=== PATIENT | male | born 1965 | race Caucasian/White ===

== ENCOUNTER → 2017-11-07 | Outpatient (CLI) | payer BC ==
--- NOTE | 2017-11-07 16:04 | CONS ---
CONSULTATION DATE OF SERVICE: 11/07/2017 This patient is a 52-year-old gentleman who has been evaluated in the sleep center for obstructive sleep apnea-hypopnea syndrome. HISTORY OF PRESENT ILLNESS/SLEEP-WAKE EVALUATION: Patient was diagnosed with obstructive sleep apnea in our institution in 2010. At that time, apnea-hypopnea index was 15.6 and respiration was under control with CPAP at the pressure 7 cm of water. Since that time, patient has been on treatment with CPAP and continued to use it until the present time without any significant problems. At present he is using his second CPAP unit and using his machine every night for the whole night. His sleep schedule on working days is from 10:30 p.m. until 6 a.m., and he gets out of bed around 7 a.m. On the weekend his sleep schedule is about the same. No problem with falling asleep. No TV in bedroom. No snoring with the machine. The patient basically sleeps through the night; may have one episode of nocturia. During the day, no sleepiness. He does not take any naps. Hopkins Sleepiness Scale is normal at 5. PAST MEDICAL HISTORY: Tonsillitis. PAST SURGICAL HISTORY: 1. Tonsillectomy. 2. Rhinoplasty. 3. ACL surgery in 2004. MEDICATIONS: None. SOCIAL HISTORY: Negative for smoking. Alcohol consumption occasional. FAMILY HISTORY: Hypertension, heart problems, hyperlipidemia, sinus headaches, sleep apnea, snoring. REVIEW OF SYSTEMS: Basically negative. PHYSICAL EXAMINATION: GENERAL A pleasant gentleman without distress. VITAL SIGNS: BP 104/69, HR 80, RR 16, height 6 feet 1-1/2 inches. Weight 212, BMI 28. Neck 15-1/2 inches in circumference. Temperature 98.0. Oxygen saturation room air 97% HEENT: PERRLA, EOMI. Evaluation of oropharynx showed tongue protrudes midline; low position of soft palate. Slight restriction of nasal breathing. NECK: Supple. No JVD. Thyroid is not palpable. LUNGS: Clear to percussion and to auscultation. Good air exchange. No wheezing or rhonchi. HEART: S1, S2 regular. No murmurs, gallops or rubs. ABDOMEN: Soft and nontender. Bowel sounds are present. No organomegaly appreciated. EXTREMITIES : No clubbing or cyanosis. PHOTOGRAPHIC MACHINE OPERATOR: Awake, alert, and oriented X3. Cranial nerves 2 to 7 intact. There is no fasciculation or atrophy. noted. No focal deficits observed. IMPRESSION: 1. Obstructive sleep apnea-hypopnea syndrome for 7 years. The patient continues to use his CPAP equipment every night for the whole night and sleeps without snoring, benefitting from treatment. 2. Slightly overweight. Patient's weight has increased by 10 pounds since his previous visit about 7 years ago. 3. Status post rhinoplasty. 4. Status post tonsillectomy. 5. Status post ACL surgery in 2004. PLAN: 1. Patient will continue to use his CPAP equipment with the same pressure every night for the whole night. 2. Sleep hygiene with regular time in bed for at least 8 hours. 3. No driving if feeling any sleepiness. 4. Prescription for all necessary CPAP supplies, including mask of patient's choice, tube, filters. Thank you very much for allowing me to participate in the management of your patient. Sincerely, Karlo Thomas MD, PhD, FAASM Diplomat of [place] [employer] [place] [employer] Auditing Coder of [facility] [place] MMODL / HERNÁNN: [id number] /
== END | disposition home or self-care (01) ==
LOC: SLEEP 14:25
PROVIDERS: ATTEND Internal Medicine
DX: G47.33 Obstructive sleep apnea (adult) (pediatric) (principal); E66.3 Overweight; Z99.89 Dependence on other enabling machines and devices; Z98.890 Other specified postprocedural states; Z87.09 Personal history of other diseases of the respiratory system; Z68.28 Body mass index [BMI] 28.0-28.9, adult
CPT/HCPCS: 99211

== ENCOUNTER → 2018-01-07 | Outpatient (CLI) | payer BC ==
--- NOTE | 2018-01-07 22:14 | US ---
EXAMINATION TYPE: US scrotum with doppler. Grayscale and color Doppler Duplex imaging performed of t manjinder scrotum. DATE OF EXAM: 01/07/2018 COMPARISON: NONE CLINICAL HISTORY: N45.1 Epididimitis. Right testicle pain and swelling. EXAM MEASUREMENTS: TESTICLES: Right Testicle: 4.7 x 3.1 x 3.7 cm Left Testicle: 4.4 x 3.0 x 4.2 cm EPIDIDYMIS HEAD: Right Epididymis: 1.4 x 1.2 x 1.2 cm Left Epididymis: 1.3 x 1.2 x 1.4 cm Doppler performed to assess for testicular vascularity; good bilateral color flow and waveforms are s een. There is no evidence of testicular torsion. Presence of hydroceles: Yes bilateral with debris seen on right side. Presence of varicoceles: No. Bilateral hydroceles visualized with normal color doppler flow. IMPRESSION: No testicular torsion or mass. Bilateral mild to moderate hydroceles. There is some echog enicity within the right side fluid of uncertain significance.
== END | disposition home or self-care (01) ==
LOC: RADUSMAIN 17:51
PROVIDERS: ATTEND Family Medicine
DX: N43.3 Hydrocele, unspecified (principal)
CPT/HCPCS: 76870; 93975

== ENCOUNTER → 2018-06-05 | Outpatient (CLI) | payer BC ==
--- NOTE | 2018-06-05 11:58 | SFUN ---
SLEEP CENTER FOLLOW UP NOTE DATE OF SERVICE: 06/05/2018 This 53-year-old gentleman who has been followed in sleep center for treatment of obstructive sleep apnea-hypopnea syndrome. Patient successfully continued to use CPAP equipment every night for the whole night. Recently feels slightly more tired than usually before. Cougar Sleepiness Scale is normal 2. 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 I checked patient's CPAP unit. CPAP pressure is 7 cm of water. Usage is 100% of the more than 4 hours. Average usage is 8 hours. Mask fitting, 99%. Apnea-hypopnea index reading for the last month 10.4. MEDICATIONS: None. PHYSICAL EXAMINATION: During physical exam, gentleman without distress. VITAL SIGNS: BP 111/71, HR 72, RR 16, height 6 feet 2 inches, weight 210.0, body mass index 26.9, temperature 97.5, oxygen saturation at room air 96%. HEENT: PERRLA, EOMI. The oropharynx low position of soft palate. Mallampati 4. NECK: Supple, no JVD. Thyroid is not palpable. LUNGS: Clear to percussion and to auscultation. Good air exchange. No wheezing or rhonchi. HEART: S1, S2 regular. No murmurs, gallops, or rubs. ABDOMEN: Soft and nontender. Bowel sounds are present. No organomegaly appreciated. EXTREMITIES: No clubbing or cyanosis. AUTOMOTIVE BRAKE TECHNICIAN: Awake, alert, and oriented X3. Cranial nerves 2 to 7 intact. There is no fasciculation or atrophy. noted. No focal deficits observed. IMPRESSION: 1. Obstructive sleep apnea-hypopnea syndrome. The patient demonstrated 100% compliance with treatment benefitting from treatment. Presently apnea-hypopnea index increased to 10.4 for the last month by reading from the machine at the pressure of 7 cm of water. 2. Status post tonsillectomy. 3. Status post rhinoplasty. 4. Status post ACL surgery. 5. 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 PLAN: 1. I changed regimen of the machine to automatic with range of the pressure 5 to 15 cm of water. 2. Patient will continue to use CPAP equipment every night for the whole night. 3. Sleep hygiene with regular time in bed for at least 8 hours. 4. No driving if feeling any sleepiness. 5. I will see patient for followup visit in 1 month to recheck his apnea-hypopnea index reading from the machine and make any necessary adjustments if necessary. Thank you very much for allowing me to participate in management of your patient. Sincerely, Karlo Thomas MD, PhD, FAASM Diplomat of [place] [employer] [place] [employer] Certified Legal Secretary Specialist of [facility] [place] MMODL / KRISTIAN: [id number] /
== END | disposition home or self-care (01) ==
LOC: SLEEP 09:40
PROVIDERS: ATTEND Internal Medicine
DX: G47.33 Obstructive sleep apnea (adult) (pediatric) (principal); Z90.89 Acquired absence of other organs; Z98.890 Other specified postprocedural states; Z99.89 Dependence on other enabling machines and devices

== ENCOUNTER 2018-06-21 15:29 | Emergency (ER) | payer BC ==
[2018-06-21 15:36] VITALS: TEMP 98
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
--- NOTE | 2018-06-21 16:08 | XR ---
EXAMINATION TYPE: XR chest 2V DATE OF EXAM: 06/21/2018 COMPARISON: Chest x-ray May 23, 2013 HISTORY: Chest pain into scapulas. Nausea and vomiting. TECHNIQUE: Frontal and lateral views of the chest are obtained. FINDINGS: There is no focal air space opacity, pleural effusion, or pneumothorax seen. The cardiac silhouette size is within normal limits. Displaced fracture through the middle one third left clavicl e noted. IMPRESSION: No suspicious acute cardiopulmonary process.
[2018-06-21] MEDS ORDERED: HYDROcodone/APAP 7.5-325MG 1 EACH TAB PO ONE (16:25)
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
[2018-06-21] MEDS ORDERED: KETOROLAC 30 MG/ML 1 ML VIAL IVP STA ×2 (16:46→16:48)
[2018-06-21 17:24] VITALS: BP 120/74; PULSE 98; RESP 16
== END 2018-06-21 17:24 | disposition home or self-care (01) ==
LOC: EC 15:29
DX: S42.002A Fracture of unspecified part of left clavicle, initial encounter for closed fracture (principal); G47.30 Sleep apnea, unspecified; Z99.89 Dependence on other enabling machines and devices; Z87.39 Personal history of other diseases of the musculoskeletal system and connective tissue; Z79.52 Long term (current) use of systemic steroids; Z53.20 Procedure and treatment not carried out because of patient's decision for unspecified reasons; Z53.8 Procedure and treatment not carried out for other reasons; V86.02XA Driver of snowmobile injured in traffic accident, initial encounter; Y92.410 Unspecified street and highway as the place of occurrence of the external cause
CPT/HCPCS: 73030; 73000; 71046; 72125; 70450; 99284; 96374; L3670; J1885

== ENCOUNTER → 2018-06-24 | Outpatient (CLI) | payer BC ==
--- NOTE | 2018-06-25 10:17 | ECHOF ---
Referral Reason:R94.31 Abnormal EKG MEASUREMENTS -------- HEIGHT: 162.6 cm WEIGHT: 95.3 kg BP: IVSd: 1.2 cm (0.6 - 1.1) LVIDd: 4.0 cm (3.9 - 5.3) LVPWd: 1.5 cm (0.6 - 1.1) IVSs: 1.5 cm LVIDs: 3.2 cm LVPWs: 1.8 cm LA Diam: 2.3 cm (2.7 - 3.8) Ao Diam: 3.6 cm (2.0 - 3.7) MV E Christoph: 0.57 m/s MV DecT: 174 ms MV A Christoph: 0.62 m/s MV E/A Ratio: 0.92 RAP: 5.00 mmHg RVSP: 23.23 mmHg MV EF SLOPE: 64.39 mm/s (70 - 150) MV EXCURSION: 2.02 cm (> 18.000) FINDINGS -------- Sinus rhythm. Pt test done standing due to L FX Clavicle. The left ventricular size is normal. There is mild concentric left ventricular hypertrophy. Overa ll left ventricular systolic function is normal with, an EF between 55 - 60 %. The right ventricle is normal in size. The left atrial size is normal. The aortic valve is trileaflet, and appears structurally normal. No aortic stenosis or regurgitation. Mild mitral regurgitation is present. Mild prolapse of the posterior mitral valve leaflet. Mild tricuspid regurgitation present. There is no evidence of pulmonary hypertension. The right v entricular systolic pressure, as measured by Doppler, is 23.23mmHg. There is no pulmonic regurgitation present. The aortic root size is normal. There is no pericardial effusion. CONCLUSIONS -------- 1. Pt test done standing due to L FX Clavicle. 2. The left ventricular size is normal. 3. Overall left ventricular systolic function is normal with, an EF between 55 - 60 %. 4. The right ventricle is normal in size. 5. The left atrial size is normal. 6. The aortic valve is trileaflet, and appears structurally normal. No aortic stenosis or regurgitati on. 7. Mild mitral regurgitation is present. 8. Mild prolapse of the posterior mitral valve leaflet. 9. Mild tricuspid regurgitation present. 10. There is no evidence of pulmonary hypertension. 11. The right ventricular systolic pressure, as measured by Doppler, is 23.23mmHg. 12. There is no pulmonic regurgitation present. 13. The aortic root size is normal. 14. There is no pericardial effusion. MEDICAL CODING INSTRUCTOR: Cecilia Ulloa RDCS
== END ==
LOC: RADECHMAIN 13:04
PROVIDERS: ATTEND Family Medicine
DX: I08.1 Rheumatic disorders of both mitral and tricuspid valves (principal)
CPT/HCPCS: 93306

== ENCOUNTER → 2018-06-26 | Day surgery (SDC) | payer BC ==
[2018-06-24 10:34] VITALS: BMI 26.2
[~2018-06-26] MED LIST: DEXAMETHASONE SOD PHOSPHATE 10 MG/ML 1 ML VIAL IV ONE; GLYCOPYRROLATE 0.2 MG/ML 2 ML VIAL ONE; HYDROmorphone (PF) 1 MG/ML ONE; HYDROmorphone 0.5 MG/0.5 ML SYRINGE IVP PRN; LACTATED RINGERS 1,000 ML IV ONE; LIDOCAINE 1% INJ 10MG/ML (20 ML MDV) ONE; LIDOCAINE 2%-EPI 1:200,000 20 ML VIAL SQ ONE; MIDAZOLAM 2 MG/2 ML VIAL ONE; NEOSTIGMINE 1 MG/ML 10 ML VIAL ONE; ONDANSETRON 4 MG/2 ML VIAL IVP ONE; PROMETHAZINE INJ 25 MG/ML 1 ML VIAL IVPB ONE; PROPOFOL 10 MG/ML 20 ML VIAL IV ONE; ROCURONIUM BROMIDE 10 MG/ML 10 ML VIAL IV ONE; SUCCINYLCHOLINE CHLORIDE 100 MG/5 ML SYR IV ONE; ceFAZolin IN SWFI 2 GM/20 ML SYRINGE IVP ONE; fentaNYL (PF) 50 MCG/ML 2 ML AMP ONE
[2018-06-26 06:28] VITALS: TEMP 97.6
[2018-06-26] MEDS: LACTATED RINGERS 1,000 ML IV SCH ×3 (06:41→11:45)
[2018-06-26] MEDS: SCOPOLAMINE 1.5MG/72HR PATCH TRANSDERM ONE ×2 (06:46→07:10)
--- NOTE | 2018-06-26 09:51 | XR ---
Fluoroscopy History: Lt clavicle ORIF Lt clavicle ORIF, 1 image scanned . 3 sec fluoro
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
[2018-06-26 10:41] VITALS: RESP 16
[2018-06-26 13:11] VITALS: BP 103/64; PULSE 79
== END | disposition home or self-care (01) ==
LOC: OR 05:48
PROVIDERS: ATTEND Orthopaedic Surgery
DX: S42.022A Displaced fracture of shaft of left clavicle, initial encounter for closed fracture (principal); V86.92XA Unspecified occupant of snowmobile injured in nontraffic accident, initial encounter; Y93.29 Activity, other involving ice and snow; D68.0 Von Willebrand disease; S42.262D Displaced fracture of lesser tuberosity of left humerus, subsequent encounter for fracture with routine healing; V86.92XD Unspecified occupant of snowmobile injured in nontraffic accident, subsequent encounter; G47.33 Obstructive sleep apnea (adult) (pediatric); H81.10 Benign paroxysmal vertigo, unspecified ear; M54.2 Cervicalgia; M54.10 Radiculopathy, site unspecified; Z87.442 Personal history of urinary calculi
CPT/HCPCS: 73000; 23515; J2250; J1100; J2550; J2710; J2405; J2001; J3010; J1170; J0330; J2704; J0690

== ENCOUNTER → 2018-07-17 | Outpatient (CLI) | payer BC ==
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
== END | disposition home or self-care (01) ==
LOC: SLEEP 13:14
PROVIDERS: ATTEND Internal Medicine
DX: G47.33 Obstructive sleep apnea (adult) (pediatric) (principal); S29.9XXA Unspecified injury of thorax, initial encounter; Z90.89 Acquired absence of other organs; Z98.890 Other specified postprocedural states; Z99.89 Dependence on other enabling machines and devices

== ENCOUNTER 2021-03-10 11:22 | Emergency (ER) | payer BC ==
[2021-03-10 11:27] VITALS: BP 121/78; PULSE 86; RESP 18; TEMP 97.5
[2021-03-10] MEDS ORDERED: LIDOCAINE/EPINEPHR/TETRACAINE 5 ML BOTTLE TOPICAL ONE (11:58)
--- NOTE | 2021-03-10 11:58 | ED ---
Wound/Laceration HPI - General Chief Complaint: Wound/Laceration Stated Complaint: facial lac Time Seen by Provider: 03/10/21 11:41 Source: patient, RN notes reviewed Mode of arrival: ambulatory Limitations: no limitations - History of Present Illness Initial Comments: Patient is a 56-year-old male presented to ED for left lower lip laceration. Patient states that while chopping wood handle of axe slipped and caught him in the lower lip. Patient states that laceration won't stop bleeding that being the reason he came to ED. Patient states that last tetanus was within the last 5 years, "thinks he is up-to-date". Patient states no numbness or tingling or dental damage associated with injury. Patient denies any other injuries with incident. - Related Data Home Medications Medication Instructions Recorded Confirmed traMADol HCL [Ultram] 50 mg PO Q6HR PRN 06/24/18 06/26/18 Previous Rx's Medication Instructions Recorded Ibuprofen [Motrin] 600 mg PO Q6HR PRN #40 day 06/21/18 Docusate [Colace] 100 mg PO BID #60 capsule 06/26/18 Hydrocodone/Acetaminophen [[place] 1 - 2 tab PO Q4-6H PRN #40 tab 06/26/18 5-325] Allergies Allergy/AdvReac Type Severity Reaction Status Date / Time No Known Allergies Allergy Verified 03/10/21 11:26 Review of Systems ROS Statement: Those systems with pertinent positive or pertinent negative responses have been documented in the HPI. ROS Other: All systems not noted in ROS Statement are negative. Past Medical History Past Medical History: Osteoarthritis (OA), Sleep Apnea/CPAP/BIPAP Additional Past Medical History / Comment(s): C-PAP/ SEE DR MARINO HISTORY AND PHYSICAL (CARDIAC), VON WILLEBRAND DISEASE History of Any Multi-Drug Resistant Organisms: None Reported Past Surgical History: Orthopedic Surgery, Tonsillectomy Additional Past Surgical History / Comment(s): NASAL SURGERY , RIGHT KNEE ARTHROSCOPIC shoulder surgery Past Anesthesia/Blood Transfusion Reactions: Previous Problems w/ Anesthesia, Motion Sickness Additional Past Anesthesia/Blood Transfusion Reaction / Comment(s): VON WILLEBRAND DISEASE- INCREASED BLEEDING WITH PREVIOUS SURGERY Past Psychological History: No Psychological Hx Reported Smoking Status: Never smoker Past Alcohol Use History: Occasional Past Drug Use History: None Reported - Past Family History Daughter(s) Family Medical History: Deep Vein Thrombosis (DVT) General Exam Limitations: no limitations General appearance: alert, in no apparent distress Expanded Mouth exam: Present: normal external inspection, laceration (Lower lip) Teeth exam: Present: normal inspection Respiratory exam: Present: normal lung sounds bilaterally. Absent: respiratory distress, wheezes, rales, rhonchi, stridor Cardiovascular Exam: Present: regular rate, normal rhythm, normal heart sounds. Absent: systolic murmur, diastolic murmur, rubs, gallop, clicks Neurological exam: Present: alert, oriented X3 Skin exam: Present: warm, dry, intact, normal color. Absent: rash Course Vital Signs 03/10/21 11:23 Temperature 97.5 F L Pulse Rate 86 Respiratory 18 Rate Blood Pressure 121/78 O2 Sat by Pulse 97 Oximetry Procedures - Procedures Initial comment: Facial laceration was cleaned, let solution was applied, EXOFIN adhesive glue was used to close the wound Medical Decision Making - Medical Decision Making Wound was cleaned, closed with dermal adhesive tetanus is up-to-date. Disposition Clinical Impression: Lip laceration Disposition: HOME SELF-CARE Condition: Stable Instructions (If sedation given, give patient instructions): Laceration (ED), Skin Adhesive Care (ED) Additional Instructions: Please return to the Emergency Department if symptoms worsen or any other concerns. Is patient prescribed a controlled substance at d/c from ED?: No Referrals: Ld Boudreaux MD [Primary Care Provider] - 1-2 days Time of Disposition: 12:35
[2021-03-10] MEDS ORDERED: TOPICAL SKIN ADHESIVE 1 EACH AMP TOPICAL ONE (12:28)
== END 2021-03-10 12:43 | disposition home or self-care (01) ==
LOC: EC 11:22
DX: S01.511A Laceration without foreign body of lip, initial encounter (principal); M19.90 Unspecified osteoarthritis, unspecified site; Z90.89 Acquired absence of other organs; W31.2XXA Contact with powered woodworking and forming machines, initial encounter
CPT/HCPCS: 12011; 99282

== ENCOUNTER 2021-09-29 07:37 | Day surgery (SDC) | payer BC ==
[2021-09-27 17:09] VITALS: BMI 27.5
[~2021-09-29 07:37] MED LIST changes: -DEXAMETHASONE SOD PHOSPHATE 10 MG/ML 1 ML VIAL IV ONE; -GLYCOPYRROLATE 0.2 MG/ML 2 ML VIAL ONE; -HYDROmorphone (PF) 1 MG/ML ONE; -HYDROmorphone 0.5 MG/0.5 ML SYRINGE IVP PRN; -LACTATED RINGERS 1,000 ML IV ONE; +LACTATED RINGERS 1,000 ML IV SCH; +LIDOCAINE 1% (10MG/ML) FOR IV START INTRADERMA PRN; -LIDOCAINE 1% INJ 10MG/ML (20 ML MDV) ONE; -LIDOCAINE 2%-EPI 1:200,000 20 ML VIAL SQ ONE; -MIDAZOLAM 2 MG/2 ML VIAL ONE; -NEOSTIGMINE 1 MG/ML 10 ML VIAL ONE; -ONDANSETRON 4 MG/2 ML VIAL IVP ONE; +ONDANSETRON 4 MG/2 ML VIAL IVP PRN; -PROMETHAZINE INJ 25 MG/ML 1 ML VIAL IVPB ONE; -PROPOFOL 10 MG/ML 20 ML VIAL IV ONE; -ROCURONIUM BROMIDE 10 MG/ML 10 ML VIAL IV ONE; -SUCCINYLCHOLINE CHLORIDE 100 MG/5 ML SYR IV ONE; -ceFAZolin IN SWFI 2 GM/20 ML SYRINGE IVP ONE; -fentaNYL (PF) 50 MCG/ML 2 ML AMP ONE
[2021-09-29 08:04] VITALS: RESP 16; TEMP 98.4
[2021-09-29] MEDS ORDERED: ONDANSETRON 4 MG/2 ML VIAL IVP ONE (08:05)
[2021-09-29] MEDS ORDERED: PROPOFOL 10 MG/ML 20 ML VIAL IV ONE (09:03)
--- NOTE | 2021-09-29 09:28 | P.PCN ---
Date of Procedure: 09/29/21 Procedure(s) Performed: BRIEF HISTORY: Patient is a 56-year-old pleasant white male scheduled for an elective colonoscopy as a part of screening for colon cancer PROCEDURE PERFORMED: Colonoscopy with snare polypectomy . PREOPERATIVE DIAGNOSIS: Screening for colon cancer. IV sedation per Anesthesia. PROCEDURE: After informed consent was obtained, the patient, was brought into the endoscopy unit. IV sedation was administered by Anesthesia under continuous monitoring. Digital rectal examination was normal. Initially the Olympus CF-160 flexible video colonoscope was then inserted in the rectum, gradually advanced into the cecum without any difficulty. Careful examination was performed as the scope was gradually being withdrawn. Ileocecal valve and the appendiceal orifice were visualized and appeared normal. Prep was excellent. Mucosa of the cecum, ascending colon, transverse colon, descending colon normal. In the sigmoid there was a 5 mm sessile polyp that was removed by snare polypectomy. Rest of the, sigmoid colon, and rectum appeared normal. Retroflexion was performed in the rectum and no lesions were seen. The patient tolerated the procedure well. IMPRESSION: 5 mm; sigmoid polyp status post polypectomy Rest of the colon appeared normal RECOMMENDATIONS: Findings of this examination were discussed with the patient well as his family. He was advised to follow with the biopsy results. If the biopsy reveals adenoma he can have a repeat colonoscopy in 5 years.
[2021-09-29 09:50] VITALS: BP 118/80; PULSE 68
== END 2021-09-29 10:26 | disposition home or self-care (01) ==
LOC: ORWHC2ENDO 07:37
PROVIDERS: ATTEND Internal Medicine Gastroenterology
DX: Z12.11 Encounter for screening for malignant neoplasm of colon (principal); D12.5 Benign neoplasm of sigmoid colon
CPT/HCPCS: 45385; 88305; J2405; J2704

== ENCOUNTER 2023-02-01 16:40 | Inpatient (IN) | payer BC ==
[2023-02-01] MEDS ORDERED: DILTIAZEM DRIP BOLUS FROM BAG 1 MG SOLN IV ONE (16:46)
[2023-02-01] MEDS ORDERED: SODIUM CHLORIDE 0.9% 500 ML 500 ML IV STA (16:46)
--- NOTE | 2023-02-01 16:51 | ED ---
General Adult HPI - General Stated complaint: Chest Pain Time Seen by Provider: 02/01/23 16:40 Source: patient, RN notes reviewed, old records reviewed - History of Present Illness Initial comments: This is a 58-year-old male who presents emergency department stating that about a half hour prior to arrival he felt his heart start flutter and he became very lightheaded and thought he might pass out so he called EMS he was brought to the emergency part per patient has no medical history of significance takes no medications. Patient states his father did have significant cardiac history and had A. fib. Patient look like he was in atrial fibrillation according to EMS. Patient denies any significant shortness of breath per patient denies any chest pain. Patient denies any recent fever chills or cough. Patient denies any abdominal pain patient denies nausea vomiting diarrhea. - Related Data Home Medications Medication Instructions Recorded Confirmed No Known Home Medications 09/27/21 02/01/23 Allergies Allergy/AdvReac Type Severity Reaction Status Date / Time No Known Allergies Allergy Verified 02/01/23 19:27 Review of Systems ROS Statement: Those systems with pertinent positive or pertinent negative responses have been documented in the HPI. ROS Other: All systems not noted in ROS Statement are negative. Past Medical History Past Medical History: Blood Disorder, Osteoarthritis (OA), Sleep Apnea/CPAP/BIPAP Additional Past Medical History / Comment(s): uses C-PAP, VON WILLEBRAND DISEASE History of Any Multi-Drug Resistant Organisms: None Reported Past Surgical History: Orthopedic Surgery, Tonsillectomy Additional Past Surgical History / Comment(s): NASAL SURGERY , RIGHT KNEE ACL ARTHROSCOPIC, shoulder surgery Past Anesthesia/Blood Transfusion Reactions: Previous Problems w/ Anesthesia, Motion Sickness Additional Past Anesthesia/Blood Transfusion Reaction / Comment(s): VON WILLEBRAND DISEASE- INCREASED BLEEDING WITH PREVIOUS SURGERY Smoking Status: Never smoker - Past Family History Daughter(s) Family Medical History: Deep Vein Thrombosis (DVT) General Exam - General Exam Comments Initial Comments: GENERAL: Patient is well-developed and well-nourished. Patient is nontoxic and well- hydrated and is in mild distress. ENT: Neck is soft and supple. No significant lymphadenopathy is noted. Oropharynx is clear. Moist mucous membranes. Neck has full range of motion without eliciting any pain. EYES: The sclera were anicteric and conjunctiva were pink and moist. Extraocular movements were intact and pupils were equal round and reactive to light. Eyelids were unremarkable. PULMONARY: Unlabored respirations. Good breath sounds bilaterally. No audible rales rhonchi or wheezing was noted. CARDIOVASCULAR: Patient is tachycardic and irregular and about 140 beats minute ABDOMEN: Soft and nontender with normal bowel sounds. SKIN: Skin is clear with no lesions or rashes and otherwise unremarkable. NEUROLOGIC: Patient is alert and oriented x3. Cranial nerves II through XII are grossly intact. Motor and sensory are also intact. Normal speech, volume and content. Symmetrical smile. MUSCULOSKELETAL: Normal extremities with adequate strength and full range of motion. There is no calf tenderness or edema to the legs LYMPHATICS: No significant lymphadenopathy is noted PSYCHIATRIC: Normal psychiatric evaluation. Course Vital Signs 02/01/23 02/01/23 02/01/23 16:49 17:17 17:25 Temperature 98.2 F Pulse Rate 144 H 122 H Pulse Rate [ 140 H Agricultural Engineer ] Respiratory 18 19 Rate Blood Pressure 115/90 111/83 O2 Sat by Pulse 99 96 Oximetry 02/01/23 18:00 Temperature 98.3 F Pulse Rate 133 H Pulse Rate [ Agricultural Engineer ] Respiratory 20 Rate Blood Pressure 90/73 O2 Sat by Pulse 97 Oximetry Medical Decision Making - Medical Decision Making EKG was interpreted by myself. EKG shows atrial flutter with rapid ventricular response. EKG shows rate was 133 bpm QRS is under 26 QT interval is 213 QTC is 391 per patient's EKG shows no ST segment elevation patient has a right bundle ina block. Was pt. sent in by a medical professional or institution (, PA, BALLISTICS PROFESSOR, urgent care, hospital, or half-way...) When possible be specific @ -No Did you speak to anyone other than the patient for history (EMS, parent, family, police, friend...)? What history was obtained from this source @ -No Did you review nursing and triage notes (agree or disagree)? Why? @ -I reviewed and agree with nursing and triage notes Were old charts reviewed (outside hosp., previous admission, EMS record, old EKG, old radiological studies, urgent care reports/EKG's, half-way records)? Report findings @ -No old charts were reviewed Differential Diagnosis (chest pain, altered mental status, abdominal pain women, abdominal pain men, vaginal bleeding, weakness, fever, dyspnea, syncope, headache, dizziness, GI bleed, back pain, seizure, CVA, palpatations, mental health, musculoskeletal)? @ -Differential Palpitations Ventricular arrhythmias, atrial arrhythmias, myocardial infarction, anemia, thyrotoxicosis, electrolyte imbalance, hypokalemia, pulmonary embolism, pulmonary disease, drugs, alcohol, anxiety, stress.... This is not meant to be an all-inclusive list. EKG interpreted by me (3pts min.). @ -As above X-rays interpreted by me (1pt min.). @ -Chest x-ray shows no acute abnormality CT interpreted by me (1pt min.). @ -None done U/S interpreted by me (1pt. min.). @ -None done What testing was considered but not performed or refused? (CT, X-rays, U/S, labs)? Why? @ -None What meds were considered but not given or refused? Why? @ -None Did you discuss the management of the patient with other professionals (professionals i.e. , PA, BALLISTICS PROFESSOR, lab, RT, psych nurse, social media campaign manager, personal lines account manager, teacher, special assets officer, special education case manager)? Give summary @ -I spoke with sound physicians and they agreed to admit the patient Was smoking cessation discussed for >3mins.? @ -No Was critical care preformed (if so, how long)? @ -35 minutes Were there social determinants of health that impacted care today? How? (Homelessness, low income, unemployed, alcoholism, drug addiction, tr ansportation, low edu. Level, literacy, decrease access to med. care, long term, rehab)? @ -No Was there de-escalation of care discussed even if they declined (Discuss DNR or withdrawal of care, Hospice)? DNR status @ -No What co-morbidities impacted this encounter? (DM, HTN, Smoking, COPD, CAD, Cancer, CVA, ARF, Chemo, Hep., AIDS, mental health diagnosis, sleep apnea, morbid obesity)? @ -None Was patient admited / discharged? Hospital course, mention meds given and route, prescriptions, significant lab abnormalities, going to OR and other pertinent info. @ -Patient was in atrial fibrillation with rapid ventricular response. I started the patient on a Cardizem drip after I gave the patient a Cardizem bolus per patient was also started on heparin. Patient received 2 L of normal saline. Undiagnosed new problem with uncertain prognosis? @ -No Drug Therapy requiring intensive monitoring for toxicity (Heparin, Nitro, Insulin, Cardizem)? @ -No Were any procedures done? @ -No Diagnosis/symptom? @ -A. fib with rapid ventricular response Acute, or Chronic, or Acute on Chronic? @ -Acute Uncomplicated (without systemic symptoms) or Complicated (systemic symptoms)? @ -Complicated Side effects of treatment? @ -No Exacerbation, Progression, or Severe Exacerbation? @ -No Poses a threat to life or bodily function? How? (Chest pain, USA, SC, pneumonia, PE, COPD, DKA, ARF, appy, cholecystitis, CVA, Diverticulitis, Homicidal, Suicidal, threat to staff... and all critical care pts) @ -No - Lab Data Result diagrams: 02/01/23 16:53 02/01/23 16:53 Lab Results 02/01/23 02/01/23 02/01/23 Range/Units 16:53 16:53 16:53 WBC 6.9 (3.8-10.6) k/uL RBC 4.89 (4.30-5.90) m/uL Hgb 14.5 (13.0-17.5) gm/dL Hct 41.8 (39.0-53.0) % MCV 85.6 (80.0-100.0) fL MCH 29.7 (25.0-35.0) pg MCHC 34.7 (31.0-37.0) g/dL RDW 12.1 (11.5-15.5) % Plt Count 214 (150-450) k/uL MPV 7.9 Neutrophils % 65 % Lymphocytes % 25 % Monocytes % 7 % Eosinophils % 2 % Basophils % 0 % Neutrophils # 4.5 (1.3-7.7) k/uL Lymphocytes # 1.8 (1.0-4.8) k/uL Monocytes # 0.5 (0-1.0) k/uL Eosinophils # 0.1 (0-0.7) k/uL Basophils # 0.0 (0-0.2) k/uL PT 14.5 H (9.0-12.0) sec INR 1.4 H (<1.2) APTT 35.9 H (22.0-30.0) sec Sodium 141 (137-145) mmol/L Potassium 3.8 (3.5-5.1) mmol/L Chloride 110 H (98-107) mmol/L Carbon Dioxide 22 (22-30) mmol/L Anion Gap 9 mmol/L BUN 26 H (9-20) mg/dL Creatinine 0.85 (0.66-1.25) mg/dL Est GFR (CKD-EPI)AfAm >90 (>60 ml/min/1.73 sqM) Est GFR (CKD-EPI)NonAf >90 (>60 ml/min/1.73 sqM) Glucose 147 H (74-99) mg/dL Calcium 9.6 (8.4-10.2) mg/dL Magnesium 2.2 (1.6-2.3) mg/dL Total Bilirubin 0.8 (0.2-1.3) mg/dL AST 42 (17-59) U/L ALT 45 (4-49) U/L Alkaline Phosphatase 75 (38-126) U/L Troponin I (0.000-0.034) ng/mL Total Protein 7.4 (6.3-8.2) g/dL Albumin 4.5 (3.5-5.0) g/dL TSH 1.720 (0.465-4.680) mIU/L Urine Opiates Screen (NotDetected) Ur Oxycodone Screen (NotDetected) Urine Methadone Screen (NotDetected) Ur Propoxyphene Screen (NotDetected) Ur Barbiturates Screen (NotDetected) U Tricyclic Antidepress (NotDetected) Ur Phencyclidine Scrn (NotDetected) Ur Amphetamines Screen (NotDetected) U Methamphetamines Scrn (NotDetected) U Benzodiazepines Scrn (NotDetected) Urine Cocaine Screen (NotDetected) U Marijuana (THC) Screen (NotDetected) 02/01/23 02/01/23 Range/Units 16:53 16:53 WBC (3.8-10.6) k/uL RBC (4.30-5.90) m/uL Hgb (13.0-17.5) gm/dL Hct (39.0-53.0) % MCV (80.0-100.0) fL MCH (25.0-35.0) pg MCHC (31.0-37.0) g/dL RDW (11.5-15.5) % Plt Count (150-450) k/uL MPV Neutrophils % % Lymphocytes % % Monocytes % % Eosinophils % % Basophils % % Neutrophils # (1.3-7.7) k/uL Lymphocytes # (1.0-4.8) k/uL Monocytes # (0-1.0) k/uL Eosinophils # (0-0.7) k/uL Basophils # (0-0.2) k/uL PT (9.0-12.0) sec INR (<1.2) APTT (22.0-30.0) sec Sodium (137-145) mmol/L Potassium (3.5-5.1) mmol/L Chloride (98-107) mmol/L Carbon Dioxide (22-30) mmol/L Anion Gap mmol/L BUN (9-20) mg/dL Creatinine (0.66-1.25) mg/dL Est GFR (CKD-EPI)AfAm (>60 ml/min/1.73 sqM) Est GFR (CKD-EPI)NonAf (>60 ml/min/1.73 sqM) Glucose (74-99) mg/dL Calcium (8.4-10.2) mg/dL Magnesium (1.6-2.3) mg/dL Total Bilirubin (0.2-1.3) mg/dL AST (17-59) U/L ALT (4-49) U/L Alkaline Phosphatase (38-126) U/L Troponin I <0.012 (0.000-0.034) ng/mL Total Protein (6.3-8.2) g/dL Albumin (3.5-5.0) g/dL TSH (0.465-4.680) mIU/L Urine Opiates Screen Not Detected (NotDetected) Ur Oxycodone Screen Not Detected (NotDetected) Urine Methadone Screen Not Detected (NotDetected) Ur Propoxyphene Screen Not Detected (NotDetected) Ur Barbiturates Screen Not Detected (NotDetected) U Tricyclic Antidepress Not Detected (NotDetected) Ur Phencyclidine Scrn Not Detected (NotDetected) Ur Amphetamines Screen Not Detected (NotDetected) U Methamphetamines Scrn Not Detected (NotDetected) U Benzodiazepines Scrn Not Detected (NotDetected) Urine Cocaine Screen Not Detected (NotDetected) U Marijuana (THC) Screen Not Detected (NotDetected) Critical Care Time Critical Care Time: Yes Total Critical Care Time: 35 Disposition Clinical Impression: Atrial fibrillation with rapid ventricular response Disposition: ADMITTED IP TO THIS HOSP Referrals: Ld Boudreaux MD [Primary Care Provider] - 1-2 days Time of Disposition: 19:41
[2023-02-01] MEDS ORDERED: DILTIAZEM 125 MG in SODIUM CHLORIDE 0.9% 100 ML IV SCH (17:00)
[2023-02-01] MEDS ORDERED: NITROGLYCERIN SL TABS 0.4 MG TAB SUBLINGUAL PRN ×2 (17:00→19:41)
[2023-02-01 17:09] LABS: Basophils % (A) 0 %; Eosinophils # (A) 0.1 k/uL (0-0.7); Eosinophils % (A) 2 %; HCT 41.8 % (39.0-53.0); HGB 14.5 gm/dL (13.0-17.5); Lymphocytes # (A) 1.8 k/uL (1.0-4.8); Lymphocytes % (A) 25 %; MCH 29.7 pg (25.0-35.0); MCHC 34.7 g/dL (31.0-37.0); MCV 85.6 fL (80.0-100.0); Mean Platelet Volume 7.9; Monocytes # (A) 0.5 k/uL (0-1.0); Monocytes % (A) 7 %; Neutrophils # (A) 4.5 k/uL (1.3-7.7); Neutrophils % (A) 65 %; Platelet Count 214 k/uL (150-450); RBC 4.89 m/uL (4.30-5.90); RDW 12.1 % (11.5-15.5); WBC 6.9 k/uL (3.8-10.6)
[2023-02-01 17:18] LABS: ALT 45 U/L (4-49); AST 42 U/L (17-59); African American GFR (CKD) >90 (>60 ml/min/1.73 sqM); Albumin 4.5 g/dL (3.5-5.0); Alkaline Phosphatase 75 U/L (38-126); Anion Gap 9 mmol/L; Blood Urea Nitrogen 26 mg/dL (9-20); Calcium 9.6 mg/dL (8.4-10.2); Carbon Dioxide 22 mmol/L (22-30); Chloride 110 mmol/L (98-107); Glucose 147 mg/dL (74-99); Magnesium 2.2 mg/dL (1.6-2.3); Non-African American GFR(CKD) >90 (>60 ml/min/1.73 sqM); Potassium 3.8 mmol/L (3.5-5.1); Sodium 141 mmol/L (137-145); Total Bilirubin 0.8 mg/dL (0.2-1.3); Total Protein 7.4 g/dL (6.3-8.2)
[2023-02-01 17:39] LABS: INR 1.4 (<1.2); Partial Thromboplastin Time 35.9 sec (22.0-30.0); Prothrombin Time 14.5 sec (9.0-12.0)
[2023-02-01 17:47] LABS: Amphetamine Screen,Urine Not Detected (NotDetected); Barbiturate Screen,Urine Not Detected (NotDetected); Benzodiazepines Screen,Urine Not Detected (NotDetected); Cocaine Screen,Urine Not Detected (NotDetected); Methadone Screen, Urine Not Detected (NotDetected); Opiate Screen,Urine Not Detected (NotDetected); Oxycodone Screen, Urine Not Detected (NotDetected); Phencyclidine Screen,Urine Not Detected (NotDetected); Tricyclic Antidepressant,Urine Not Detected (NotDetected); Urn Cannabinoid Scrn Not Detected (NotDetected)
[2023-02-01] MEDS ORDERED: NITROGLYCERIN OINT 1 INCH/GM PACKET TOPICAL SCH (18:00)
--- NOTE | 2023-02-01 18:42 | XR ---
EXAMINATION TYPE: XR chest 2V DATE OF EXAM: 02/01/2023 COMPARISON: 06/21/2018 HISTORY: Shortness of breath TECHNIQUE: Frontal and lateral views of the chest are obtained. FINDINGS: Scattered senescent parenchymal changes noted. Hyperinflation compatible with COPD. No evidence for infiltrate. No evidence for atelectasis. Heart size is stable. Mediastinal structures are stable and grossly unremarkable. No evidence for hilar prominence. Degenerative changes dorsal spine. Postoperative fixation left clavicle. IMPRESSION: 1. No evidence for acute pulmonary disease.
[2023-02-01] MEDS ORDERED: SODIUM CHLORIDE 0.9% 500 ML 500 ML IV ONE (18:56)
[2023-02-01] MEDS ORDERED: HEPARIN SODIUM 1,000 UN/ML (10ML VL) IV ONE (19:37)
[2023-02-01] MEDS ORDERED: SODIUM CHLORIDE 0.9% 1,000 ML IV ONE (19:40)
[2023-02-01] MEDS ORDERED: HEPARIN SOD,PORK IN 0.45% NACL 25,000 UNIT in 0.45% NACL 1 250ML.BAG IV SCH (19:45)
--- NOTE | 2023-02-02 02:04 | P.HPIM ---
History of Present Illness H&P Date: 02/01/23 The patient is a 58-year-old male with no known PMH who presented to the emergency room with complaint of palpitations. 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 The palpitations were accompanied by lightheadedness. He denies experiencing chest discomfort or shortness of breath. Also denied fever, chills, cough, nausea, vomiting. He reports previously having short-lived episode of palpitations a week ago for which he was seen by Dr Shepard, who discovered a murmur and had ordered an echocardiogram which was yet to be performed. He reported that the palpitations resolved soon after arrival in the emergency room and that he felt that his baseline at the time of interview. Upon arrival in the emergency room, EKG revealed A. fib with RVR at 133 bpm. Chest x-ray was unremarkable. Lab evaluation was remarkable for troponin of less than 0.012, glucose 147, with an unremarkable urine toxicology report. ED documentation reviewed and case discussed with ED provider. Review of systems: Pertinent positives and negatives as discussed in HPI, a complete review of systems was performed and all other systems are negative. Physical examination: Vital signs reviewed General: non toxic, no distress, appears at stated age, normal weight Derm: no unusual rashes/lesions, warm Head: atraumatic, normocephalic, symmetric Eyes: EOMI, no lid lag, anicteric sclera, pupils equal round reactive to light ENT: Nose and ears atraumatic Neck: No cervical lymphadenopathy, trachea midline, supple Mouth: no lip lesion, mucus membranes moist Cardiovascular: S1S2 reg, grade 3 systolic murmur appreciated, positive dorsalis pedis pulse bilateral, no edema Lungs: CTA bilateral, no rhonchi, no rales, no accessory muscle use Abdominal: soft, nontender to palpation, no guarding Ext: muscle strength 5 out of 5 in all 4 extremities grossly, no gross muscle atrophy, no contractures, Neuro: CN II-XI grossly intact, no gross focal neuro deficits Psych: Alert, oriented, appropriate affect Assessment: New-onset A. fib with RVR Systolic murmur Hyperglycemia Imaging: Upon arrival in the emergency room, EKG revealed A. fib with RVR at 133 bpm. Chest x-ray was unremarkable. Data Review: Lab evaluation was remarkable for troponin of less than 0.012, glucose 147, with an unremarkable urine toxicology report. Plan: Continue with Cardizem and heparin infusions Cardiology consulted Cardiac monitoring Check A1c Echocardiogram ordered DVT prophylaxis: Heparin infusion The patient is admitted with an anticipated greater than 2 midnight stay for evaluation of afib with rvr CODE STATUS: Full Code Discussed with: Patient Anticipated discharge place: Home Past Medical History Past Medical History: Blood Disorder, Osteoarthritis (OA), Sleep Apnea/CPAP/BIPAP Additional Past Medical History / Comment(s): uses C-PAP, VON WILLEBRAND DISEASE History of Any Multi-Drug Resistant Organisms: None Reported Past Surgical History: Orthopedic Surgery, Tonsillectomy Additional Past Surgical History / Comment(s): NASAL SURGERY , RIGHT KNEE ACL ARTHROSCOPIC, shoulder surgery Past Anesthesia/Blood Transfusion Reactions: Previous Problems w/ Anesthesia, Motion Sickness Additional Past Anesthesia/Blood Transfusion Reaction / Comment(s): VON WILLEBRAND DISEASE- INCREASED BLEEDING WITH PREVIOUS SURGERY Smoking Status: Never smoker - Past Family History Daughter(s) Family Medical History: Deep Vein Thrombosis (DVT) Medications and Allergies Home Medications Medication Instructions Recorded Confirmed Type No Known Home Medications 09/27/21 02/01/23 History Allergies Allergy/AdvReac Type Severity Reaction Status Date / Time No Known Allergies Allergy Verified 02/01/23 19:27 Physical Exam Vitals: Vital Signs Temp Pulse Pulse Resp BP Pulse Ox 02/01/23 20:07 130 H 20 96/59 98 02/01/23 18:00 98.3 F 133 H 20 90/73 97 02/01/23 17:25 122 H 19 111/83 96 02/01/23 17:17 140 H 02/01/23 16:49 98.2 F 144 H 18 115/90 99 Intake and Output 02/01/23 02/01/23 02/01/23 06:59 14:59 22:59 Other: Weight 104.326 kg Results CBC & Chem 7: 02/01/23 16:53 02/01/23 16:53 Labs: Abnormal Lab Results - Last 24 Hours (Table) 02/01/23 02/01/23 Range/Units 16:53 16:53 PT 14.5 H (9.0-12.0) sec INR 1.4 H (<1.2) APTT 35.9 H (22.0-30.0) sec Chloride 110 H (98-107) mmol/L BUN 26 H (9-20) mg/dL Glucose 147 H (74-99) mg/dL
[2023-02-02] MEDS ORDERED: ASPIRIN 325 MG TAB PO SCH ×2 (09:00)
[2023-02-02] MEDS ORDERED: METOPROLOL TARTRATE 25 MG TAB PO SCH (09:00)
[2023-02-02] MEDS ORDERED: ASPIRIN 81 MG PO SCH (09:00)
[2023-02-02 11:28] LABS: Chol/HDL Ratio 4.71 Ratio; LDL Cholesterol,Calculated 140.7 mg/dL (0.0-131.0)
[2023-02-02] MEDS ORDERED: HEPARIN SODIUM 1,000 UN/ML (10ML VL) IV PRN (11:52)
[2023-02-02 12:08] VITALS: BP 111/68; PULSE 60; RESP 16; TEMP 98.8
--- NOTE | 2023-02-02 12:52 | P.CRDCN ---
History of Present Illness Consult date: 02/02/23 History of present illness: HISTORY OF PRESENTING ILLNESS 58-year-old with no significant past medical history other than also to sleep apnea presented to the ER because of complaints of palpitations. Patient reports that over last 1-2 months he has been experiencing on and off palpitations. Yesterday's event was some longest and therefore he presented to the ER. Usually it resolves spontaneously in a few minutes but yesterday persisted. On presentation to ER he was noticed to have atrial fibrillation with RVR on his ECG with age-related history changes noticed in anterolateral and inferior leads. He converted spontaneously to normal sinus rhythm. Post conversion his ECG showed T-wave inversions in lead III. Patient denied having any symptoms of chest pain chest pressure or shortness of breath then he was having palpitations. He denied having any lightheadedness. He did feel slightly weak overall when he was in atrial fibrillation. His labs are essentially within normal limits with negative troponin. He has seen Dr. smith in clinic and was scheduled for an outpatient echocardiogram. REVIEW OF SYSTEMS 14 point review of system is negative except what is mentioned above in HPI. PHYSICAL EXAMINATION Vital signs reviewed. Head: Normocephalic. Eyes: Sclerae nonicteric. Neck: Brisk carotid upstroke, no jugular venous distention. Lungs: Clear to auscultation. Heart: Regular rate and rhythm, S1-S2, no S3, systolic murmur audible in the aortic area Abdomen: Soft nontender, positive bowel sounds no organomegaly. Extremities: No edema, intact distal pulses. ASSESSMENT New-onset paroxysmal atrial fibrillation. Symptomatic with palpitations and fatigue. [id number] score 0 Moderate to severe eccentric mitral regurgitation, likely primary amount due to posterior leaflet prolapse PLAN Start aspirin 81 mg daily Start metoprolol 25 mg twice a day Start atorvastatin 20 mg daily Patient should follow-up with Dr. smith in next 1 week. May benefit from 7-14 days event monitor quantify burden of atrial fibrillation and rate response and beta akanksha Patient will need an outpatient transesophageal echocardiogram, left heart cath in the right heart catheterization. He needs ischemic evaluation because he had ST changes with fast heart rate. He needs GREG and [facility]HC to evaluate surgical candidacy for mitral regurgitation Okay to dc today. Past Medical History Past Medical History: Blood Disorder, Osteoarthritis (OA), Sleep Apnea/CPAP/BIPAP Additional Past Medical History / Comment(s): uses C-PAP, VON WILLEBRAND DISEASE History of Any Multi-Drug Resistant Organisms: None Reported Past Surgical History: Orthopedic Surgery, Tonsillectomy Additional Past Surgical History / Comment(s): NASAL SURGERY , RIGHT KNEE ACL ARTHROSCOPIC, shoulder surgery Past Anesthesia/Blood Transfusion Reactions: Previous Problems w/ Anesthesia, Motion Sickness Additional Past Anesthesia/Blood Transfusion Reaction / Comment(s): VON WILLEBRAND DISEASE- INCREASED BLEEDING WITH PREVIOUS SURGERY Smoking Status: Never smoker - Past Family History Daughter(s) Family Medical History: Deep Vein Thrombosis (DVT) Medications and Allergies Home Medications Medication Instructions Recorded Confirmed Type No Known Home Medications 09/27/21 02/01/23 History Allergies Allergy/AdvReac Type Severity Reaction Status Date / Time No Known Allergies Allergy Verified 02/01/23 19:27 Physical Exam Vitals: Vital Signs Temp Pulse Pulse Pulse Resp BP BP 02/02/23 12:06 98.8 F 60 16 111/68 02/02/23 08:15 98.4 F 70 14 102/65 02/02/23 08:06 70 14 02/02/23 04:00 98.2 F 63 16 97/54 02/02/23 02:00 64 16 02/02/23 00:00 98.4 F 62 17 90/57 02/01/23 22:00 98.6 F 124 H 16 102/63 02/01/23 20:07 130 H 20 96/59 02/01/23 18:00 98.3 F 133 H 20 90/73 02/01/23 17:25 122 H 19 111/83 02/01/23 17:17 140 H 02/01/23 16:49 98.2 F 144 H 18 115/90 Pulse Ox 02/02/23 12:06 97 02/02/23 08:15 96 02/02/23 08:06 02/02/23 04:00 96 02/02/23 02:00 02/02/23 00:00 96 02/01/23 22:00 100 02/01/23 20:07 98 02/01/23 18:00 97 02/01/23 17:25 96 02/01/23 17:17 02/01/23 16:49 99 Intake and Output 02/01/23 02/02/23 02/02/23 22:59 06:59 14:59 Intake Total 75.538 706.322 Balance 75.538 706.322 Intake: Intake, IV Titration 75.538 166.322 Amount Diltiazem 125 mg In 71.75 Sodium Chloride 0.9% 100 ml @ 5 MG/HR 5 mls/hr IV .Q24H [facility] Rx#:[id number] Heparin Sod,Pork in 0.45% 75.538 94.572 NaCl 25,000 unit In 0.45 % NaCl 1 250ml.bag @ 9.59 UNITS/KG/HR 10.005 mls/ hr IV .Q24H [facility] Rx#: [id number] Oral 540 Other: Voiding Method Toilet Toilet Toilet Weight 104.326 kg Results 02/01/23 16:53 02/01/23 16:53 Cardiac Enzymes 02/01/23 02/01/23 02/01/23 Range/Units 16:53 16:53 20:28 AST 42 (17-59) U/L Troponin I <0.012 0.016 (0.000-0.034) ng/mL 02/01/23 Range/Units 22:54 AST (17-59) U/L Troponin I <0.012 (0.000-0.034) ng/mL Coagulation 02/01/23 02/02/23 02/02/23 Range/Units 16:53 04:11 10:12 PT 14.5 H (9.0-12.0) sec APTT 35.9 H 29.5 33.7 H (22.0-30.0) sec Lipids 02/02/23 Range/Units 04:11 Triglycerides 104.00 (0.00-149.00) mg/dL Cholesterol 205.00 H (0.00-200.00) mg/dL HDL Cholesterol 43.50 (40.00-60.00) mg/dL Cholesterol/HDL Ratio 4.71 Ratio CBC 02/01/23 Range/Units 16:53 WBC 6.9 (3.8-10.6) k/uL RBC 4.89 (4.30-5.90) m/uL Hgb 14.5 (13.0-17.5) gm/dL Hct 41.8 (39.0-53.0) % Plt Count 214 (150-450) k/uL Comprehensive Metabolic Panel 02/01/23 Range/Units 16:53 Sodium 141 (137-145) mmol/L Potassium 3.8 (3.5-5.1) mmol/L Chloride 110 H (98-107) mmol/L Carbon Dioxide 22 (22-30) mmol/L BUN 26 H (9-20) mg/dL Creatinine 0.85 (0.66-1.25) mg/dL Glucose 147 H (74-99) mg/dL Calcium 9.6 (8.4-10.2) mg/dL AST 42 (17-59) U/L ALT 45 (4-49) U/L Alkaline Phosphatase 75 (38-126) U/L Total Protein 7.4 (6.3-8.2) g/dL Albumin 4.5 (3.5-5.0) g/dL Current Medications Generic Name Dose Route Start Last Admin Trade Name Freq PRN Reason Stop Dose Admin Aspirin 81 mg 02/02/23 09:00 02/02/23 10:36 Aspirin 81 Mg PO 81 mg DAILY [facility] Administration Heparin Sodium (Porcine) 0 unit 02/02/23 11:52 02/02/23 12:01 Heparin Sodium 1,000 Un/Ml (10ml Vl) IV 4,000 unit PER PROTOCOL PRN Administration Low PTT Protocol Heparin Sodium/Sodium Chloride 250 mls @ 10.005 mls/hr 02/01/23 19:45 02/02/23 12:01 25,000 unit/ Sodium Chloride IV 15.46 units/kg/hr .Q24H [facility] 16.13 mls/hr Titration Protocol 9.59 UNITS/KG/HR Metoprolol Tartrate 25 mg 02/02/23 09:00 02/02/23 10:36 Metoprolol Tartrate 25 Mg Tab PO 25 mg BID [facility] Administration Nitroglycerin 0.4 mg 02/01/23 19:41 Nitroglycerin Sl Tabs 0.4 Mg Tab SUBLINGUAL Q5M PRN Chest Pain Intake and Output 02/01/23 02/02/23 02/02/23 22:59 06:59 14:59 Intake Total 75.538 706.322 Balance 75.538 706.322 Intake: Intake, IV Titration 75.538 166.322 Amount Diltiazem 125 mg In 71.75 Sodium Chloride 0.9% 100 ml @ 5 MG/HR 5 mls/hr IV .Q24H [facility] Rx#:[id number] Heparin Sod,Pork in 0.45% 75.538 94.572 NaCl 25,000 unit In 0.45 % NaCl 1 250ml.bag @ 9.59 UNITS/KG/HR 10.005 mls/ hr IV .Q24H [facility] Rx#: [id number] Oral 540 Other: Voiding Method Toilet Toilet Toilet Weight 104.326 kg 02/01/23 16:53 02/01/23 16:53
--- NOTE | 2023-02-02 14:11 | P.DS ---
Providers Date of admission: 02/01/23 19:41 Expected date of discharge: 02/02/23 Attending physician: Jake Dodson MD Consults: 02/01/23 17:00 Consult Physician Urgent Consulting Provider: [facility] Consult Reason/Comments: A. fib with rapid ventricular response Do you want consulting provider notified?: Yes Primary care physician: [facility] Hospital Course: Discharge Diagnosis: New-onset atrial fibrillation with RVR Severe mitral regurgitation Von Willebrand's disease Hospital Course: The patient is a 58-year-old male with a past medical hx of Von Wildebrand's disease. He presented to the emergency department on 02/01/23 with a chief complaint of palpitations and was found to be in atrial fibrillation with RVR. EKG completed showing atrial fibrillation with RVR to [address] depression in anteroseptal leads V2 and V3. Chest x-ray was negative for acute cardiopulmonary process. Labs completed and reviewed. CBC unremarkable. BMP revealing hyperchloremia with chloride of 110 and prerenal azotemia with BUN of 26 otherwise normal findings. Liver profile unremarkable. Troponin negative at less than 0.012. TSH normal findings at 1.720. Urine drug screen negative. Patient was started on Cardizem infusion and heparin infusion and admitted under our services with consultation to cardiology. Troponins trended overnight resulting in less than 0.012, 0.016, and less than 0.012. Lipid profile showing elevated total cholesterol of 205 and LDL of 140.7. Repeat EKG after conversion to sinus mechanism showing normal sinus rhythm at 68 bpm with full resolution of previous noted ST depression in anteroseptal leads V2 and V3. Echocardiogram was completed. Patient was seen by cardiology recommending patient to follow-up outpatient in their office in 1-2 weeks. Echocardiogram report not available for review at this time, however per payroll analyst echocardiogram showing moderate to severe mitral regurgitation. Char Puller stating patient will need an outpatient GREG and cardiac catheterization for ischemic evaluation secondary to noted ST changes with rapid rate, payroll analyst also states patient will need GREG and RHC to evaluate surgical candidacy for mitral regurgitation. Patient remains in sinus mechanism this morning and free from any complaints of headache, lightheadedness, dizziness, chest pain, palpitations, shortness of breath, exertional dyspnea, nausea, vomiting, or experiencing any numbness/tingling/weakness in his extremities. Cardiology discontinued heparin infusion stating no need for anticoagulation [id number] score is 0 and patient has history of von Willebrand disease. Cardiology clearing patient from cardiac perspective for discharge at this time. Medically patient is stable and free from any complaints. Patient discharged home on aspirin 81 mg daily, atorvastatin 20 mg daily, and metoprolol 25 mg twice daily. Patient to follow up outpatient with PCP in 1-2 days and with payroll analyst in 1 week. Physical exam: Vital signs reviewed and stable. General: Nontoxic, no distress and appears stated age. Derm: Skin warm and dry, normal coloration for ethnicity. Head: Atraumatic, normocephalic and symmetric. Eyes: EOMs intact, no lid lag, and anicteric sclera Mouth: no lip lesions, mucus membranes moist Cardiovascular: regular rate and rhythm with normal S1S2, systolic murmur, positive posterior tibial pulses bilaterally, and cap refill < 2 seconds. Lungs: Respirations even, regular, and unlabored on room air. Lungs CTA bilaterally, no rhonchi, no rales, no wheezing, and no accessory muscle usage. Abdominal: soft, nontender to palpation, no guarding, no appreciable organomegaly Ext: ROM intact. No gross muscle atrophy, no edema, no contractures Neuro: Speech clear, face symmetrical and CN II-XII grossly intact with no noted focal neuro deficits Psych: Alert and oriented to person, place, time, and situation. Appropriate and pleasant affect. A total of 34 minutes of time were spent preparing this complex discharge summary. Pt was discharged on 02/02/23 at 1:55 PM. Patient was seen independently by Nurse Practitioner. This document was prepared using [employer] dictation software. Please allow for errors in cleaning maid while rare they do occur. Patient Condition at Discharge: Stable Plan - Discharge Summary Discharge Rx Participant: Yes New Discharge Prescriptions: New Aspirin 81 mg PO DAILY 30 Days #30 tab Atorvastatin [Lipitor] 20 mg PO DAILY 30 Days #30 tablet Metoprolol Tartrate [Lopressor] 25 mg PO BID 30 Days #60 tab Discharge Medication List Aspirin 81 mg PO DAILY 30 Days #30 tab 02/02/23 [Rx] Atorvastatin [Lipitor] 20 mg PO DAILY 30 Days #30 tablet 02/02/23 [Rx] Metoprolol Tartrate [Lopressor] 25 mg PO BID 30 Days #60 tab 02/02/23 [Rx] Follow up Appointment(s)/Referral(s): Jose Shepard MD [STAFF PHYSICIAN] - 1 Week Ld Boudreaux MD [Primary Care Provider] - 1-2 days Activity/Diet/Wound Care/Special Instructions: Activity: As tolerated. Take breaks as needed. Diet: Heart healthy and carb consistent diet. Avoid salts, or foods with hidden salts such as canned or boxed foods and frozen dinners. Extra salt makes your heart work harder and traps the fluid in your body for longer. Special Instructions: Take all of your medications as directed and remember to keep all of your doctor's appointments and follow-up as needed. Thank you for allowing us to participate in your care, it was truly a pleasure having you for our patient!!!
--- NOTE | 2023-02-02 16:21 | CA ---
Transthoracic Echo Report Name: Jignesh Murillo Age: 58 Gender: M : 1965 Exam Date: 02/02/2023 10:56 Exam Location: [place] [facility] Ht (in): 75 Wt (lb): 230 Ordering Physician: Jake Dodson MD Attending/Referring Phys: [employer] Professional Radha Jackson RDCS Procedure CPT: Indications: Murmur Cardiac Hx: Technical Quality: Fair Contrast 1: Total Dose (mL): Contrast 2: Total Dose (mL): MEASUREMENTS (Male / Female) Normal Values 2D ECHO LV Diastolic Diameter PLAX 4.9 cm 4.2 - 5.9 / 3.9 - 5.3 cm LV Systolic Diameter PLAX 2.7 cm IVS Diastolic Thickness 1.4 cm 0.6 - 1.0 / 0.6 - 0.9 cm LVPW Diastolic Thickness 1.2 cm 0.6 - 1.0 / 0.6 - 0.9 cm LV Relative Wall Thickness 0.5 RV Internal Dim ED PLAX 3.5 cm LA Volume 82.3 cm??? 18 - 58 / 22 - 52 cm??? M-MODE Aortic Root Diameter MM 3.3 cm LA Systolic Diameter MM 3.7 cm LA Ao Ratio MM 1.1 AV Cusp Separation MM 2.3 cm DOPPLER AV Peak Velocity 146.8 cm/s AV Peak Gradient 8.6 mmHg AV Mean Velocity 101.8 cm/s AV Mean Gradient 4.7 mmHg AV Velocity Time Integral 27.5 cm LVOT Peak Velocity 92.2 cm/s LVOT Peak Gradient 3.4 mmHg LVOT Velocity Time Integral 19.4 cm MV Area PHT 3.1 cm??? Mitral E Point Velocity 73.3 cm/s Mitral A Point Velocity 92.5 cm/s Mitral E to A Ratio 0.8 MV Deceleration Time 243.9 ms MV E' Velocity 12.8 cm/s Mitral E to MV E' Ratio 5.7 TR Peak Velocity 250.9 cm/s TR Peak Gradient 25.2 mmHg Right Ventricular Systolic Press 29.6 mmHg FINDINGS Left Ventricle Mildly increased left ventricular wall thickness. Left ventricular cavity size normal. Normal left ventricular systolic function with no obvious regional wall motion abnormalities. Left ventricular ejection fraction is estimated at 55-60 %. Right Ventricle Mild right ventricular dilatation. Right ventricular systolic pressure within normal limits. Right Atrium Mild right atrial dilatation Left Atrium Moderate left atrial dilatation Mitral Valve No mitral stenosis. Prolapse of posterior mitral leaflet with eccentric anteriorly directed jet appears to be severe in intensity. Aortic Valve Trileaflet aortic valve. No aortic valve stenosis or regurgitation. Tricuspid Valve Structurally normal tricuspid valve. Mild tricuspid regurgitation. Pulmonic Valve Structurally normal pulmonic valve. Pericardium No pericardial effusion. Aorta Normal size aortic root and proximal ascending aorta. CONCLUSIONS Left ventricular ejection fraction is estimated at 55-60 %. No obvious regional wall motion abnormalities. Primary severe eccentric mitral regurgitation Moderate left atrial dilatation Patient is in atrial fibrillation during the study No prior echo to compare with Previewed by: Dr Avelino Henderson (Electronically Signed) Final Date: 02 February 2023 16:20
== END 2023-02-02 14:50 | disposition home or self-care (01) | DRG 309 ==
LOC: EC 16:40 → 3SCARD 19:41
PROVIDERS: ADMIT Internal Medicine; ATTEND Internal Medicine
DX: I48.0 Paroxysmal atrial fibrillation (principal); D68.00 Von Willebrand disease, unspecified; Z28.310 Unvaccinated for COVID-19; E87.8 Other disorders of electrolyte and fluid balance, not elsewhere classified; I34.0 Nonrheumatic mitral (valve) insufficiency; I34.1 Nonrheumatic mitral (valve) prolapse; R73.9 Hyperglycemia, unspecified; G47.30 Sleep apnea, unspecified; M19.90 Unspecified osteoarthritis, unspecified site
CPT/HCPCS: 36415; 71046; 80053; 80061; 80306; 83036; 83735; 84443; 84484; 85025; 85610; 85730; 93005; 93306; 96365; 96366; 96375; 99291

== ENCOUNTER 2023-02-19 10:33 | Day surgery (SDC) | payer BC ==
[~2023-02-19 10:33] MED LIST changes: +ALPRAZolam 0.25 MG TAB PO PRN; +ALPRAZolam 0.5 MG TAB PO PRN; +ASPIRIN 325 MG TAB PO STA; +ATORVASTATIN 80 MG TAB PO STA; +HEPARIN SODIUM,PORCINE (1 ML) 2,500 UNIT in SODIUM CHLORIDE 0.9% 250 ML IRRIGATION PRN; +HEPARIN SODIUM,PORCINE 10,000 UNIT in SODIUM CHLORIDE 0.9% 1,000 ML IRRIGATION PRN; -LACTATED RINGERS 1,000 ML IV SCH; -LIDOCAINE 1% (10MG/ML) FOR IV START INTRADERMA PRN; +NITROGLYCERIN SL TABS 0.4 MG TAB SUBLINGUAL PRN; -ONDANSETRON 4 MG/2 ML VIAL IVP PRN; +SODIUM CHLORIDE 0.9% 1,000 ML in EMPTY BAG 1 BAG IV SCH
[2023-02-19] MEDS ORDERED: SODIUM CHLORIDE 0.9% 1,000 ML IV ONE (10:53)
[2023-02-19 11:07] VITALS: RESP 18; TEMP 97
[2023-02-19] MEDS ORDERED: fentaNYL (PF) 50 MCG/ML 2 ML AMP ONE (11:57)
[2023-02-19] MEDS ORDERED: VERAPAMIL 2.5 MG/ML 2 ML AMP ONE (11:57)
[2023-02-19] MEDS ORDERED: BENZOCAINE SPRAY 1 CAN TOPICAL ONE (12:01)
[2023-02-19] MEDS: fentaNYL (PF) 50 MCG/ML 2 ML AMP IVP ONE ×2 (12:02→12:06)
[2023-02-19] MEDS ORDERED: MIDAZOLAM 2 MG/2 ML VIAL IVP ONE ×2 (12:02→12:06)
--- NOTE | 2023-02-19 12:28 | P.TEE ---
Description of Procedure(s): Procedure performed: Transesophageal Echocardiogram with color flow doppler, pulsed wave doppler and continuous wave doppler, moderate conscious sedation Moderate conscious sedation: Moderate conscious sedation was supplied with direct supervision of myself using Versed and Fentanyl. Complications: none Indications: Mitral regurgitation PROCEDURE: After the risks, benefits and alternatives of the above mentioned procedure was explained in detail with the patient, informed consent was obtained. Patient was brought to the lab in a fasting state. Patient was given IV Versed and Fentanyl for sedation. The throat was sprayed with Hurricane to anesthetize the throat. A lubricated Omni probe was then introduced into the esophagus and stomach and multiple views were obtained. 2D echo with color flow doppler, pulsed wave doppler and continuous wave doppler was utilized. Agitated saline bubbles were injected to assess for any intra-atrial shunt. The probe was then removed. Patient tolerated the procedure well. Patient was transferred to the post procedure area in stable and satisfactory condition. FINDINGS: 1. The aortic valve is tricuspid with normal function with trace aortic insufficiency. 2. The mitral valve has prolapse of P2 segment with eccentric severe mitral regurgitation PISA radius 1.1 cm at Nyquist of 44, vena contracta of 0.8cm. Mild systolic flow reversal of LLPV however eccentric jet. 3. Tricuspid valve appears to be normal with no tricuspid regurgitation 4. There is a PFO 5. Left atrial appendage is free of clot. 6. Left ventricular ejection fraction 60% without wall motion abnormalities 7. Mildly dilated left atrium
[2023-02-19] MEDS ORDERED: HEPARIN SODIUM 1,000 UN/ML (10ML VL) ONE (12:30)
[2023-02-19] MEDS ORDERED: LIDOCAINE 1% INJ 10MG/ML (20 ML MDV) SQ ONE (12:31)
[2023-02-19] MEDS ORDERED: VERAPAMIL SYRINGE (5 MG/10 ML) INTRAARTER ONE (12:32)
[2023-02-19] MEDS ORDERED: HEPARIN SODIUM 1,000 UN/ML (10ML VL) IV ONE (12:35)
--- NOTE | 2023-02-19 12:44 | P.CARDCATH ---
Description of Procedure: PROCEDURES PERFORMED: Left heart catheterization, bilateral coronary angiography, ultrasound guided arterial access INDICATION: Mitral regurgitation CONSENT:I have discussed the risks, benefits and alternative therapies for the above-mentioned procedure and for both sedation/analgesia as well as necessary blood product administration, if indicated, as they pertain to this patient. The patient has indicated understanding and acceptance of the risks and procedures discussed. PROCEDURE: After the risks, benefits and alternatives of the above mentioned procedure explained in detail with the patient, informed consent was obtained. Patient was taken to the catheterization lab and prepped and draped in usual fashion. Ultrasound guidance was used to assess for arterial access. 1% lidocaine was used to anesthetize the right radial artery. A 6-[place] sheath was placed in the right radial artery using modified Seldinger technique and ultrasound guidance. Left coronary angiography was performed with a 5-[place] JL 3.5 catheter and right coronary angiography was performed with a 5-[place] AR2 catheter in various views. A 5-[place] FR5 catheter was inserted into the left ventricle and pressure measurements were obtained. The right radial sheath was removed and a TR band was placed with hemostasis achieved. The patient to lerated the procedure well. Patient was transported back to the post catheterization holding area in stable condition. Conscious Sedation: Patient was monitored under the direct supervision of myself for conscious sedation using Versed and fentanyl for a total duration of 13 minutes HEMODYNAMICS: Aorta: 88/58 LV: 90/1, LVEDP 13 SELECTIVE CORONARY ARTERIOGRAPHY: LEFT MAIN: The left main is a large caliber vessel which bifurcates into the LAD and circumflex. There is no significant stenosis. LEFT ANTERIOR DESCENDING CORONARY ARTERY: LAD is a large caliber vessel which wraps around to the apex. There is no significant stenosis. LEFT CIRCUMFLEX CORONARY ARTERY: Left circumflex is a moderate caliber vessel without significant stenosis. RIGHT CORONARY ARTERY: The right coronary artery is a large caliber vessel which gives off a PDA and PLV branch and is the dominant vessel. There is no significant stenosis. FINAL IMPRESSION: 1. Normal coronary arteries as described above. 2. Normal left sided filling pressures PLAN: 1. Aggressive risk factor modification per most recent ACC/AHA guidelines. 2. Follow-up in the office in 1-2 weeks.
[2023-02-19] MEDS ORDERED: IOPAMIDOL-370 100ML BTL INJ ONE (12:53)
[2023-02-19 15:54] VITALS: BP 112/68; PULSE 72
== END 2023-02-19 16:27 | disposition home or self-care (01) ==
LOC: CATHCVL 10:33
PROVIDERS: ATTEND Internal Medicine
DX: I08.0 Rheumatic disorders of both mitral and aortic valves (principal)
CPT/HCPCS: 93312; 93320; 93325; 93458; 76937; C1769; C1894; J2250; J2001; J3010; J1644; Q9967

== ENCOUNTER → 2023-03-28 | Outpatient (CLI) | payer BC ==
--- NOTE | 2023-03-28 09:45 | P.PN ---
Progress Note - Text Progress Note Date: 03/28/23 5 meter walk test completed without difficulty: 2.77 sec 2.70 sec 2.50 sec STS risk was calculated and discussed with the patient.
[2023-03-28 10:32] LABS: INR 0.9 (<1.2); Partial Thromboplastin Time 23.7 sec (22.0-30.0); Prothrombin Time 10.4 sec (10.0-12.5)
--- NOTE | 2023-03-28 11:05 | XR ---
EXAMINATION TYPE: XR chest 2V DATE OF EXAM: 03/28/2023 10:39 AM CLINICAL INDICATION:Male, 58 years old with history of OPEN HEART/TAVR; [facility] COMPARISON: 02/01/2023 TECHNIQUE: XR chest 2V Frontal and lateral views of the chest. FINDINGS: Lungs/Pleura: There is no evidence of pleural effusion, focal consolidation, or pneumothorax. Pulmonary vascularity: Unremarkable. Heart/mediastinum: Cardiomediastinal silhouette is unremarkable. Musculoskeletal: No acute osseous pathology. Left clavicle fixation hardware appears intact. Other findings: None IMPRESSION: No acute cardiopulmonary disease/process.
--- NOTE | 2023-03-28 11:13 | US ---
EXAMINATION TYPE: US carotid duplex BILAT DATE OF EXAM: 03/28/2023 COMPARISON: NONE CLINICAL INDICATION: Male, 58 years old with history of OPEN HEART / TAVR; TAVR TECHNIQUE: Carotid duplex ultrasound examination. Indirect Doppler criteria was utilized. FINDINGS: EXAM MEASUREMENTS: RIGHT: Peak Systolic Velocity (PSV) cm/sec ----- Right CCA: 103 ----- Right ICA: 72.5 ----- Right ECA: 62.4 ICA/CCA ratio: 0.7 RIGHT: End Diastole cm/sec ----- Right CCA: 27.3 ----- Right ICA: 35.6 ----- Right ECA: 8.3 LEFT: Peak Systolic Velocity (PSV) cm/sec ----- Left CCA: 131 ----- Left ICA: 87.7 ----- Left ECA: 120 ICA/CCA ratio: 0.7 LEFT: End Diastole cm/sec ----- Left CCA: 34.3 ----- Left ICA: 36.7 ----- Left ECA: 21.7 VERTEBRALS (direction of flow): Right Vertebral: Antegrade Left Vertebral: Antegrade Rhythm: Normal SERVICES ENGINEER NOTES: elevated velocities at distal Left CCA and Bulb IMPRESSION: No ultrasound evidence for hemodynamically significant stenosis of the bilateral internal carotid art eries. Criteria for Assigning % of Stenosis / Diameter reduction (Estimation based on the indirect measurements of the internal carotid artery velocities (ICA PSV). 1. Normal (no stenosis)=ICA PSV < 125 cm/s: ratio < 2.0: ICA EDV<40 cm/s. 2. Less than 50% stenosis=ICA PSV < 125 cm/s: ratio < 2.0: ICA EDV<40 cm/s. 3. 50 to 69% stenosis=ICA PSV of 125 to 230 cm/s: ration 2.0 ? 4.0: ICA EDV 40-100 cm/s. 4. Greater than 70% stenosis to near occlusion= ICA PSV > 230 cm/s: ratio > 4.0: ICA EDV > 100 cm/s. 5. Near occlusion= ICA PSV velocities may be low or undetectable: variable ratio and ICA EDV. 6. Total occlusion=unable to detect flow.
[2023-03-28 15:41] LABS: Appearance,Urine Turbid (Clear); Bilirubin,Urine Negative (Negative); Blood,Urine Trace (Negative); Color,Urine Yellow (Yellow); Ketones,Urine Negative (Negative); Nitrite,Urine Negative (Negative); PH, Urine 5.5; Specific Gravity,Urine 1.025 (1.001-1.030); Urobilinogen,Urine 0.2 E.U./DL
[2023-03-28 16:06] LABS: Bacteria,Urine None Seen (None Seen); Calcium Oxalate Crystals,Urine Present (None Seen)
[2023-03-28 16:49] LABS: HCT 43.2 % (39.6-50.0); HGB 14.7 g/dL (13.0-17.0); MCH 29.3 pg (27.0-32.0); MCV 86.1 FL (80.0-97.0); Mean Platelet Volume 10.9 FL (9.5-12.2); NRBC Per 100 WBC 0 X 10*3/uL (0.00-0.01); Platelet Count 202 X 10*3/uL (140-440); RBC 5.02 X 10*6/uL (4.40-5.60); RDW 12.3 % (11.5-14.5); WBC 5.05 X 10*3/uL (4.50-10.00)
[2023-03-28 17:29] LABS: Hepatitis A Antibody IgM Nonreactive; Hepatitis B Core IgM Nonreactive; Hepatitis B Surface Antigen Nonreactive; Hepatitis C IgG Antibody Nonreactive
[2023-03-28 17:57] LABS: Chol/HDL Ratio 3.34 Ratio; LDL Cholesterol,Calculated 60.4 mg/dL (0.0-131.0); Magnesium 2.3 mg/dL (1.5-2.4)
[2023-03-28 18:05] LABS: ALT 50 U/L (10-49); AST 26 U/L (14-35); Albumin 4.8 g/dL (3.8-4.9); Albumin/Globulin Ratio 2.18 Ratio (1.60-3.17); Alkaline Phosphatase 89 U/L (41-126); Carbon Dioxide 25.6 mmol/L (21.6-31.8); Chloride 104 mmol/L (96-109); Globulin 2.2 g/dL (1.6-3.3); Glucose 159 mg/dL (70-110); Potassium 4.2 mmol/L (3.5-5.5); Sodium 141 mmol/L (135-145); Total Bilirubin 0.9 mg/dL (0.3-1.2)
== END | disposition home or self-care (01) ==
LOC: LABWHC1 08:49
PROVIDERS: ATTEND Thoracic Surgery (Cardiothoracic Vascular Surgery)
DX: Z01.818 Encounter for other preprocedural examination (principal); I34.0 Nonrheumatic mitral (valve) insufficiency
CPT/HCPCS: 36415; 71046; 80053; 80061; 80074; 81001; 83036; 83735; 84443; 85027; 85610; 85730; 86850; 86900; 86901; 86920; 87070; 87086; 93005; 93880; 94150

== ENCOUNTER → 2023-03-29 | Outpatient (CLI) | payer BC ==
--- NOTE | 2023-03-29 11:22 | CT ---
EXAMINATION TYPE: CT chest wo con DATE OF EXAM: 03/29/2023 COMPARISON: None HISTORY: mitral valve regurgitation CT DLP: 612 mGycm. Automated Exposure Control for Dose Reduction was Utilized. TECHNIQUE: CT scan of the thorax is performed without IV contrast. FINDINGS: LUNGS: The lungs are grossly clear, there is no concerning parenchymal mass or nodule identified. T here is no pleural effusion or pneumothorax seen. The tracheobronchial tree is patent. MEDIASTINUM: Lack of IV contrast is noted to limit evaluation for mediastinal and especially hilar ad enopathy. There are no definitive greater than 1 cm hilar or mediastinal lymph nodes. Heart size norm al. Trace of pericardial fluid. Minimal coronary artery calcification. No cardiac valve calcification seen. Is seen. OTHER: Postsurgical changes left clavicle. Mild degenerative disc disease. Small hiatal hernia. IMPRESSION: 1. No acute intrathoracic process.
== END | disposition home or self-care (01) ==
LOC: RADCTMAIN 10:22
PROVIDERS: ATTEND Thoracic Surgery (Cardiothoracic Vascular Surgery)
DX: I34.0 Nonrheumatic mitral (valve) insufficiency (principal)
CPT/HCPCS: 71250

== ENCOUNTER 2023-04-01 05:33 | Inpatient (IN) | payer BC ==
[~2023-04-01 05:33] MED LIST changes: +ALBUMIN HUMAN 25% 50 ML IV ONE; +ALBUMIN HUMAN 5% 250 ML IVPB ONE; +ALBUMIN HUMAN 5% 500 ML IVPB ONE; -ALPRAZolam 0.25 MG TAB PO PRN; -ALPRAZolam 0.5 MG TAB PO PRN; +ASPIRIN 325 MG TAB PO ONE; -ASPIRIN 325 MG TAB PO STA; +ATORVASTATIN 10 MG TAB PO ONE; -ATORVASTATIN 80 MG TAB PO STA; +CLEVIDIPINE BUTYRATE 25 MG in EMPTY BAG 1 BAG IV ONE; +ELECTROLYTE-A SOLUTION 1,000 ML with POTASSIUM CHLORIDE 100 MEQ, MAGNESIUM SULFATE 16 M... IV ONE; +ELECTROLYTE-A SOLUTION 1,000 ML with POTASSIUM CHLORIDE 40 MEQ, MAGNESIUM SULFATE 16 ME... IV ONE; -HEPARIN SODIUM,PORCINE (1 ML) 2,500 UNIT in SODIUM CHLORIDE 0.9% 250 ML IRRIGATION PRN; -HEPARIN SODIUM,PORCINE 10,000 UNIT in SODIUM CHLORIDE 0.9% 1,000 ML IRRIGATION PRN; +LACTATED RINGERS 1,000 ML IV ONE; +METOPROLOL TARTRATE 12.5 MG TAB PO ONE; +MUPIROCIN 2% OINT 22 GM TUBE NASAL ONE; +NITROGLYCERIN SL TABS 0.4 MG TAB SUBLINGUAL ONE; -NITROGLYCERIN SL TABS 0.4 MG TAB SUBLINGUAL PRN; +PHENYLEPHRINE 40 MG in SODIUM CHLORIDE 0.9% 250 ML IV ONE; +SODIUM CHLORIDE 0.9% 1,000 ML IV ONE; -SODIUM CHLORIDE 0.9% 1,000 ML in EMPTY BAG 1 BAG IV SCH; +TRANEXAMIC ACID 2,000 MG in SODIUM CHLORIDE 0.9% 80 ML IV ONE; +propofoL 1,000 MG/100 ML VIAL IV ONE
[2023-04-01] MEDS ORDERED: CHLORHEXIDINE GLUCONATE 15 ML CUP MUCOUS MEM ONE (06:00)
[2023-04-01] MEDS ORDERED: ceFAZolin 1,000 MG in SODIUM CHLORIDE 0.9% IRRIGATIO 1,000 ML IRRIGATION ONE (06:00)
[2023-04-01] MEDS ORDERED: CALCIUM CHLORIDE 100 MG/ML 10 ML SYRINGE IV ONE (06:00)
[2023-04-01] MEDS ORDERED: PROTAMINE SULFATE 250 MG in EMPTY BAG 1 BAG IV ONE (06:00)
[2023-04-01] MEDS ORDERED: PHENYLEPHRINE 10 MG/ML VIAL IV ONE (06:00)
[2023-04-01] MEDS ORDERED: HEPARIN SODIUM,PORCINE (1 ML) 5,000 UNIT in SODIUM CHLORIDE 0.9% 500 ML 500 ML IV ONE (06:00)
[2023-04-01] MEDS ORDERED: HEPARIN SODIUM 1,000 UN/ML (10ML VL) IV ONE (06:00)
[2023-04-01] MEDS ORDERED: INSULIN REGULAR 100 UNIT in SODIUM CHLORIDE 0.9% 100 ML IV ONE (06:00)
[2023-04-01] MEDS ORDERED: MANNITOL 25% 12.5 GM/50 ML VIAL IV ONE (06:00)
[2023-04-01] MEDS ORDERED: NITROGLYCERIN-D5W PMX 25 MG/250 ML BTL IV ONE (06:00)
[2023-04-01] MEDS ORDERED: NOREPINEPHRINE 4 MG in SODIUM CHLORIDE 0.9% 250 ML IV ONE (06:00)
[2023-04-01] MEDS ORDERED: PROTAMINE SULFATE 10 MG/ML 25 ML VIAL IV ONE (06:00)
[2023-04-01] MEDS ORDERED: NITROGLYCERIN-D5W PMX 50 MG in DEXTROSE/WATER 1 250ML.BAG IV ONE (06:00)
[2023-04-01] MEDS ORDERED: SODIUM BICARB 8.4% 50 ML SYR (1 MEQ/ML) IV ONE (06:00)
[2023-04-01] MEDS ORDERED: MAGNESIUM SULFATE 16.24 MEQ in EMPTY SYRINGE 1 SYR IV ONE (06:00)
[2023-04-01] MEDS ORDERED: LIDOCAINE 1% (10MG/ML) FOR IV START INTRADERMA ONE (06:10)
[2023-04-01] MEDS ORDERED: fentaNYL (PF) 50 MCG/ML 50 ML VIAL ONE (07:39)
[2023-04-01] MEDS ORDERED: PROPOFOL 10 MG/ML 20 ML VIAL IV ONE (07:39)
[2023-04-01] MEDS ORDERED: LIDOCAINE 1% INJ 10MG/ML (20 ML MDV) ONE (07:39)
[2023-04-01] MEDS ORDERED: SUCCINYLCHOLINE CHLORIDE 200 MG/10 ML VIAL IV ONE (07:39)
[2023-04-01] MEDS ORDERED: LIDOCAINE 2% SYG (PF) 100 MG/5 ML ONE (07:39)
[2023-04-01] MEDS ORDERED: HEPARIN SODIUM,PORCINE 10,000 UNIT/ML 1 ML VIAL ONE (07:39)
[2023-04-01] MEDS ORDERED: TRANEXAMIC 1,000 MG/100ML-NACL PREMIX BAG ONE (07:39)
[2023-04-01] MEDS ORDERED: ALBUMIN HUMAN 5% (12.5gm) 250 ML BOTTLE IVPB ONE (07:39)
[2023-04-01] MEDS ORDERED: MIDAZOLAM HCL 10 MG/10 ML VIAL ONE (07:39)
[2023-04-01] MEDS ORDERED: VECURONIUM 10 MG VIAL IV ONE (07:39)
[2023-04-01 11:01] LABS: ABG Glucose Whole Blood 176 mg/dL (75-99); ABG Hematocrit 31 % (34.0-46.0); ABG Ionized Calcium 4.3 mg/dL (4.5-5.3); ABG Lactic Acid Whole Blood 1.6 mmol/L (0.5-1.6); ABG PH 7.28 (7.35-7.45); ABG PO2 376 mmHg (83-108); ABG Potassium Whole Blood 5.1 mmol/L (3.4-4.5); ABG Sodium Whole Blood 140 mmol/L (135-146); Allen Test Performed? Yes
[2023-04-01 11:32] LABS: ABG Glucose Whole Blood 187 mg/dL (75-99); ABG Hematocrit 30 % (34.0-46.0); ABG Ionized Calcium 4.1 mg/dL (4.5-5.3); ABG Lactic Acid Whole Blood 1.6 mmol/L (0.5-1.6); ABG PH 7.33 (7.35-7.45); ABG PO2 357 mmHg (83-108); ABG Potassium Whole Blood 4.8 mmol/L (3.4-4.5); ABG Sodium Whole Blood 141 mmol/L (135-146); Allen Test Performed? Yes
[2023-04-01 12:05] LABS: ABG Glucose Whole Blood 155 mg/dL (75-99); ABG Hematocrit 29 % (34.0-46.0); ABG Ionized Calcium 4.2 mg/dL (4.5-5.3); ABG Oxygen Saturation 99.9 % (94-97); ABG PO2 289 mmHg (83-108); ABG Potassium Whole Blood 4.7 mmol/L (3.4-4.5); ABG Sodium Whole Blood 142 mmol/L (135-146); Allen Test Performed? Yes
[2023-04-01 12:25] LABS: ABG Glucose Whole Blood 135 mg/dL (75-99); ABG Hematocrit 29 % (34.0-46.0); ABG Ionized Calcium 4.1 mg/dL (4.5-5.3); ABG PH 7.35 (7.35-7.45); ABG PO2 365 mmHg (83-108); ABG Potassium Whole Blood 4.6 mmol/L (3.4-4.5); ABG Sodium Whole Blood 143 mmol/L (135-146); Allen Test Performed? Yes
[2023-04-01 13:07] LABS: ABG Base Excess -2.8 mmol/L; ABG HCO3 24 mmol/L (21-25); ABG PCO2 52 mmHg (35-45); ABG TCO2 26 mmol/L (19-24)
[2023-04-01 13:09] LABS: ABG PCO2 48 mmHg (35-45)
[2023-04-01 13:10] LABS: ABG Base Excess -0.7 mmol/L; ABG HCO3 25 mmol/L (21-25); ABG TCO2 27 mmol/L (19-24)
[2023-04-01 13:13] LABS: ABG Base Excess -2.2 mmol/L; ABG HCO3 24 mmol/L (21-25); ABG Lactic Acid Whole Blood 2.1 mmol/L (0.5-1.6); ABG PCO2 49 mmHg (35-45); ABG TCO2 26 mmol/L (19-24)
[2023-04-01 13:14] LABS: ABG Base Excess -0.9 mmol/L; ABG HCO3 25 mmol/L (21-25); ABG PCO2 45 mmHg (35-45); ABG TCO2 26 mmol/L (19-24)
[2023-04-01 13:15] LABS: ABG Lactic Acid Whole Blood 2.4 mmol/L (0.5-1.6)
[2023-04-01 13:29] LABS: ABG Glucose Whole Blood 110 mg/dL (75-99); ABG Hematocrit 30 % (34.0-46.0); ABG Lactic Acid Whole Blood 1.9 mmol/L (0.5-1.6); ABG PO2 223 mmHg (83-108); ABG Potassium Whole Blood 4.1 mmol/L (3.4-4.5); ABG Sodium Whole Blood 145 mmol/L (135-146)
[2023-04-01] MEDS ORDERED: IPRATROPIUM-ALBUTEROL 3 ML NEB INHALATION PRN (13:44)
[2023-04-01] MEDS ORDERED: Potassium Replacement Protocol 1 EACH MISC MISCELLANE PRN (13:44)
[2023-04-01] MEDS ORDERED: Magnesium Replacement Protocol 1 EACH MISC MISCELLANE PRN (13:44)
[2023-04-01] MEDS ORDERED: DEXTROSE 5% IN WATER 100 ML with AMIODARONE 150 MG IV PRN (13:44)
[2023-04-01] MEDS ORDERED: AMIODARONE 450 MG in DEXTROSE 5% IN WATER 250 ML IV PRN ×2 (13:44)
[2023-04-01] MEDS ORDERED: AMIODARONE 360 MG in DEXTROSE 5% IN WATER 200 ML IV PRN ×2 (13:44)
[2023-04-01] MEDS ORDERED: BENZOCAINE/MENTHOL LOZENG 1 EACH LOZENGE MUCOUS MEM PRN (13:44)
[2023-04-01] MEDS ORDERED: CALCIUM GLUCONATE IN NACL 2 GM in SALINE 1 100ML.BAG IVPB PRN (13:44)
[2023-04-01] MEDS ORDERED: DEXMEDETOMIDINE/0.9% NACL(PMX) 400 MCG in EMPTY BAG 1 BAG IV SCH (13:44)
[2023-04-01] MEDS ORDERED: hydrALAZINE HCL 20 MG/ML 1 ML VIAL IVP PRN (13:44)
[2023-04-01] MEDS ORDERED: DEXTROSE 50% SYRINGE 50 ML IVP PRN ×2 (13:44)
[2023-04-01] MEDS ORDERED: CLEVIDIPINE BUTYRATE 25 MG in EMPTY BAG 1 BAG IV SCH (13:44)
--- NOTE | 2023-04-01 14:01 | P.ANPRN ---
Procedure Note - Anesthesia - Invasive Line Right Central Line Time Out Performed: Yes Date of Procedure: 04/01/23 Time of Procedure: 07:24 Location of Patient: PreOp Preparation: Sterile Prep, Sterile Dressing Central Line Location: Internal Jugular Ultrasound Used: No Purpose - Visualization and Identification of Vasculature: No Image Stored and Saved: No Narrative: Central line placement per sterile protocol utilized.
--- NOTE | 2023-04-01 14:02 | P.ANPRN ---
Procedure Note - Anesthesia - Invasive Line Right [place] Feli Time Out Performed: Yes Date of Procedure: 04/01/23 Time of Procedure: 07:35 Location of Patient: PreOp Preparation: Sterile Prep, Sterile Dressing Central Line Location: Internal Jugular Ultrasound Used: No Purpose - Visualization and Identification of Vasculature: No Image Stored and Saved: No Narrative: Central line placement per sterile protocol utilized.
[2023-04-01 14:07] LABS: ABG Base Excess 0.6 mmol/L; ABG HCO3 26 mmol/L (21-25); ABG PCO2 42 mmHg (35-45); ABG TCO2 27 mmol/L (19-24)
[2023-04-01 14:26] LABS: Glucose,Whole Blood 98 mg/dL (70-110)
[2023-04-01 14:43] LABS: ABG Base Excess 0.9 mmol/L; ABG HCO3 26 mmol/L (21-25); ABG PCO2 41 mmHg (35-45); ABG PO2 >400 mmHg (83-108); ABG TCO2 27 mmol/L (19-24); Allen Test Performed? Yes
[2023-04-01 14:46] LABS: Ionized Calcium 4.9 mg/dL (4.5-5.3)
[2023-04-01 14:49] LABS: Basophils % (A) 0 %; Eosinophils % (A) 0 %; HCT 28.6 % (39.0-53.0); Lymphocytes # (A) 0.7 k/uL (1.0-4.8); Lymphocytes % (A) 7 %; MCH 31.2 pg (25.0-35.0); MCHC 36.8 g/dL (31.0-37.0); MCV 84.8 fL (80.0-100.0); Monocytes # (A) 0.7 k/uL (0-1.0); Monocytes % (A) 7 %; Neutrophils # (A) 8.5 k/uL (1.3-7.7); Neutrophils % (A) 85 %; RBC 3.38 m/uL (4.30-5.90); RDW 12.9 % (11.5-15.5); WBC 10.1 k/uL (3.8-10.6)
--- NOTE | 2023-04-01 14:52 | XR ---
EXAMINATION TYPE: XR chest 1V portable DATE OF EXAM: 04/01/2023 HISTORY: Post Operative Cardiac Surgery COMPARISON: 03/28/2023 TECHNIQUE: Single view of the chest is submitted. FINDINGS: Endotracheal tube is approximately 6.4 cm from the steffanie. NG tube is noted with its distal tip withi n the stomach however the port is within the distal esophagus. NG tube should be advanced. [place]-Feli catheter is appropriately placed. Mediastinal drains are in place. No evidence for pneumothorax. Left atrial clip noted. Sternotomy wires are in place. No sizeable pneumothorax. Scattered Pleural-parenchymal opacities may reflect atelectasis. The heart mildly enlarged. IMPRESSION: 1. Post operative cardiac surgery changes as noted. NG tube should be advanced proximately 8 to 9 cm .
[2023-04-01 14:54] LABS: ALT 37 U/L (4-49); AST 74 U/L (17-59); African American GFR (CKD) >90 (>60 ml/min/1.73 sqM); Albumin 3.1 g/dL (3.5-5.0); Alkaline Phosphatase 44 U/L (38-126); Anion Gap 8 mmol/L; Blood Urea Nitrogen 24 mg/dL (9-20); Calcium 8.9 mg/dL (8.4-10.2); Carbon Dioxide 24 mmol/L (22-30); Chloride 109 mmol/L (98-107); Glucose 92 mg/dL (74-99); Magnesium 2.7 mg/dL (1.6-2.3); Non-African American GFR(CKD) >90 (>60 ml/min/1.73 sqM); Potassium 4.1 mmol/L (3.5-5.1); Sodium 141 mmol/L (137-145); Total Bilirubin 1.6 mg/dL (0.2-1.3)
[2023-04-01 14:55] LABS: HGB 10.5 gm/dL (13.0-17.5)
[2023-04-01 14:56] LABS: INR 1.2 (<1.2); Partial Thromboplastin Time 27.8 sec (22.0-30.0); Prothrombin Time 12.3 sec (10.0-12.5)
[2023-04-01 15:01] LABS: Glucose,Whole Blood 120 mg/dL (70-110)
[2023-04-01 15:11] LABS: Glucose,Whole Blood 122 mg/dL (70-110)
--- NOTE | 2023-04-01 15:11 | P.CNPUL ---
History of Present Illness Consult date: 04/01/23 Chief complaint: Mitral valve regurgitation, critical care management post mitral valve repa History of present illness: 58-year-old male patient being seen in the intensive care unit following his mitral valve repair procedure. The patient is known to have severe mitral regurgitation addition to a new onset A. fib. His cardiac catheterization revealed normal coronaries , his GREG confirmed severe MR with a PFO and the left atrial appendage was free of any clot in the left and ejection fraction was 60%. The patient underwent a mitral valve repair the patient is currently postop day #0. The patient was seen in intensive care unit, intubated on a mechanical ventilator. Cardiac output is 6 with an index of 2.6. Pulmonary artery press ures of 42/22. The patient has adequate urine output. He is on no pressors for now. He is on a mechanical ventilator. He is on a rate of 14, tidal volume of 500, FiO2 of 50% with a PEEP of 5. Initial blood given 100% FiO2 showed a pH of 7.4 with a pCO2 of 41 and pO2 more than 400. Chest x-ray shows [place]-Feli being in good location. All tubes in good location the patient has 2 mediastinal ch est tube that has put out a total of 200 mL without evidence of any air leak. No pneumothorax. He is on propofol at 20 mcg/kg/m. Cardiac rhythm is sinus. Review of Systems ROS unobtainable: due to endotracheal tube Past Medical History Past Medical History: Blood Disorder, Osteoarthritis (OA), Sleep Apnea/CPAP/BIPAP Additional Past Medical History / Comment(s): uses C-PAP, probable VON CORRINE LEBRAND DISEASE-never tested but does bleed more than normal when having surgery w/incision, recent adm. for new onset a-fib, SOB w/exertion, found to have mitral valve problem History of Any Multi-Drug Resistant Organisms: None Reported Past Surgical History: Orthopedic Surgery, Tonsillectomy Additional Past Surgical History / Comment(s): NASAL SURGERY , RIGHT KNEE ACL ARTHROSCOPIC, shoulder surgery Past Anesthesia/Blood Transfusion Reactions: Previous Problems w/ Anesthesia, Motion Sickness Additional Past Anesthesia/Blood Transfusion Reaction / Comment(s): VON WILL EBRAND DISEASE- INCREASED BLEEDING WITH PREVIOUS SURGERIES Past Alcohol Use History: None Reported - Past Family History Daughter(s) Family Medical History: Deep Vein Thrombosis (DVT) Additional Family Medical History / Comment(s): Effort 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-tx @ [employer] Son(s) Additional Family Medical History / Comment(s): hemangioma side of neck Mother Family Medical History: Cancer Medications and Allergies Home Medications Medication Instructions Recorded Confirmed Type Aspirin 81 mg PO DAILY 30 Days #30 tab 02/02/23 04/01/23 Rx Atorvastatin [Lipitor] 20 mg PO DAILY 30 Days #30 tablet 02/02/23 03/28/23 Rx Metoprolol Tartrate [Lopressor] 25 mg PO BID 30 Days #60 tab 02/02/23 03/28/23 Rx Allergies Allergy/AdvReac Type Severity Reaction Status Date / Time No Known Allergies Allergy Verified 03/28/23 11:00 Physical Exam Vitals: Vital Signs Temp Pulse Pulse Resp BP BP Pulse Ox 04/01/23 15:00 73 18 100 04/01/23 14:54 75 04/01/23 14:50 73 14 100 04/01/23 14:47 75 04/01/23 14:46 04/01/23 14:40 73 14 100 04/01/23 14:30 73 14 100 04/01/23 14:27 04/01/23 14:20 36.5 F L 70 14 100 04/01/23 06:03 97.5 F L 68 16 124/81 122/74 99 FiO2 04/01/23 15:00 50 04/01/23 14:54 04/01/23 14:50 100 04/01/23 14:47 04/01/23 14:46 50 04/01/23 14:40 100 04/01/23 14:30 100 04/01/23 14:27 100 04/01/23 14:20 100 04/01/23 06:03 Intake and Output 04/01/23 04/01/23 04/01/23 06:59 14:59 22:59 Intake Total 100 1034 Output Total 2150 Balance 100 -1116 Intake: IV 100 52 Blood Product 982 Ffp 24 Cpd Unit 351 [id number] Ffp 24 Cpd Unit 302 [id number] Platelet Pheresis Pas 258 Psoralen Unit [id number] Pooled Cryoprecipitate 71 Unit [id number] Output: Urine 550 Estimated Blood Loss 1600 Other: Weight 102.5 kg ABP, PAP, CO, CI - Last 8 Hours Arterial Blood Pressure 104/66 Arterial Blood Pressure 117/70 Arterial Blood Pressure 50/50 Arterial Blood Pressure 104/65 Arterial Blood Pressure 104/67 Arterial Blood Pressure 108/63 Pulmonary Artery Pressure 37/22 Pulmonary Artery Pressure 35/22 Pulmonary Artery Pressure 37/21 Pulmonary Artery Pressure 34/18 Pulmonary Artery Pressure 43/26 Pulmonary Artery Pressure 46/24 Cardiac Output 6 Cardiac Output 4.6 Cardiac Output 4.6 Cardiac Output 4.6 Cardiac Index 2.6 Cardiac Index 2 Cardiac Index 2 Cardiac Index 2 Gen. appearance, sedated, comfortable, not in acute distress Head exam was generally normal. There was no scleral icterus or corneal arcus. Mucous membranes were moist. Neck was supple and without jugular venous distension, thyromegaly, or carotid bruits. Carotids were easily palpable bilaterally. There was no adenopathy. Oral tracheal and orogastric tube are both in place and the patient has a right IJ [place]-Feli catheter in place. Lungs were clear to auscultation and percussion, and with normal diaphragmatic excursion. No wheezes or rales were noted. Thoracotomy scar is dry clean and in tact and the patient is 2 mediastinal chest tubes, no evidence of any air leak Abdominal exam revealed normal bowel sounds. The abdomen was soft, non-tender, and without masses, organomegaly, or appreciable enlargement of the abdominal aorta. Cardiac exam revealed the PMI to be normally situated and sized. The rhythm was regular and no extrasystoles were noted during several minutes of auscultation. The first and second heart sounds were normal and physiologic splitting of the second heart sound was noted. There were no murmurs, rubs, clicks, or gallops. Examination of the extremities revealed easily palpable radial, femoral and pedal pulses. There was no cyanosis, clubbing or edema. Examination of the skin revealed no evidence of significant rashes, suspicious appearing nevi or other concerning lesions. Neurologically the patient is sedated Results - Laboratory Findings CBC and BMP: 04/01/23 14:23 04/01/23 14:23 ABG ABG pH 7.40 (7.35-7.45) 04/01/23 14:33 ABG pCO2 41 mmHg (35-45) 04/01/23 14:33 ABG pO2 >400 mmHg (83-108) H 04/01/23 14:33 ABG O2 Saturation 100.0 % (94-97) H 04/01/23 14:33 PT/INR, D-dimer PT 12.3 sec (10.0-12.5) 04/01/23 14:23 INR 1.2 (<1.2) H 04/01/23 14:23 Abnormal lab findings: Abnormal Labs 03/28/23 04/01/23 04/01/23 09:00 13:28 14:23 RBC 3.38 L Hgb 10.5 L D Hct 28.6 L INR Fibrinogen ABG pO2 223 H ABG HCO3 26 H ABG Total CO2 27 H ABG O2 Saturation 100.0 H ABG Hematocrit 30 L ABG Glucose 110 H ABG Lactic Acid 1.9 H Hemoglobin 9.9 L Chloride BUN POC Glucose (mg/dL) Magnesium Total Bilirubin AST Total Protein Albumin Arterial Blood Glucose 110 H Crossmatch See Detail 04/01/23 04/01/23 04/01/23 14:23 14:23 14:33 RBC Hgb Hct INR 1.2 H Fibrinogen 197 L ABG pO2 >400 H ABG HCO3 26 H ABG Total CO2 27 H ABG O2 Saturation 100.0 H ABG Hematocrit ABG Glucose ABG Lactic Acid Hemoglobin Chloride 109 H BUN 24 H POC Glucose (mg/dL) Magnesium 2.7 H Total Bilirubin 1.6 H AST 74 H Total Protein 5.0 L Albumin 3.1 L Arterial Blood Glucose Crossmatch 04/01/23 14:59 RBC Hgb Hct INR Fibrinogen ABG pO2 ABG HCO3 ABG Total CO2 ABG O2 Saturation ABG Hematocrit ABG Glucose ABG Lactic Acid Hemoglobin Chloride BUN POC Glucose (mg/dL) 120 H Magnesium Total Bilirubin AST Total Protein Albumin Arterial Blood Glucose Crossmatch - Diagnostic Findings Chest x-ray: image reviewed Assessment and Plan Plan: Severe mitral regurgitation, patient is status post mitral valve repair. The patient is currently postop day #0 Postthoracotomy, currently intubated on a mechanical ventilator. No evidence of any pneumothorax, chest x-ray and the blood gases were noted New-onset A. fib secondary to mitral regurgitation, current rhythm is sinus PFO History of severe obstructive sleep apnea limited on APAP therapy pressures of 5/15 cm of water History of von Willebrand's disease Hyperlipidemia Plan Keep the patient on propofol for now. Wean down FiO2 Monitor hemodynamics Monitor output from the chest tube Anticipate extubation within next few hours Clinically stable and hemodynamically stable and the patient is on no pressors Cardiac rhythm is sinus Chest tubes are in place We'll continue to follow.
[2023-04-01] MEDS: LACTATED RINGERS 1,000 ML IV SCH (15:17)
[2023-04-01 15:21] LABS: RBC Morphology Normal
[2023-04-01 15:22] LABS: Platelet Count 93 k/uL (150-450)
[2023-04-01] MEDS: ALBUMIN HUMAN 5% 250 ML in EMPTY BAG 1 BAG IVPB PRN (15:43)
[2023-04-01] MEDS ORDERED: IPRATROPIUM-ALBUTEROL 3 ML NEB INHALATION SCH (16:00)
[2023-04-01 16:35] LABS: Glucose,Whole Blood 182 mg/dL (70-110)
[2023-04-01] MEDS: INSULIN REGULAR 100 UNIT in SODIUM CHLORIDE 0.9% 100 ML IV SCH (16:35)
--- NOTE | 2023-04-01 16:52 | P.EPPROC ---
- EP Procedure Note Electrophysiology Procedure Note: Diagnosis Recurrent presyncope Twelve-lead EKG Sinus rhythm normal VA narrow QRS normal ST segments normal QT interval Tilt table test per protocol Baseline blood pressure 122/61 mmHg, baseline 156 beats a minute Patient was tilted upright at an angle of 70 per protocol After 14-16 minutes, there was a sudden drop in blood pressure. Lowest blood pressure recorded 80 60 49 mmHg, associated with a heart rate of 92 beats a minute She was diaphoretic, complaining of tunnel vision. She looked pale When she is laid supine heart rate and blood pressure normalized Impression Normal twelve-lead EKG Neurocardiogenic syncope
[2023-04-01 17:06] LABS: Glucose,Whole Blood 179 mg/dL (70-110)
[2023-04-01] MEDS: HEPARIN SODIUM,PORCINE 5,000 UNIT/ML 1 ML VIAL SQ SCH ×2 (17:06→23:03)
[2023-04-01 17:56] LABS: ABG Base Excess -1.4 mmol/L; ABG HCO3 24 mmol/L (21-25); ABG Oxygen Saturation 98.8 % (94-97); ABG PCO2 43 mmHg (35-45); ABG PH 7.36 (7.35-7.45); ABG PO2 123 mmHg (83-108); ABG TCO2 25 mmol/L (19-24); Allen Test Performed? Yes
[2023-04-01 18:02] LABS: Basophils % (A) 0 %; Eosinophils % (A) 0 %; Lymphocytes # (A) 0.8 k/uL (1.0-4.8); Lymphocytes % (A) 6 %; MCH 30.3 pg (25.0-35.0); MCHC 34.9 g/dL (31.0-37.0); MCV 86.8 fL (80.0-100.0); Mean Platelet Volume 8.2; Monocytes # (A) 0.9 k/uL (0-1.0); Monocytes % (A) 6 %; Neutrophils # (A) 12.1 k/uL (1.3-7.7); Neutrophils % (A) 88 %; Platelet Count 178 k/uL (150-450); RBC 3.23 m/uL (4.30-5.90); RDW 12.7 % (11.5-15.5); WBC 13.8 k/uL (3.8-10.6)
[2023-04-01 18:04] LABS: HGB 9.8 gm/dL (13.0-17.5)
[2023-04-01] MEDS: ACETAMINOPHEN IV (For NPO) 1,000 MG in EMPTY BAG 1 BAG IVPB SCH ×2 (18:14→23:03)
[2023-04-01 18:24] LABS: Glucose,Whole Blood 141 mg/dL (70-110)
--- NOTE | 2023-04-01 18:43 | OP ---
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 Michael Barcenas. PREOPERATIVE DIAGNOSIS: Severe mitral regurgitation, symptomatic and paroxysmal atrial fibrillation. POSTOPERATIVE DIAGNOSIS: Torn chordae to P2 of the posterior leaflet. PROCEDURE PERFORMED: Complex mitral valve repair with a #36 mm Lang AnnuloFlex ring, quadrangular resection of P2 of the posterior leaflet. Closure of P2, P3 cleft. Ring annuloplasty with a 36 mm band. Clip ligation of the left atrial appendage with a 35 mm AtriClip. Intraoperative GREG and a complete left-sided Maze using radiofrequency and cryoablation. ESTIMATED BLOOD LOSS: 500 cc. ANESTHESIA: General. DESCRIPTION OF PROCEDURE: The patient was brought to the operating room, placed in supine position. Following administration of a general endotracheal anesthetic, placement of a [place]-Feli catheter, arterial line, adequate IV access, Pino catheter, the patient was carefully prepped and draped in normal sterile fashion using chlorhexidine paint and sterile towels. Preoperative GREG confirmed the presence of severe eccentric anteriorly directed mitral regurgitation with a torn chordae to P2 of the posterior leaflet. Midline incision in the chest made, sternum divided, pericardium was opened. Heart size was normal caliber. The aorta was soft. The patient was heparinized to an ACT of greater than 480. The aorta and 2 single stage venous cannulas were placed. Antegrade and retrograde cardioplegic catheters positioned in the ascending aorta and the coronary sinus. The patient was placed on bypass, cross-clamp was placed. Heart arrested with 1 L of antegrade followed by 500 cc of retrograde cardioplegia. Retrograde cardioplegia was delivered 300 to 500 cc at the end of each 20 minute interval. First, the base of the left atrial appendage was measured and a 35 mm AtriClip was brought to the field. At this point, both right and left superior and inferior pulmonary veins were isolated and encircled and using the AtriCure radiofrequency ablation clamp, 3 sets of double ablation lines were created on both right and left side. At this point, the base of the left atrial appendage was grasped and a 35 mm AtriClip was secured at the base, officially obliterating the left atrial appendage. At this point, entrance into the left atrium was made at the junction of the left atrium and the right superior pulmonary vein. A handheld retractor was placed. The mitral valve was identified. It was somewhat mildly dilated; however, there were restored chords to P2 of the posterior leaflet. There was also a prominent P2, P3 cleft. At this point, between a triangular and quadrangular resection of this area of P2 was performed. It was reapproximated with horizontal mattress 5-0 Prolene sutures followed by a running 5-0 Prolene suture. The P2 and P3 cleft was also closed with a horizontal mattress 5-0 Prolene suture. At this point, it sized to a 36 mm [employer] AnnuloFlex band. Prior to this, the roof and floor lesions using the radiofrequency clamp were completed from right to left side. Also using the cryoprobe, the mitral annular lesion was completed between the mitral anulus and the right box lesions at 2 minute cryo burn. At this point, 2-0 Ti- Cron nonpledgeted sutures were placed from trigone to trigone along the posterior anulus. These were then passed through the band, which was then seated and seated well. All sutures were secured, tied, and cut using the Cor-Knot ligature system device. It was tested with a handheld teste and tested well with no further regurgitation. At this point, the atrium was closed in a double layered pledgeted 4-0 Prolene vertical mattress followed by an [id number] stitch from both sides. The patient was placed head down, complete de-airing maneuver was performed three times, 1 L of warm blood retrograde cardioplegia was run. Cross-clamp was then removed and once in a normal rhythm, the patient was ventilated, reperfused, and brought off bypass, came off bypass uneventfully with good hemodynamics. Protamine delivered. The patient decannulated. Atrial and ventricular pacing wires were placed. Mediastinal left pleural chest tubes were placed. At this point, the sternum was closed with four #6 sternal wires and two [id number] Doole sternal cable closure devices. Skin and subcutaneous tissue fascia closed in 3 layers. No complications. The patient tolerated the procedure well, was taken to the cardiovascular intensive care unit in stable condition. MMODL / IJN: [id number] /
--- NOTE | 2023-04-01 18:47 | P.ANPRN ---
Procedure Note - Anesthesia - GREG Intraop Pre Bypass GREG Intraop - Anesthesia Indication: MR Date of Procedure: 04/01/23 Pre-operative Diagnosis: MR Post-operative Diagnosis: S/p Mitral valve repair Surgeon: Oscar Salmeron Left Ventricle: WNL Ejection Fraction: Normal Regional Wall Motion Abnormalities: None Left Ventricle Hypertrophy: No Right Ventricle: WNL R. Ventricle Function: Normal Anatomy: Trileaflet Aortic Stenosis: None Aortic Regurgitation: None Mitral Valve: Flail chordae on P2. Mitral Stenosis: None Mitral Regurgitation: Severe (eccentric anterior/septal directed jet) Tricuspid Stenosis: None Tricuspid Regurgitation: None Pulmonic Stenosis: None Pulmonic Regurgitation: None R. Atrial Dilation: No R. Atrial PFO: Yes L. Atrial Dilation: No Aortic Dissection: No Aortic Calcification: None Plural Effusion: None
--- NOTE | 2023-04-01 18:49 | P.ANPRN ---
Procedure Note - Anesthesia - GREG Intraop Post Bypass GREG Intraop Post Bypass Procedure Performed: Mitral valve repair Left Ventricle: unchanged Ejection Fraction: Normal Regional Wall Motion Abnormalities: None R. Ventricle Function: Normal Aortic Valve: Unchanged Mitral Valve: s/p repair, no residual MR Tricuspid: Unchanged Pulmonic: Unchanged Aortic Dissection: No
[2023-04-01] MEDS: NOREPINEPHRINE 4 MG in SODIUM CHLORIDE 0.9% 250 ML IV SCH (18:50)
[2023-04-01 19:09] LABS: Glucose,Whole Blood 157 mg/dL (70-110)
[2023-04-01] MEDS: IPRATROPIUM-ALBUTEROL 3 ML NEB INHALATION SCH (19:59)
[2023-04-01 20:08] LABS: Glucose,Whole Blood 153 mg/dL (70-110)
[2023-04-01 20:32] LABS: Basophils % (A) 0 %; Eosinophils % (A) 0 %; HCT 27.3 % (39.0-53.0); HGB 9.8 gm/dL (13.0-17.5); Lymphocytes # (A) 0.5 k/uL (1.0-4.8); Lymphocytes % (A) 4 %; MCH 31.1 pg (25.0-35.0); MCHC 35.9 g/dL (31.0-37.0); MCV 86.8 fL (80.0-100.0); Mean Platelet Volume 8.5; Monocytes # (A) 0.9 k/uL (0-1.0); Monocytes % (A) 7 %; Neutrophils # (A) 10.6 k/uL (1.3-7.7); Neutrophils % (A) 88 %; Platelet Count 159 k/uL (150-450); RBC 3.15 m/uL (4.30-5.90); RDW 12.7 % (11.5-15.5)
[2023-04-01 20:53] LABS: Glucose,Whole Blood 161 mg/dL (70-110)
[2023-04-01] MEDS: SENNOSIDES-DOCUSATE SODIUM 1 EACH TAB PO SCH (21:27)
[2023-04-01] MEDS: PANTOPRAZOLE 40 MG/10 ML VIAL IVP SCH (21:27)
[2023-04-01] MEDS: ONDANSETRON 4 MG/2 ML VIAL IVP PRN (21:44)
[2023-04-01 22:03] LABS: Glucose,Whole Blood 150 mg/dL (70-110)
[2023-04-01 22:59] LABS: Glucose,Whole Blood 132 mg/dL (70-110)
[2023-04-01] MEDS: KETOROLAC 15 MG/ML 1 ML VIAL IVP SCH (23:03)
[2023-04-01] MEDS: METOCLOPRAMIDE 5 MG/ML 2 ML VIAL IVP PRN (23:16)
[2023-04-02 00:01] LABS: Glucose,Whole Blood 135 mg/dL (70-110)
[2023-04-02 00:27] LABS: African American GFR (CKD) >90 (>60 ml/min/1.73 sqM); Anion Gap 9 mmol/L; Blood Urea Nitrogen 26 mg/dL (9-20); Calcium 8.2 mg/dL (8.4-10.2); Carbon Dioxide 24 mmol/L (22-30); Chloride 108 mmol/L (98-107); Glucose 120 mg/dL (74-99); Magnesium 2.2 mg/dL (1.6-2.3); Non-African American GFR(CKD) >90 (>60 ml/min/1.73 sqM); Potassium 4.1 mmol/L (3.5-5.1); Sodium 141 mmol/L (137-145)
[2023-04-02 01:06] LABS: Glucose,Whole Blood 133 mg/dL (70-110)
[2023-04-02 02:06] LABS: Glucose,Whole Blood 117 mg/dL (70-110)
[2023-04-02] MEDS: ALBUMIN HUMAN 5% 250 ML in EMPTY BAG 1 BAG IVPB PRN ×5 (02:43→08:30)
[2023-04-02 03:19] LABS: Glucose,Whole Blood 114 mg/dL (70-110)
[2023-04-02 04:06] LABS: Glucose,Whole Blood 148 mg/dL (70-110)
[2023-04-02 04:28] LABS: Basophils % (A) 0 %; Eosinophils % (A) 0 %; Lymphocytes # (A) 0.7 k/uL (1.0-4.8); Lymphocytes % (A) 6 %; MCH 31.4 pg (25.0-35.0); MCV 87.2 fL (80.0-100.0); Mean Platelet Volume 9.7; Monocytes # (A) 1.2 k/uL (0-1.0); Monocytes % (A) 10 %; Neutrophils # (A) 10.4 k/uL (1.3-7.7); Neutrophils % (A) 83 %; Platelet Count 144 k/uL (150-450); RBC 2.86 m/uL (4.30-5.90); RDW 12.8 % (11.5-15.5); WBC 12.5 k/uL (3.8-10.6)
[2023-04-02] MEDS: METOCLOPRAMIDE 5 MG/ML 2 ML VIAL IVP PRN ×2 (04:28→08:45)
[2023-04-02 04:32] LABS: Ionized Calcium 4.7 mg/dL (4.5-5.3)
[2023-04-02 04:43] LABS: AST 89 U/L (17-59); African American GFR (CKD) >90 (>60 ml/min/1.73 sqM); Albumin 3.4 g/dL (3.5-5.0); Alkaline Phosphatase 45 U/L (38-126); Anion Gap 6 mmol/L; Blood Urea Nitrogen 30 mg/dL (9-20); Calcium 8.2 mg/dL (8.4-10.2); Carbon Dioxide 24 mmol/L (22-30); Chloride 109 mmol/L (98-107); Glucose 141 mg/dL (74-99); Magnesium 2.2 mg/dL (1.6-2.3); Non-African American GFR(CKD) >90 (>60 ml/min/1.73 sqM); Potassium 4.6 mmol/L (3.5-5.1); Sodium 139 mmol/L (137-145); Total Bilirubin 1.6 mg/dL (0.2-1.3); Total Protein 5.2 g/dL (6.3-8.2)
[2023-04-02 04:58] LABS: ALT 34 U/L (4-49)
[2023-04-02] MEDS: KETOROLAC 15 MG/ML 1 ML VIAL IVP SCH ×4 (05:05→23:58)
[2023-04-02 05:21] LABS: Glucose,Whole Blood 147 mg/dL (70-110)
--- NOTE | 2023-04-02 06:24 | XR ---
EXAMINATION TYPE: XR chest 1V portable DATE OF EXAM: 04/02/2023 5:15 AM COMPARISON: Chest radiographs from 04/01/2023 TECHNIQUE: XR chest 1V portable Portable AP radiograph of the chest. CLINICAL INDICATION:Male, 58 years old with history of Post Operative Cardiac Surgery; FINDINGS: Lungs/Pleura: No evidence of focal consolidation or pneumothorax. Blunting of the costophrenic angles is present. Pulmonary vascularity: Pulmonary vascular congestion. Heart/mediastinum: Cardiomediastinal silhouette is enlarged and stable. Cardiac valvular prosthesis. Left atrial appendage occlusion devices present. Musculoskeletal: No acute osseous pathology. Midline sternotomy wires are noted and stable. Left clav icle fixation hardware are redemonstrated. Other findings: None Lines/Tubes: Interval removal of endotracheal and enteric tubes. Stable position of right IJ [place]-Feli catheter an d mediastinal drains. IMPRESSION: 1. Interval removal of endotracheal and enteric tubes. Remaining stable support lines and tubes. 2. Cardiomegaly with pulmonary vascular congestion and small bilateral pleural effusions.
[2023-04-02] MEDS: ONDANSETRON 4 MG/2 ML VIAL IVP PRN ×3 (06:46→20:44)
[2023-04-02 06:58] LABS: Glucose,Whole Blood 121 mg/dL (70-110)
[2023-04-02] MEDS ORDERED: ACETAMINOPHEN TAB 325 MG TAB PO PRN (06:59)
--- NOTE | 2023-04-02 07:22 | P.PN ---
Subjective Progress Note Date: 04/02/23 58-year-old male patient being seen in the intensive care unit following his mitral valve repair procedure. The patient is known to have severe mitral regurgitation addition to a new onset A. fib. His cardiac catheterization revealed normal coronaries , his GREG confirmed severe MR with a PFO and the left atrial appendage was free of any clot in the left and ejection fraction was 60%. The patient underwent a mitral valve repair the patient is currently postop day #0. The patient was seen in intensive care unit, intubated on a mechanical ventilator. Cardiac output is 6 with an index of 2.6. Pulmonary artery pressures of 42/22. The patient has adequate urine output. He is on no pressors for now. He is on a mechanical ventilator. He is on a rate of 14, tidal volume of 500, FiO2 of 50% with a PEEP of 5. Initial blood given 100% FiO2 showed a pH of 7.4 with a pCO2 of 41 and pO2 more than 400. Chest x-ray shows [place] being in good location. All tubes in good location the patient has 2 mediastinal chest tube that has put out a total of 200 mL without evidence of any air leak. No pneumothorax. He is on propofol at 20 mcg/kg/m. Cardiac rhythm is sinus. 14 2022, the patient is extubated the patient is currently on 4 L of oxygen by nasal cannula. He is awake and alert and communicating. He did encounter some hypotension given IV albumin currently the patient is on norepinephrine running at 0.06 mcg/kg. He cardiac output is 4.8 with an index of 2.1. Pulmonary artery pressures of 25/15 and a most recent blood pressures 82/46 and the Levaquin is being titrated. Cardiac rhythm is sinus at 80. Chest x-ray from today shows pulmonary vascular congestion. ET tube has been removed. Small bilateral pleural effusions. The patient has 2 mediastinal chest tube, point wilson s been 2 70 mL from chest tube #1 and 500 mL from [place] #2. No evidence of any air leaks. He is complaining of chest wall pain at the surgical site. He is also on insulin drip at 3 units an hour.Blood work from today shows WBC count 12.5, hemoglobin is at 9 and a platelet count of 144. His BUN is at 30 with a creatinine of 0.7 and his sodium level is at 139. Glucose is at 121. Objective - Vital Signs Vital signs: Vital Signs Temp 98.6 F 04/01/23 19:00 Pulse 80 04/02/23 07:00 Resp 11 L 04/02/23 07:00 BP 94/65 04/02/23 07:00 Pulse Ox 95 04/02/23 07:00 FiO2 50 04/01/23 18:00 Intake & Output 04/01/23 04/02/23 04/02/23 18:59 06:59 18:59 Intake Total 4763.684 0267.592 559 Output Total 3110 905 30 Balance -4016.301 4768.592 529 Weight 105.6 kg Intake: IV 197 1558 559 0.9ns for CO/CI 100 200 0.9ns for pressure bag 45 108 9 ACETAMINOPHEN IV (For NPO 100 ) 1,000 mg In Empty Bag 1 bag @ 400 mls/hr IVPB Q6HR [facility] Rx#:[id number] Albumin Human 5% 250 ml 500 500 In Empty Bag 1 bag @ 250 mls/hr IVPB Q1HR PRN Rx#: [id number] Lactated Ringers 1,000 ml 550 50 @ 50 mls/hr IV .Q20H [facility] Rx#:[id number] ceFAZolin 2 gm In Sodium 100 Chloride 0.9% 50 ml @ 100 mls/hr IVPB Q8HR [facility] Rx# :[id number] Intake, IV Titration 301.313 214.592 Amount Insulin Regular 100 unit 7.339 40.011 In Sodium Chloride 0.9% 100 ml @ Per Protocol IV .Q0M [facility] Rx#:[id number] Lactated Ringers 1,000 ml 250 50 @ 50 mls/hr IV .Q20H [facility] Rx#:[id number] Norepinephrine 4 mg In 124.581 Sodium Chloride 0.9% 250 ml @ 0.02 MCG/KG/MIN 7. 811 mls/hr IV .Q24H [facility] Rx#:[id number] propofoL 1,000 mg In 43.974 Empty Bag 1 bag @ Titrate IV .Q0M [facility] Rx#: [id number] Oral 540 Blood Product 1315 Ffp 24 Cpd Unit 351 [id number] Ffp 24 Cpd Unit 302 [id number] Platelet Pheresis Pas 333 Psoralen Unit [id number] Platelet Pheresis Pas 258 Psoralen Unit [id number] Pooled Cryoprecipitate 71 Unit [id number] Output: Chest Tube Drainage 510 250 10 Chest Tube Mediastinal 290 210 0 Pleural Catheter Right 220 40 10 Urine 1000 655 20 Estimated Blood Loss 1600 Other: Voiding Method Indwelling Catheter Indwelling Catheter ABP, PAP, CO, CI - Last Documented Arterial Blood Pressure 81/51 Pulmonary Artery Pressure 30/20 Cardiac Output 4.8 Cardiac Index 2.1 - Exam Gen. appearance, the patient is currently on 4 L of oxygen by nasal cannula, u sing the incentive spirometer, sitting up on a recliner Head exam was generally normal. There was no scleral icterus or corneal arcus. Mucous membranes were moist. Neck was supple and without jugular venous distension, thyromegaly, or carotid bruits. Carotids were easily palpable bilaterally. There was no adenopathy. Oral tracheal and orogastric tube are both in place and the patient has a right IJ [place] catheter in place. Lungs were clear to auscultation and percussion, and with normal diaphragmatic excursion. No wheezes or rales were noted. Thoracotomy scar is dry clean and intact and the patient is 2 mediastinal chest tubes, no evidence of any air leak Abdominal exam revealed normal bowel sounds. The abdomen was soft, non-tender, and without masses, organomegaly, or appreciable enlargement of the abdominal aorta. Cardiac exam revealed the PMI to be normally situated and sized. The rhythm was regular and no extrasystoles were noted during several minutes of auscultation. The first and second heart sounds were normal and physiologic splitting of the second heart sound was noted. There were no murmurs, rubs, clicks, or gallops. Examination of the extremities revealed easily palpable radial, femoral and pedal pulses. There was no cyanosis, clubbing or edema. Examination of the skin revealed no evidence of significant rashes, suspicious appearing nevi or other concerning lesions. Neurologically, the patient is awake and alert and the patient does not have any focal neurological deficit. Cranial nerves are essentially intact. - Labs CBC & Chem 7: 04/02/23 04:16 04/02/23 04:16 Labs: Abnormal Lab Results - Last 24 Hours (Table) 03/28/23 04/01/23 04/01/23 Range/Units 09:00 13:28 14:23 WBC (3.8-10.6) k/uL RBC 3.38 L (4.30-5.90) m/uL Hgb 10.5 L D (13.0-17.5) gm/dL Hct 28.6 L (39.0-53.0) % Plt Count 93 L D (150-450) k/uL Neutrophils # 8.5 H (1.3-7.7) k/uL Lymphocytes # 0.7 L (1.0-4.8) k/uL Monocytes # (0-1.0) k/uL INR (<1.2) Fibrinogen (200-500) mg/dL ABG pO2 223 H (83-108) mmHg ABG HCO3 26 H (21-25) mmol/L ABG Total CO2 27 H (19-24) mmol/L ABG O2 Saturation 100.0 H (94-97) % ABG Hematocrit 30 L (34.0-46.0) % ABG Glucose 110 H (75-99) mg/dL ABG Lactic Acid 1.9 H (0.5-1.6) mmol/L Hemoglobin 9.9 L (13.0-17.5) gm/dL Chloride (98-107) mmol/L BUN (9-20) mg/dL Glucose (74-99) mg/dL POC Glucose (mg/dL) (70-110) mg/dL Calcium (8.4-10.2) mg/dL Magnesium (1.6-2.3) mg/dL Total Bilirubin (0.2-1.3) mg/dL AST (17-59) U/L Total Protein (6.3-8.2) g/dL Albumin (3.5-5.0) g/dL Arterial Blood Glucose 110 H (75-99) mg/dL Crossmatch See Detail 04/01/23 04/01/23 04/01/23 Range/Units 14:23 14:23 14:33 WBC (3.8-10.6) k/uL RBC (4.30-5.90) m/uL Hgb (13.0-17.5) gm/dL Hct (39.0-53.0) % Plt Count (150-450) k/uL Neutrophils # (1.3-7.7) k/uL Lymphocytes # (1.0-4.8) k/uL Monocytes # (0-1.0) k/uL INR 1.2 H (<1.2) Fibrinogen 197 L (200-500) mg/dL ABG pO2 >400 H (83-108) mmHg ABG HCO3 26 H (21-25) mmol/L ABG Total CO2 27 H (19-24) mmol/L ABG O2 Saturation 100.0 H (94-97) % ABG Hematocrit (34.0-46.0) % ABG Glucose (75-99) mg/dL ABG Lactic Acid (0.5-1.6) mmol/L Hemoglobin (13.0-17.5) gm/dL Chloride 109 H (98-107) mmol/L BUN 24 H (9-20) mg/dL Glucose (74-99) mg/dL POC Glucose (mg/dL) (70-110) mg/dL Calcium (8.4-10.2) mg/dL Magnesium 2.7 H (1.6-2.3) mg/dL Total Bilirubin 1.6 H (0.2-1.3) mg/dL AST 74 H (17-59) U/L Total Protein 5.0 L (6.3-8.2) g/dL Albumin 3.1 L (3.5-5.0) g/dL Arterial Blood Glucose (75-99) mg/dL Crossmatch 04/01/23 04/01/23 04/01/23 Range/Units 14:59 15:09 16:34 WBC (3.8-10.6) k/uL RBC (4.30-5.90) m/uL Hgb (13.0-17.5) gm/dL Hct (39.0-53.0) % Plt Count (150-450) k/uL Neutrophils # (1.3-7.7) k/uL Lymphocytes # (1.0-4.8) k/uL Monocytes # (0-1.0) k/uL INR (<1.2) Fibrinogen (200-500) mg/dL ABG pO2 (83-108) mmHg ABG HCO3 (21-25) mmol/L ABG Total CO2 (19-24) mmol/L ABG O2 Saturation (94-97) % ABG Hematocrit (34.0-46.0) % ABG Glucose (75-99) mg/dL ABG Lactic Acid (0.5-1.6) mmol/L Hemoglobin (13.0-17.5) gm/dL Chloride (98-107) mmol/L BUN (9-20) mg/dL Glucose (74-99) mg/dL POC Glucose (mg/dL) 120 H 122 H 182 H (70-110) mg/dL Calcium (8.4-10.2) mg/dL Magnesium (1.6-2.3) mg/dL Total Bilirubin (0.2-1.3) mg/dL AST (17-59) U/L Total Protein (6.3-8.2) g/dL Albumin (3.5-5.0) g/dL Arterial Blood Glucose (75-99) mg/dL Crossmatch 04/01/23 04/01/23 04/01/23 Range/Units 17:05 17:20 17:50 WBC 13.8 H (3.8-10.6) k/uL RBC 3.23 L (4.30-5.90) m/uL Hgb 9.8 L (13.0-17.5) gm/dL Hct 28.0 L (39.0-53.0) % Plt Count (150-450) k/uL Neutrophils # 12.1 H (1.3-7.7) k/uL Lymphocytes # 0.8 L (1.0-4.8) k/uL Monocytes # (0-1.0) k/uL INR (<1.2) Fibrinogen (200-500) mg/dL ABG pO2 123 H (83-108) mmHg ABG HCO3 (21-25) mmol/L ABG Total CO2 25 H (19-24) mmol/L ABG O2 Saturation 98.8 H (94-97) % ABG Hematocrit (34.0-46.0) % ABG Glucose (75-99) mg/dL ABG Lactic Acid (0.5-1.6) mmol/L Hemoglobin (13.0-17.5) gm/dL Chloride (98-107) mmol/L BUN (9-20) mg/dL Glucose (74-99) mg/dL POC Glucose (mg/dL) 179 H (70-110) mg/dL Calcium (8.4-10.2) mg/dL Magnesium (1.6-2.3) mg/dL Total Bilirubin (0.2-1.3) mg/dL AST (17-59) U/L Total Protein (6.3-8.2) g/dL Albumin (3.5-5.0) g/dL Arterial Blood Glucose (75-99) mg/dL Crossmatch 04/01/23 04/01/23 04/01/23 Range/Units 18:22 19:08 20:06 WBC (3.8-10.6) k/uL RBC (4.30-5.90) m/uL Hgb (13.0-17.5) gm/dL Hct (39.0-53.0) % Plt Count (150-450) k/uL Neutrophils # (1.3-7.7) k/uL Lymphocytes # (1.0-4.8) k/uL Monocytes # (0-1.0) k/uL INR (<1.2) Fibrinogen (200-500) mg/dL ABG pO2 (83-108) mmHg ABG HCO3 (21-25) mmol/L ABG Total CO2 (19-24) mmol/L ABG O2 Saturation (94-97) % ABG Hematocrit (34.0-46.0) % ABG Glucose (75-99) mg/dL ABG Lactic Acid (0.5-1.6) mmol/L Hemoglobin (13.0-17.5) gm/dL Chloride (98-107) mmol/L BUN (9-20) mg/dL Glucose (74-99) mg/dL POC Glucose (mg/dL) 141 H 157 H 153 H (70-110) mg/dL Calcium (8.4-10.2) mg/dL Magnesium (1.6-2.3) mg/dL Total Bilirubin (0.2-1.3) mg/dL AST (17-59) U/L Total Protein (6.3-8.2) g/dL Albumin (3.5-5.0) g/dL Arterial Blood Glucose (75-99) mg/dL Crossmatch 04/01/23 04/01/23 04/01/23 Range/Units 20:08 20:51 22:02 WBC 12.0 H (3.8-10.6) k/uL RBC 3.15 L (4.30-5.90) m/uL Hgb 9.8 L (13.0-17.5) gm/dL Hct 27.3 L (39.0-53.0) % Plt Count (150-450) k/uL Neutrophils # 10.6 H (1.3-7.7) k/uL Lymphocytes # 0.5 L (1.0-4.8) k/uL Monocytes # (0-1.0) k/uL INR (<1.2) Fibrinogen (200-500) mg/dL ABG pO2 (83-108) mmHg ABG HCO3 (21-25) mmol/L ABG Total CO2 (19-24) mmol/L ABG O2 Saturation (94-97) % ABG Hematocrit (34.0-46.0) % ABG Glucose (75-99) mg/dL ABG Lactic Acid (0.5-1.6) mmol/L Hemoglobin (13.0-17.5) gm/dL Chloride (98-107) mmol/L BUN (9-20) mg/dL Glucose (74-99) mg/dL POC Glucose (mg/dL) 161 H 150 H (70-110) mg/dL Calcium (8.4-10.2) mg/dL Magnesium (1.6-2.3) mg/dL Total Bilirubin (0.2-1.3) mg/dL AST (17-59) U/L Total Protein (6.3-8.2) g/dL Albumin (3.5-5.0) g/dL Arterial Blood Glucose (75-99) mg/dL Crossmatch 04/01/23 04/02/23 04/02/23 Range/Units 22:57 00:00 00:01 WBC (3.8-10.6) k/uL RBC (4.30-5.90) m/uL Hgb (13.0-17.5) gm/dL Hct (39.0-53.0) % Plt Count (150-450) k/uL Neutrophils # (1.3-7.7) k/uL Lymphocytes # (1.0-4.8) k/uL Monocytes # (0-1.0) k/uL INR (<1.2) Fibrinogen (200-500) mg/dL ABG pO2 (83-108) mmHg ABG HCO3 (21-25) mmol/L ABG Total CO2 (19-24) mmol/L ABG O2 Saturation (94-97) % ABG Hematocrit (34.0-46.0) % ABG Glucose (75-99) mg/dL ABG Lactic Acid (0.5-1.6) mmol/L Hemoglobin (13.0-17.5) gm/dL Chloride 108 H (98-107) mmol/L BUN 26 H (9-20) mg/dL Glucose 120 H (74-99) mg/dL POC Glucose (mg/dL) 132 H 135 H (70-110) mg/dL Calcium 8.2 L (8.4-10.2) mg/dL Magnesium (1.6-2.3) mg/dL Total Bilirubin (0.2-1.3) mg/dL AST (17-59) U/L Total Protein (6.3-8.2) g/dL Albumin (3.5-5.0) g/dL Arterial Blood Glucose (75-99) mg/dL Crossmatch 04/02/23 04/02/23 04/02/23 Range/Units 01:05 02:05 03:17 WBC (3.8-10.6) k/uL RBC (4.30-5.90) m/uL Hgb (13.0-17.5) gm/dL Hct (39.0-53.0) % Plt Count (150-450) k/uL Neutrophils # (1.3-7.7) k/uL Lymphocytes # (1.0-4.8) k/uL Monocytes # (0-1.0) k/uL INR (<1.2) Fibrinogen (200-500) mg/dL ABG pO2 (83-108) mmHg ABG HCO3 (21-25) mmol/L ABG Total CO2 (19-24) mmol/L ABG O2 Saturation (94-97) % ABG Hematocrit (34.0-46.0) % ABG Glucose (75-99) mg/dL ABG Lactic Acid (0.5-1.6) mmol/L Hemoglobin (13.0-17.5) gm/dL Chloride (98-107) mmol/L BUN (9-20) mg/dL Glucose (74-99) mg/dL POC Glucose (mg/dL) 133 H 117 H 114 H (70-110) mg/dL Calcium (8.4-10.2) mg/dL Magnesium (1.6-2.3) mg/dL Total Bilirubin (0.2-1.3) mg/dL AST (17-59) U/L Total Protein (6.3-8.2) g/dL Albumin (3.5-5.0) g/dL Arterial Blood Glucose (75-99) mg/dL Crossmatch 04/02/23 04/02/23 04/02/23 Range/Units 04:03 04:16 04:16 WBC 12.5 H (3.8-10.6) k/uL RBC 2.86 L (4.30-5.90) m/uL Hgb 9.0 L (13.0-17.5) gm/dL Hct 25.0 L (39.0-53.0) % Plt Count 144 L (150-450) k/uL Neutrophils # 10.4 H (1.3-7.7) k/uL Lymphocytes # 0.7 L (1.0-4.8) k/uL Monocytes # 1.2 H (0-1.0) k/uL INR (<1.2) Fibrinogen (200-500) mg/dL ABG pO2 (83-108) mmHg ABG HCO3 (21-25) mmol/L ABG Total CO2 (19-24) mmol/L ABG O2 Saturation (94-97) % ABG Hematocrit (34.0-46.0) % ABG Glucose (75-99) mg/dL ABG Lactic Acid (0.5-1.6) mmol/L Hemoglobin (13.0-17.5) gm/dL Chloride 109 H (98-107) mmol/L BUN 30 H (9-20) mg/dL Glucose 141 H (74-99) mg/dL POC Glucose (mg/dL) 148 H (70-110) mg/dL Calcium 8.2 L (8.4-10.2) mg/dL Magnesium (1.6-2.3) mg/dL Total Bilirubin 1.6 H (0.2-1.3) mg/dL AST 89 H (17-59) U/L Total Protein 5.2 L (6.3-8.2) g/dL Albumin 3.4 L (3.5-5.0) g/dL Arterial Blood Glucose (75-99) mg/dL Crossmatch 04/02/23 04/02/23 Range/Units 05:18 06:56 WBC (3.8-10.6) k/uL RBC (4.30-5.90) m/uL Hgb (13.0-17.5) gm/dL Hct (39.0-53.0) % Plt Count (150-450) k/uL Neutrophils # (1.3-7.7) k/uL Lymphocytes # (1.0-4.8) k/uL Monocytes # (0-1.0) k/uL INR (<1.2) Fibrinogen (200-500) mg/dL ABG pO2 (83-108) mmHg ABG HCO3 (21-25) mmol/L ABG Total CO2 (19-24) mmol/L ABG O2 Saturation (94-97) % ABG Hematocrit (34.0-46.0) % ABG Glucose (75-99) mg/dL ABG Lactic Acid (0.5-1.6) mmol/L Hemoglobin (13.0-17.5) gm/dL Chloride (98-107) mmol/L BUN (9-20) mg/dL Glucose (74-99) mg/dL POC Glucose (mg/dL) 147 H 121 H (70-110) mg/dL Calcium (8.4-10.2) mg/dL Magnesium (1.6-2.3) mg/dL Total Bilirubin (0.2-1.3) mg/dL AST (17-59) U/L Total Protein (6.3-8.2) g/dL Albumin (3.5-5.0) g/dL Arterial Blood Glucose (75-99) mg/dL Crossmatch Assessment and Plan Plan: Severe mitral regurgitation, patient is status post mitral valve repair. The pa tient is currently postop day #1 Postthoracotomy, patient is extubated. Chest x-ray from today shows small bilateral pleural effusions. Mediastinal chest that in place. Hypotension, currently on norepinephrine at a dose of 0.06 mcg/kg/m. Received IV albumin a total of 1 L since surgery. Norepinephrine is being titrated. He is going to receive another 500 mL of IV albumin for now. New-onset A. fib secondary to mitral regurgitation, current rhythm is sinus PFO History of severe obstructive sleep apnea limited on APAP therapy pressures of 5/15 cm of water History of von Willebrand's disease Hyperlipidemia Plan Wean down FiO2, continue incentive spirometer Monitor hemodynamics Give 500 mL of IV albumin, 12.5 g Monitor output from the chest tube Monitor blood work and hemodynamics Keep insulin drip for now. Continue pressors Cardiac rhythm is sinus Chest tubes are in place We'll continue to follow.
[2023-04-02] MEDS: IPRATROPIUM-ALBUTEROL 3 ML NEB INHALATION SCH ×4 (07:42→19:38)
--- NOTE | 2023-04-02 07:48 | P.PN ---
Subjective Progress Note Date: 04/02/23 Principal diagnosis: Severe symptomatic mitral regurgitation with torn chordae to P2 of the posterior leaflet, paroxysmal atrial fibrillation. Previous medical history of PFO, von Willebrand's, obstructive sleep apnea with home CPAP use, remote history of pneumonia, premature coronary artery disease in both sets of grandparents POD #1 complex mitral valve repair with a 36 mm Lang AnnuloFlex ring, quadrangular resection of P2 of the posterior leaflet, closure of P2, P3 cleft, ring annuloplasty with a 36 mm CarboMedics band, clip ligation of the left atrial appendage with a 35 mm AtriClip, intraoperative transesophageal echocardiogram, complete left-sided maze using radiofrequency and cryoablation Acute blood loss anemia and thrombocytopenia, expected given hemodilution and cardiopulmonary bypass pump Hypotension and nausea, expected as effects from anesthesia and narcotic pain medication, patient reports history of the side effects in the past with anesthesia The patient was seen and examined this morning sitting up in a recliner in the intensive care unit in no acute distress although he does complain of continued nausea despite antiemetics. He was successfully extubated last night at 18:05. Remains AV paced at 80 bpm, underlying rhythm sinus in the 60s. Blood pressure soft although mean arterial pressures adequate, remains on IV levo and has been given albumin for resuscitation. Right internal jugular [place]/Cordis, right radial arterial line, mediastinal/right pleural chest tubes all present. Labs, chest x-ray reviewed. Discussed with Dr. Salmeron and Dr. Martinez. No other new concerns. Objective - Vital Signs Vital signs: Vital Signs Temp 98.6 F 04/01/23 19:00 Pulse 80 04/02/23 07:00 Resp 11 L 04/02/23 07:00 BP 94/65 04/02/23 07:00 Pulse Ox 95 04/02/23 07:00 FiO2 50 04/01/23 18:00 Intake & Output 04/01/23 04/02/23 04/02/23 18:59 06:59 18:59 Intake Total 2154.702 4500.592 559 Output Total 3110 905 30 Balance -3478.266 5728.592 529 Weight 105.6 kg Intake: IV 197 1558 559 0.9ns for CO/CI 100 200 0.9ns for pressure bag 45 108 9 ACETAMINOPHEN IV (For NPO 100 ) 1,000 mg In Empty Bag 1 bag @ 400 mls/hr IVPB Q6HR [facility] Rx#:[id number] Albumin Human 5% 250 ml 500 500 In Empty Bag 1 bag @ 250 mls/hr IVPB Q1HR PRN Rx#: [id number] Lactated Ringers 1,000 ml 550 50 @ 50 mls/hr IV .Q20H [facility] Rx#:[id number] ceFAZolin 2 gm In Sodium 100 Chloride 0.9% 50 ml @ 100 mls/hr IVPB Q8HR [facility] Rx# :[id number] Intake, IV Titration 301.313 214.592 Amount Insulin Regular 100 unit 7.339 40.011 In Sodium Chloride 0.9% 100 ml @ Per Protocol IV .Q0M [facility] Rx#:[id number] Lactated Ringers 1,000 ml 250 50 @ 50 mls/hr IV .Q20H [facility] Rx#:[id number] Norepinephrine 4 mg In 124.581 Sodium Chloride 0.9% 250 ml @ 0.02 MCG/KG/MIN 7. 811 mls/hr IV .Q24H [facility] Rx#:[id number] propofoL 1,000 mg In 43.974 Empty Bag 1 bag @ Titrate IV .Q0M [facility] Rx#: [id number] Oral 540 Blood Product 1315 Ffp 24 Cpd Unit 351 [id number] Ffp 24 Cpd Unit 302 [id number] Platelet Pheresis Pas 333 Psoralen Unit [id number] Platelet Pheresis Pas 258 Psoralen Unit [id number] Pooled Cryoprecipitate 71 Unit [id number] Output: Chest Tube Drainage 510 250 10 Chest Tube Mediastinal 290 210 0 Pleural Catheter Right 220 40 10 Urine 1000 655 20 Estimated Blood Loss 1600 Other: Voiding Method Indwelling Catheter Indwelling Catheter ABP, PAP, CO, CI - Last Documented Arterial Blood Pressure 81/51 Pulmonary Artery Pressure 30/20 Cardiac Output 4.8 Cardiac Index 2.1 - Exam CONSTITUTIONAL: Appears comfortable, cooperative, no acute distress RESPIRATORY: Lungs sounds diminished bilaterally. Respirations even, nonlabored. Currently on 4 L nasal cannula with oxygen saturation 95%. Able to achieve 1000 mL on incentive spirometry. Strong cough. CARDIOVASCULAR: S1, S2 present. Regular rate and rhythm, AV paced on telemetry with underlying rhythm sinus in the 60s. Sternum stable. Palpable peripheral pulses bilaterally. No edema present. No calf pain or tenderness noted. Heart hugger in place with patient demonstrating appropriate use. Antiembolism stockings, SCDs present. GASTROINTESTINAL: Abdomen soft, nontender, nondistended. Hypoactive bowel sounds present 4 quadrants. Tolerating minimal clear liquids due to nausea. Denies flatus GENITOURINARY: Pino present draining clear, yellow urine. Output overnight 25-70 mL per hour INTEGUMENTARY: Skin is warm and dry with evidence of good perfusion. Anterior chest incision well approximated and covered with dry intact dressing NEUROLOGIC: Cranial nerves II through XII intact MUSKULOSKELETAL: Able to move all extremities, strength equal bilaterally PSYCHIATRIC: Alert although admittedly sleepy, oriented to person place and time, appropriate affect, intact judgment and insight INVASIVE LINES AND TUBES: Mediastinal/right pleural chest tubes present and connected to wall suction, no air leaks present. Mediastinal tube with 100 mL serosanguineous drainage overnight, 500 mL since surgery. Right pleural chest tube with 20 mL serosanguineous drainage overnight, 250 mL last 24 hours. A/V epicardial pacemaker wires present, connected to generator, rate 80 bpm. Right internal jugular [place]/Cordis, right radial arterial line present. Last CO/CI 4.8/2.1, PA 25/13, CVP 5. - Allied health notes Allied health notes reviewed: nursing - Labs CBC & Chem 7: 04/02/23 04:16 04/02/23 04:16 Labs: Abnormal Lab Results - Last 24 Hours (Table) 03/28/23 04/01/23 04/01/23 Range/Units 09:00 11:00 11:31 WBC (3.8-10.6) k/uL RBC (4.30-5.90) m/uL Hgb (13.0-17.5) gm/dL Hct (39.0-53.0) % Plt Count (150-450) k/uL Neutrophils # (1.3-7.7) k/uL Lymphocytes # (1.0-4.8) k/uL Monocytes # (0-1.0) k/uL INR (<1.2) Fibrinogen (200-500) mg/dL ABG pH 7.28 L 7.33 L (7.35-7.45) ABG pCO2 52 H 48 H (35-45) mmHg ABG pO2 376 H 357 H (83-108) mmHg ABG HCO3 (21-25) mmol/L ABG Total CO2 26 H 27 H (19-24) mmol/L ABG O2 Saturation 100.0 H 100.0 H (94-97) % ABG Hematocrit 31 L 30 L (34.0-46.0) % ABG Potassium 5.1 H 4.8 H (3.4-4.5) mmol/L ABG Ionized Calcium 4.3 L 4.1 L (4.5-5.3) mg/dL ABG Glucose 176 H 187 H (75-99) mg/dL ABG Lactic Acid (0.5-1.6) mmol/L Hemoglobin 10.1 L 9.7 L (13.0-17.5) gm/dL Chloride (98-107) mmol/L BUN (9-20) mg/dL Glucose (74-99) mg/dL POC Glucose (mg/dL) (70-110) mg/dL Calcium (8.4-10.2) mg/dL Magnesium (1.6-2.3) mg/dL Total Bilirubin (0.2-1.3) mg/dL AST (17-59) U/L Total Protein (6.3-8.2) g/dL Albumin (3.5-5.0) g/dL Arterial Blood Potassium 5.1 H 4.8 H (3.4-4.5) mmol/L Arterial Blood Glucose 176 H 187 H (75-99) mg/dL Crossmatch See Detail 04/01/23 04/01/23 04/01/23 Range/Units 12:04 12:24 13:28 WBC (3.8-10.6) k/uL RBC (4.30-5.90) m/uL Hgb (13.0-17.5) gm/dL Hct (39.0-53.0) % Plt Count (150-450) k/uL Neutrophils # (1.3-7.7) k/uL Lymphocytes # (1.0-4.8) k/uL Monocytes # (0-1.0) k/uL INR (<1.2) Fibrinogen (200-500) mg/dL ABG pH 7.30 L (7.35-7.45) ABG pCO2 49 H (35-45) mmHg ABG pO2 289 H 365 H 223 H (83-108) mmHg ABG HCO3 26 H (21-25) mmol/L ABG Total CO2 26 H 26 H 27 H (19-24) mmol/L ABG O2 Saturation 99.9 H 100.0 H 100.0 H (94-97) % ABG Hematocrit 29 L 29 L 30 L (34.0-46.0) % ABG Potassium 4.7 H 4.6 H (3.4-4.5) mmol/L ABG Ionized Calcium 4.2 L 4.1 L (4.5-5.3) mg/dL ABG Glucose 155 H 135 H 110 H (75-99) mg/dL ABG Lactic Acid 2.1 H 2.4 H* 1.9 H (0.5-1.6) mmol/L Hemoglobin 9.4 L 9.5 L 9.9 L (13.0-17.5) gm/dL Chloride (98-107) mmol/L BUN (9-20) mg/dL Glucose (74-99) mg/dL POC Glucose (mg/dL) (70-110) mg/dL Calcium (8.4-10.2) mg/dL Magnesium (1.6-2.3) mg/dL Total Bilirubin (0.2-1.3) mg/dL AST (17-59) U/L Total Protein (6.3-8.2) g/dL Albumin (3.5-5.0) g/dL Arterial Blood Potassium 4.7 H 4.6 H (3.4-4.5) mmol/L Arterial Blood Glucose 155 H 135 H 110 H (75-99) mg/dL Crossmatch 04/01/23 04/01/23 04/01/23 Range/Units 14:23 14:23 14:23 WBC (3.8-10.6) k/uL RBC 3.38 L (4.30-5.90) m/uL Hgb 10.5 L D (13.0-17.5) gm/dL Hct 28.6 L (39.0-53.0) % Plt Count 93 L D (150-450) k/uL Neutrophils # 8.5 H (1.3-7.7) k/uL Lymphocytes # 0.7 L (1.0-4.8) k/uL Monocytes # (0-1.0) k/uL INR 1.2 H (<1.2) Fibrinogen 197 L (200-500) mg/dL ABG pH (7.35-7.45) ABG pCO2 (35-45) mmHg ABG pO2 (83-108) mmHg ABG HCO3 (21-25) mmol/L ABG Total CO2 (19-24) mmol/L ABG O2 Saturation (94-97) % ABG Hematocrit (34.0-46.0) % ABG Potassium (3.4-4.5) mmol/L ABG Ionized Calcium (4.5-5.3) mg/dL ABG Glucose (75-99) mg/dL ABG Lactic Acid (0.5-1.6) mmol/L Hemoglobin (13.0-17.5) gm/dL Chloride 109 H (98-107) mmol/L BUN 24 H (9-20) mg/dL Glucose (74-99) mg/dL POC Glucose (mg/dL) (70-110) mg/dL Calcium (8.4-10.2) mg/dL Magnesium 2.7 H (1.6-2.3) mg/dL Total Bilirubin 1.6 H (0.2-1.3) mg/dL AST 74 H (17-59) U/L Total Protein 5.0 L (6.3-8.2) g/dL Albumin 3.1 L (3.5-5.0) g/dL Arterial Blood Potassium (3.4-4.5) mmol/L Arterial Blood Glucose (75-99) mg/dL Crossmatch 04/01/23 04/01/23 04/01/23 Range/Units 14:33 14:59 15:09 WBC (3.8-10.6) k/uL RBC (4.30-5.90) m/uL Hgb (13.0-17.5) gm/dL Hct (39.0-53.0) % Plt Count (150-450) k/uL Neutrophils # (1.3-7.7) k/uL Lymphocytes # (1.0-4.8) k/uL Monocytes # (0-1.0) k/uL INR (<1.2) Fibrinogen (200-500) mg/dL ABG pH (7.35-7.45) ABG pCO2 (35-45) mmHg ABG pO2 >400 H (83-108) mmHg ABG HCO3 26 H (21-25) mmol/L ABG Total CO2 27 H (19-24) mmol/L ABG O2 Saturation 100.0 H (94-97) % ABG Hematocrit (34.0-46.0) % ABG Potassium (3.4-4.5) mmol/L ABG Ionized Calcium (4.5-5.3) mg/dL ABG Glucose (75-99) mg/dL ABG Lactic Acid (0.5-1.6) mmol/L Hemoglobin (13.0-17.5) gm/dL Chloride (98-107) mmol/L BUN (9-20) mg/dL Glucose (74-99) mg/dL POC Glucose (mg/dL) 120 H 122 H (70-110) mg/dL Calcium (8.4-10.2) mg/dL Magnesium (1.6-2.3) mg/dL Total Bilirubin (0.2-1.3) mg/dL AST (17-59) U/L Total Protein (6.3-8.2) g/dL Albumin (3.5-5.0) g/dL Arterial Blood Potassium (3.4-4.5) mmol/L Arterial Blood Glucose (75-99) mg/dL Crossmatch 04/01/23 04/01/23 04/01/23 Range/Units 16:34 17:05 17:20 WBC 13.8 H (3.8-10.6) k/uL RBC 3.23 L (4.30-5.90) m/uL Hgb 9.8 L (13.0-17.5) gm/dL Hct 28.0 L (39.0-53.0) % Plt Count (150-450) k/uL Neutrophils # 12.1 H (1.3-7.7) k/uL Lymphocytes # 0.8 L (1.0-4.8) k/uL Monocytes # (0-1.0) k/uL INR (<1.2) Fibrinogen (200-500) mg/dL ABG pH (7.35-7.45) ABG pCO2 (35-45) mmHg ABG pO2 (83-108) mmHg ABG HCO3 (21-25) mmol/L ABG Total CO2 (19-24) mmol/L ABG O2 Saturation (94-97) % ABG Hematocrit (34.0-46.0) % ABG Potassium (3.4-4.5) mmol/L ABG Ionized Calcium (4.5-5.3) mg/dL ABG Glucose (75-99) mg/dL ABG Lactic Acid (0.5-1.6) mmol/L Hemoglobin (13.0-17.5) gm/dL Chloride (98-107) mmol/L BUN (9-20) mg/dL Glucose (74-99) mg/dL POC Glucose (mg/dL) 182 H 179 H (70-110) mg/dL Calcium (8.4-10.2) mg/dL Magnesium (1.6-2.3) mg/dL Total Bilirubin (0.2-1.3) mg/dL AST (17-59) U/L Total Protein (6.3-8.2) g/dL Albumin (3.5-5.0) g/dL Arterial Blood Potassium (3.4-4.5) mmol/L Arterial Blood Glucose (75-99) mg/dL Crossmatch 04/01/23 04/01/23 04/01/23 Range/Units 17:50 18:22 19:08 WBC (3.8-10.6) k/uL RBC (4.30-5.90) m/uL Hgb (13.0-17.5) gm/dL Hct (39.0-53.0) % Plt Count (150-450) k/uL Neutrophils # (1.3-7.7) k/uL Lymphocytes # (1.0-4.8) k/uL Monocytes # (0-1.0) k/uL INR (<1.2) Fibrinogen (200-500) mg/dL ABG pH (7.35-7.45) ABG pCO2 (35-45) mmHg ABG pO2 123 H (83-108) mmHg ABG HCO3 (21-25) mmol/L ABG Total CO2 25 H (19-24) mmol/L ABG O2 Saturation 98.8 H (94-97) % ABG Hematocrit (34.0-46.0) % ABG Potassium (3.4-4.5) mmol/L ABG Ionized Calcium (4.5-5.3) mg/dL ABG Glucose (75-99) mg/dL ABG Lactic Acid (0.5-1.6) mmol/L Hemoglobin (13.0-17.5) gm/dL Chloride (98-107) mmol/L BUN (9-20) mg/dL Glucose (74-99) mg/dL POC Glucose (mg/dL) 141 H 157 H (70-110) mg/dL Calcium (8.4-10.2) mg/dL Magnesium (1.6-2.3) mg/dL Total Bilirubin (0.2-1.3) mg/dL AST (17-59) U/L Total Protein (6.3-8.2) g/dL Albumin (3.5-5.0) g/dL Arterial Blood Potassium (3.4-4.5) mmol/L Arterial Blood Glucose (75-99) mg/dL Crossmatch 04/01/23 04/01/23 04/01/23 Range/Units 20:06 20:08 20:51 WBC 12.0 H (3.8-10.6) k/uL RBC 3.15 L (4.30-5.90) m/uL Hgb 9.8 L (13.0-17.5) gm/dL Hct 27.3 L (39.0-53.0) % Plt Count (150-450) k/uL Neutrophils # 10.6 H (1.3-7.7) k/uL Lymphocytes # 0.5 L (1.0-4.8) k/uL Monocytes # (0-1.0) k/uL INR (<1.2) Fibrinogen (200-500) mg/dL ABG pH (7.35-7.45) ABG pCO2 (35-45) mmHg ABG pO2 (83-108) mmHg ABG HCO3 (21-25) mmol/L ABG Total CO2 (19-24) mmol/L ABG O2 Saturation (94-97) % ABG Hematocrit (34.0-46.0) % ABG Potassium (3.4-4.5) mmol/L ABG Ionized Calcium (4.5-5.3) mg/dL ABG Glucose (75-99) mg/dL ABG Lactic Acid (0.5-1.6) mmol/L Hemoglobin (13.0-17.5) gm/dL Chloride (98-107) mmol/L BUN (9-20) mg/dL Glucose (74-99) mg/dL POC Glucose (mg/dL) 153 H 161 H (70-110) mg/dL Calcium (8.4-10.2) mg/dL Magnesium (1.6-2.3) mg/dL Total Bilirubin (0.2-1.3) mg/dL AST (17-59) U/L Total Protein (6.3-8.2) g/dL Albumin (3.5-5.0) g/dL Arterial Blood Potassium (3.4-4.5) mmol/L Arterial Blood Glucose (75-99) mg/dL Crossmatch 04/01/23 04/01/23 04/02/23 Range/Units 22:02 22:57 00:00 WBC (3.8-10.6) k/uL RBC (4.30-5.90) m/uL Hgb (13.0-17.5) gm/dL Hct (39.0-53.0) % Plt Count (150-450) k/uL Neutrophils # (1.3-7.7) k/uL Lymphocytes # (1.0-4.8) k/uL Monocytes # (0-1.0) k/uL INR (<1.2) Fibrinogen (200-500) mg/dL ABG pH (7.35-7.45) ABG pCO2 (35-45) mmHg ABG pO2 (83-108) mmHg ABG HCO3 (21-25) mmol/L ABG Total CO2 (19-24) mmol/L ABG O2 Saturation (94-97) % ABG Hematocrit (34.0-46.0) % ABG Potassium (3.4-4.5) mmol/L ABG Ionized Calcium (4.5-5.3) mg/dL ABG Glucose (75-99) mg/dL ABG Lactic Acid (0.5-1.6) mmol/L Hemoglobin (13.0-17.5) gm/dL Chloride (98-107) mmol/L BUN (9-20) mg/dL Glucose (74-99) mg/dL POC Glucose (mg/dL) 150 H 132 H 135 H (70-110) mg/dL Calcium (8.4-10.2) mg/dL Magnesium (1.6-2.3) mg/dL Total Bilirubin (0.2-1.3) mg/dL AST (17-59) U/L Total Protein (6.3-8.2) g/dL Albumin (3.5-5.0) g/dL Arterial Blood Potassium (3.4-4.5) mmol/L Arterial Blood Glucose (75-99) mg/dL Crossmatch 04/02/23 04/02/23 04/02/23 Range/Units 00:01 01:05 02:05 WBC (3.8-10.6) k/uL RBC (4.30-5.90) m/uL Hgb (13.0-17.5) gm/dL Hct (39.0-53.0) % Plt Count (150-450) k/uL Neutrophils # (1.3-7.7) k/uL Lymphocytes # (1.0-4.8) k/uL Monocytes # (0-1.0) k/uL INR (<1.2) Fibrinogen (200-500) mg/dL ABG pH (7.35-7.45) ABG pCO2 (35-45) mmHg ABG pO2 (83-108) mmHg ABG HCO3 (21-25) mmol/L ABG Total CO2 (19-24) mmol/L ABG O2 Saturation (94-97) % ABG Hematocrit (34.0-46.0) % ABG Potassium (3.4-4.5) mmol/L ABG Ionized Calcium (4.5-5.3) mg/dL ABG Glucose (75-99) mg/dL ABG Lactic Acid (0.5-1.6) mmol/L Hemoglobin (13.0-17.5) gm/dL Chloride 108 H (98-107) mmol/L BUN 26 H (9-20) mg/dL Glucose 120 H (74-99) mg/dL POC Glucose (mg/dL) 133 H 117 H (70-110) mg/dL Calcium 8.2 L (8.4-10.2) mg/dL Magnesium (1.6-2.3) mg/dL Total Bilirubin (0.2-1.3) mg/dL AST (17-59) U/L Total Protein (6.3-8.2) g/dL Albumin (3.5-5.0) g/dL Arterial Blood Potassium (3.4-4.5) mmol/L Arterial Blood Glucose (75-99) mg/dL Crossmatch 04/02/23 04/02/23 04/02/23 Range/Units 03:17 04:03 04:16 WBC 12.5 H (3.8-10.6) k/uL RBC 2.86 L (4.30-5.90) m/uL Hgb 9.0 L (13.0-17.5) gm/dL Hct 25.0 L (39.0-53.0) % Plt Count 144 L (150-450) k/uL Neutrophils # 10.4 H (1.3-7.7) k/uL Lymphocytes # 0.7 L (1.0-4.8) k/uL Monocytes # 1.2 H (0-1.0) k/uL INR (<1.2) Fibrinogen (200-500) mg/dL ABG pH (7.35-7.45) ABG pCO2 (35-45) mmHg ABG pO2 (83-108) mmHg ABG HCO3 (21-25) mmol/L ABG Total CO2 (19-24) mmol/L ABG O2 Saturation (94-97) % ABG Hematocrit (34.0-46.0) % ABG Potassium (3.4-4.5) mmol/L ABG Ionized Calcium (4.5-5.3) mg/dL ABG Glucose (75-99) mg/dL ABG Lactic Acid (0.5-1.6) mmol/L Hemoglobin (13.0-17.5) gm/dL Chloride (98-107) mmol/L BUN (9-20) mg/dL Glucose (74-99) mg/dL POC Glucose (mg/dL) 114 H 148 H (70-110) mg/dL Calcium (8.4-10.2) mg/dL Magnesium (1.6-2.3) mg/dL Total Bilirubin (0.2-1.3) mg/dL AST (17-59) U/L Total Protein (6.3-8.2) g/dL Albumin (3.5-5.0) g/dL Arterial Blood Potassium (3.4-4.5) mmol/L Arterial Blood Glucose (75-99) mg/dL Crossmatch 04/02/23 04/02/23 04/02/23 Range/Units 04:16 05:18 06:56 WBC (3.8-10.6) k/uL RBC (4.30-5.90) m/uL Hgb (13.0-17.5) gm/dL Hct (39.0-53.0) % Plt Count (150-450) k/uL Neutrophils # (1.3-7.7) k/uL Lymphocytes # (1.0-4.8) k/uL Monocytes # (0-1.0) k/uL INR (<1.2) Fibrinogen (200-500) mg/dL ABG pH (7.35-7.45) ABG pCO2 (35-45) mmHg ABG pO2 (83-108) mmHg ABG HCO3 (21-25) mmol/L ABG Total CO2 (19-24) mmol/L ABG O2 Saturation (94-97) % ABG Hematocrit (34.0-46.0) % ABG Potassium (3.4-4.5) mmol/L ABG Ionized Calcium (4.5-5.3) mg/dL ABG Glucose (75-99) mg/dL ABG Lactic Acid (0.5-1.6) mmol/L Hemoglobin (13.0-17.5) gm/dL Chloride 109 H (98-107) mmol/L BUN 30 H (9-20) mg/dL Glucose 141 H (74-99) mg/dL POC Glucose (mg/dL) 147 H 121 H (70-110) mg/dL Calcium 8.2 L (8.4-10.2) mg/dL Magnesium (1.6-2.3) mg/dL Total Bilirubin 1.6 H (0.2-1.3) mg/dL AST 89 H (17-59) U/L Total Protein 5.2 L (6.3-8.2) g/dL Albumin 3.4 L (3.5-5.0) g/dL Arterial Blood Potassium (3.4-4.5) mmol/L Arterial Blood Glucose (75-99) mg/dL Crossmatch - Imaging and Cardiology Chest x-ray: report reviewed, image reviewed Assessment and Plan Assessment: Severe symptomatic mitral regurgitation with torn chordae to P2 of the posterior leaflet, status post complex mitral valve repair Paroxysmal atrial fibrillation, status post complete left-sided maze as well as ligation of the left atrial appendage PFO Von Willebrand's Obstructive sleep apnea with home CPAP use Remote history of pneumonia Premature coronary artery disease in both sets of grandparents Acute blood loss anemia and thrombocytopenia, expected Hypotension and nausea, expected Plan: Continue to maximize medical therapy with low-dose aspirin, statin, Plavix. Will hold beta akanksha for now due to hypotension, we will initiate and titrate up when able Wean levo as tolerated, continue volume resuscitation Wean O2 as tolerated. Encourage incentive spirometry is 10 times every hour while awake. Bronchodilators, CPAP per pulmonology Increase activity as tolerated. PT/OT/cardiac rehab consulted Will monitor daily labs and x-rays. Electrolyte replacement per protocol. No Lasix today GI/DVT prophylaxis Insulin management per internal medicine. Patient is not diabetic, preoperative hemoglobin A1c 5.7%. Patient does need tight blood sugar control, should remain on IV insulin for 48 hours then transition to subcutaneous insulin per protocol Continue Pramod Prince for now Continue mediastinal/right pleural chest tubes for another 24 hours, monitor output Continue Pino catheter for another 24 hours, continue to record strict accurate intake and output Tylenol added for pain control, limit narcotics to nausea More recommendations to follow
[2023-04-02] MEDS ORDERED: ALBUMIN HUMAN 5% 500 ML in EMPTY BAG 1 BAG IVPB STA (08:00)
[2023-04-02 08:39] LABS: Glucose,Whole Blood 123 mg/dL (70-110)
[2023-04-02] MEDS: HEPARIN SODIUM,PORCINE 5,000 UNIT/ML 1 ML VIAL SQ SCH ×3 (08:46→23:58)
[2023-04-02] MEDS: ASPIRIN 81 MG PO SCH (08:46)
[2023-04-02] MEDS: PANTOPRAZOLE 40 MG/10 ML VIAL IVP SCH ×2 (08:46→20:08)
[2023-04-02] MEDS: ATORVASTATIN 20 MG TAB PO SCH (08:46)
[2023-04-02] MEDS: CLOPIDOGREL 75 MG TAB PO SCH (08:46)
[2023-04-02] MEDS: METOPROLOL TARTRATE 12.5 MG TAB PO SCH ×2 (08:50→20:07)
[2023-04-02] MEDS ORDERED: CLOPIDOGREL 75 MG TAB PO SCH (09:00)
[2023-04-02] MEDS ORDERED: PANTOPRAZOLE 40 MG/10 ML VIAL IVP SCH (09:00)
[2023-04-02] MEDS ORDERED: bisacodyL 10 MG SUPP RECTAL PRN (09:00)
[2023-04-02] MEDS ORDERED: ASPIRIN 325 MG TAB PO SCH (09:00)
[2023-04-02] MEDS ORDERED: MAGNESIUM HYDROXIDE 2,400 MG/30 ML CUP PO PRN (09:00)
[2023-04-02] MEDS: NOREPINEPHRINE 4 MG in SODIUM CHLORIDE 0.9% 250 ML IV SCH ×2 (09:44→20:44)
--- NOTE | 2023-04-02 09:44 | P.CRDCN ---
History of Present Illness Consult date: 04/02/23 Consult reason: known to you History of present illness: The patient is a 58-year-old male who follows in the office with Dr. Shepard. He was referred to cardiothoracic surgery for severe mitral regurgitation and torn chordae tendonae. He underwent complex mitral valve repair with Dr. Salmeron on 04/01/23. He was extubated yesterday and remains on a small amount of Levophed. Patient is currently being paced. REVIEW OF SYSTEMS: No fever or chills. No cough or expectoration. No diaphoresis. Patient denies headache, dizziness, blurred vision, double vision. Patient denies any stomach discomfort. No hematochezia. No hematemesis. Denies any black stools or blood in his stools. Denies dysuria or hematuria. No muscle weakness or numbness. Denies shortness of breath. Positive for sternal discomfort. Positive for nausea. PHYSICAL EXAMINATION: This is a 58-year-old male in no apparent distress at the time of my examination. HEENT: Head is atraumatic, normocephalic. Pupils are equal, round. There is no jugular venous distention. No carotid bruit is heard. CHEST EXAMINATION: Lungs are clear to auscultation. Positive for chest pain wi th deep breathing. Low lung volumes. HEART EXAMINATION: Heart regular rate and rhythm. S1, S2 heard. Soft systolic murmur. No gallops or rub. Sternal dressing in place with Heart Hugger. ABDOMEN: Soft, nontender. Bowel sounds are heard. No organomegaly noted. EXTREMITIES: 2+ peripheral pulses with no evidence of peripheral edema and no calf tenderness noted. NEUROLOGIC EXAMINATION: Patient is awake, alert and oriented x3. FINAL ASSESSMENT AND PLAN: Severe mitral regurgitation with torn chordae to P2 of posterior leaflet Status post complex mitral valve repair with left atrial appendage clip and left-sided maze procedure PLAN: Continue supportive treatment Discussed the importance of pain control and pulmonary hygiene Further recommendations to be based upon clinical course I am dictating on behalf of Dr Jose Shepard's history/physical and assessment/plan. 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 for new onset a-fib, SOB w/exertion, found to have mitral valve problem History of Any Multi-Drug Resistant Organisms: None Reported Past Surgical History: Orthopedic Surgery, Tonsillectomy Additional Past Surgical History / Comment(s): NASAL SURGERY , RIGHT KNEE ACL ARTHROSCOPIC, shoulder surgery Past Anesthesia/Blood Transfusion Reactions: Previous Problems w/ Anesthesia, Motion Sickness Additional Past Anesthesia/Blood Transfusion Reaction / Comment(s): VON WILLEBRAND DISEASE- INCREASED BLEEDING WITH PREVIOUS SURGERIES Past Alcohol Use History: None Reported - Past Family History Daughter(s) Family Medical History: Deep Vein Thrombosis (DVT) Additional Family Medical History / Comment(s): Effort Induced DVTs at age 16- 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-tx @ [employer] Son(s) Additional Family Medical History / Comment(s): hemangioma side of neck Mother Family Medical History: Cancer Medications and Allergies Home Medications Medication Instructions Recorded Confirmed Type Aspirin 81 mg PO DAILY 30 Days #30 tab 02/02/23 04/01/23 Rx Atorvastatin [Lipitor] 20 mg PO DAILY 30 Days #30 tablet 02/02/23 03/28/23 Rx Metoprolol Tartrate [Lopressor] 25 mg PO BID 30 Days #60 tab 02/02/23 03/28/23 Rx Allergies Allergy/AdvReac Type Severity Reaction Status Date / Time No Known Allergies Allergy Verified 03/28/23 11:00 Physical Exam Vitals: Vital Signs Temp Pulse Resp BP Pulse Ox FiO2 04/02/23 09:15 80 16 98 04/02/23 09:00 98.2 F 80 14 97/70 100 04/02/23 08:45 80 23 100 04/02/23 08:30 80 16 100 04/02/23 08:15 80 14 98 04/02/23 08:00 98.1 F 80 16 100/66 98 04/02/23 07:52 80 04/02/23 07:47 96 04/02/23 07:45 80 18 96 04/02/23 07:42 80 04/02/23 07:30 80 16 96 04/02/23 07:15 80 12 96 04/02/23 07:00 80 11 L 94/65 95 04/02/23 06:45 80 17 95 04/02/23 06:30 80 11 L 93 L 04/02/23 06:15 80 12 87 L 04/02/23 06:00 85 14 91 L 04/02/23 05:45 80 15 95 04/02/23 05:30 80 15 92 L 04/02/23 05:15 80 28 H 92 L 04/02/23 05:00 80 17 94 L 04/02/23 04:45 80 29 H 97 04/02/23 04:30 80 21 97/60 94 L 04/02/23 04:15 80 19 93 L 04/02/23 04:00 80 18 91/58 95 04/02/23 03:45 80 19 94 L 04/02/23 03:30 80 17 95 04/02/23 03:15 80 11 L 97 04/02/23 03:00 80 17 96 04/02/23 02:45 80 22 96 04/02/23 02:30 80 19 94 L 04/02/23 02:15 80 10 L 94/58 96 04/02/23 02:00 80 32 H 94 L 04/02/23 01:45 80 18 95 04/02/23 01:30 80 22 94 L 04/02/23 01:15 80 15 97 04/02/23 01:00 80 11 L 95 04/02/23 00:45 80 13 94 L 04/02/23 00:30 80 15 95 04/02/23 00:15 80 17 97 04/02/23 00:09 80 11 L 97 04/02/23 00:00 80 11 L 95 04/01/23 23:45 80 14 94 L 04/01/23 23:30 80 18 98 04/01/23 23:15 80 13 98 04/01/23 23:00 80 24 96 04/01/23 22:45 80 24 95 04/01/23 22:30 80 16 96 04/01/23 22:15 80 18 101/68 95 04/01/23 22:00 80 23 95 04/01/23 21:45 80 20 97 04/01/23 21:30 80 22 99 04/01/23 21:15 80 15 100 04/01/23 21:00 80 18 94 L 04/01/23 20:45 80 23 96 04/01/23 20:30 80 24 97 04/01/23 20:15 80 13 96/68 97 04/01/23 20:11 80 04/01/23 20:00 80 15 100 04/01/23 19:45 80 9 L 100 04/01/23 19:30 80 20 100 04/01/23 19:15 80 15 100 04/01/23 19:00 98.6 F 80 22 94/75 100 04/01/23 18:45 79 25 H 94/75 99 04/01/23 18:30 80 24 94/75 97 04/01/23 18:15 80 20 94/75 96 04/01/23 18:00 80 42 H 105/88 99 50 04/01/23 17:45 68 42 H 105/88 98 50 04/01/23 17:30 68 23 105/88 97 50 04/01/23 17:16 40 04/01/23 17:15 71 23 105/88 100 50 04/01/23 17:10 72 25 H 105/88 100 50 04/01/23 17:00 98.8 F 77 17 97/61 98 50 04/01/23 16:50 72 19 100 50 04/01/23 16:48 99.0 F 71 19 89/51 100 04/01/23 16:47 99.0 F 72 19 92/56 100 04/01/23 16:40 71 17 99 50 04/01/23 16:30 72 16 98/62 98 50 04/01/23 16:28 99.0 F 72 18 88/53 100 04/01/23 16:26 98.8 F 72 16 90/55 100 04/01/23 16:20 72 17 99 50 04/01/23 16:10 72 17 100 50 04/01/23 16:00 99.0 F 72 16 100 0 04/01/23 15:50 71 14 100 50 04/01/23 15:40 74 15 100 50 04/01/23 15:30 73 17 100 50 04/01/23 15:20 75 15 100 50 04/01/23 15:10 73 21 100 50 04/01/23 15:00 73 18 100 50 04/01/23 14:54 75 04/01/23 14:50 73 14 100 100 04/01/23 14:47 75 04/01/23 14:46 50 04/01/23 14:40 73 14 100 100 04/01/23 14:30 73 14 100 100 04/01/23 14:27 100 04/01/23 14:20 36.5 F L 70 14 100 100 Intake and Output 04/01/23 04/02/23 04/02/23 22:59 06:59 14:59 Intake Total 0536.820 0904.158 1247 Output Total 1130 490 140 Balance -991.406 3521.158 1107 Intake: IV 352 1322 1247 0.9ns for CO/CI 130 150 20 0.9ns for pressure bag 72 72 27 ACETAMINOPHEN IV (For NPO 100 ) 1,000 mg In Empty Bag 1 bag @ 400 mls/hr IVPB Q6HR [facility] Rx#:[id number] Albumin Human 5% 250 ml 500 1000 In Empty Bag 1 bag @ 250 mls/hr IVPB Q1HR PRN Rx#: [id number] Lactated Ringers 1,000 ml 150 400 150 @ 50 mls/hr IV .Q20H [facility] Rx#:[id number] ceFAZolin 2 gm In Sodium 100 50 Chloride 0.9% 50 ml @ 100 mls/hr IVPB Q8HR [facility] Rx# :[id number] Intake, IV Titration 315.747 150.158 Amount Insulin Regular 100 unit 21.773 25.577 In Sodium Chloride 0.9% 100 ml @ Per Protocol IV .Q0M [facility] Rx#:[id number] Lactated Ringers 1,000 ml 250 @ 50 mls/hr IV .Q20H [facility] Rx#:[id number] Norepinephrine 4 mg In 124.581 Sodium Chloride 0.9% 250 ml @ 0.02 MCG/KG/MIN 7. 811 mls/hr IV .Q24H [facility] Rx#:[id number] propofoL 1,000 mg In 43.974 Empty Bag 1 bag @ Titrate IV .Q0M [facility] Rx#: [id number] Oral 540 Blood Product 333 Platelet Pheresis Pas 333 Psoralen Unit [id number] Output: Chest Tube Drainage 510 120 30 Chest Tube Mediastinal 325 100 20 Pleural Catheter Right 185 20 10 Urine 620 370 110 Other: Voiding Method Indwelling Catheter Indwelling Catheter Indwelling Catheter Weight 105.6 kg ABP, PAP, CO, CI - Last 8 Hours Arterial Blood Pressure 100/56 Arterial Blood Pressure 94/57 Arterial Blood Pressure 97/57 Arterial Blood Pressure 103/56 Arterial Blood Pressure 102/55 Arterial Blood Pressure 81/49 Arterial Blood Pressure 100/54 Arterial Blood Pressure 90/54 Arterial Blood Pressure 82/51 Arterial Blood Pressure 81/51 Arterial Blood Pressure 75/49 Arterial Blood Pressure 84/49 Arterial Blood Pressure 82/46 Arterial Blood Pressure 86/45 Arterial Blood Pressure 95/50 Arterial Blood Pressure 87/51 Arterial Blood Pressure 97/53 Arterial Blood Pressure 89/51 Arterial Blood Pressure 106/57 Arterial Blood Pressure 90/50 Arterial Blood Pressure 94/54 Arterial Blood Pressure 96/51 Arterial Blood Pressure 86/49 Arterial Blood Pressure 85/51 Arterial Blood Pressure 89/50 Arterial Blood Pressure 86/53 Arterial Blood Pressure 84/53 Arterial Blood Pressure 90/57 Arterial Blood Pressure 85/59 Arterial Blood Pressure 97/58 Arterial Blood Pressure 83/49 Pulmonary Artery Pressure 30/15 Pulmonary Artery Pressure 31/18 Pulmonary Artery Pressure 34/17 Pulmonary Artery Pressure 33/17 Pulmonary Artery Pressure 32/17 Pulmonary Artery Pressure 35/17 Pulmonary Artery Pressure 33/14 Pulmonary Artery Pressure 29/14 Pulmonary Artery Pressure 21/10 Pulmonary Artery Pressure 30/20 Pulmonary Artery Pressure 28/14 Pulmonary Artery Pressure 27/16 Pulmonary Artery Pressure 27/16 Pulmonary Artery Pressure 30/18 Pulmonary Artery Pressure 38/23 Pulmonary Artery Pressure 44/25 Pulmonary Artery Pressure 46/23 Pulmonary Artery Pressure 35/22 Pulmonary Artery Pressure 47/25 Pulmonary Artery Pressure 45/25 Pulmonary Artery Pressure 52/30 Pulmonary Artery Pressure 43/24 Pulmonary Artery Pressure 43/25 Pulmonary Artery Pressure 38/22 Pulmonary Artery Pressure 39/24 Pulmonary Artery Pressure 42/26 Pulmonary Artery Pressure 36/22 Pulmonary Artery Pressure 33/19 Pulmonary Artery Pressure 38/22 Pulmonary Artery Pressure 35/21 Cardiac Output 6.9 Cardiac Output 4.8 Cardiac Output 6.2 Cardiac Output 5.3 Cardiac Output 6.1 Cardiac Index 3.0 Cardiac Index 2.1 Cardiac Index 2.7 Cardiac Index 2.3 Cardiac Index 2.7 Results 04/02/23 04:16 04/02/23 04:16 Cardiac Enzymes 04/01/23 04/02/23 Range/Units 14:23 04:16 AST 74 H 89 H (17-59) U/L Coagulation 04/01/23 Range/Units 14:23 PT 12.3 (10.0-12.5) sec APTT 27.8 (22.0-30.0) sec CBC 04/01/23 04/01/23 04/01/23 Range/Units : 17:20 20:08 WBC 10.1 13.8 H 12.0 H (3.8-10.6) k/uL RBC 3.38 L 3.23 L 3.15 L (4.30-5.90) m/uL Hgb 10.5 L D 9.8 L 9.8 L (13.0-17.5) gm/dL Hct 28.6 L 28.0 L 27.3 L (39.0-53.0) % Plt Count 93 L D 178 D 159 (150-450) k/uL 04/02/23 Range/Units 04:16 WBC 12.5 H (3.8-10.6) k/uL RBC 2.86 L (4.30-5.90) m/uL Hgb 9.0 L (13.0-17.5) gm/dL Hct 25.0 L (39.0-53.0) % Plt Count 144 L (150-450) k/uL Comprehensive Metabolic Panel 04/01/23 04/02/23 04/02/23 Range/Units 00:01 04:16 Sodium 141 141 139 (137-145) mmol/L Potassium 4.1 4.1 4.6 (3.5-5.1) mmol/L Chloride 109 H 108 H 109 H (98-107) mmol/L Carbon Dioxide 24 24 24 (22-30) mmol/L BUN 24 H 26 H 30 H (9-20) mg/dL Creatinine 0.75 0.75 0.78 (0.66-1.25) mg/dL Glucose 92 120 H 141 H (74-99) mg/dL Calcium 8.9 8.2 L 8.2 L (8.4-10.2) mg/dL AST 74 H 89 H (17-59) U/L ALT 37 34 (4-49) U/L Alkaline Phosphatase 44 45 (38-126) U/L Total Protein 5.0 L 5.2 L (6.3-8.2) g/dL Albumin 3.1 L 3.4 L (3.5-5.0) g/dL Current Medications Generic Name Dose Route Start Last Admin Trade Name Freq PRN Reason Stop Dose Admin Acetaminophen 650 mg 04/02/23 06:59 Acetaminophen Tab 325 Mg Tab PO Q4HR PRN Fever and/ or Pain Albuterol/Ipratropium 3 ml 04/01/23 13:44 Ipratropium-Albuterol 3 Ml Neb INHALATION RT-Q2H PRN Shortness Of Breath Or Wheezing Albuterol/Ipratropium 3 ml 04/01/23 20:00 04/02/23 07:42 Ipratropium-Albuterol 3 Ml Neb INHALATION 3 ml RT-QID [facility] Administration Aspirin 81 mg 04/02/23 09:00 04/02/23 08:46 Aspirin 81 Mg PO 81 mg DAILY [facility] Administration Atorvastatin Calcium 20 mg 04/02/23 09:00 04/02/23 08:46 Atorvastatin 20 Mg Tab PO 20 mg DAILY [facility] Administration Benzocaine/Menthol 1 each 04/01/23 13:44 Benzocaine/Menthol Lozeng 1 Each Lozenge MUCOUS MEM Q2H PRN Sore Throat Bisacodyl 10 mg 04/02/23 09:00 Bisacodyl 10 Mg Supp RECTAL DAILY PRN Constipation Clopidogrel Bisulfate 75 mg 04/02/23 09:00 04/02/23 08:46 Clopidogrel 75 Mg Tab PO 75 mg DAILY [facility] Administration Dextrose/Water 25 ml 04/01/23 13:44 Dextrose 50% Syringe 50 Ml IVP PER PROTOCOL PRN Hypoglycemia Protocol Dextrose/Water 50 ml 04/01/23 13:44 Dextrose 50% Syringe 50 Ml IVP PER PROTOCOL PRN Hypoglycemia Protocol Heparin Sodium (Porcine) 5,000 unit 04/01/23 16:00 04/02/23 08:46 Heparin Sodium,Porcine 5,000 Unit/Ml 1 Ml Vial SQ 5,000 unit Q8HR [facility] Administration Amiodarone HCl 150 mg/ 103 mls @ 618 mls/hr 04/01/23 13:44 Dextrose/Water IV .Q10M PRN A.FIB/FLUTTER Protocol Amiodarone HCl 360 mg/ 207.2 mls @ 34.533 mls/hr 04/01/23 13:44 Dextrose/Water IV .Q6H PRN A.FIB/FLUTTER Protocol 1 MG/MIN Amiodarone HCl 450 mg/ 250 mls @ 16.667 mls/hr 04/01/23 13:44 Dextrose/Water IV .Q15H PRN A.FIB/FLUTTER Protocol 0.5 MG/MIN Albumin Human 250 ml/ IV 250 mls @ 250 mls/hr 04/01/23 13:44 04/02/23 08:30 Solution IVPB 04/03/23 13:45 250 mls/hr Q1HR PRN Administration For Volume Protocol Lactated Ringer's 1,000 mls @ 50 mls/hr 04/01/23 13:44 04/01/23 15:17 Lactated Ringers IV 50 mls/hr .Q20H [facility] Administration Calcium Gluconate/Sodium 100 mls @ 100 mls/hr 04/01/23 13:44 Chloride 2 gm/ IV Solution IVPB 04/03/23 13:45 ONCE PRN Ionized Calcium less than 4.4 Insulin Human Regular 100 unit 101 mls @ 0 mls/hr 04/01/23 14:00 04/02/23 06:58 / Sodium Chloride IV 3 units/hr .Q0M [facility] 3.03 mls/hr Titration Protocol Per Protocol Norepinephrine Bitartrate 4 mg 254 mls @ 7.811 mls/hr 04/01/23 18:45 04/02/23 06:35 / Sodium Chloride IV 0.06 mcg/kg/min .Q24H [facility] 23.432 mls/hr Titration Protocol 0.02 MCG/KG/MIN Ketorolac Tromethamine 15 mg 04/02/23 00:00 04/02/23 05:05 Ketorolac 15 Mg/Ml 1 Ml Vial IVP 04/06/23 21:11 15 mg Q6HR [facility] Administration Magnesium Hydroxide 2,400 mg 04/02/23 09:00 Magnesium Hydroxide 2,400 Mg/30 Ml Cup PO BID PRN Constipation Metoclopramide HCl 10 mg 04/01/23 13:44 04/02/23 08:45 Metoclopramide 5 Mg/Ml 2 Ml Vial IVP 10 mg Q4H PRN Administration Nausea And Vomiting Metoprolol Tartrate 12.5 mg 04/02/23 09:00 04/02/23 08:50 Metoprolol Tartrate 12.5 Mg Tab PO Not Given BID [facility] Miscellaneous Information 1 each 04/01/23 13:44 Potassium Replacement Protocol 1 Each Misc MISCELLANE DAILY PRN Per Protocol Protocol Miscellaneous Information 1 each 04/01/23 13:44 Magnesium Replacement Protocol 1 Each Misc MISCELLANE DAILY PRN Per Protocol Protocol Ondansetron HCl 4 mg 04/01/23 13:44 04/02/23 06:46 Ondansetron 4 Mg/2 Ml Vial IVP 4 mg Q6HR PRN Administration Nausea And Vomiting Oxycodone HCl 5 mg 04/01/23 13:44 Oxycodone Hcl 5 Mg Tab PO Q6HR PRN Breakthrough Pain Pantoprazole Sodium 40 mg 04/01/23 21:00 04/02/23 08:46 Pantoprazole 40 Mg/10 Ml Vial IVP 40 mg BID [facility] Administration Senna/Docusate Sodium 2 each 04/01/23 21:00 04/01/23 21:27 Sennosides-Docusate Sodium 1 Each Tab PO 2 each HS [facility] Administration Sodium Chloride 10 ml 04/01/23 21:00 04/01/23 21:27 Sodium Chloride 0.9% Flush 10 Ml Syringe IV 10 ml BID [facility] Administration Intake and Output 04/01/23 04/02/23 04/02/23 22:59 06:59 14:59 Intake Total 3625.524 6154.158 1247 Output Total 1130 490 140 Balance -789.928 9357.158 1107 Intake: IV 352 1322 1247 0.9ns for CO/CI 130 150 20 0.9ns for pressure bag 72 72 27 ACETAMINOPHEN IV (For NPO 100 ) 1,000 mg In Empty Bag 1 bag @ 400 mls/hr IVPB Q6HR [facility] Rx#:[id number] Albumin Human 5% 250 ml 500 1000 In Empty Bag 1 bag @ 250 mls/hr IVPB Q1HR PRN Rx#: [id number] Lactated Ringers 1,000 ml 150 400 150 @ 50 mls/hr IV .Q20H [facility] Rx#:[id number] ceFAZolin 2 gm In Sodium 100 50 Chloride 0.9% 50 ml @ 100 mls/hr IVPB Q8HR [facility] Rx# :[id number] Intake, IV Titration 315.747 150.158 Amount Insulin Regular 100 unit 21.773 25.577 In Sodium Chloride 0.9% 100 ml @ Per Protocol IV .Q0M [facility] Rx#:[id number] Lactated Ringers 1,000 ml 250 @ 50 mls/hr IV .Q20H [facility] Rx#:[id number] Norepinephrine 4 mg In 124.581 Sodium Chloride 0.9% 250 ml @ 0.02 MCG/KG/MIN 7. 811 mls/hr IV .Q24H [facility] Rx#:[id number] propofoL 1,000 mg In 43.974 Empty Bag 1 bag @ Titrate IV .Q0M [facility] Rx#: [id number] Oral 540 Blood Product 333 Platelet Pheresis Pas 333 Psoralen Unit [id number] Output: Chest Tube Drainage 510 120 30 Chest Tube Mediastinal 325 100 20 Pleural Catheter Right 185 20 10 Urine 620 370 110 Other: Voiding Method Indwelling Catheter Indwelling Catheter Indwelling Catheter Weight 105.6 kg 04/02/23 04:16 04/02/23 04:16
--- NOTE | 2023-04-02 10:24 | P.CONS ---
History of Present Illness - Reason for Consult Consult date: 04/02/23 - History of Present Illness Patient is a 58-year-old male with history of severe mitral regurgitation, PFO, von Willebrand's disease, GINA on CPAP, paroxysmal atrial fibrillation presented for mitral valve repair. Currently in medical ICU. Current chest x-ray shows interstitial opacities with bilateral pleural effusion. Patient currently remains on norepinephrine, requiring supplemental oxygen. Chest tube still in place. He claims that he has mild soreness around the site of surgery, and is having difficulty taking deep breaths. Pino catheter is still in place. Denies passing gas or having any bowel movements. Still having a little bit of nausea, able to tolerate liquids. Current hemoglobin 9, WBC 12.5, platelet 144, creatinine 0.78, blood sugars range between 121-148. Pertinent positives and negatives as discussed in HPI, a complete review of systems was performed and all other systems are negative. Patient seen and examined at bedside. Vital signs reviewed General: nontoxic, no distress, appears at stated age Derm: warm, dry, midsternal dressing, chest tubes in place Head: atraumatic, normocephalic, symmetric Eyes: EOMI, no lid lag, anicteric sclera, pupils equal round reactive to light ENT: Nose and ears atraumatic Neck: No thyromegaly, supple Mouth: no lip lesion, mucus membranes moist Cardiovascular: S1S2 reg, no murmur, no edema Lungs: clear to auscultation bilateral, no rhonchi, no rales, no wheeze, no accessory muscle use, supplemental oxygen Abdominal: soft, nontender to palpation, no guarding, no appreciable organomegaly Ext: no gross muscle atrophy, muscle strength muscle strength 5 out of 5 in all 4 extremities, no contractures Neuro: CN II-XII grossly intact Psych: Alert, oriented, appropriate affect Assessment/Plan: Severe symptomatic mitral regurgitation status post repair Paroxysmal atrial fibrillation status post maze and ligation of left atrial appendage GINA on CPAP Von Willebrand's disease PFO Hyperglycemia, A1c 5.7 Leukocytosis, anticipated outcome of surgery Acute blood loss anemia, anticipated outcome of surgery -Pulmonology note reviewed, negative 12.5 g of IV albumin, continue insulin drip for now -Cardiothoracic note reviewed, continue aspirin, statin, Plavix, wean levo, maintain insulin drip for 48 hours -Cardiology also following, patient currently on metoprolol 12.5 twice a day for rate control -Monitor for hypoglycemia -Monitor for worsening anemia -Repeat CBC and BMP tomorrow Thank you for allowing us to participate in the care of this pleasant patient. Do not hesitate to contact us with questions. Someone can be reached from the [facility] hospitalist group all hours of the day at [phone] or via [employer]. Past Medical History Past Medical History: Blood Disorder, Osteoarthritis (OA), Sleep Apnea/CPAP/BIPAP Additional Past Medical History / Comment(s): uses C-PAP, 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 for new onset a-fib, SOB w/exertion, found to have mitral valve problem History of Any Multi-Drug Resistant Organisms: None Reported Past Surgical History: Orthopedic Surgery, Tonsillectomy Additional Past Surgical History / Comment(s): NASAL SURGERY , RIGHT KNEE ACL ARTHROSCOPIC, shoulder surgery Past Anesthesia/Blood Transfusion Reactions: Previous Problems w/ Anesthesia, Motion Sickness Additional Past Anesthesia/Blood Transfusion Reaction / Comm: VON WILLEBRAND DISEASE- INCREASED BLEEDING WITH PREVIOUS SURGERIES Past Alcohol Use History: None Reported - Past Family History Daughter(s) Family Medical History: Deep Vein Thrombosis (DVT) Additional Family Medical History / Comment(s): Effort Induced DVTs 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-tx @ [employer] Son(s) Additional Family Medical History / Comment(s): hemangioma side of neck Mother Family Medical History: Cancer Medications and Allergies Home Medications Medication Instructions Recorded Confirmed Type Aspirin 81 mg PO DAILY 30 Days #30 tab 02/02/23 04/01/23 Rx Atorvastatin [Lipitor] 20 mg PO DAILY 30 Days #30 tablet 02/02/23 03/28/23 Rx Metoprolol Tartrate [Lopressor] 25 mg PO BID 30 Days #60 tab 02/02/23 03/28/23 Rx Allergies Allergy/AdvReac Type Severity Reaction Status Date / Time No Known Allergies Allergy Verified 03/28/23 11:00 Physical Exam Vitals: Vital Signs Temp Pulse Resp BP Pulse Ox FiO2 04/02/23 07:52 80 04/02/23 07:47 96 04/02/23 07:42 80 04/02/23 07:00 80 11 L 94/65 95 04/02/23 06:45 80 17 95 04/02/23 06:30 80 11 L 93 L 04/02/23 06:15 80 12 87 L 04/02/23 06:00 85 14 91 L 04/02/23 05:45 80 15 95 04/02/23 05:30 80 15 92 L 04/02/23 05:15 80 28 H 92 L 04/02/23 05:00 80 17 94 L 04/02/23 04:45 80 29 H 97 04/02/23 04:30 80 21 97/60 94 L 04/02/23 04:15 80 19 93 L 04/02/23 04:00 80 18 91/58 95 04/02/23 03:45 80 19 94 L 04/02/23 03:30 80 17 95 04/02/23 03:15 80 11 L 97 04/02/23 03:00 80 17 96 04/02/23 02:45 80 22 96 04/02/23 02:30 80 19 94 L 04/02/23 02:15 80 10 L 94/58 96 04/02/23 02:00 80 32 H 94 L 04/02/23 01:45 80 18 95 04/02/23 01:30 80 22 94 L 04/02/23 01:15 80 15 97 04/02/23 01:00 80 11 L 95 04/02/23 00:45 80 13 94 L 04/02/23 00:30 80 15 95 04/02/23 00:15 80 17 97 04/02/23 00:09 80 11 L 97 04/02/23 00:00 80 11 L 95 04/01/23 23:45 80 14 94 L 04/01/23 23:30 80 18 98 04/01/23 23:15 80 13 98 04/01/23 23:00 80 24 96 04/01/23 22:45 80 24 95 04/01/23 22:30 80 16 96 04/01/23 22:15 80 18 101/68 95 04/01/23 22:00 80 23 95 04/01/23 21:45 80 20 97 04/01/23 21:30 80 22 99 04/01/23 21:15 80 15 100 04/01/23 21:00 80 18 94 L 04/01/23 20:45 80 23 96 04/01/23 20:30 80 24 97 04/01/23 20:15 80 13 96/68 97 04/01/23 20:11 80 04/01/23 20:00 80 15 100 04/01/23 19:45 80 9 L 100 04/01/23 19:30 80 20 100 04/01/23 19:15 80 15 100 04/01/23 19:00 98.6 F 80 22 94/75 100 04/01/23 18:45 79 25 H 94/75 99 04/01/23 18:30 80 24 94/75 97 04/01/23 18:15 80 20 94/75 96 04/01/23 18:00 80 42 H 105/88 99 50 04/01/23 17:45 68 42 H 105/88 98 50 04/01/23 17:30 68 23 105/88 97 50 04/01/23 17:16 40 04/01/23 17:15 71 23 105/88 100 50 04/01/23 17:10 72 25 H 105/88 100 50 04/01/23 17:00 98.8 F 77 17 97/61 98 50 04/01/23 16:50 72 19 100 50 04/01/23 16:48 99.0 F 71 19 89/51 100 04/01/23 16:47 99.0 F 72 19 92/56 100 04/01/23 16:40 71 17 99 50 04/01/23 16:30 72 16 98/62 98 50 04/01/23 16:28 99.0 F 72 18 88/53 100 04/01/23 16:26 98.8 F 72 16 90/55 100 04/01/23 16:20 72 17 99 50 04/01/23 16:10 72 17 100 50 04/01/23 16:00 99.0 F 72 16 100 0 04/01/23 15:50 71 14 100 50 04/01/23 15:40 74 15 100 50 04/01/23 15:30 73 17 100 50 04/01/23 15:20 75 15 100 50 04/01/23 15:10 73 21 100 50 04/01/23 15:00 73 18 100 50 04/01/23 14:54 75 04/01/23 14:50 73 14 100 100 04/01/23 14:47 75 04/01/23 14:46 50 04/01/23 14:40 73 14 100 100 04/01/23 14:30 73 14 100 100 04/01/23 14:27 100 04/01/23 14:20 36.5 F L 70 14 100 100 Intake and Output 04/01/23 04/02/23 04/02/23 22:59 06:59 14:59 Intake Total 1341.686 1752.158 559 Output Total 1130 490 30 Balance -283.758 7080.158 529 Intake: IV 352 1322 559 0.9ns for CO/CI 130 150 0.9ns for pressure bag 72 72 9 ACETAMINOPHEN IV (For NPO 100 ) 1,000 mg In Empty Bag 1 bag @ 400 mls/hr IVPB Q6HR [facility] Rx#:[id number] Albumin Human 5% 250 ml 500 500 In Empty Bag 1 bag @ 250 mls/hr IVPB Q1HR PRN Rx#: [id number] Lactated Ringers 1,000 ml 150 400 50 @ 50 mls/hr IV .Q20H [facility] Rx#:[id number] ceFAZolin 2 gm In Sodium 100 Chloride 0.9% 50 ml @ 100 mls/hr IVPB Q8HR [facility] Rx# :[id number] Intake, IV Titration 315.747 150.158 Amount Insulin Regular 100 unit 21.773 25.577 In Sodium Chloride 0.9% 100 ml @ Per Protocol IV .Q0M [facility] Rx#:[id number] Lactated Ringers 1,000 ml 250 @ 50 mls/hr IV .Q20H [facility] Rx#:[id number] Norepinephrine 4 mg In 124.581 Sodium Chloride 0.9% 250 ml @ 0.02 MCG/KG/MIN 7. 811 mls/hr IV .Q24H [facility] Rx#:[id number] propofoL 1,000 mg In 43.974 Empty Bag 1 bag @ Titrate IV .Q0M [facility] Rx#: [id number] Oral 540 Blood Product 333 Platelet Pheresis Pas 333 Psoralen Unit [id number] Output: Chest Tube Drainage 510 120 10 Chest Tube Mediastinal 325 100 0 Pleural Catheter Right 185 20 10 Urine 620 370 20 Other: Voiding Method Indwelling Catheter Indwelling Catheter Weight 105.6 kg ABP, PAP, CO, CI - Last 8 Hours Arterial Blood Pressure 81/51 Arterial Blood Pressure 75/49 Arterial Blood Pressure 84/49 Arterial Blood Pressure 82/46 Arterial Blood Pressure 86/45 Arterial Blood Pressure 95/50 Arterial Blood Pressure 87/51 Arterial Blood Pressure 97/53 Arterial Blood Pressure 89/51 Arterial Blood Pressure 106/57 Arterial Blood Pressure 90/50 Arterial Blood Pressure 94/54 Arterial Blood Pressure 96/51 Arterial Blood Pressure 86/49 Arterial Blood Pressure 85/51 Arterial Blood Pressure 89/50 Arterial Blood Pressure 86/53 Arterial Blood Pressure 84/53 Arterial Blood Pressure 90/57 Arterial Blood Pressure 85/59 Arterial Blood Pressure 97/58 Arterial Blood Pressure 83/49 Arterial Blood Pressure 76/49 Arterial Blood Pressure 86/59 Arterial Blood Pressure 92/56 Arterial Blood Pressure 90/50 Arterial Blood Pressure 96/55 Pulmonary Artery Pressure 30/20 Pulmonary Artery Pressure 28/14 Pulmonary Artery Pressure 27/16 Pulmonary Artery Pressure 27/16 Pulmonary Artery Pressure 30/18 Pulmonary Artery Pressure 38/23 Pulmonary Artery Pressure 44/25 Pulmonary Artery Pressure 46/23 Pulmonary Artery Pressure 35/22 Pulmonary Artery Pressure 47/25 Pulmonary Artery Pressure 45/25 Pulmonary Artery Pressure 52/30 Pulmonary Artery Pressure 43/24 Pulmonary Artery Pressure 43/25 Pulmonary Artery Pressure 38/22 Pulmonary Artery Pressure 39/24 Pulmonary Artery Pressure 42/26 Pulmonary Artery Pressure 36/22 Pulmonary Artery Pressure 33/19 Pulmonary Artery Pressure 38/22 Pulmonary Artery Pressure 35/21 Pulmonary Artery Pressure 36/19 Pulmonary Artery Pressure 38/21 Pulmonary Artery Pressure 41/26 Pulmonary Artery Pressure 42/23 Pulmonary Artery Pressure 43/25 Cardiac Output 4.8 Cardiac Output 6.2 Cardiac Output 5.3 Cardiac Output 6.1 Cardiac Index 2.1 Cardiac Index 2.7 Cardiac Index 2.3 Cardiac Index 2.7 Results CBC & Chem 7: 04/02/23 04:16 04/02/23 04:16 Labs: Abnormal Lab Results - Last 24 Hours (Table) 03/28/23 04/01/23 04/01/23 Range/Units 09:00 11:00 11:31 WBC (3.8-10.6) k/uL RBC (4.30-5.90) m/uL Hgb (13.0-17.5) gm/dL Hct (39.0-53.0) % Plt Count (150-450) k/uL Neutrophils # (1.3-7.7) k/uL Lymphocytes # (1.0-4.8) k/uL Monocytes # (0-1.0) k/uL INR (<1.2) Fibrinogen (200-500) mg/dL ABG pH 7.28 L 7.33 L (7.35-7.45) ABG pCO2 52 H 48 H (35-45) mmHg ABG pO2 376 H 357 H (83-108) mmHg ABG HCO3 (21-25) mmol/L ABG Total CO2 26 H 27 H (19-24) mmol/L ABG O2 Saturation 100.0 H 100.0 H (94-97) % ABG Hematocrit 31 L 30 L (34.0-46.0) % ABG Potassium 5.1 H 4.8 H (3.4-4.5) mmol/L ABG Ionized Calcium 4.3 L 4.1 L (4.5-5.3) mg/dL ABG Glucose 176 H 187 H (75-99) mg/dL ABG Lactic Acid (0.5-1.6) mmol/L Hemoglobin 10.1 L 9.7 L (13.0-17.5) gm/dL Chloride (98-107) mmol/L BUN (9-20) mg/dL Glucose (74-99) mg/dL POC Glucose (mg/dL) (70-110) mg/dL Calcium (8.4-10.2) mg/dL Magnesium (1.6-2.3) mg/dL Total Bilirubin (0.2-1.3) mg/dL AST (17-59) U/L Total Protein (6.3-8.2) g/dL Albumin (3.5-5.0) g/dL Arterial Blood Potassium 5.1 H 4.8 H (3.4-4.5) mmol/L Arterial Blood Glucose 176 H 187 H (75-99) mg/dL Crossmatch See Detail 04/01/23 04/01/23 04/01/23 Range/Units 12:04 12:24 13:28 WBC (3.8-10.6) k/uL RBC (4.30-5.90) m/uL Hgb (13.0-17.5) gm/dL Hct (39.0-53.0) % Plt Count (150-450) k/uL Neutrophils # (1.3-7.7) k/uL Lymphocytes # (1.0-4.8) k/uL Monocytes # (0-1.0) k/uL INR (<1.2) Fibrinogen (200-500) mg/dL ABG pH 7.30 L (7.35-7.45) ABG pCO2 49 H (35-45) mmHg ABG pO2 289 H 365 H 223 H (83-108) mmHg ABG HCO3 26 H (21-25) mmol/L ABG Total CO2 26 H 26 H 27 H (19-24) mmol/L ABG O2 Saturation 99.9 H 100.0 H 100.0 H (94-97) % ABG Hematocrit 29 L 29 L 30 L (34.0-46.0) % ABG Potassium 4.7 H 4.6 H (3.4-4.5) mmol/L ABG Ionized Calcium 4.2 L 4.1 L (4.5-5.3) mg/dL ABG Glucose 155 H 135 H 110 H (75-99) mg/dL ABG Lactic Acid 2.1 H 2.4 H* 1.9 H (0.5-1.6) mmol/L Hemoglobin 9.4 L 9.5 L 9.9 L (13.0-17.5) gm/dL Chloride (98-107) mmol/L BUN (9-20) mg/dL Glucose (74-99) mg/dL POC Glucose (mg/dL) (70-110) mg/dL Calcium (8.4-10.2) mg/dL Magnesium (1.6-2.3) mg/dL Total Bilirubin (0.2-1.3) mg/dL AST (17-59) U/L Total Protein (6.3-8.2) g/dL Albumin (3.5-5.0) g/dL Arterial Blood Potassium 4.7 H 4.6 H (3.4-4.5) mmol/L Arterial Blood Glucose 155 H 135 H 110 H (75-99) mg/dL Crossmatch 04/01/23 04/01/23 04/01/23 Range/Units 14:23 14:23 14:23 WBC (3.8-10.6) k/uL RBC 3.38 L (4.30-5.90) m/uL Hgb 10.5 L D (13.0-17.5) gm/dL Hct 28.6 L (39.0-53.0) % Plt Count 93 L D (150-450) k/uL Neutrophils # 8.5 H (1.3-7.7) k/uL Lymphocytes # 0.7 L (1.0-4.8) k/uL Monocytes # (0-1.0) k/uL INR 1.2 H (<1.2) Fibrinogen 197 L (200-500) mg/dL ABG pH (7.35-7.45) ABG pCO2 (35-45) mmHg ABG pO2 (83-108) mmHg ABG HCO3 (21-25) mmol/L ABG Total CO2 (19-24) mmol/L ABG O2 Saturation (94-97) % ABG Hematocrit (34.0-46.0) % ABG Potassium (3.4-4.5) mmol/L ABG Ionized Calcium (4.5-5.3) mg/dL ABG Glucose (75-99) mg/dL ABG Lactic Acid (0.5-1.6) mmol/L Hemoglobin (13.0-17.5) gm/dL Chloride 109 H (98-107) mmol/L BUN 24 H (9-20) mg/dL Glucose (74-99) mg/dL POC Glucose (mg/dL) (70-110) mg/dL Calcium (8.4-10.2) mg/dL Magnesium 2.7 H (1.6-2.3) mg/dL Total Bilirubin 1.6 H (0.2-1.3) mg/dL AST 74 H (17-59) U/L Total Protein 5.0 L (6.3-8.2) g/dL Albumin 3.1 L (3.5-5.0) g/dL Arterial Blood Potassium (3.4-4.5) mmol/L Arterial Blood Glucose (75-99) mg/dL Crossmatch 04/01/23 04/01/23 04/01/23 Range/Units 14:33 14:59 15:09 WBC (3.8-10.6) k/uL RBC (4.30-5.90) m/uL Hgb (13.0-17.5) gm/dL Hct (39.0-53.0) % Plt Count (150-450) k/uL Neutrophils # (1.3-7.7) k/uL Lymphocytes # (1.0-4.8) k/uL Monocytes # (0-1.0) k/uL INR (<1.2) Fibrinogen (200-500) mg/dL ABG pH (7.35-7.45) ABG pCO2 (35-45) mmHg ABG pO2 >400 H (83-108) mmHg ABG HCO3 26 H (21-25) mmol/L ABG Total CO2 27 H (19-24) mmol/L ABG O2 Saturation 100.0 H (94-97) % ABG Hematocrit (34.0-46.0) % ABG Potassium (3.4-4.5) mmol/L ABG Ionized Calcium (4.5-5.3) mg/dL ABG Glucose (75-99) mg/dL ABG Lactic Acid (0.5-1.6) mmol/L Hemoglobin (13.0-17.5) gm/dL Chloride (98-107) mmol/L BUN (9-20) mg/dL Glucose (74-99) mg/dL POC Glucose (mg/dL) 120 H 122 H (70-110) mg/dL Calcium (8.4-10.2) mg/dL Magnesium (1.6-2.3) mg/dL Total Bilirubin (0.2-1.3) mg/dL AST (17-59) U/L Total Protein (6.3-8.2) g/dL Albumin (3.5-5.0) g/dL Arterial Blood Potassium (3.4-4.5) mmol/L Arterial Blood Glucose (75-99) mg/dL Crossmatch 04/01/23 04/01/23 04/01/23 Range/Units 16:34 17:05 17:20 WBC 13.8 H (3.8-10.6) k/uL RBC 3.23 L (4.30-5.90) m/uL Hgb 9.8 L (13.0-17.5) gm/dL Hct 28.0 L (39.0-53.0) % Plt Count (150-450) k/uL Neutrophils # 12.1 H (1.3-7.7) k/uL Lymphocytes # 0.8 L (1.0-4.8) k/uL Monocytes # (0-1.0) k/uL INR (<1.2) Fibrinogen (200-500) mg/dL ABG pH (7.35-7.45) ABG pCO2 (35-45) mmHg ABG pO2 (83-108) mmHg ABG HCO3 (21-25) mmol/L ABG Total CO2 (19-24) mmol/L ABG O2 Saturation (94-97) % ABG Hematocrit (34.0-46.0) % ABG Potassium (3.4-4.5) mmol/L ABG Ionized Calcium (4.5-5.3) mg/dL ABG Glucose (75-99) mg/dL ABG Lactic Acid (0.5-1.6) mmol/L Hemoglobin (13.0-17.5) gm/dL Chloride (98-107) mmol/L BUN (9-20) mg/dL Glucose (74-99) mg/dL POC Glucose (mg/dL) 182 H 179 H (70-110) mg/dL Calcium (8.4-10.2) mg/dL Magnesium (1.6-2.3) mg/dL Total Bilirubin (0.2-1.3) mg/dL AST (17-59) U/L Total Protein (6.3-8.2) g/dL Albumin (3.5-5.0) g/dL Arterial Blood Potassium (3.4-4.5) mmol/L Arterial Blood Glucose (75-99) mg/dL Crossmatch 04/01/23 04/01/23 04/01/23 Range/Units 17:50 18:22 19:08 WBC (3.8-10.6) k/uL RBC (4.30-5.90) m/uL Hgb (13.0-17.5) gm/dL Hct (39.0-53.0) % Plt Count (150-450) k/uL Neutrophils # (1.3-7.7) k/uL Lymphocytes # (1.0-4.8) k/uL Monocytes # (0-1.0) k/uL INR (<1.2) Fibrinogen (200-500) mg/dL ABG pH (7.35-7.45) ABG pCO2 (35-45) mmHg ABG pO2 123 H (83-108) mmHg ABG HCO3 (21-25) mmol/L ABG Total CO2 25 H (19-24) mmol/L ABG O2 Saturation 98.8 H (94-97) % ABG Hematocrit (34.0-46.0) % ABG Potassium (3.4-4.5) mmol/L ABG Ionized Calcium (4.5-5.3) mg/dL ABG Glucose (75-99) mg/dL ABG Lactic Acid (0.5-1.6) mmol/L Hemoglobin (13.0-17.5) gm/dL Chloride (98-107) mmol/L BUN (9-20) mg/dL Glucose (74-99) mg/dL POC Glucose (mg/dL) 141 H 157 H (70-110) mg/dL Calcium (8.4-10.2) mg/dL Magnesium (1.6-2.3) mg/dL Total Bilirubin (0.2-1.3) mg/dL AST (17-59) U/L Total Protein (6.3-8.2) g/dL Albumin (3.5-5.0) g/dL Arterial Blood Potassium (3.4-4.5) mmol/L Arterial Blood Glucose (75-99) mg/dL Crossmatch 04/01/23 04/01/23 04/01/23 Range/Units 20:06 20:08 20:51 WBC 12.0 H (3.8-10.6) k/uL RBC 3.15 L (4.30-5.90) m/uL Hgb 9.8 L (13.0-17.5) gm/dL Hct 27.3 L (39.0-53.0) % Plt Count (150-450) k/uL Neutrophils # 10.6 H (1.3-7.7) k/uL Lymphocytes # 0.5 L (1.0-4.8) k/uL Monocytes # (0-1.0) k/uL INR (<1.2) Fibrinogen (200-500) mg/dL ABG pH (7.35-7.45) ABG pCO2 (35-45) mmHg ABG pO2 (83-108) mmHg ABG HCO3 (21-25) mmol/L ABG Total CO2 (19-24) mmol/L ABG O2 Saturation (94-97) % ABG Hematocrit (34.0-46.0) % ABG Potassium (3.4-4.5) mmol/L ABG Ionized Calcium (4.5-5.3) mg/dL ABG Glucose (75-99) mg/dL ABG Lactic Acid (0.5-1.6) mmol/L Hemoglobin (13.0-17.5) gm/dL Chloride (98-107) mmol/L BUN (9-20) mg/dL Glucose (74-99) mg/dL POC Glucose (mg/dL) 153 H 161 H (70-110) mg/dL Calcium (8.4-10.2) mg/dL Magnesium (1.6-2.3) mg/dL Total Bilirubin (0.2-1.3) mg/dL AST (17-59) U/L Total Protein (6.3-8.2) g/dL Albumin (3.5-5.0) g/dL Arterial Blood Potassium (3.4-4.5) mmol/L Arterial Blood Glucose (75-99) mg/dL Crossmatch 04/01/23 04/01/23 04/02/23 Range/Units 22:02 22:57 00:00 WBC (3.8-10.6) k/uL RBC (4.30-5.90) m/uL Hgb (13.0-17.5) gm/dL Hct (39.0-53.0) % Plt Count (150-450) k/uL Neutrophils # (1.3-7.7) k/uL Lymphocytes # (1.0-4.8) k/uL Monocytes # (0-1.0) k/uL INR (<1.2) Fibrinogen (200-500) mg/dL ABG pH (7.35-7.45) ABG pCO2 (35-45) mmHg ABG pO2 (83-108) mmHg ABG HCO3 (21-25) mmol/L ABG Total CO2 (19-24) mmol/L ABG O2 Saturation (94-97) % ABG Hematocrit (34.0-46.0) % ABG Potassium (3.4-4.5) mmol/L ABG Ionized Calcium (4.5-5.3) mg/dL ABG Glucose (75-99) mg/dL ABG Lactic Acid (0.5-1.6) mmol/L Hemoglobin (13.0-17.5) gm/dL Chloride (98-107) mmol/L BUN (9-20) mg/dL Glucose (74-99) mg/dL POC Glucose (mg/dL) 150 H 132 H 135 H (70-110) mg/dL Calcium (8.4-10.2) mg/dL Magnesium (1.6-2.3) mg/dL Total Bilirubin (0.2-1.3) mg/dL AST (17-59) U/L Total Protein (6.3-8.2) g/dL Albumin (3.5-5.0) g/dL Arterial Blood Potassium (3.4-4.5) mmol/L Arterial Blood Glucose (75-99) mg/dL Crossmatch 04/02/23 04/02/23 04/02/23 Range/Units 00:01 01:05 02:05 WBC (3.8-10.6) k/uL RBC (4.30-5.90) m/uL Hgb (13.0-17.5) gm/dL Hct (39.0-53.0) % Plt Count (150-450) k/uL Neutrophils # (1.3-7.7) k/uL Lymphocytes # (1.0-4.8) k/uL Monocytes # (0-1.0) k/uL INR (<1.2) Fibrinogen (200-500) mg/dL ABG pH (7.35-7.45) ABG pCO2 (35-45) mmHg ABG pO2 (83-108) mmHg ABG HCO3 (21-25) mmol/L ABG Total CO2 (19-24) mmol/L ABG O2 Saturation (94-97) % ABG Hematocrit (34.0-46.0) % ABG Potassium (3.4-4.5) mmol/L ABG Ionized Calcium (4.5-5.3) mg/dL ABG Glucose (75-99) mg/dL ABG Lactic Acid (0.5-1.6) mmol/L Hemoglobin (13.0-17.5) gm/dL Chloride 108 H (98-107) mmol/L BUN 26 H (9-20) mg/dL Glucose 120 H (74-99) mg/dL POC Glucose (mg/dL) 133 H 117 H (70-110) mg/dL Calcium 8.2 L (8.4-10.2) mg/dL Magnesium (1.6-2.3) mg/dL Total Bilirubin (0.2-1.3) mg/dL AST (17-59) U/L Total Protein (6.3-8.2) g/dL Albumin (3.5-5.0) g/dL Arterial Blood Potassium (3.4-4.5) mmol/L Arterial Blood Glucose (75-99) mg/dL Crossmatch 04/02/23 04/02/23 04/02/23 Range/Units 03:17 04:03 04:16 WBC 12.5 H (3.8-10.6) k/uL RBC 2.86 L (4.30-5.90) m/uL Hgb 9.0 L (13.0-17.5) gm/dL Hct 25.0 L (39.0-53.0) % Plt Count 144 L (150-450) k/uL Neutrophils # 10.4 H (1.3-7.7) k/uL Lymphocytes # 0.7 L (1.0-4.8) k/uL Monocytes # 1.2 H (0-1.0) k/uL INR (<1.2) Fibrinogen (200-500) mg/dL ABG pH (7.35-7.45) ABG pCO2 (35-45) mmHg ABG pO2 (83-108) mmHg ABG HCO3 (21-25) mmol/L ABG Total CO2 (19-24) mmol/L ABG O2 Saturation (94-97) % ABG Hematocrit (34.0-46.0) % ABG Potassium (3.4-4.5) mmol/L ABG Ionized Calcium (4.5-5.3) mg/dL ABG Glucose (75-99) mg/dL ABG Lactic Acid (0.5-1.6) mmol/L Hemoglobin (13.0-17.5) gm/dL Chloride (98-107) mmol/L BUN (9-20) mg/dL Glucose (74-99) mg/dL POC Glucose (mg/dL) 114 H 148 H (70-110) mg/dL Calcium (8.4-10.2) mg/dL Magnesium (1.6-2.3) mg/dL Total Bilirubin (0.2-1.3) mg/dL AST (17-59) U/L Total Protein (6.3-8.2) g/dL Albumin (3.5-5.0) g/dL Arterial Blood Potassium (3.4-4.5) mmol/L Arterial Blood Glucose (75-99) mg/dL Crossmatch 04/02/23 04/02/23 04/02/23 Range/Units 04:16 05:18 06:56 WBC (3.8-10.6) k/uL RBC (4.30-5.90) m/uL Hgb (13.0-17.5) gm/dL Hct (39.0-53.0) % Plt Count (150-450) k/uL Neutrophils # (1.3-7.7) k/uL Lymphocytes # (1.0-4.8) k/uL Monocytes # (0-1.0) k/uL INR (<1.2) Fibrinogen (200-500) mg/dL ABG pH (7.35-7.45) ABG pCO2 (35-45) mmHg ABG pO2 (83-108) mmHg ABG HCO3 (21-25) mmol/L ABG Total CO2 (19-24) mmol/L ABG O2 Saturation (94-97) % ABG Hematocrit (34.0-46.0) % ABG Potassium (3.4-4.5) mmol/L ABG Ionized Calcium (4.5-5.3) mg/dL ABG Glucose (75-99) mg/dL ABG Lactic Acid (0.5-1.6) mmol/L Hemoglobin (13.0-17.5) gm/dL Chloride 109 H (98-107) mmol/L BUN 30 H (9-20) mg/dL Glucose 141 H (74-99) mg/dL POC Glucose (mg/dL) 147 H 121 H (70-110) mg/dL Calcium 8.2 L (8.4-10.2) mg/dL Magnesium (1.6-2.3) mg/dL Total Bilirubin 1.6 H (0.2-1.3) mg/dL AST 89 H (17-59) U/L Total Protein 5.2 L (6.3-8.2) g/dL Albumin 3.4 L (3.5-5.0) g/dL Arterial Blood Potassium (3.4-4.5) mmol/L Arterial Blood Glucose (75-99) mg/dL Crossmatch
[2023-04-02 10:32] LABS: Glucose,Whole Blood 135 mg/dL (70-110)
[2023-04-02 10:35] VITALS: BMI 29.0
[2023-04-02] MEDS ORDERED: methocarbamoL 500 MG TAB PO PRN (10:39)
[2023-04-02] MEDS: ACETAMINOPHEN IV (For NPO) 1,000 MG in EMPTY BAG 1 BAG IVPB SCH ×2 (10:50→16:43)
[2023-04-02] MEDS ORDERED: PROCHLORPERAZINE INJ 10 MG/2 ML VIAL IVP PRN (11:17)
[2023-04-02 12:28] LABS: Glucose,Whole Blood 134 mg/dL (70-110)
[2023-04-02] MEDS ORDERED: ALBUMIN HUMAN 5% 250 ML in EMPTY BAG 1 BAG IVPB STA (13:57)
[2023-04-02 14:13] LABS: Glucose,Whole Blood 143 mg/dL (70-110)
[2023-04-02] MEDS: LACTATED RINGERS 1,000 ML IV SCH (14:28)
[2023-04-02 16:13] LABS: Glucose,Whole Blood 135 mg/dL (70-110)
[2023-04-02] MEDS: INSULIN REGULAR 100 UNIT in SODIUM CHLORIDE 0.9% 100 ML IV SCH (16:13)
[2023-04-02 18:09] LABS: Glucose,Whole Blood 132 mg/dL (70-110)
[2023-04-02 20:03] LABS: Glucose,Whole Blood 121 mg/dL (70-110)
[2023-04-02] MEDS: ACETAMINOPHEN TAB 325 MG TAB PO PRN (20:09)
[2023-04-02] MEDS: SENNOSIDES-DOCUSATE SODIUM 1 EACH TAB PO SCH (20:09)
[2023-04-02 21:47] LABS: Glucose,Whole Blood 144 mg/dL (70-110)
[2023-04-03 00:05] LABS: Glucose,Whole Blood 146 mg/dL (70-110)
[2023-04-03] MEDS: METOCLOPRAMIDE 5 MG/ML 2 ML VIAL IVP PRN ×2 (00:37→07:52)
[2023-04-03 01:42] LABS: Glucose,Whole Blood 147 mg/dL (70-110)
[2023-04-03 04:08] LABS: Glucose,Whole Blood 127 mg/dL (70-110)
[2023-04-03 04:18] LABS: Basophils % (A) 0 %; Eosinophils % (A) 0 %; HCT 21.7 % (39.0-53.0); Lymphocytes # (A) 0.8 k/uL (1.0-4.8); Lymphocytes % (A) 6 %; MCH 30.4 pg (25.0-35.0); MCHC 34.7 g/dL (31.0-37.0); MCV 87.5 fL (80.0-100.0); Mean Platelet Volume 11.4; Monocytes # (A) 0.6 k/uL (0-1.0); Monocytes % (A) 5 %; Neutrophils # (A) 10.2 k/uL (1.3-7.7); Neutrophils % (A) 88 %; RBC 2.48 m/uL (4.30-5.90); RDW 13.4 % (11.5-15.5); WBC 11.6 k/uL (3.8-10.6)
[2023-04-03] MEDS: ONDANSETRON 4 MG/2 ML VIAL IVP PRN ×2 (04:21→20:27)
[2023-04-03 04:24] LABS: Ionized Calcium 4.8 mg/dL (4.5-5.3)
[2023-04-03 04:38] LABS: ALT 35 U/L (4-49); AST 85 U/L (17-59); African American GFR (CKD) >90 (>60 ml/min/1.73 sqM); Albumin 3.7 g/dL (3.5-5.0); Alkaline Phosphatase 47 U/L (38-126); Anion Gap 6 mmol/L; Blood Urea Nitrogen 35 mg/dL (9-20); Calcium 8.6 mg/dL (8.4-10.2); Carbon Dioxide 24 mmol/L (22-30); Chloride 106 mmol/L (98-107); Glucose 112 mg/dL (74-99); Non-African American GFR(CKD) >90 (>60 ml/min/1.73 sqM); Potassium 4.2 mmol/L (3.5-5.1); Sodium 136 mmol/L (137-145); Total Bilirubin 2.1 mg/dL (0.2-1.3); Total Protein 5.6 g/dL (6.3-8.2)
[2023-04-03 04:41] LABS: HGB 7.5 gm/dL (13.0-17.5); Platelet Count 93 k/uL (150-450)
[2023-04-03 06:03] LABS: Glucose,Whole Blood 128 mg/dL (70-110)
[2023-04-03] MEDS: KETOROLAC 15 MG/ML 1 ML VIAL IVP SCH ×3 (06:34→17:34)
[2023-04-03] MEDS: LACTATED RINGERS 1,000 ML IV SCH (06:34)
[2023-04-03 06:58] LABS: HCT 21.2 % (39.0-53.0); HGB 7.5 gm/dL (13.0-17.5); MCHC 35.3 g/dL (31.0-37.0); MCV 87.8 fL (80.0-100.0); Mean Platelet Volume 11.4; RBC 2.42 m/uL (4.30-5.90); RDW 13.2 % (11.5-15.5); WBC 11.8 k/uL (3.8-10.6)
[2023-04-03 07:13] LABS: Platelet Count 89 k/uL (150-450)
--- NOTE | 2023-04-03 07:34 | XR ---
EXAMINATION TYPE: XR chest 1V portable DATE OF EXAM: 04/03/2023 COMPARISON: 04/02/2023 INDICATION: Postop cardiac surgery TECHNIQUE: Single frontal view of the chest is obtained. FINDINGS: The heart size is prominent. The pulmonary vasculature is prominent. Bibasilar infiltrates are present, greater on the right. Small bilateral pleural effusions are likely present. Findings are stable. 2 mediastinal tubes are evident. A Warwick-Feli catheter is present with tip in the main pulmonary arter y region. IMPRESSION: 1. Bibasilar infiltrates. Small effusions are likely present. 2. Lines and catheters discussed above
[2023-04-03] MEDS: PANTOPRAZOLE 40 MG/10 ML VIAL IVP SCH ×2 (07:40→20:27)
[2023-04-03] MEDS: ACETAMINOPHEN TAB 325 MG TAB PO PRN (07:40)
[2023-04-03] MEDS: IPRATROPIUM-ALBUTEROL 3 ML NEB INHALATION SCH ×4 (08:07→19:40)
[2023-04-03 08:12] LABS: Glucose,Whole Blood 207 mg/dL (70-110)
--- NOTE | 2023-04-03 08:28 | P.PN ---
Subjective Progress Note Date: 04/03/23 Principal diagnosis: Severe symptomatic mitral regurgitation with torn chordae to P2 of the posterior leaflet, paroxysmal atrial fibrillation. 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 grandparents POD #2 complex mitral valve repair with a 36 mm Lang AnnuloFlex ring, quadrangular resection of P2 of the posterior leaflet, closure of P2, P3 cleft, ring annuloplasty with a 36 mm CarboMedics band, clip ligation of the left atrial appendage with a 35 mm AtriClip, intraoperative transesophageal echocardiogram, complete left-sided maze using radiofrequency and cryoablation Acute blood loss anemia and thrombocytopenia, expected given hemodilution and cardiopulmonary bypass pump Hypotension and nausea, expected as effects from anesthesia and narcotic pain medication, patient reports history of the side effects in the past with anesthesia The patient was seen and examined this morning with Dr. Barcenas sitting up in a recliner in the intensive care unit in no acute distress. States he does feel better than yesterday although he feels a bit warm, states he has not gotten any sleep. Remains AV paced at 80 bpm, underlying rhythm sinus in the 60s. Arterial line blood pressure soft although mean arterial pressures adequate, cuff pressure will, has been weaned off IV levo. Labs, chest x-ray reviewed. Hemoglobin 7.5 this morning, was 9.0 yesterday, likely partially hemodilution as patient received over 1 L IV albumin. Patient does state he had significant bleeding after nasal fracture surgery as well as right knee MCL repair, he did follow up with Dr. Beard who did not find evidence of clotting disorder and cleared patient for surgery. Patient was able to ambulate short distance in his room yesterday. Right internal jugular Rowlett/Cordis, right radial arterial line, mediastinal/right pleural chest tubes all present. No other new concerns. Objective - Vital Signs Vital signs: Vital Signs Temp 99.7 F H 04/02/23 19:00 Pulse 80 04/03/23 07:00 Resp 30 H 04/03/23 07:00 BP 121/62 04/03/23 07:00 Pulse Ox 94 L 04/03/23 07:00 FiO2 50 04/01/23 18:00 Intake & Output 04/02/23 04/03/23 04/03/23 18:59 06:59 18:59 Intake Total 2682.428 1720.259 59 Output Total 685 1015 75 Balance 1997.428 705.259 -16 Weight 105.6 kg 108.5 kg Intake: IV 1818 708 59 0.9ns for CO/CI 60 100 0.9ns for pressure bag 108 108 9 Albumin Human 5% 250 ml 1000 In Empty Bag 1 bag @ 250 mls/hr IVPB Q1HR PRN Rx#: [id number] Lactated Ringers 1,000 ml 600 500 50 @ 50 mls/hr IV .Q20H [facility] Rx#:[id number] ceFAZolin 2 gm In Sodium 50 Chloride 0.9% 50 ml @ 100 mls/hr IVPB Q8HR [facility] Rx# :[id number] Intake, IV Titration 564.428 472.259 Amount ACETAMINOPHEN IV (For NPO 200 ) 1,000 mg In Empty Bag 1 bag @ 400 mls/hr IVPB Q6H [facility] Rx#:[id number] Albumin Human 5% 250 ml 250 In Empty Bag 1 bag @ 250 mls/hr IVPB ONCE STA Rx#: [id number] Insulin Regular 100 unit 40.617 41.089 In Sodium Chloride 0.9% 100 ml @ Per Protocol IV .Q0M [facility] Rx#:[id number] Norepinephrine 4 mg In 73.811 431.170 Sodium Chloride 0.9% 250 ml @ 0.02 MCG/KG/MIN 7. 811 mls/hr IV .Q24H [facility] Rx#:[id number] Oral 300 540 Output: Chest Tube Drainage 140 340 40 Chest Tube Mediastinal 130 330 20 Pleural Catheter Right 10 10 20 Urine 545 675 35 Other: Voiding Method Indwelling Catheter Indwelling Catheter ABP, PAP, CO, CI - Last Documented Arterial Blood Pressure 83/53 Pulmonary Artery Pressure 42/25 Cardiac Output 6.4 Cardiac Index 2.8 - Exam CONSTITUTIONAL: Appears comfortable, cooperative, no acute distress RESPIRATORY: Lungs sounds diminished bilaterally. Respirations even, nonlabored. Currently on 3 L nasal cannula with oxygen saturation 94%. Able to achieve 1000 mL on incentive spirometry. Strong nonproductive cough. CARDIOVASCULAR: S1, S2 present. Regular rate and rhythm, AV paced on telemetry with underlying rhythm sinus in the 60s. Sternum stable. Palpable peripheral pulses bilaterally. No edema present. No calf pain or tenderness noted. Heart hugger in place with patient demonstrating appropriate use. Antiembolism stockings, SCDs present. GASTROINTESTINAL: Abdomen soft, nontender, nondistended. Active bowel sounds present 4 quadrants. Tolerating clear liquids. Positive flatus and belching GENITOURINARY: Pino present draining clear, yellow urine. Output overnight 45-70 mL per hour, 1220 mL in the last 24 hours INTEGUMENTARY: Skin is warm and dry with evidence of good perfusion. Anterior chest incision well approximated and covered with dry intact dressing NEUROLOGIC: Cranial nerves II through XII intact MUSKULOSKELETAL: Able to move all extremities, strength equal bilaterally PSYCHIATRIC: Alert, oriented to person place and time, appropriate affect, intact judgment and insight INVASIVE LINES AND TUBES: Mediastinal/right pleural chest tubes present and connected to wall suction, no air leaks present. Mediastinal tube with 270 mL serosanguineous drainage overnight, 450 mL in the last 24 hours. Right pleural chest tube with 10 mL serosanguineous drainage overnight, 50 mL in the last 24 hours. A/V epicardial pacemaker wires present, connected to generator, rate 80 bpm. Right internal jugular Rowlett/Cordis, right radial arterial line present. Last CO/CI 6.4/2.8, PA 39/23, CVP 15. - Allied health notes Allied health notes reviewed: nursing - Labs CBC & Chem 7: 04/03/23 06:50 04/03/23 04:05 Labs: Abnormal Lab Results - Last 24 Hours (Table) 04/02/23 04/02/23 04/02/23 Range/Units 08:36 10:30 12:23 WBC (3.8-10.6) k/uL RBC (4.30-5.90) m/uL Hgb (13.0-17.5) gm/dL Hct (39.0-53.0) % Plt Count (150-450) k/uL Neutrophils # (1.3-7.7) k/uL Lymphocytes # (1.0-4.8) k/uL Sodium (137-145) mmol/L BUN (9-20) mg/dL Glucose (74-99) mg/dL POC Glucose (mg/dL) 123 H 135 H 134 H (70-110) mg/dL Total Bilirubin (0.2-1.3) mg/dL AST (17-59) U/L Total Protein (6.3-8.2) g/dL 04/02/23 04/02/23 04/02/23 Range/Units 14:10 16:08 18:06 WBC (3.8-10.6) k/uL RBC (4.30-5.90) m/uL Hgb (13.0-17.5) gm/dL Hct (39.0-53.0) % Plt Count (150-450) k/uL Neutrophils # (1.3-7.7) k/uL Lymphocytes # (1.0-4.8) k/uL Sodium (137-145) mmol/L BUN (9-20) mg/dL Glucose (74-99) mg/dL POC Glucose (mg/dL) 143 H 135 H 132 H (70-110) mg/dL Total Bilirubin (0.2-1.3) mg/dL AST (17-59) U/L Total Protein (6.3-8.2) g/dL 04/02/23 04/02/23 04/03/23 Range/Units 20:02 21:46 00:04 WBC (3.8-10.6) k/uL RBC (4.30-5.90) m/uL Hgb (13.0-17.5) gm/dL Hct (39.0-53.0) % Plt Count (150-450) k/uL Neutrophils # (1.3-7.7) k/uL Lymphocytes # (1.0-4.8) k/uL Sodium (137-145) mmol/L BUN (9-20) mg/dL Glucose (74-99) mg/dL POC Glucose (mg/dL) 121 H 144 H 146 H (70-110) mg/dL Total Bilirubin (0.2-1.3) mg/dL AST (17-59) U/L Total Protein (6.3-8.2) g/dL 04/03/23 04/03/23 04/03/23 Range/Units 01:41 04:05 04:05 WBC 11.6 H (3.8-10.6) k/uL RBC 2.48 L (4.30-5.90) m/uL Hgb 7.5 L D (13.0-17.5) gm/dL Hct 21.7 L (39.0-53.0) % Plt Count 93 L (150-450) k/uL Neutrophils # 10.2 H (1.3-7.7) k/uL Lymphocytes # 0.8 L (1.0-4.8) k/uL Sodium 136 L (137-145) mmol/L BUN 35 H (9-20) mg/dL Glucose 112 H (74-99) mg/dL POC Glucose (mg/dL) 147 H (70-110) mg/dL Total Bilirubin 2.1 H (0.2-1.3) mg/dL AST 85 H (17-59) U/L Total Protein 5.6 L (6.3-8.2) g/dL 04/03/23 04/03/23 04/03/23 Range/Units 04:07 06:01 06:50 WBC 11.8 H (3.8-10.6) k/uL RBC 2.42 L (4.30-5.90) m/uL Hgb 7.5 L (13.0-17.5) gm/dL Hct 21.2 L (39.0-53.0) % Plt Count 89 L (150-450) k/uL Neutrophils # (1.3-7.7) k/uL Lymphocytes # (1.0-4.8) k/uL Sodium (137-145) mmol/L BUN (9-20) mg/dL Glucose (74-99) mg/dL POC Glucose (mg/dL) 127 H 128 H (70-110) mg/dL Total Bilirubin (0.2-1.3) mg/dL AST (17-59) U/L Total Protein (6.3-8.2) g/dL - Imaging and Cardiology Chest x-ray: report reviewed, image reviewed Assessment and Plan Assessment: Severe symptomatic mitral regurgitation with torn chordae to P2 of the posterior leaflet, status post complex mitral valve repair Paroxysmal atrial fibrillation, status post complete left-sided maze as well as ligation of the left atrial appendage PFO No Von Willebrand, ruled out by hematology Obstructive sleep apnea with home CPAP use Remote history of pneumonia Premature coronary artery disease in both sets of grandparents Acute blood loss anemia and thrombocytopenia, expected Hypotension and nausea, expected Plan: Continue to maximize medical therapy with low-dose aspirin, statin, Plavix. Will introduce beta akanksha today and increase as able Epicardial pacer placed to back up rate 50 BPM Wean O2 as tolerated. Encourage incentive spirometry is 10 times every hour while awake. Bronchodilators, CPAP per pulmonology Increase activity as tolerated. PT/OT/cardiac rehab consulted Will monitor daily labs and x-rays. Electrolyte replacement per protocol. Will give IV lasix today GI/DVT prophylaxis Insulin management per internal medicine. Patient is not diabetic, preoperative hemoglobin A1c 5.7%. Patient does need tight blood sugar control, should remain on IV insulin for 48 hours then transition to subcutaneous insulin per protocol Will discontinue swan, connect cordis to continuous CVP monitoring Will discontinue right chest tube, continue mediastinal chest tube for another 24 hours, monitor output Continue Pino catheter for another 24 hours, continue to record strict accurate intake and output More recommendations to follow
[2023-04-03] MEDS ORDERED: FUROSEMIDE 10 MG/ML 4 ML VIAL IV ONE (09:00)
[2023-04-03] MEDS ORDERED: ALBUMIN HUMAN 25% 50 ML in EMPTY BAG 1 BAG IVPB ONE (09:00)
--- NOTE | 2023-04-03 09:11 | P.PN ---
Subjective Progress Note Date: 04/03/23 58-year-old male patient being seen in the intensive care unit following his mitral valve repair procedure. The patient is known to have severe mitral regurgitation addition to a new onset A. fib. His cardiac catheterization revealed normal coronaries , his GREG confirmed severe MR with a PFO and the left atrial appendage was free of any clot in the left and ejection fraction was 60%. The patient underwent a mitral valve repair the patient is currently postop day #0. The patient was seen in intensive care unit, intubated on a mechanical ventilator. Cardiac output is 6 with an index of 2.6. Pulmonary artery pressures of 42/22. The patient has adequate urine output. He is on no pressors for now. He is on a mechanical ventilator. He is on a rate of 14, tidal volume of 500, FiO2 of 50% with a PEEP of 5. Initial blood given 100% FiO2 showed a pH of 7.4 with a pCO2 of 41 and pO2 more than 400. Chest x-ray shows Tyler-Feli being in good location. All tubes in good location the patient has 2 mediastinal chest tube that has put out a total of 200 mL without evidence of any air leak. No pneumothorax. He is on propofol at 20 mcg/kg/m. Cardiac rhythm is sinus. 14 2022, the patient is extubated the patient is currently on 4 L of oxygen by nasal cannula. He is awake and alert and communicating. He did encounter some hypotension given IV albumin currently the patient is on norepinephrine running at 0.06 mcg/kg. He cardiac output is 4.8 with an index of 2.1. Pulmonary artery pressures of 25/15 and a most recent blood pressures 82/46 and the Levaquin is being titrated. Cardiac rhythm is sinus at 80. Chest x-ray from today shows pulmonary vascular congestion. ET tube has been removed. Small bilateral pleural effusions. The patient has 2 mediastinal chest tube, point wilson s been 2 70 mL from chest tube #1 and 500 mL from Chano #2. No evidence of any air leaks. He is complaining of chest wall pain at the surgical site. He is also on insulin drip at 3 units an hour.Blood work from today shows WBC count 12.5, hemoglobin is at 9 and a platelet count of 144. His BUN is at 30 with a creatinine of 0.7 and his sodium level is at 139. Glucose is at 121. 04/03/2023, the patient is postop day #2 for repair of the mitral valve regurgitation. The patient is awake and alert and sitting up on a chair. Is currently on oxygen at 3 L/m nasal cannula. He has mediastinal chest tubes which are still in place. The patient has produced approximately 2 70 mL of serosanguineous drainage overnight and 4 50 mL over the past 24 hours from the left and as for the right sided chest tube commands produced (overnight only with 50 mL over the last 24 hours. The chest x-ray showed bilateral pleural effusion and pulmonary vessel congestion. Tyler-Feli catheter still in place. Cardiac up was at 6.4 with an index of 2.8. PA pressures of 39/23 with a CVP of 15. He has AV epicardial pacemaker wires. His underlying cardiac rhythm does not see be seen to be in sinus and he has AV pacing at the rate of 80. This was dropped onto 50 earlier this morning. At the same time, the patient received a total of 1 L of albumin yesterday. He required pressors briefly and earlier this morning he was taken off pressors. He is using the [employer] spirometer. Is falling approximately 750 on his incentive spirometer. Blood work from today shows a hemoglobin of 7.5, platelet count of 89, BUN of 35 with a creatinine of 0.9 and a sodium level is at 136. He remains on insulin drip at 7 units an hour. Objective - Vital Signs Vital signs: Vital Signs Temp 99.7 F H 04/02/23 19:00 Pulse 72 04/03/23 08:30 Resp 22 04/03/23 08:30 BP 105/62 04/03/23 08:30 Pulse Ox 93 L 04/03/23 08:30 FiO2 50 04/01/23 18:00 Intake & Output 04/02/23 04/03/23 04/03/23 18:59 06:59 18:59 Intake Total 2682.428 1720.259 238 Output Total 685 1015 135 Balance 1997.428 705.259 103 Weight 105.6 kg 108.5 kg Intake: IV 1818 708 138 0.9ns for CO/CI 60 100 20 0.9ns for pressure bag 108 108 18 Albumin Human 5% 250 ml 1000 In Empty Bag 1 bag @ 250 mls/hr IVPB Q1HR PRN Rx#: [id number] Lactated Ringers 1,000 ml 600 500 100 @ 50 mls/hr IV .Q20H [facility] Rx#:[id number] ceFAZolin 2 gm In Sodium 50 Chloride 0.9% 50 ml @ 100 mls/hr IVPB Q8HR [facility] Rx# :[id number] Intake, IV Titration 564.428 472.259 Amount ACETAMINOPHEN IV (For NPO 200 ) 1,000 mg In Empty Bag 1 bag @ 400 mls/hr IVPB Q6H [facility] Rx#:[id number] Albumin Human 5% 250 ml 250 In Empty Bag 1 bag @ 250 mls/hr IVPB ONCE STA Rx#: [id number] Insulin Regular 100 unit 40.617 41.089 In Sodium Chloride 0.9% 100 ml @ Per Protocol IV .Q0M [facility] Rx#:[id number] Norepinephrine 4 mg In 73.811 431.170 Sodium Chloride 0.9% 250 ml @ 0.02 MCG/KG/MIN 7. 811 mls/hr IV .Q24H [facility] Rx#:[id number] Oral 300 540 100 Output: Chest Tube Drainage 140 340 65 Chest Tube Mediastinal 130 330 45 Pleural Catheter Right 10 10 20 Urine 545 675 70 Other: Voiding Method Indwelling Catheter Indwelling Catheter Indwelling Catheter ABP, PAP, CO, CI - Last Documented Arterial Blood Pressure 83/51 Pulmonary Artery Pressure 38/22 Cardiac Output 5.4 Cardiac Index 2.3 - Exam Gen. appearance, the patient is currently on 4 L of oxygen by nasal cannula, using the incentive spirometer, sitting up on a recliner Head exam was generally normal. There was no scleral icterus or corneal arcus. Mucous membranes were moist. Neck was supple and without jugular venous distension, thyromegaly, or carotid bruits. Carotids were easily palpable bilaterally. There was no adenopathy. Oral tracheal and orogastric tube are both in place and the patient has a right IJ Tyler-Feli catheter in place. Lungs were clear to auscultation and percussion, and with normal diaphragmatic excursion. No wheezes or rales were noted. Thoracotomy scar is dry clean and intact and the patient is 2 mediastinal chest tubes, no evidence of any air leak Abdominal exam revealed normal bowel sounds. The abdomen was soft, non-tender, and without masses, organomegaly, or appreciable enlargement of the abdominal aorta. Cardiac exam revealed the PMI to be normally situated and sized. The rhythm was regular and no extrasystoles were noted during several minutes of auscultation. The first and second heart sounds were normal and physiologic splitting of the second heart sound was noted. There were no murmurs, rubs, clicks, or gallops. Examination of the extremities revealed easily palpable radial, femoral and pedal pulses. There was no cyanosis, clubbing or edema. Examination of the skin revealed no evidence of significant rashes, suspicious appearing nevi or other concerning lesions. Neurologically, the patient is awake and alert and the patient does not have any focal neurological deficit. Cranial nerves are essentially intact. - Labs CBC & Chem 7: 04/03/23 06:50 04/03/23 04:05 Labs: Abnormal Lab Results - Last 24 Hours (Table) 03/28/23 04/02/23 04/02/23 Range/Units 09:00 10:30 12:23 WBC (3.8-10.6) k/uL RBC (4.30-5.90) m/uL Hgb (13.0-17.5) gm/dL Hct (39.0-53.0) % Plt Count (150-450) k/uL Neutrophils # (1.3-7.7) k/uL Lymphocytes # (1.0-4.8) k/uL Sodium (137-145) mmol/L BUN (9-20) mg/dL Glucose (74-99) mg/dL POC Glucose (mg/dL) 135 H 134 H (70-110) mg/dL Total Bilirubin (0.2-1.3) mg/dL AST (17-59) U/L Total Protein (6.3-8.2) g/dL Crossmatch See Detail 04/02/23 04/02/23 04/02/23 Range/Units 14:10 16:08 18:06 WBC (3.8-10.6) k/uL RBC (4.30-5.90) m/uL Hgb (13.0-17.5) gm/dL Hct (39.0-53.0) % Plt Count (150-450) k/uL Neutrophils # (1.3-7.7) k/uL Lymphocytes # (1.0-4.8) k/uL Sodium (137-145) mmol/L BUN (9-20) mg/dL Glucose (74-99) mg/dL POC Glucose (mg/dL) 143 H 135 H 132 H (70-110) mg/dL Total Bilirubin (0.2-1.3) mg/dL AST (17-59) U/L Total Protein (6.3-8.2) g/dL Crossmatch 04/02/23 04/02/23 04/03/23 Range/Units 20:02 21:46 00:04 WBC (3.8-10.6) k/uL RBC (4.30-5.90) m/uL Hgb (13.0-17.5) gm/dL Hct (39.0-53.0) % Plt Count (150-450) k/uL Neutrophils # (1.3-7.7) k/uL Lymphocytes # (1.0-4.8) k/uL Sodium (137-145) mmol/L BUN (9-20) mg/dL Glucose (74-99) mg/dL POC Glucose (mg/dL) 121 H 144 H 146 H (70-110) mg/dL Total Bilirubin (0.2-1.3) mg/dL AST (17-59) U/L Total Protein (6.3-8.2) g/dL Crossmatch 04/03/23 04/03/23 04/03/23 Range/Units 01:41 04:05 04:05 WBC 11.6 H (3.8-10.6) k/uL RBC 2.48 L (4.30-5.90) m/uL Hgb 7.5 L D (13.0-17.5) gm/dL Hct 21.7 L (39.0-53.0) % Plt Count 93 L (150-450) k/uL Neutrophils # 10.2 H (1.3-7.7) k/uL Lymphocytes # 0.8 L (1.0-4.8) k/uL Sodium 136 L (137-145) mmol/L BUN 35 H (9-20) mg/dL Glucose 112 H (74-99) mg/dL POC Glucose (mg/dL) 147 H (70-110) mg/dL Total Bilirubin 2.1 H (0.2-1.3) mg/dL AST 85 H (17-59) U/L Total Protein 5.6 L (6.3-8.2) g/dL Crossmatch 04/03/23 04/03/23 04/03/23 Range/Units 04:07 06:01 06:50 WBC 11.8 H (3.8-10.6) k/uL RBC 2.42 L (4.30-5.90) m/uL Hgb 7.5 L (13.0-17.5) gm/dL Hct 21.2 L (39.0-53.0) % Plt Count 89 L (150-450) k/uL Neutrophils # (1.3-7.7) k/uL Lymphocytes # (1.0-4.8) k/uL Sodium (137-145) mmol/L BUN (9-20) mg/dL Glucose (74-99) mg/dL POC Glucose (mg/dL) 127 H 128 H (70-110) mg/dL Total Bilirubin (0.2-1.3) mg/dL AST (17-59) U/L Total Protein (6.3-8.2) g/dL Crossmatch 04/03/23 Range/Units 08:10 WBC (3.8-10.6) k/uL RBC (4.30-5.90) m/uL Hgb (13.0-17.5) gm/dL Hct (39.0-53.0) % Plt Count (150-450) k/uL Neutrophils # (1.3-7.7) k/uL Lymphocytes # (1.0-4.8) k/uL Sodium (137-145) mmol/L BUN (9-20) mg/dL Glucose (74-99) mg/dL POC Glucose (mg/dL) 207 H (70-110) mg/dL Total Bilirubin (0.2-1.3) mg/dL AST (17-59) U/L Total Protein (6.3-8.2) g/dL Crossmatch Assessment and Plan Plan: Severe mitral regurgitation, patient is status post mitral valve repair. The patient is currently postop day # 2 Postthoracotomy, patient is extubated. Chest x-ray from today shows small bilateral pleural effusions. Mediastinal chest that in place. No evidence of any air leak and output has been noted. Minimal output from the right-sided mediastinal chest tube. Left one is still active with a total of 2 70 mL over the past 8 hours. Hypotension, currently off pressors. Given IV albumin. Adequate cardiac output and index. CPK remains elevated. Chest x-ray shows pulmonary vascular congestion and bilateral pleural effusions New-onset A. fib secondary to mitral regurgitation, current rhythm is sinus, he has a backup AV pacing at the rate of 80 was was dropped down to 50 PFO History of severe obstructive sleep apnea limited on APAP therapy pressures of 5/15 cm of water History of von Willebrand's disease Hyperlipidemia Plan Wean down FiO2, continue incentive spirometer Monitor hemodynamics May consider removing the right mediastinal chest tube as output is minimal at this point in time. Monitor output from the chest tube Monitor blood work and hemodynamics Keep insulin drip for now. Currently at 7 units an hour Continue pressors Cardiac rhythm being monitored with a backup pacing at the rate of 50 Patient is still soft and his blood pressure. He is going to receive IV albumin 50 ML to 12.5 g of albumin He'll be given a dose of Lasix 20 mg IV remove swan feli We'll continue to follow.
[2023-04-03 09:14] LABS: Glucose,Whole Blood 175 mg/dL (70-110)
--- NOTE | 2023-04-03 09:19 | P.PN ---
Subjective Progress Note Date: 04/03/23 The patient is a 58-year-old male who follows in the office with Dr. Shepard. He was referred to cardiothoracic surgery for severe mitral regurgitation and torn chordae tendonae. He underwent complex mitral valve repair with Dr. Salmeron on 04/01/23. He was extubated and weaned off of vasopressors over the last 24 hours. The patient was interviewed and examined resting in the recliner chair. He states his only complaint is nausea and bloating. He states he is barely tolerating clear liquids. GENERAL: Well-appearing, well-nourished and in no acute distress. NECK: Supple without JVD or thyromegaly. LUNGS: Breath sounds clear to auscultation bilaterally. Respiration equal and unlabored. No wheezes, rales or rhonchi. HEART: Regular rate and rhythm. Soft systolic murmur. No rubs or gallops. S1 and S2 heard. EXTREMITIES: Normal range of motion, no edema. No clubbing or cyanosis. Peripheral pulses intact and strong. TELEMETRY: Sinus rhythm with intermittent pacing LABS: CBC 11.8, hemoglobin 7.5, hematocrit 21.2, platelets 89, sodium 136, potassium 4.2, BUN 35, creatinine 0.91, AST 85, ALT 35 IMPRESSION: Severe mitral regurgitation with torn chordae to P2 of posterior leaflet Status post complex mitral valve repair with left atrial appendage clipping left-sided maze procedure PLAN: Continue supportive treatment Aggressive pulmonary hygiene Further recommendations based on clinical course I am dictating on behalf of Dr Jose Shepard's history/physical and assessment/plan. Objective - Vital Signs Vital signs: Vital Signs Temp 99.7 F H 04/02/23 19:00 Pulse 72 04/03/23 08:30 Resp 22 04/03/23 08:30 BP 105/62 04/03/23 08:30 Pulse Ox 93 L 04/03/23 08:30 FiO2 50 04/01/23 18:00 Intake & Output 04/02/23 04/03/23 04/03/23 18:59 06:59 18:59 Intake Total 2682.428 1720.259 238 Output Total 685 1015 135 Balance 1997.428 705.259 103 Weight 105.6 kg 108.5 kg Intake: IV 1818 708 138 0.9ns for CO/CI 60 100 20 0.9ns for pressure bag 108 108 18 Albumin Human 5% 250 ml 1000 In Empty Bag 1 bag @ 250 mls/hr IVPB Q1HR PRN Rx#: [id number] Lactated Ringers 1,000 ml 600 500 100 @ 50 mls/hr IV .Q20H [facility] Rx#:[id number] ceFAZolin 2 gm In Sodium 50 Chloride 0.9% 50 ml @ 100 mls/hr IVPB Q8HR [facility] Rx# :[id number] Intake, IV Titration 564.428 472.259 Amount ACETAMINOPHEN IV (For NPO 200 ) 1,000 mg In Empty Bag 1 bag @ 400 mls/hr IVPB Q6H [facility] Rx#:[id number] Albumin Human 5% 250 ml 250 In Empty Bag 1 bag @ 250 mls/hr IVPB ONCE [facility] Rx#: [id number] Insulin Regular 100 unit 40.617 41.089 In Sodium Chloride 0.9% 100 ml @ Per Protocol IV .Q0M [facility] Rx#:[id number] Norepinephrine 4 mg In 73.811 431.170 Sodium Chloride 0.9% 250 ml @ 0.02 MCG/KG/MIN 7. 811 mls/hr IV .Q24H [facility] Rx#:[id number] Oral 300 540 100 Output: Chest Tube Drainage 140 340 65 Chest Tube Mediastinal 130 330 45 Pleural Catheter Right 10 10 20 Urine 545 675 70 Other: Voiding Method Indwelling Catheter Indwelling Catheter Indwelling Catheter ABP, PAP, CO, CI - Last Documented Arterial Blood Pressure 83/51 Pulmonary Artery Pressure 38/22 Cardiac Output 5.4 Cardiac Index 2.3 - Labs CBC & Chem 7: 04/03/23 06:50 04/03/23 04:05 Labs: Abnormal Lab Results - Last 24 Hours (Table) 03/28/23 04/02/23 04/02/23 Range/Units 09:00 10:30 12:23 WBC (3.8-10.6) k/uL RBC (4.30-5.90) m/uL Hgb (13.0-17.5) gm/dL Hct (39.0-53.0) % Plt Count (150-450) k/uL Neutrophils # (1.3-7.7) k/uL Lymphocytes # (1.0-4.8) k/uL Sodium (137-145) mmol/L BUN (9-20) mg/dL Glucose (74-99) mg/dL POC Glucose (mg/dL) 135 H 134 H (70-110) mg/dL Total Bilirubin (0.2-1.3) mg/dL AST (17-59) U/L Total Protein (6.3-8.2) g/dL Crossmatch See Detail 04/02/23 04/02/23 04/02/23 Range/Units 14:10 16:08 18:06 WBC (3.8-10.6) k/uL RBC (4.30-5.90) m/uL Hgb (13.0-17.5) gm/dL Hct (39.0-53.0) % Plt Count (150-450) k/uL Neutrophils # (1.3-7.7) k/uL Lymphocytes # (1.0-4.8) k/uL Sodium (137-145) mmol/L BUN (9-20) mg/dL Glucose (74-99) mg/dL POC Glucose (mg/dL) 143 H 135 H 132 H (70-110) mg/dL Total Bilirubin (0.2-1.3) mg/dL AST (17-59) U/L Total Protein (6.3-8.2) g/dL Crossmatch 04/02/23 04/02/23 04/03/23 Range/Units 20:02 21:46 00:04 WBC (3.8-10.6) k/uL RBC (4.30-5.90) m/uL Hgb (13.0-17.5) gm/dL Hct (39.0-53.0) % Plt Count (150-450) k/uL Neutrophils # (1.3-7.7) k/uL Lymphocytes # (1.0-4.8) k/uL Sodium (137-145) mmol/L BUN (9-20) mg/dL Glucose (74-99) mg/dL POC Glucose (mg/dL) 121 H 144 H 146 H (70-110) mg/dL Total Bilirubin (0.2-1.3) mg/dL AST (17-59) U/L Total Protein (6.3-8.2) g/dL Crossmatch 04/03/23 04/03/23 04/03/23 Range/Units 01:41 04:05 04:05 WBC 11.6 H (3.8-10.6) k/uL RBC 2.48 L (4.30-5.90) m/uL Hgb 7.5 L D (13.0-17.5) gm/dL Hct 21.7 L (39.0-53.0) % Plt Count 93 L (150-450) k/uL Neutrophils # 10.2 H (1.3-7.7) k/uL Lymphocytes # 0.8 L (1.0-4.8) k/uL Sodium 136 L (137-145) mmol/L BUN 35 H (9-20) mg/dL Glucose 112 H (74-99) mg/dL POC Glucose (mg/dL) 147 H (70-110) mg/dL Total Bilirubin 2.1 H (0.2-1.3) mg/dL AST 85 H (17-59) U/L Total Protein 5.6 L (6.3-8.2) g/dL Crossmatch 04/03/23 04/03/23 04/03/23 Range/Units 04:07 06:01 06:50 WBC 11.8 H (3.8-10.6) k/uL RBC 2.42 L (4.30-5.90) m/uL Hgb 7.5 L (13.0-17.5) gm/dL Hct 21.2 L (39.0-53.0) % Plt Count 89 L (150-450) k/uL Neutrophils # (1.3-7.7) k/uL Lymphocytes # (1.0-4.8) k/uL Sodium (137-145) mmol/L BUN (9-20) mg/dL Glucose (74-99) mg/dL POC Glucose (mg/dL) 127 H 128 H (70-110) mg/dL Total Bilirubin (0.2-1.3) mg/dL AST (17-59) U/L Total Protein (6.3-8.2) g/dL Crossmatch 04/03/23 Range/Units 08:10 WBC (3.8-10.6) k/uL RBC (4.30-5.90) m/uL Hgb (13.0-17.5) gm/dL Hct (39.0-53.0) % Plt Count (150-450) k/uL Neutrophils # (1.3-7.7) k/uL Lymphocytes # (1.0-4.8) k/uL Sodium (137-145) mmol/L BUN (9-20) mg/dL Glucose (74-99) mg/dL POC Glucose (mg/dL) 207 H (70-110) mg/dL Total Bilirubin (0.2-1.3) mg/dL AST (17-59) U/L Total Protein (6.3-8.2) g/dL Crossmatch
[2023-04-03] MEDS: CLOPIDOGREL 75 MG TAB PO SCH (09:22)
[2023-04-03] MEDS: ASPIRIN 81 MG PO SCH (09:22)
[2023-04-03] MEDS: FONDAPARINUX 2.5 MG/0.5 ML SYRINGE SQ SCH (09:22)
[2023-04-03] MEDS: ATORVASTATIN 20 MG TAB PO SCH (09:22)
[2023-04-03] MEDS: METOPROLOL TARTRATE 12.5 MG TAB PO SCH ×2 (09:50→20:27)
[2023-04-03 10:30] LABS: Glucose,Whole Blood 155 mg/dL (70-110)
[2023-04-03] MEDS: INSULIN REGULAR 100 UNIT in SODIUM CHLORIDE 0.9% 100 ML IV SCH (11:28)
[2023-04-03 11:32] LABS: Glucose,Whole Blood 146 mg/dL (70-110)
--- NOTE | 2023-04-03 11:32 | P.PN ---
Subjective Progress Note Date: 04/03/23 Subjective: Patient seen and examined at bedside. No acute events overnight. Off of vasopressors. Still getting IV albumin. Denies any significant chest pain. Having a lot of burping, passing gas, no bowel movements. Able to tolerate some liquid diet. Still has chest tubes and Pino catheter in place. Pertinent positives and negatives as discussed above, a complete review of systems was performed and all other systems are negative. Vitals Signs Reviewed. General: nontoxic, no distress, appears at stated age Derm: warm, dry, midsternal dressing, clean, dry, intact Head: atraumatic, normocephalic, symmetric Eyes: EOMI, no lid lag, anicteric sclera Mouth: no lip lesion, mucus membranes moist Cardiovascular: S1S2 reg, no murmur Lungs: CTA bilateral, no rhonchi, no rales , no accessory muscle use, supplemental oxygen, chest tubes in place Abdominal: soft, nontender to palpation, no guarding, no appreciable organomegaly Ext: no gross muscle atrophy, no edema, no contractures Neuro: CN II-XI grossly intact, no focal neuro deficits Psych: Alert, oriented, appropriate affect Data Reviewed Today: Pertinent Labs: WBC 11.8, hemoglobin 7.5, platelet 89, creatinine 0.91, blood sugars range between 112-155 Imaging: Chest x-ray independently interpreted, continues to have bilateral pleural effusions, interstitial opacities bilaterally Assessment and Plan: Severe symptomatic mitral regurgitation status post repair Paroxysmal atrial fibrillation status post maze and ligation of left atrial appendage GINA on CPAP Von Willebrand's disease PFO Hyperglycemia, A1c 5.7 Leukocytosis, anticipated outcome of surgery, improving Acute blood loss anemia, anticipated outcome of surgery, slightly worse today Thrombocytopenia -Pulmonology note reviewed, and other 12.5 g of IV albumin, 20 mg IV Lasix -Cardiothoracic note reviewed, continue aspirin, statin, Plavix, discontinue Alpine, right chest tube, continue mediastinal chest tube for another 24 hours, continue Pino catheter for another 24 hours. -Cardiology note reviewed, patient currently on metoprolol 12.5 twice a day for rate control, continue supportive care -Continue insulin drip for now, switch to subcu insulin when oral intake improves, currently taking only very minimal amounts of liquid -Monitor for hypoglycemia -Currently status post 2 units of FFP, 2 units of platelets, 1 of cryoprecipitate -No active heavy bleeding -anemia work up -Repeat CBC and BMP tomorrow Thank you for allowing us to participate in the care of this pleasant patient. Do not hesitate to contact us with questions. Someone can be reached from the [facility] hospitalist group all hours of the day at [phone] or via perfect serve. Objective - Vital Signs Vital signs: Vital Signs Temp 99.7 F H 04/02/23 19:00 Pulse 73 04/03/23 11:15 Resp 28 H 04/03/23 11:15 BP 105/58 04/03/23 11:00 Pulse Ox 91 L 04/03/23 11:15 FiO2 50 04/01/23 18:00 Intake & Output 04/02/23 04/03/23 04/03/23 18:59 06:59 18:59 Intake Total 2682.428 1720.259 501.825 Output Total 685 1015 275 Balance 1997.428 705.259 226.825 Weight 105.6 kg 108.5 kg Intake: IV 1818 708 269 0.9ns for CO/CI 60 100 40 0.9ns for pressure bag 108 108 39 Albumin Human 5% 250 ml 1000 In Empty Bag 1 bag @ 250 mls/hr IVPB Q1HR PRN Rx#: [id number] Lactated Ringers 1,000 ml 600 500 190 @ 20 mls/hr IV .Q24H [facility] Rx#:[id number] ceFAZolin 2 gm In Sodium 50 Chloride 0.9% 50 ml @ 100 mls/hr IVPB Q8HR [facility] Rx# :[id number] Intake, IV Titration 564.428 472.259 32.825 Amount ACETAMINOPHEN IV (For NPO 200 ) 1,000 mg In Empty Bag 1 bag @ 400 mls/hr IVPB Q6H [facility] Rx#:[id number] Albumin Human 5% 250 ml 250 In Empty Bag 1 bag @ 250 mls/hr IVPB ONCE [facility]A Rx#: [id number] Insulin Regular 100 unit 40.617 41.089 32.825 In Sodium Chloride 0.9% 100 ml @ Per Protocol IV .Q0M [facility] Rx#:[id number] Norepinephrine 4 mg In 73.811 431.170 Sodium Chloride 0.9% 250 ml @ 0.02 MCG/KG/MIN 7. 811 mls/hr IV .Q24H [facility] Rx#:[id number] Oral 300 540 200 Output: Chest Tube Drainage 140 340 140 Chest Tube Mediastinal 130 330 120 Pleural Catheter Right 10 10 20 Urine 545 675 135 Other: Voiding Method Indwelling Catheter Indwelling Catheter Indwelling Catheter ABP, PAP, CO, CI - Last Documented Arterial Blood Pressure 85/52 Pulmonary Artery Pressure 38/21 Cardiac Output 5.4 Cardiac Index 2.3 - Labs CBC & Chem 7: 04/03/23 06:50 04/03/23 04:05 Labs: Abnormal Lab Results - Last 24 Hours (Table) 03/28/23 04/02/23 04/02/23 Range/Units 09:00 12:23 14:10 WBC (3.8-10.6) k/uL RBC (4.30-5.90) m/uL Hgb (13.0-17.5) gm/dL Hct (39.0-53.0) % Plt Count (150-450) k/uL Neutrophils # (1.3-7.7) k/uL Lymphocytes # (1.0-4.8) k/uL Sodium (137-145) mmol/L BUN (9-20) mg/dL Glucose (74-99) mg/dL POC Glucose (mg/dL) 134 H 143 H (70-110) mg/dL Total Bilirubin (0.2-1.3) mg/dL AST (17-59) U/L Total Protein (6.3-8.2) g/dL Crossmatch See Detail 04/02/23 04/02/23 04/02/23 Range/Units 16:08 18:06 20:02 WBC (3.8-10.6) k/uL RBC (4.30-5.90) m/uL Hgb (13.0-17.5) gm/dL Hct (39.0-53.0) % Plt Count (150-450) k/uL Neutrophils # (1.3-7.7) k/uL Lymphocytes # (1.0-4.8) k/uL Sodium (137-145) mmol/L BUN (9-20) mg/dL Glucose (74-99) mg/dL POC Glucose (mg/dL) 135 H 132 H 121 H (70-110) mg/dL Total Bilirubin (0.2-1.3) mg/dL AST (17-59) U/L Total Protein (6.3-8.2) g/dL Crossmatch 04/02/23 04/03/23 04/03/23 Range/Units 21:46 00:04 01:41 WBC (3.8-10.6) k/uL RBC (4.30-5.90) m/uL Hgb (13.0-17.5) gm/dL Hct (39.0-53.0) % Plt Count (150-450) k/uL Neutrophils # (1.3-7.7) k/uL Lymphocytes # (1.0-4.8) k/uL Sodium (137-145) mmol/L BUN (9-20) mg/dL Glucose (74-99) mg/dL POC Glucose (mg/dL) 144 H 146 H 147 H (70-110) mg/dL Total Bilirubin (0.2-1.3) mg/dL AST (17-59) U/L Total Protein (6.3-8.2) g/dL Crossmatch 04/03/23 04/03/23 04/03/23 Range/Units 04:05 04:05 04:07 WBC 11.6 H (3.8-10.6) k/uL RBC 2.48 L (4.30-5.90) m/uL Hgb 7.5 L D (13.0-17.5) gm/dL Hct 21.7 L (39.0-53.0) % Plt Count 93 L (150-450) k/uL Neutrophils # 10.2 H (1.3-7.7) k/uL Lymphocytes # 0.8 L (1.0-4.8) k/uL Sodium 136 L (137-145) mmol/L BUN 35 H (9-20) mg/dL Glucose 112 H (74-99) mg/dL POC Glucose (mg/dL) 127 H (70-110) mg/dL Total Bilirubin 2.1 H (0.2-1.3) mg/dL AST 85 H (17-59) U/L Total Protein 5.6 L (6.3-8.2) g/dL Crossmatch 04/03/23 04/03/23 04/03/23 Range/Units 06:01 06:50 08:10 WBC 11.8 H (3.8-10.6) k/uL RBC 2.42 L (4.30-5.90) m/uL Hgb 7.5 L (13.0-17.5) gm/dL Hct 21.2 L (39.0-53.0) % Plt Count 89 L (150-450) k/uL Neutrophils # (1.3-7.7) k/uL Lymphocytes # (1.0-4.8) k/uL Sodium (137-145) mmol/L BUN (9-20) mg/dL Glucose (74-99) mg/dL POC Glucose (mg/dL) 128 H 207 H (70-110) mg/dL Total Bilirubin (0.2-1.3) mg/dL AST (17-59) U/L Total Protein (6.3-8.2) g/dL Crossmatch 04/03/23 04/03/23 Range/Units 09:12 10:27 WBC (3.8-10.6) k/uL RBC (4.30-5.90) m/uL Hgb (13.0-17.5) gm/dL Hct (39.0-53.0) % Plt Count (150-450) k/uL Neutrophils # (1.3-7.7) k/uL Lymphocytes # (1.0-4.8) k/uL Sodium (137-145) mmol/L BUN (9-20) mg/dL Glucose (74-99) mg/dL POC Glucose (mg/dL) 175 H 155 H (70-110) mg/dL Total Bilirubin (0.2-1.3) mg/dL AST (17-59) U/L Total Protein (6.3-8.2) g/dL Crossmatch
[2023-04-03] MEDS ORDERED: SIMETHICONE 80 MG CHEWABLE PO PRN (12:48)
[2023-04-03 13:41] LABS: Reticulocyte % 3.7 % (0.5-2.0)
[2023-04-03 13:51] LABS: Glucose,Whole Blood 150 mg/dL (70-110)
[2023-04-03 15:53] LABS: Glucose,Whole Blood 180 mg/dL (70-110)
--- NOTE | 2023-04-03 16:34 | US ---
EXAMINATION TYPE: US chest DATE OF EXAM: 04/03/2023 COMPARISON: 04/03/2023 CLINICAL INDICATION: Male, 58 years old with history of dori for thoracentesis; dori for thora TECHNIQUE: Targeted ultrasound of the posterior lower bilateral hemithoraces EXAM MEASUREMENTS: Right Pleural Effusion pocket size: 2.0 cm Right skin surface to fluid distance: 3.4 cm Left Pleural Effusion pocket size: 1.9 cm Left skin surface to fluid distance: 3.0 cm Markings not performed due to small amount of fluid and proximity to lung tissue Pulmonologists are able to review the images in the patient?s EMR. IMPRESSIONS: Only small bilateral pleural effusions. Markings not performed.
[2023-04-03 19:01] LABS: Glucose,Whole Blood 137 mg/dL (70-110)
[2023-04-03 20:19] LABS: Glucose,Whole Blood 127 mg/dL (70-110)
[2023-04-03] MEDS: SENNOSIDES-DOCUSATE SODIUM 1 EACH TAB PO SCH (20:27)
[2023-04-03] MEDS ORDERED: INSULIN ASPART (NovoLOG) 100 UNIT/ML VIAL SQ SCH (21:00)
[2023-04-03] MEDS ORDERED: MELATONIN 3 MG TABLET PO SCH (21:00)
[2023-04-03] MEDS ORDERED: FUROSEMIDE 10 MG/ML 4 ML VIAL IV STA (22:18)
[2023-04-03 22:22] LABS: % Iron Saturation 9.64 (15.00-50.00)
[2023-04-03 22:31] LABS: Haptoglobin <10.0 mg/dL (31.2-198.0)
[2023-04-03 23:13] LABS: Glucose,Whole Blood 157 mg/dL (70-110)
--- NOTE | 2023-04-03 23:41 | XR ---
EXAM: XR Chest, 1 View CLINICAL HISTORY: ITS.REASON XR Reason: INC O2 DEMANDS TECHNIQUE: Frontal view of the chest. COMPARISON: No relevant prior studies available. FINDINGS: Lungs: Extensive bilateral perihilar airspace consolidations, consistent with multifocal pneumonia. Pleural space: Small bilateral pleural effusions. No pneumothorax. Heart: Cardiomegaly. Mediastinum: Unremarkable. Normal mediastinal contour. Bones/joints: Sternotomy wires. LEFT clavicle ORIF. No acute fracture. Soft tissues: Appendage clip. IMPRESSION: 1. Extensive bilateral perihilar airspace consolidations, consistent with multifocal pneumonia. 2. Small bilateral pleural effusions.
[2023-04-04] MEDS: NOREPINEPHRINE 4 MG in SODIUM CHLORIDE 0.9% 250 ML IV SCH ×3 (00:15→23:45)
[2023-04-04] MEDS ORDERED: SODIUM CHLORIDE 0.9% 1,000 ML IV ONE (00:15)
[2023-04-04 00:32] LABS: ABG Base Excess -18.9 mmol/L; ABG HCO3 13 mmol/L (21-25); ABG Oxygen Saturation 86.6 % (94-97); ABG PCO2 55 mmHg (35-45); ABG PO2 80 mmHg (83-108); ABG TCO2 15 mmol/L (19-24); Allen Test Performed? Yes
[2023-04-04] MEDS ORDERED: SODIUM BICARB 8.4% 50 ML SYR (1 MEQ/ML) ONE (00:34)
[2023-04-04 00:44] LABS: ABG PH 6.98 (7.35-7.45)
[2023-04-04] MEDS ORDERED: DEXTROSE 5% IN WATER 1,000 ML with SODIUM BICARB (1 MEQ/ML) 150 ML IV SCH (00:45)
[2023-04-04] MEDS: DEXTROSE 5% IN WATER 1,000 ML with SODIUM BICARB (1 MEQ/ML) 150 ML IV SCH ×2 (00:45→16:01)
--- NOTE | 2023-04-04 01:04 | P.PCN ---
Date of Procedure: 04/04/23 Preoperative Diagnosis: Cardiac arrest, hypoxemic and hypercapnic respiratory failure Postoperative Diagnosis: Cardiac arrest, Hypoxemic and hypercapnic respiratory failure Procedure(s) Performed: Insertion of a left wrist radial arterial line Indications for Procedure: Continuous blood pressure monitoring and frequent blood draws Description of Procedure: Emergent consent was obtained, and a procedural timeout was performed . The patient was placed in supine position. The left radial region was prepared in a sterile fashion, and a sterile drape was applied. The left radial artery was palpated, easily cannulated, and a guidewire was placed. A Cook catheter was inserted over the guidewire, and the guidewire was removed. There was good arterial blood flow, good arterial waveform, and no complications. The line was secured with using a 3-0 silk suture.
[2023-04-04 01:05] LABS: ABG Base Excess -13.6 mmol/L; ABG HCO3 15 mmol/L (21-25); ABG Oxygen Saturation 96.4 % (94-97); ABG PCO2 42 mmHg (35-45); ABG PO2 101 mmHg (83-108); ABG TCO2 16 mmol/L (19-24); Allen Test Performed? Yes
[2023-04-04 01:07] LABS: ABG PH 7.16 (7.35-7.45)
--- NOTE | 2023-04-04 01:15 | XR ---
EXAM: XR Chest, 1 View CLINICAL HISTORY: post cardiac surgery TECHNIQUE: Frontal view of the chest. COMPARISON: April 03, 2023 FINDINGS: Diffuse pulmonary edema has worsened. There is a right pleural effusion. There is no evidence of pneumothorax. The heart is enlarged. There has been a previous sternotomy. There has been interval placement of an endotracheal tube. The tip measures approximate 4 cm above the steffanie. IMPRESSION: Mild worsening of pulmonary edema. Intubation as above.
[2023-04-04 01:19] LABS: Basophils % (A) 0 %; Eosinophils % (A) 0 %; HCT 22.1 % (39.0-53.0); HGB 7.3 gm/dL (13.0-17.5); Hypochromasia Slight; Lymphocytes # (A) 1.2 k/uL (1.0-4.8); Lymphocytes % (A) 7 %; MCH 31.2 pg (25.0-35.0); MCHC 32.8 g/dL (31.0-37.0); MCV 95.1 fL (80.0-100.0); Mean Platelet Volume 10.4; Monocytes # (A) 0.7 k/uL (0-1.0); Monocytes % (A) 5 %; Neutrophils # (A) 14.3 k/uL (1.3-7.7); Neutrophils % (A) 87 %; Platelet Count 110 k/uL (150-450); RBC 2.33 m/uL (4.30-5.90); RDW 13.2 % (11.5-15.5); WBC 16.4 k/uL (3.8-10.6)
[2023-04-04 01:26] LABS: AST 411 U/L (17-59); African American GFR (CKD) 29 (>60 ml/min/1.73 sqM); Alkaline Phosphatase 38 U/L (38-126); Blood Urea Nitrogen 51 mg/dL (9-20); Calcium 7.5 mg/dL (8.4-10.2); Carbon Dioxide 12 mmol/L (22-30); Glucose 117 mg/dL (74-99); Non-African American GFR(CKD) 25 (>60 ml/min/1.73 sqM); Total Bilirubin 3.6 mg/dL (0.2-1.3); Total Protein 4.8 g/dL (6.3-8.2)
[2023-04-04 01:35] LABS: ABG Base Excess -12.7 mmol/L; ABG HCO3 15 mmol/L (21-25); ABG Oxygen Saturation 91.8 % (94-97); ABG PCO2 38 mmHg (35-45); ABG PH 7.21 (7.35-7.45); ABG PO2 75 mmHg (83-108); ABG TCO2 16 mmol/L (19-24); Allen Test Performed? Yes
[2023-04-04] MEDS ORDERED: levETIRAcetam IV 1,500 MG in SODIUM CHLORIDE 0.9% 250 ML IVPB ONE (02:03)
[2023-04-04 02:08] LABS: ABG HCO3 16 mmol/L (21-25); ABG Oxygen Saturation 85.8 % (94-97); ABG PCO2 41 mmHg (35-45); ABG PO2 64 mmHg (83-108); ABG TCO2 17 mmol/L (19-24); Allen Test Performed? Yes
[2023-04-04] MEDS ORDERED: levETIRAcetam IV 500 MG/5 ML VIAL IVP ONE (02:15)
[2023-04-04 02:23] LABS: Anion Gap 24 mmol/L; Chloride 104 mmol/L (98-107); Potassium 4.3 mmol/L (3.5-5.1); Sodium 140 mmol/L (137-145)
[2023-04-04 02:30] LABS: ALT 247 U/L (4-49)
[2023-04-04 02:39] LABS: ABG Base Excess -12.4 mmol/L; ABG HCO3 16 mmol/L (21-25); ABG Oxygen Saturation 82.8 % (94-97); ABG PCO2 45 mmHg (35-45); ABG PO2 60 mmHg (83-108); ABG TCO2 18 mmol/L (19-24); Allen Test Performed? Yes
[2023-04-04] MEDS ORDERED: FUROSEMIDE 10 MG/ML 10 ML VIAL IV STA (02:41)
[2023-04-04 02:42] LABS: ABG PH 7.17 (7.35-7.45)
[2023-04-04] MEDS: KETOROLAC 15 MG/ML 1 ML VIAL IVP SCH (02:43)
[2023-04-04] MEDS: LORazepam 2 MG/ML INJ IV PRN ×2 (02:55→04:40)
[2023-04-04 03:11] LABS: Glucose,Whole Blood 178 mg/dL (70-110)
[2023-04-04 03:11] LABS: ABG Base Excess -11.8 mmol/L; ABG HCO3 17 mmol/L (21-25); ABG Oxygen Saturation 88.5 % (94-97); ABG PCO2 44 mmHg (35-45); ABG PO2 67 mmHg (83-108); ABG TCO2 18 mmol/L (19-24); Allen Test Performed? Yes
[2023-04-04 03:13] LABS: ABG PH 7.18 (7.35-7.45)
[2023-04-04 03:45] LABS: ABG Base Excess -10.7 mmol/L; ABG HCO3 17 mmol/L (21-25); ABG Oxygen Saturation 88.5 % (94-97); ABG PCO2 43 mmHg (35-45); ABG PH 7.21 (7.35-7.45); ABG PO2 66 mmHg (83-108); ABG TCO2 19 mmol/L (19-24); Allen Test Performed? Yes
--- NOTE | 2023-04-04 03:51 | P.EN ---
On 04/03/2023 at 2352 a CODE LOC was called overhead. I was rounding in the emergency room, and I immediately responded to the cardiac arrest in progress, in room 252, on the intensive care unit. Patient is POD #3 following a complex mitral valve repair. On my arrival, CPR was underway and the patient was receiving ACLS. The arrest was witnessed. Presenting rhythm was PEA. Patient was paced DDD at a rate of 80. Patient was asystole underneath and his arterial line was flat. Patient received a total of 5 A of epi, 2 A of bicarb during the resuscitation attempt. We did achieve ROSC after an estimated 14 minute downtime. He was profoundly hypotensive at that time, and a liter normal saline bolus was given. Patient was subsequently started on norepinephrine. Sound physician did respond to the code. LAUNCH MANAGER also responded and rapid sequence intubation was performed. On review of the chart, the patient was in respiratory distress before the code. He went from 5 L nasal cannula to 15 L high flow cannula in a relatively short period of time. Chest x-ray at that time showed acute pulmonary edema. A total of 40 mg of IV lasix was given by CT surgery prior to the arrest. Currently, the patient is intubated on the mechanical ventilator with settings of assist control, respiratory rate 26, tidal volume 450, FiO2 100%, and PEEP of 18. Most recent ABG shows a pO2 of 60, pCO2 45, and pH of 7.17. There is a component of combined respiratory and metabolic acidosis. He is relatively synchronous with mechanical ventilator, and propofol is infusing at 10 mg/kg/m. Peak pressure 28 and static pressure 22. Post-intubation chest x-ray shows findings consistent with pulmonary edema. The ET tube is approximately 4 cm above the steffanie. Heart rhythm is currently DDD paced at a rate of 80. Blood pressure is hypotensive. The PA line was pulled earlier yesterday, but the cordis remains. Norepinephrine infusing at 0.03 mics per kilogram per minute. He has a received a total of 4 amps of sodium bicarb, and a sodium bicarbonate 3 A in 1 L D5W is infusing at 100 ML's per hour. Mediastinal chest tube has a total 1450 ML's of serosanguineous output. The patient has had approximately 75 mL out since his cardiac arrest. It appears sanguinous with clots, however, he does not appear to be actively hemorrhaging. CBC post-arrest shows a WBC count of 16.4, hemoglobin 7.3, hematocrit 22.1, platelets 110. Patient is receiving 2 units of PRBCs. Patient is currently anuric. Most recent CMP post-arrest shows a sodium of 140, potassium 4.3, chloride 104, serum bicarbonate of 12, BUN 51, creatinine 2.68, glucose 178. LFts are elevated. Initial lactic acid level 14.5. Cardiothoracic surgery has been updated multiple times during the rest and post- arrest. I have updated Dr. Martinez at length, who recommends 100 mg of Lasix IV push once now and stat echocardiogram to investigate the integrity of the mitral valve. Patient is having generalized myoclonic jerks, and neurology was added to the case. He has been loaded with Keppra and PRN ativan was added. This is a complex patient, and prognosis is guarded. Family is currently at bedside. I will be following the patient closely overnight.
--- NOTE | 2023-04-04 04:39 | CA ---
Transthoracic Echo Report Name: Jignesh Murillo Age: 58 Gender: M : 1965 Exam Date: 04/04/2023 03:58 Exam Location: [facility] Ht (in): 75 Wt (lb): 239 Ordering Physician: Leo Abrams Attending/Referring Phys: Compliance Representative Radha Jackson RDCS Procedure CPT: Indications: cardiac arrest; post mitral repair Cardiac Hx: Technical Quality: Fair Contrast 1: Total Dose (mL): Contrast 2: Total Dose (mL): MEASUREMENTS (Male / Female) Normal Values 2D ECHO LV Diastolic Diameter PLAX 3.5 cm 4.2 - 5.9 / 3.9 - 5.3 cm LV Systolic Diameter PLAX 2.8 cm IVS Diastolic Thickness 1.6 cm 0.6 - 1.0 / 0.6 - 0.9 cm LVPW Diastolic Thickness 1.6 cm 0.6 - 1.0 / 0.6 - 0.9 cm LV Relative Wall Thickness 0.9 DOPPLER MV Peak Velocity 186.3 cm/s MV Peak Gradient 13.9 mmHg MV Mean Velocity 129.9 cm/s MV Mean Gradient 7.3 mmHg MV Velocity Time Integral 51.4 cm MV Area PHT 2.5 cm??? Mitral E Point Velocity 182.9 cm/s Mitral A Point Velocity 91.9 cm/s Mitral E to A Ratio 2.0 MV Deceleration Time 304.5 ms TR Peak Velocity 246.4 cm/s TR Peak Gradient 24.3 mmHg Right Ventricular Systolic Press 29.3 mmHg FINDINGS Left Ventricle Moderately increased left ventricular wall thickness. Abnormal (paradoxical) septal motion consistent with postoperative state. Left ventricular ejection fraction is estimated at 40-45 %. Right Ventricle Mild RV dilatation Right Atrium Normal right atrial size. Left Atrium Left atrium not well visualized. Mitral Valve S/P Mitral valve repair, no mitral regurgitation. Aortic Valve No aortic stenosis. No aortic regurgitation. Tricuspid Valve [id number] tricuspid regurgitation. Pulmonic Valve Pulmonic valve not well visualized. Pericardium very small pericardial effusion. small Pleural effusion. Aorta Normal size aortic root and proximal ascending aorta. CONCLUSIONS Mildly reduced global LV systolic function LVEF 40-45% Paradoxical septal motion consistent with post surgical state s/p mitral valve repair with no stenosis. Mild to moderate regurgitation by doppler Increased turbulence in LVOT with no obvious obstruction. Very small Pericardial effusion Moderate tricuspid regurgitation. Will need repeat echo in next few days as post-op inflammation reduces to evaluate for any residual LVOT gradients Previewed by: Dr Avelino Henderson (Electronically Signed) Final Date: 04 April 2023 04:38
[2023-04-04 04:45] LABS: ABG Base Excess -8.5 mmol/L; ABG HCO3 19 mmol/L (21-25); ABG Oxygen Saturation 91.3 % (94-97); ABG PCO2 42 mmHg (35-45); ABG PH 7.26 (7.35-7.45); ABG PO2 69 mmHg (83-108); ABG TCO2 20 mmol/L (19-24); Allen Test Performed? Yes
--- NOTE | 2023-04-04 05:05 | P.EN ---
Cardiology was paged at 4:00 am, notifying not patient had a pulseless electrical activity cardiac arrest at around 11 p.m. last night Patient is status post mitral valve repair surgery 04/01/23 Intensivists has requested a stat echocardiogram which seems appropriate I reviewed echo cardiogram and shows an EF of around 40%, septal motion, mild regurgitation, no significant pericardial effusion, mild to moderate MR by Doppler, no significant mitral stenosis. Increased gradients in LVOT with no obvious obstruction. Patient's chest x-ray shows bilateral pulmonary congestion Post cardiac arrest patient's lab shows hemoglobin of 7.3, bicarb 12, elevated lactate, JIHAN. He is anuric On exam Cardiac: Paced rhythm with S1 adn S2 audible, mild systolic murmur, Elevated jugular venous pressure, capillary refill in Extremities is <3sec, No swelling in B/L LE, warm extremities Respi - on vent , crackles and ronchi + Pulseless electrical activity cardio-pulmonary arrest, unknown eitiology. Hypoxic as per the nurse before cardiac arrest. Warm and Wet Shock State Anuric ATN due to CP arrest Transaminitis due to CP arrest Recommendations Agree with Pressors and MAP goal of >60 mmHg Agree with blood transfusion Monitor labs, Vent support for hypoxia Correct acidosis, increase Respi rate on vent if needed Repeat Echo in 1-2 days to evaluate for any LVOT obstruction
[2023-04-04 05:38] LABS: ABG Base Excess -6.5 mmol/L; ABG HCO3 20 mmol/L (21-25); ABG Oxygen Saturation 93.2 % (94-97); ABG PCO2 42 mmHg (35-45); ABG PH 7.29 (7.35-7.45); ABG PO2 73 mmHg (83-108); ABG TCO2 21 mmol/L (19-24); Allen Test Performed? Yes
--- NOTE | 2023-04-04 06:05 | XR ---
EXAM: XR Chest, 1 View CLINICAL HISTORY: OG tube placement TECHNIQUE: Frontal view of the chest. COMPARISON: No relevant prior studies available. IMPRESSION: Persistent bilateral pulmonary infiltrates. Bilateral pleural effusions, larger on the right. No pneumothorax. An endotracheal tube has been placed with the tip measuring 5.3 cm above the steffanie. A gastric tube has been placed into the stomach. The tip is not seen..
[2023-04-04 06:44] LABS: ABG Base Excess -4.2 mmol/L; ABG HCO3 22 mmol/L (21-25); ABG Oxygen Saturation 94.5 % (94-97); ABG PCO2 43 mmHg (35-45); ABG PH 7.31 (7.35-7.45); ABG PO2 74 mmHg (83-108); ABG TCO2 23 mmol/L (19-24); Allen Test Performed? Yes
[2023-04-04] MEDS: PIPERACILLIN-TAZOBACTAM 3.375 GM in SODIUM CHLORIDE 0.9% 100 ML IVPB SCH ×3 (06:47→22:04)
--- NOTE | 2023-04-04 08:00 | P.PN ---
Subjective Progress Note Date: 04/04/23 58-year-old male patient being seen in the intensive care unit following his mitral valve repair procedure. The patient is known to have severe mitral regurgitation addition to a new onset A. fib. His cardiac catheterization revealed normal coronaries , his GREG confirmed severe MR with a PFO and the left atrial appendage was free of any clot in the left and ejection fraction was 60%. The patient underwent a mitral valve repair the patient is currently postop day #0. The patient was seen in intensive care unit, intubated on a mechanical ventilator. Cardiac output is 6 with an index of 2.6. Pulmonary artery pressures of 42/22. The patient has adequate urine output. He is on no pressors for now. He is on a mechanical ventilator. He is on a rate of 14, tidal volume of 500, FiO2 of 50% with a PEEP of 5. Initial blood given 100% FiO2 showed a pH of 7.4 with a pCO2 of 41 and pO2 more than 400. Chest x-ray shows Paisley-Feli being in good location. All tubes in good location the patient has 2 mediastinal chest tube that has put out a total of 200 mL without evidence of any air leak. No pneumothorax. He is on propofol at 20 mcg/kg/m. Cardiac rhythm is sinus. 14 2022, the patient is extubated the patient is currently on 4 L of oxygen by nasal cannula. He is awake and alert and communicating. He did encounter some hypotension given IV albumin currently the patient is on norepinephrine running at 0.06 mcg/kg. He cardiac output is 4.8 with an index of 2.1. Pulmonary artery pressures of 25/15 and a most recent blood pressures 82/46 and the Levaquin is being titrated. Cardiac rhythm is sinus at 80. Chest x-ray from today shows pulmonary vascular congestion. ET tube has been removed. Small bilateral pleural effusions. The patient has 2 mediastinal chest tube, point wilson s been 2 70 mL from chest tube #1 and 500 mL from Chano #2. No evidence of any air leaks. He is complaining of chest wall pain at the surgical site. He is also on insulin drip at 3 units an hour.Blood work from today shows WBC count 12.5, hemoglobin is at 9 and a platelet count of 144. His BUN is at 30 with a creatinine of 0.7 and his sodium level is at 139. Glucose is at 121. 04/03/2023, the patient is postop day #2 for repair of the mitral valve regurgitation. The patient is awake and alert and sitting up on a chair. Is currently on oxygen at 3 L/m nasal cannula. He has mediastinal chest tubes which are still in place. The patient has produced approximately 2 70 mL of serosanguineous drainage overnight and 4 50 mL over the past 24 hours from the left and as for the right sided chest tube commands produced (overnight only with 50 mL over the last 24 hours. The chest x-ray showed bilateral pleural effusion and pulmonary vessel congestion. Paisley-Feli catheter still in place. Cardiac up was at 6.4 with an index of 2.8. PA pressures of 39/23 with a CVP of 15. He has AV epicardial pacemaker wires. His underlying cardiac rhythm does not see be seen to be in sinus and he has AV pacing at the rate of 80. This was dropped onto 50 earlier this morning. At the same time, the patient received a total of 1 L of albumin yesterday. He required pressors briefly and earlier this morning he was taken off pressors. He is using the [employer] spirometer. Is falling approximately 750 on his incentive spirometer. Blood work from today shows a hemoglobin of 7.5, platelet count of 89, BUN of 35 with a creatinine of 0.9 and a sodium level is at 136. He remains on insulin drip at 7 units an hour. 04/04/2023, the patient is postop day #3 following mitral valve repair. The makayla nye had a major cardiac event yesterday. Noted the patient was awake and communicating with the nursing staff he was not having any significant issues. His urine on the was running Chanel was able to produce 20 mL an hour of urine output. Around 11 PM, his urine output tapered further. Subsequently, he became acutely hypoxic, initially placed on 5 L of oxygen by nasal cannula and later on 15 L and subsequently the was placed on a nonrebreather and within a very short period of time he became profoundly hypoxic and he went into A. fib PEA rhythm. At that time, the patient was in the high flow cannula. Note that this events occurred very rapidly and things are all within 20 minutes. The patient received CPR ACLSprotocol. The downtime was [id number] minutes. Following that, the patient was intubated and placed on a mechanical ventilator overnight the patient had a chest x-ray that showed acute pulmonary edema, but work shows an acute kidney injury and the creatinine was up to 2.68. Blood gases showed severe acidosis with a pH of 6.98 and a pCO2 of 55 and pO2 of 80 and this was done immediately post intubation. Appropriate ventilator changes were done throughout the night and the patient this morning is on assist-control mode at the rate of 26, tidal volume of 450, FiO2 is at 100% with a PEEP of 18. His most recent blood gas shows a pH of 7.26 and the pCO2 is at 42 and pO2 was at 69. Chest x-ray is showing diffuse bilateral pulmonary edema. Orotracheal tube is in a good location. The patient had a stat echocardiogram that was performed overnight. This was interpreted by cardiology. The echo showed a preserved LV function with an ejection fraction of 40-45%. There was some mildly reduced global LV function. There was paradoxical septal motion consis tent with postsurgical state. There was mild to moderate regurgitation of the mitral valve. There was only very small pericardial effusion. The patient currently is intubated on a mechanical ventilator. Overnight he was having myoclonic jerks. He was given a dose of Keppra. He was started on propofol which is running at 25 mcg/kg/m. The patient has dilated pupils that are very sluggishly reactive to light. His right leg jerks have settled after the he was given Ativan in total of 2 mg IV. Hemodynamically, the patient is on norepinephrine which is running at 0.06 mcg/kg/m. He was given a total of 2 units of packed RBC and the hemoglobin is pending for now. Pretransfusion hemoglobin was at 7.3. The patient is not producing any urine output at this point in time. Pino catheter has been flushed. His most recent electrolytes show a sodium level of 140, potassium level of 4.3, current on a former bicarb is 12. Noted the patient was given a total of 4 doses of sodium bicarbonate currently he is on on a bicarb infusion at the rate of 100 mL an hour. BUN is at 60 over the creatinine of 2.6. He did encounter some abnormalities in his LFTs post cardiac arrest with an AST of 4011, ALT of 247, and a total protein is at 4.8 with an albumin of 3.0. His cardiac rhythmat the rate of 84. Underlying rhythm is junctional. Objective - Vital Signs Vital signs: Vital Signs Temp 98.5 F 04/04/23 06:30 Pulse 84 04/04/23 07:00 Resp 26 H 04/04/23 07:00 BP 92/59 04/04/23 07:00 Pulse Ox 92 L 04/04/23 07:00 FiO2 100 04/04/23 07:33 Intake & Output 04/03/23 04/04/23 04/04/23 18:59 06:59 18:59 Intake Total 953.975 0167.395 6 Output Total 654 370 0 Balance 59.233 1566.395 6 Intake: IV 451 1218 6 0.9ns for CO/CI 40 0.9ns for pressure bag 81 72 6 Lactated Ringers 1,000 ml 330 146 @ 20 mls/hr IV .Q24H [facility] Rx#:[id number] Sodium Chloride 0.9% 1, 1000 000 ml @ 999 mls/hr IV . Q1H1M [facility] Rx#:[id number] Intake, IV Titration 62.233 98.395 Amount Insulin Regular 100 unit 62.233 26.512 In Sodium Chloride 0.9% 100 ml @ Per Protocol IV .Q0M [facility] Rx#:[id number] Norepinephrine 4 mg In 56.910 Sodium Chloride 0.9% 250 ml @ 0.03 MCG/KG/MIN 12. 402 mls/hr IV .[id number] [facility] Rx#:[id number] propofoL 1,000 mg In 14.973 Empty Bag 1 bag @ 15 MCG/ KG/MIN 9.765 mls/hr IV . [id number] [facility] Rx#:[id number] Oral 200 Blood Product 620 As-1 Unit 310 [id number] As-1 Unit 310 [id number] Output: Chest Tube Drainage 330 320 Chest Tube Mediastinal 310 320 Pleural Catheter Right 20 Urine 324 50 0 Other: Voiding Method Indwelling Catheter Indwelling Catheter ABP, PAP, CO, CI - Last Documented Arterial Blood Pressure 95/54 Pulmonary Artery Pressure 38/21 Cardiac Output 5.4 Cardiac Index 2.3 - Exam Gen. appearance, the patient is currently on sedated on propofol. No active seizure witnessed at the time of my evaluation. No myoclonic jerks. Unresponsive, intubated on a mechanical ventilator. Orotracheal and orogastric tube are both in place. Head exam was generally normal. There was no scleral icterus or corneal arcus. Mucous membranes were moist. Neck was supple and without jugular venous distension, thyromegaly, or carotid bruits. Carotids were easily palpable bilaterally. There was no adenopathy. Oral tracheal and orogastric tube are both in place and the patient has a right IJ Paisley-Feli cordis is in place. The Paisley-Feli has been removed. Lungs were clear to auscultation and percussion, and with normal diaphragmatic excursion. No wheezes or rales were noted. Thoracotomy scar is dry clean and intact and the patient has a single mediastinal chest tubes, no evidence of any air leak Abdominal exam revealed normal bowel sounds. The abdomen was soft, non-tender, and without masses, organomegaly, or appreciable enlargement of the abdominal aorta. Cardiac exam revealed the PMI to be normally situated and sized. The rhythm was regular and no extrasystoles were noted during several minutes of auscultation. The first and second heart sounds were normal and physiologic splitting of the second heart sound was noted. There were no murmurs, rubs, clicks, or gallops. Examination of the extremities revealed easily palpable radial, femoral and pedal pulses. There was no cyanosis, clubbing or edema. Examination of the skin revealed no evidence of significant rashes, suspicious appearing nevi or other concerning lesions. Neurologically, the patient is unresponsive, pupils are round 7-8 mm in size, sluggishly reactive to light. He has an upward gaze. No nystagmus. Does not follow any commands. Motor functions are absent at this point in time. No facial asymmetry. Weak cough. - Labs CBC & Chem 7: 04/04/23 00:26 04/04/23 00:26 Labs: Abnormal Lab Results - Last 24 Hours (Table) 03/28/23 04/03/23 04/03/23 Range/Units 09:00 08:10 09:12 WBC (3.8-10.6) k/uL RBC (4.30-5.90) m/uL Hgb (13.0-17.5) gm/dL Hct (39.0-53.0) % Plt Count (150-450) k/uL Neutrophils # (1.3-7.7) k/uL Retic Count (0.5-2.0) % Haptoglobin (31.2-198.0) mg/dL Fibrinogen (200-500) mg/dL D-Dimer (<0.60) mg/L FEU ABG pH (7.35-7.45) ABG pCO2 (35-45) mmHg ABG pO2 (83-108) mmHg ABG HCO3 (21-25) mmol/L ABG Total CO2 (19-24) mmol/L ABG O2 Saturation (94-97) % Carbon Dioxide (22-30) mmol/L BUN (9-20) mg/dL Creatinine (0.66-1.25) mg/dL Glucose (74-99) mg/dL POC Glucose (mg/dL) 207 H 175 H (70-110) mg/dL Plasma Lactic Acid George (0.7-2.0) mmol/L Calcium (8.4-10.2) mg/dL Iron (65-175) UG/DL TIBC (228-460) UG/DL % Saturation (15.00-50.00) Transferrin (204.0-354.0) mg/dL Ferritin (22.0-322.0) ng/mL Total Bilirubin (0.2-1.3) mg/dL AST (17-59) U/L ALT (4-49) U/L Lactate Dehydrogenase (120-246) U/L Total Protein (6.3-8.2) g/dL Albumin (3.5-5.0) g/dL Crossmatch See Detail 04/03/23 04/03/23 04/03/23 Range/Units 10:27 11:30 13:30 WBC (3.8-10.6) k/uL RBC (4.30-5.90) m/uL Hgb (13.0-17.5) gm/dL Hct (39.0-53.0) % Plt Count (150-450) k/uL Neutrophils # (1.3-7.7) k/uL Retic Count (0.5-2.0) % Haptoglobin (31.2-198.0) mg/dL Fibrinogen 543 H (200-500) mg/dL D-Dimer 1.08 H (<0.60) mg/L FEU ABG pH (7.35-7.45) ABG pCO2 (35-45) mmHg ABG pO2 (83-108) mmHg ABG HCO3 (21-25) mmol/L ABG Total CO2 (19-24) mmol/L ABG O2 Saturation (94-97) % Carbon Dioxide (22-30) mmol/L BUN (9-20) mg/dL Creatinine (0.66-1.25) mg/dL Glucose (74-99) mg/dL POC Glucose (mg/dL) 155 H 146 H (70-110) mg/dL Plasma Lactic Acid George (0.7-2.0) mmol/L Calcium (8.4-10.2) mg/dL Iron (65-175) UG/DL TIBC (228-460) UG/DL % Saturation (15.00-50.00) Transferrin (204.0-354.0) mg/dL Ferritin (22.0-322.0) ng/mL Total Bilirubin (0.2-1.3) mg/dL AST (17-59) U/L ALT (4-49) U/L Lactate Dehydrogenase (120-246) U/L Total Protein (6.3-8.2) g/dL Albumin (3.5-5.0) g/dL Crossmatch 04/03/23 04/03/23 04/03/23 Range/Units 13:30 13:30 13:30 WBC (3.8-10.6) k/uL RBC (4.30-5.90) m/uL Hgb (13.0-17.5) gm/dL Hct (39.0-53.0) % Plt Count (150-450) k/uL Neutrophils # (1.3-7.7) k/uL Retic Count 3.7 H (0.5-2.0) % Haptoglobin <10.0 L (31.2-198.0) mg/dL Fibrinogen (200-500) mg/dL D-Dimer (<0.60) mg/L FEU ABG pH (7.35-7.45) ABG pCO2 (35-45) mmHg ABG pO2 (83-108) mmHg ABG HCO3 (21-25) mmol/L ABG Total CO2 (19-24) mmol/L ABG O2 Saturation (94-97) % Carbon Dioxide (22-30) mmol/L BUN (9-20) mg/dL Creatinine (0.66-1.25) mg/dL Glucose (74-99) mg/dL POC Glucose (mg/dL) (70-110) mg/dL Plasma Lactic Acid George (0.7-2.0) mmol/L Calcium (8.4-10.2) mg/dL Iron 19 L (65-175) UG/DL TIBC 197 L (228-460) UG/DL % Saturation 9.64 L (15.00-50.00) Transferrin 141.0 L 143.0 L (204.0-354.0) mg/dL Ferritin 560.0 H (22.0-322.0) ng/mL Total Bilirubin (0.2-1.3) mg/dL AST (17-59) U/L ALT (4-49) U/L Lactate Dehydrogenase 552 H (120-246) U/L Total Protein (6.3-8.2) g/dL Albumin (3.5-5.0) g/dL Crossmatch 04/03/23 04/03/23 04/03/23 Range/Units 13:49 15:52 18:59 WBC (3.8-10.6) k/uL RBC (4.30-5.90) m/uL Hgb (13.0-17.5) gm/dL Hct (39.0-53.0) % Plt Count (150-450) k/uL Neutrophils # (1.3-7.7) k/uL Retic Count (0.5-2.0) % Haptoglobin (31.2-198.0) mg/dL Fibrinogen (200-500) mg/dL D-Dimer (<0.60) mg/L FEU ABG pH (7.35-7.45) ABG pCO2 (35-45) mmHg ABG pO2 (83-108) mmHg ABG HCO3 (21-25) mmol/L ABG Total CO2 (19-24) mmol/L ABG O2 Saturation (94-97) % Carbon Dioxide (22-30) mmol/L BUN (9-20) mg/dL Creatinine (0.66-1.25) mg/dL Glucose (74-99) mg/dL POC Glucose (mg/dL) 150 H 180 H 137 H (70-110) mg/dL Plasma Lactic Acid George (0.7-2.0) mmol/L Calcium (8.4-10.2) mg/dL Iron (65-175) UG/DL TIBC (228-460) UG/DL % Saturation (15.00-50.00) Transferrin (204.0-354.0) mg/dL Ferritin (22.0-322.0) ng/mL Total Bilirubin (0.2-1.3) mg/dL AST (17-59) U/L ALT (4-49) U/L Lactate Dehydrogenase (120-246) U/L Total Protein (6.3-8.2) g/dL Albumin (3.5-5.0) g/dL Crossmatch 04/03/23 04/03/23 04/04/23 Range/Units 20:18 23:05 00:26 WBC 16.4 H (3.8-10.6) k/uL RBC 2.33 L (4.30-5.90) m/uL Hgb 7.3 L (13.0-17.5) gm/dL Hct 22.1 L (39.0-53.0) % Plt Count 110 L (150-450) k/uL Neutrophils # 14.3 H (1.3-7.7) k/uL Retic Count (0.5-2.0) % Haptoglobin (31.2-198.0) mg/dL Fibrinogen (200-500) mg/dL D-Dimer (<0.60) mg/L FEU ABG pH (7.35-7.45) ABG pCO2 (35-45) mmHg ABG pO2 (83-108) mmHg ABG HCO3 (21-25) mmol/L ABG Total CO2 (19-24) mmol/L ABG O2 Saturation (94-97) % Carbon Dioxide (22-30) mmol/L BUN (9-20) mg/dL Creatinine (0.66-1.25) mg/dL Glucose (74-99) mg/dL POC Glucose (mg/dL) 127 H 157 H (70-110) mg/dL Plasma Lactic Acid George (0.7-2.0) mmol/L Calcium (8.4-10.2) mg/dL Iron (65-175) UG/DL TIBC (228-460) UG/DL % Saturation (15.00-50.00) Transferrin (204.0-354.0) mg/dL Ferritin (22.0-322.0) ng/mL Total Bilirubin (0.2-1.3) mg/dL AST (17-59) U/L ALT (4-49) U/L Lactate Dehydrogenase (120-246) U/L Total Protein (6.3-8.2) g/dL Albumin (3.5-5.0) g/dL Crossmatch 04/04/23 04/04/23 04/04/23 Range/Units 00:26 00:26 00:26 WBC (3.8-10.6) k/uL RBC (4.30-5.90) m/uL Hgb (13.0-17.5) gm/dL Hct (39.0-53.0) % Plt Count (150-450) k/uL Neutrophils # (1.3-7.7) k/uL Retic Count (0.5-2.0) % Haptoglobin (31.2-198.0) mg/dL Fibrinogen (200-500) mg/dL D-Dimer (<0.60) mg/L FEU ABG pH (7.35-7.45) ABG pCO2 (35-45) mmHg ABG pO2 (83-108) mmHg ABG HCO3 (21-25) mmol/L ABG Total CO2 (19-24) mmol/L ABG O2 Saturation (94-97) % Carbon Dioxide 12 L (22-30) mmol/L BUN 51 H (9-20) mg/dL Creatinine 2.68 H (0.66-1.25) mg/dL Glucose 117 H (74-99) mg/dL POC Glucose (mg/dL) (70-110) mg/dL Plasma Lactic Acid George 14.5 H* (0.7-2.0) mmol/L Calcium 7.5 L (8.4-10.2) mg/dL Iron (65-175) UG/DL TIBC (228-460) UG/DL % Saturation (15.00-50.00) Transferrin (204.0-354.0) mg/dL Ferritin (22.0-322.0) ng/mL Total Bilirubin 3.6 H (0.2-1.3) mg/dL AST 411 H (17-59) U/L ALT 247 H (4-49) U/L Lactate Dehydrogenase (120-246) U/L Total Protein 4.8 L (6.3-8.2) g/dL Albumin 3.0 L (3.5-5.0) g/dL Crossmatch See Detail 04/04/23 04/04/23 04/04/23 Range/Units 00:27 01:03 01:33 WBC (3.8-10.6) k/uL RBC (4.30-5.90) m/uL Hgb (13.0-17.5) gm/dL Hct (39.0-53.0) % Plt Count (150-450) k/uL Neutrophils # (1.3-7.7) k/uL Retic Count (0.5-2.0) % Haptoglobin (31.2-198.0) mg/dL Fibrinogen (200-500) mg/dL D-Dimer (<0.60) mg/L FEU ABG pH 6.98 L* 7.16 L* 7.21 L (7.35-7.45) ABG pCO2 55 H (35-45) mmHg ABG pO2 80 L 75 L (83-108) mmHg ABG HCO3 13 L 15 L 15 L (21-25) mmol/L ABG Total CO2 15 L 16 L 16 L (19-24) mmol/L ABG O2 Saturation 86.6 L 91.8 L (94-97) % Carbon Dioxide (22-30) mmol/L BUN (9-20) mg/dL Creatinine (0.66-1.25) mg/dL Glucose (74-99) mg/dL POC Glucose (mg/dL) (70-110) mg/dL Plasma Lactic Acid George (0.7-2.0) mmol/L Calcium (8.4-10.2) mg/dL Iron (65-175) UG/DL TIBC (228-460) UG/DL % Saturation (15.00-50.00) Transferrin (204.0-354.0) mg/dL Ferritin (22.0-322.0) ng/mL Total Bilirubin (0.2-1.3) mg/dL AST (17-59) U/L ALT (4-49) U/L Lactate Dehydrogenase (120-246) U/L Total Protein (6.3-8.2) g/dL Albumin (3.5-5.0) g/dL Crossmatch 04/04/23 04/04/23 04/04/23 Range/Units 02:04 02:35 03:07 WBC (3.8-10.6) k/uL RBC (4.30-5.90) m/uL Hgb (13.0-17.5) gm/dL Hct (39.0-53.0) % Plt Count (150-450) k/uL Neutrophils # (1.3-7.7) k/uL Retic Count (0.5-2.0) % Haptoglobin (31.2-198.0) mg/dL Fibrinogen (200-500) mg/dL D-Dimer (<0.60) mg/L FEU ABG pH 7.20 L 7.17 L* 7.18 L* (7.35-7.45) ABG pCO2 (35-45) mmHg ABG pO2 64 L 60 L 67 L (83-108) mmHg ABG HCO3 16 L 16 L 17 L (21-25) mmol/L ABG Total CO2 17 L 18 L 18 L (19-24) mmol/L ABG O2 Saturation 85.8 L 82.8 L 88.5 L (94-97) % Carbon Dioxide (22-30) mmol/L BUN (9-20) mg/dL Creatinine (0.66-1.25) mg/dL Glucose (74-99) mg/dL POC Glucose (mg/dL) (70-110) mg/dL Plasma Lactic Acid George (0.7-2.0) mmol/L Calcium (8.4-10.2) mg/dL Iron (65-175) UG/DL TIBC (228-460) UG/DL % Saturation (15.00-50.00) Transferrin (204.0-354.0) mg/dL Ferritin (22.0-322.0) ng/mL Total Bilirubin (0.2-1.3) mg/dL AST (17-59) U/L ALT (4-49) U/L Lactate Dehydrogenase (120-246) U/L Total Protein (6.3-8.2) g/dL Albumin (3.5-5.0) g/dL Crossmatch 04/04/23 04/04/23 04/04/23 Range/Units 03:09 03:40 04:40 WBC (3.8-10.6) k/uL RBC (4.30-5.90) m/uL Hgb (13.0-17.5) gm/dL Hct (39.0-53.0) % Plt Count (150-450) k/uL Neutrophils # (1.3-7.7) k/uL Retic Count (0.5-2.0) % Haptoglobin (31.2-198.0) mg/dL Fibrinogen (200-500) mg/dL D-Dimer (<0.60) mg/L FEU ABG pH 7.21 L 7.26 L (7.35-7.45) ABG pCO2 (35-45) mmHg ABG pO2 66 L 69 L (83-108) mmHg ABG HCO3 17 L 19 L (21-25) mmol/L ABG Total CO2 (19-24) mmol/L ABG O2 Saturation 88.5 L 91.3 L (94-97) % Carbon Dioxide (22-30) mmol/L BUN (9-20) mg/dL Creatinine (0.66-1.25) mg/dL Glucose (74-99) mg/dL POC Glucose (mg/dL) 178 H (70-110) mg/dL Plasma Lactic Acid George (0.7-2.0) mmol/L Calcium (8.4-10.2) mg/dL Iron (65-175) UG/DL TIBC (228-460) UG/DL % Saturation (15.00-50.00) Transferrin (204.0-354.0) mg/dL Ferritin (22.0-322.0) ng/mL Total Bilirubin (0.2-1.3) mg/dL AST (17-59) U/L ALT (4-49) U/L Lactate Dehydrogenase (120-246) U/L Total Protein (6.3-8.2) g/dL Albumin (3.5-5.0) g/dL Crossmatch 04/04/23 04/04/23 Range/Units 05:33 06:39 WBC (3.8-10.6) k/uL RBC (4.30-5.90) m/uL Hgb (13.0-17.5) gm/dL Hct (39.0-53.0) % Plt Count (150-450) k/uL Neutrophils # (1.3-7.7) k/uL Retic Count (0.5-2.0) % Haptoglobin (31.2-198.0) mg/dL Fibrinogen (200-500) mg/dL D-Dimer (<0.60) mg/L FEU ABG pH 7.29 L 7.31 L (7.35-7.45) ABG pCO2 (35-45) mmHg ABG pO2 73 L 74 L (83-108) mmHg ABG HCO3 20 L (21-25) mmol/L ABG Total CO2 (19-24) mmol/L ABG O2 Saturation 93.2 L (94-97) % Carbon Dioxide (22-30) mmol/L BUN (9-20) mg/dL Creatinine (0.66-1.25) mg/dL Glucose (74-99) mg/dL POC Glucose (mg/dL) (70-110) mg/dL Plasma Lactic Acid George (0.7-2.0) mmol/L Calcium (8.4-10.2) mg/dL Iron (65-175) UG/DL TIBC (228-460) UG/DL % Saturation (15.00-50.00) Transferrin (204.0-354.0) mg/dL Ferritin (22.0-322.0) ng/mL Total Bilirubin (0.2-1.3) mg/dL AST (17-59) U/L ALT (4-49) U/L Lactate Dehydrogenase (120-246) U/L Total Protein (6.3-8.2) g/dL Albumin (3.5-5.0) g/dL Crossmatch Assessment and Plan Plan: PEA cardiac arrest, down time of 14 minutes. Probably related to hypoxemia and acute pulmonary edema leading into cardiopulmonary arrest. Resuscitative based on the ACLS protocol. Currently intubated on a mechanical ventilator Suspect anoxic encephalopathy for definitive cardiac arrest. The patient is having some myoclonic jerks and the patient is currently on Keppra and propofol. Given also Ativan. Acute pulmonary edema requiring intubation mechanical ventilation. The patient has diffuse but the pulmonary infiltrates currently on high PEEP and FiO2 of 100% to maintain adequate oxygenation. A stat echocardiogram was done and the patient has a moderately reduced LV function with an ejection fraction of 40- 45%, [id number] mitral regurgitation, no pericardial effusion Acute kidney injury, the patient is an aortic at this point in time Severe mitral regurgitation, patient is status post mitral valve repair. The patient is currently postop day # 3 Postthoracotomy, patient is a mediastinal chest tube, output is minimal at this point in time, remains intubated on mechanical ventilator Hypotension, post cardiac arrest and the patient is currently on low-dose norepinephrine Blood loss anemia, transfused with a total of 2 units of packed RBC, expected outcome of surgery, awaiting follow-up hemoglobin Shock liver secondary to above New-onset A. fib secondary to mitral regurgitation, current rhythm is sinus, he has a backup AV pacing at the rate of 84. Underlying rhythm currently is junctional PFO History of severe obstructive sleep apnea limited on APAP therapy pressures of 5/15 cm of water History of von Willebrand's disease, no evidence of any bleeding Hyperlipidemia Plan Continue ventilator support. Keep the PEEP of 18. Doppler tidal volume down to 400 and repeat a blood gas. He decided 100% Monitor hemodynamics Continue pressors Monitor urine output. Keep the mediastinal chest tube in place for today Keep the cardiac rhythm paced at the rate of 84 Stat echocardiogram was done Of concern is underlying acute kidney injury. The patient will need an ultrasound the kidneys to rule out hydronephrosis. We'll bladder scan. We'll consult nephrology. We will consult vascular surgery for temporary dialysis catheter insertion as the patient has significant pulmonary edema and his oxygen is significantly impaired at this point in time it's quite borderline. May consider dialysis today Continue Keppra Keep the patient on propofol Proceed with a neurology consult Nephrology consult vascular. surgery consult for dialysis access Insulin drip blood sugar control She was given Lasix without any major response Given a total of 2 units of packed RBC and hemoglobin is stable remove swan feli has been removed and the patient has a Cordis in place We'll continue to follow. Condition is extremely critical. We'll collaborate care with various other consult. We'll continue to follow. Family has been updated. Evaluation was done in more than one hour. Time with Patient: Greater than 30
[2023-04-04 08:02] LABS: ABG Base Excess -2.4 mmol/L; ABG HCO3 24 mmol/L (21-25); ABG Oxygen Saturation 96.2 % (94-97); ABG PCO2 48 mmHg (35-45); ABG PH 7.31 (7.35-7.45); ABG PO2 85 mmHg (83-108); ABG TCO2 25 mmol/L (19-24)
[2023-04-04 08:04] LABS: Allen Test Performed? no
[2023-04-04] MEDS: IPRATROPIUM-ALBUTEROL 3 ML NEB INHALATION SCH ×4 (08:05→19:53)
[2023-04-04 08:12] LABS: African American GFR (CKD) 24 (>60 ml/min/1.73 sqM); Alkaline Phosphatase 50 U/L (38-126); Amylase 62 U/L (30-110); Anion Gap 13 mmol/L; Blood Urea Nitrogen 64 mg/dL (9-20); Calcium 7.4 mg/dL (8.4-10.2); Carbon Dioxide 23 mmol/L (22-30); Chloride 100 mmol/L (98-107); Glucose 198 mg/dL (74-99); Lipase 154 U/L (23-300); Magnesium 2.5 mg/dL (1.6-2.3); Non-African American GFR(CKD) 21 (>60 ml/min/1.73 sqM); Potassium 4.2 mmol/L (3.5-5.1); Sodium 136 mmol/L (137-145); Total Bilirubin 4.2 mg/dL (0.2-1.3); Total Protein 4.7 g/dL (6.3-8.2)
[2023-04-04 08:18] LABS: Basophils % (A) 0 %; Eosinophils % (A) 0 %; HCT 23.6 % (39.0-53.0); HGB 8.1 gm/dL (13.0-17.5); Lymphocytes # (A) 0.7 k/uL (1.0-4.8); Lymphocytes % (A) 6 %; MCH 30.5 pg (25.0-35.0); MCHC 34.4 g/dL (31.0-37.0); Mean Platelet Volume 10.1; Monocytes # (A) 0.4 k/uL (0-1.0); Monocytes % (A) 3 %; Neutrophils # (A) 10.3 k/uL (1.3-7.7); Neutrophils % (A) 89 %; Platelet Count 100 k/uL (150-450); RBC 2.66 m/uL (4.30-5.90); RDW 14.4 % (11.5-15.5); WBC 11.5 k/uL (3.8-10.6)
[2023-04-04 08:21] LABS: Glucose,Whole Blood 228 mg/dL (70-110)
--- NOTE | 2023-04-04 08:41 | P.PN ---
Subjective Progress Note Date: 04/04/23 Principal diagnosis: Severe symptomatic mitral regurgitation with torn chordae to P2 of the posterior leaflet, paroxysmal atrial fibrillation. 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 grandparents POD #3 complex mitral valve repair with a 36 mm Lang AnnuloFlex ring, quadrangular resection of P2 of the posterior leaflet, closure of P2, P3 cleft, ring annuloplasty with a 36 mm CarboMedics band, clip ligation of the left atrial appendage with a 35 mm AtriClip, intraoperative transesophageal echocardiogram, complete left-sided maze using radiofrequency and cryoablation Acute blood loss anemia and thrombocytopenia, expected given hemodilution and cardiopulmonary bypass pump Hypotension and nausea, expected as effects from anesthesia and narcotic pain medication, patient reports history of the side effects in the past with anesthesia Acute hypoxic respiratory failure requiring reintubation secondary to acute pulmonary edema, unexpected Witnessed PEA cardiac arrest with ACLS protocol followed and ROSC after 14 min Lactic acidosis Acute kidney injury, likely from hypoperfusion, anuric despite lasix Transaminitis, likely from hypoperfusion Essential tremors noticed after intubation, normal per his when he's sleeping, possible anoxic encephalopathy The patient was seen and examined this morning with family present. He went into PEA arrest last night with ROSC after 14 min CPR, epi, bicarb administration. Prior to this event patient had been alert and oriented with no abnormalities, had asked for melatonin to sleep and was placed on cpap for the evening. Apparently he called the RN to come into the room a short time later as he complained of hallucinations, was not tolerating his cpap which was removed. Patient's oxygen requirements increased to the point of needing to be placed on non-rebreather. CXR was obtained demonstrating pulmonary edema, Dr. Salmeron was called, lasix was given with no response. Patient quickly went into PEA arrest and CPR was started, patient was re-intubated. Pulmonology CULINARY ARTIST did respond. Patient was acidotic and bicarb gtt was initiated. Labs/ABGs/lactic acid monitored. Kidney and liver function significantly worse. Patient was given 2 units PRBCs due to hgb 7.3. STAT echo was performed, mildly reduced global LV systolic function with EF 40-45%, mild to moderate mitral and moderate tricuspid regurgitation, increased gradients in LVOT with no obvious obstruction, no significant small pericardial effusion. Patient is currently laying in bed on full mechanical ventilator support being managed by pulmonology. Nephrology and neurology consulted. Family at bedside and updated frequently. Objective - Vital Signs Vital signs: Vital Signs Temp 98.5 F 04/04/23 06:30 Pulse 84 04/04/23 07:00 Resp 26 H 04/04/23 07:00 BP 92/59 04/04/23 07:00 Pulse Ox 92 L 04/04/23 07:00 FiO2 100 04/04/23 07:33 Intake & Output 04/03/23 04/04/23 04/04/23 18:59 06:59 18:59 Intake Total 588.484 5008.395 6 Output Total 654 370 0 Balance 59.233 1566.395 6 Intake: IV 451 1218 6 0.9ns for CO/CI 40 0.9ns for pressure bag 81 72 6 Lactated Ringers 1,000 ml 330 146 @ 20 mls/hr IV .Q24H [facility] Rx#:[id number] Sodium Chloride 0.9% 1, 1000 000 ml @ 999 mls/hr IV . Q1H1M [facility] Rx#:[id number] Intake, IV Titration 62.233 98.395 Amount Insulin Regular 100 unit 62.233 26.512 In Sodium Chloride 0.9% 100 ml @ Per Protocol IV .Q0M [facility] Rx#:[id number] Norepinephrine 4 mg In 56.910 Sodium Chloride 0.9% 250 ml @ 0.03 MCG/KG/MIN 12. 402 mls/hr IV .[id number] [facility] Rx#:[id number] propofoL 1,000 mg In 14.973 Empty Bag 1 bag @ 15 MCG/ KG/MIN 9.765 mls/hr IV . [id number] [facility] Rx#:[id number] Oral 200 Blood Product 620 As-1 Unit 310 [id number] As-1 Unit 310 [id number] Output: Chest Tube Drainage 330 320 Chest Tube Mediastinal 310 320 Pleural Catheter Right 20 Urine 324 50 0 Other: Voiding Method Indwelling Catheter Indwelling Catheter ABP, PAP, CO, CI - Last Documented Arterial Blood Pressure 95/54 Pulmonary Artery Pressure 38/21 Cardiac Output 5.4 Cardiac Index 2.3 - Exam CONSTITUTIONAL: Sedated on mechanical ventilation RESPIRATORY: Lungs sounds diminished, coarse bilaterally. Respirations even, nonlabored. Currently on assist control mode with FiO2 100%, PEEP 18, TV 450, RR 26. 8.0 ETT present, 24 @ the lip CARDIOVASCULAR: S1, S2 present. Regular rate and rhythm, AV paced on telemetry with underlying rhythm sinus in the 60s. Sternum stable. Palpable peripheral pulses bilaterally. No edema present. No calf pain or tenderness noted. Heart hugger, antiembolism stockings, SCDs present. GASTROINTESTINAL: Abdomen soft, nontender, nondistended, tympanic to percussion. Hypoactive bowel sounds present 4 quadrants. OGT present to LIS GENITOURINARY: Pino present, virtually no urine output overnight although currently has 60 mL clear, yellow urine present INTEGUMENTARY: Skin is warm and dry. Anterior chest incision well approximated and covered with dry intact dressing NEUROLOGIC: Sedated on mechanical ventilator PSYCHIATRIC: Sedated INVASIVE LINES AND TUBES: Mediastinal chest tube present and connected to wall suction, no air leaks present, 260 mL serosanguineous drainage overnight, 600 mL in the last 24 hours. A/V epicardial pacemaker wires present, connected to generator, rate 84 bpm. Right internal jugular Cordis, left radial arterial line present - Allied health notes Allied health notes reviewed: nursing - Labs CBC & Chem 7: 04/04/23 00:26 04/04/23 00:26 Labs: Abnormal Lab Results - Last 24 Hours (Table) 03/28/23 04/03/23 04/03/23 Range/Units 09:00 08:10 09:12 WBC (3.8-10.6) k/uL RBC (4.30-5.90) m/uL Hgb (13.0-17.5) gm/dL Hct (39.0-53.0) % Plt Count (150-450) k/uL Neutrophils # (1.3-7.7) k/uL Retic Count (0.5-2.0) % Haptoglobin (31.2-198.0) mg/dL Fibrinogen (200-500) mg/dL D-Dimer (<0.60) mg/L FEU ABG pH (7.35-7.45) ABG pCO2 (35-45) mmHg ABG pO2 (83-108) mmHg ABG HCO3 (21-25) mmol/L ABG Total CO2 (19-24) mmol/L ABG O2 Saturation (94-97) % Carbon Dioxide (22-30) mmol/L BUN (9-20) mg/dL Creatinine (0.66-1.25) mg/dL Glucose (74-99) mg/dL POC Glucose (mg/dL) 207 H 175 H (70-110) mg/dL Plasma Lactic Acid George (0.7-2.0) mmol/L Calcium (8.4-10.2) mg/dL Iron (65-175) UG/DL TIBC (228-460) UG/DL % Saturation (15.00-50.00) Transferrin (204.0-354.0) mg/dL Ferritin (22.0-322.0) ng/mL Total Bilirubin (0.2-1.3) mg/dL AST (17-59) U/L ALT (4-49) U/L Lactate Dehydrogenase (120-246) U/L Total Protein (6.3-8.2) g/dL Albumin (3.5-5.0) g/dL Crossmatch See Detail 04/03/23 04/03/23 04/03/23 Range/Units 10:27 11:30 13:30 WBC (3.8-10.6) k/uL RBC (4.30-5.90) m/uL Hgb (13.0-17.5) gm/dL Hct (39.0-53.0) % Plt Count (150-450) k/uL Neutrophils # (1.3-7.7) k/uL Retic Count (0.5-2.0) % Haptoglobin (31.2-198.0) mg/dL Fibrinogen 543 H (200-500) mg/dL D-Dimer 1.08 H (<0.60) mg/L FEU ABG pH (7.35-7.45) ABG pCO2 (35-45) mmHg ABG pO2 (83-108) mmHg ABG HCO3 (21-25) mmol/L ABG Total CO2 (19-24) mmol/L ABG O2 Saturation (94-97) % Carbon Dioxide (22-30) mmol/L BUN (9-20) mg/dL Creatinine (0.66-1.25) mg/dL Glucose (74-99) mg/dL POC Glucose (mg/dL) 155 H 146 H (70-110) mg/dL Plasma Lactic Acid George (0.7-2.0) mmol/L Calcium (8.4-10.2) mg/dL Iron (65-175) UG/DL TIBC (228-460) UG/DL % Saturation (15.00-50.00) Transferrin (204.0-354.0) mg/dL Ferritin (22.0-322.0) ng/mL Total Bilirubin (0.2-1.3) mg/dL AST (17-59) U/L ALT (4-49) U/L Lactate Dehydrogenase (120-246) U/L Total Protein (6.3-8.2) g/dL Albumin (3.5-5.0) g/dL Crossmatch 04/03/23 04/03/23 04/03/23 Range/Units 13:30 13:30 13:30 WBC (3.8-10.6) k/uL RBC (4.30-5.90) m/uL Hgb (13.0-17.5) gm/dL Hct (39.0-53.0) % Plt Count (150-450) k/uL Neutrophils # (1.3-7.7) k/uL Retic Count 3.7 H (0.5-2.0) % Haptoglobin <10.0 L (31.2-198.0) mg/dL Fibrinogen (200-500) mg/dL D-Dimer (<0.60) mg/L FEU ABG pH (7.35-7.45) ABG pCO2 (35-45) mmHg ABG pO2 (83-108) mmHg ABG HCO3 (21-25) mmol/L ABG Total CO2 (19-24) mmol/L ABG O2 Saturation (94-97) % Carbon Dioxide (22-30) mmol/L BUN (9-20) mg/dL Creatinine (0.66-1.25) mg/dL Glucose (74-99) mg/dL POC Glucose (mg/dL) (70-110) mg/dL Plasma Lactic Acid George (0.7-2.0) mmol/L Calcium (8.4-10.2) mg/dL Iron 19 L (65-175) UG/DL TIBC 197 L (228-460) UG/DL % Saturation 9.64 L (15.00-50.00) Transferrin 141.0 L 143.0 L (204.0-354.0) mg/dL Ferritin 560.0 H (22.0-322.0) ng/mL Total Bilirubin (0.2-1.3) mg/dL AST (17-59) U/L ALT (4-49) U/L Lactate Dehydrogenase 552 H (120-246) U/L Total Protein (6.3-8.2) g/dL Albumin (3.5-5.0) g/dL Crossmatch 04/03/23 04/03/23 04/03/23 Range/Units 13:49 15:52 18:59 WBC (3.8-10.6) k/uL RBC (4.30-5.90) m/uL Hgb (13.0-17.5) gm/dL Hct (39.0-53.0) % Plt Count (150-450) k/uL Neutrophils # (1.3-7.7) k/uL Retic Count (0.5-2.0) % Haptoglobin (31.2-198.0) mg/dL Fibrinogen (200-500) mg/dL D-Dimer (<0.60) mg/L FEU ABG pH (7.35-7.45) ABG pCO2 (35-45) mmHg ABG pO2 (83-108) mmHg ABG HCO3 (21-25) mmol/L ABG Total CO2 (19-24) mmol/L ABG O2 Saturation (94-97) % Carbon Dioxide (22-30) mmol/L BUN (9-20) mg/dL Creatinine (0.66-1.25) mg/dL Glucose (74-99) mg/dL POC Glucose (mg/dL) 150 H 180 H 137 H (70-110) mg/dL Plasma Lactic Acid George (0.7-2.0) mmol/L Calcium (8.4-10.2) mg/dL Iron (65-175) UG/DL TIBC (228-460) UG/DL % Saturation (15.00-50.00) Transferrin (204.0-354.0) mg/dL Ferritin (22.0-322.0) ng/mL Total Bilirubin (0.2-1.3) mg/dL AST (17-59) U/L ALT (4-49) U/L Lactate Dehydrogenase (120-246) U/L Total Protein (6.3-8.2) g/dL Albumin (3.5-5.0) g/dL Crossmatch 04/03/23 04/03/23 04/04/23 Range/Units 20:18 23:05 00:26 WBC 16.4 H (3.8-10.6) k/uL RBC 2.33 L (4.30-5.90) m/uL Hgb 7.3 L (13.0-17.5) gm/dL Hct 22.1 L (39.0-53.0) % Plt Count 110 L (150-450) k/uL Neutrophils # 14.3 H (1.3-7.7) k/uL Retic Count (0.5-2.0) % Haptoglobin (31.2-198.0) mg/dL Fibrinogen (200-500) mg/dL D-Dimer (<0.60) mg/L FEU ABG pH (7.35-7.45) ABG pCO2 (35-45) mmHg ABG pO2 (83-108) mmHg ABG HCO3 (21-25) mmol/L ABG Total CO2 (19-24) mmol/L ABG O2 Saturation (94-97) % Carbon Dioxide (22-30) mmol/L BUN (9-20) mg/dL Creatinine (0.66-1.25) mg/dL Glucose (74-99) mg/dL POC Glucose (mg/dL) 127 H 157 H (70-110) mg/dL Plasma Lactic Acid George (0.7-2.0) mmol/L Calcium (8.4-10.2) mg/dL Iron (65-175) UG/DL TIBC (228-460) UG/DL % Saturation (15.00-50.00) Transferrin (204.0-354.0) mg/dL Ferritin (22.0-322.0) ng/mL Total Bilirubin (0.2-1.3) mg/dL AST (17-59) U/L ALT (4-49) U/L Lactate Dehydrogenase (120-246) U/L Total Protein (6.3-8.2) g/dL Albumin (3.5-5.0) g/dL Crossmatch 04/04/23 04/04/23 04/04/23 Range/Units 00:26 00:26 00:26 WBC (3.8-10.6) k/uL RBC (4.30-5.90) m/uL Hgb (13.0-17.5) gm/dL Hct (39.0-53.0) % Plt Count (150-450) k/uL Neutrophils # (1.3-7.7) k/uL Retic Count (0.5-2.0) % Haptoglobin (31.2-198.0) mg/dL Fibrinogen (200-500) mg/dL D-Dimer (<0.60) mg/L FEU ABG pH (7.35-7.45) ABG pCO2 (35-45) mmHg ABG pO2 (83-108) mmHg ABG HCO3 (21-25) mmol/L ABG Total CO2 (19-24) mmol/L ABG O2 Saturation (94-97) % Carbon Dioxide 12 L (22-30) mmol/L BUN 51 H (9-20) mg/dL Creatinine 2.68 H (0.66-1.25) mg/dL Glucose 117 H (74-99) mg/dL POC Glucose (mg/dL) (70-110) mg/dL Plasma Lactic Acid George 14.5 H* (0.7-2.0) mmol/L Calcium 7.5 L (8.4-10.2) mg/dL Iron (65-175) UG/DL TIBC (228-460) UG/DL % Saturation (15.00-50.00) Transferrin (204.0-354.0) mg/dL Ferritin (22.0-322.0) ng/mL Total Bilirubin 3.6 H (0.2-1.3) mg/dL AST 411 H (17-59) U/L ALT 247 H (4-49) U/L Lactate Dehydrogenase (120-246) U/L Total Protein 4.8 L (6.3-8.2) g/dL Albumin 3.0 L (3.5-5.0) g/dL Crossmatch See Detail 04/04/23 04/04/23 04/04/23 Range/Units 00:27 01:03 01:33 WBC (3.8-10.6) k/uL RBC (4.30-5.90) m/uL Hgb (13.0-17.5) gm/dL Hct (39.0-53.0) % Plt Count (150-450) k/uL Neutrophils # (1.3-7.7) k/uL Retic Count (0.5-2.0) % Haptoglobin (31.2-198.0) mg/dL Fibrinogen (200-500) mg/dL D-Dimer (<0.60) mg/L FEU ABG pH 6.98 L* 7.16 L* 7.21 L (7.35-7.45) ABG pCO2 55 H (35-45) mmHg ABG pO2 80 L 75 L (83-108) mmHg ABG HCO3 13 L 15 L 15 L (21-25) mmol/L ABG Total CO2 15 L 16 L 16 L (19-24) mmol/L ABG O2 Saturation 86.6 L 91.8 L (94-97) % Carbon Dioxide (22-30) mmol/L BUN (9-20) mg/dL Creatinine (0.66-1.25) mg/dL Glucose (74-99) mg/dL POC Glucose (mg/dL) (70-110) mg/dL Plasma Lactic Acid George (0.7-2.0) mmol/L Calcium (8.4-10.2) mg/dL Iron (65-175) UG/DL TIBC (228-460) UG/DL % Saturation (15.00-50.00) Transferrin (204.0-354.0) mg/dL Ferritin (22.0-322.0) ng/mL Total Bilirubin (0.2-1.3) mg/dL AST (17-59) U/L ALT (4-49) U/L Lactate Dehydrogenase (120-246) U/L Total Protein (6.3-8.2) g/dL Albumin (3.5-5.0) g/dL Crossmatch 04/04/23 04/04/23 04/04/23 Range/Units 02:04 02:35 03:07 WBC (3.8-10.6) k/uL RBC (4.30-5.90) m/uL Hgb (13.0-17.5) gm/dL Hct (39.0-53.0) % Plt Count (150-450) k/uL Neutrophils # (1.3-7.7) k/uL Retic Count (0.5-2.0) % Haptoglobin (31.2-198.0) mg/dL Fibrinogen (200-500) mg/dL D-Dimer (<0.60) mg/L FEU ABG pH 7.20 L 7.17 L* 7.18 L* (7.35-7.45) ABG pCO2 (35-45) mmHg ABG pO2 64 L 60 L 67 L (83-108) mmHg ABG HCO3 16 L 16 L 17 L (21-25) mmol/L ABG Total CO2 17 L 18 L 18 L (19-24) mmol/L ABG O2 Saturation 85.8 L 82.8 L 88.5 L (94-97) % Carbon Dioxide (22-30) mmol/L BUN (9-20) mg/dL Creatinine (0.66-1.25) mg/dL Glucose (74-99) mg/dL POC Glucose (mg/dL) (70-110) mg/dL Plasma Lactic Acid George (0.7-2.0) mmol/L Calcium (8.4-10.2) mg/dL Iron (65-175) UG/DL TIBC (228-460) UG/DL % Saturation (15.00-50.00) Transferrin (204.0-354.0) mg/dL Ferritin (22.0-322.0) ng/mL Total Bilirubin (0.2-1.3) mg/dL AST (17-59) U/L ALT (4-49) U/L Lactate Dehydrogenase (120-246) U/L Total Protein (6.3-8.2) g/dL Albumin (3.5-5.0) g/dL Crossmatch 04/04/23 04/04/23 04/04/23 Range/Units 03:09 03:40 04:40 WBC (3.8-10.6) k/uL RBC (4.30-5.90) m/uL Hgb (13.0-17.5) gm/dL Hct (39.0-53.0) % Plt Count (150-450) k/uL Neutrophils # (1.3-7.7) k/uL Retic Count (0.5-2.0) % Haptoglobin (31.2-198.0) mg/dL Fibrinogen (200-500) mg/dL D-Dimer (<0.60) mg/L FEU ABG pH 7.21 L 7.26 L (7.35-7.45) ABG pCO2 (35-45) mmHg ABG pO2 66 L 69 L (83-108) mmHg ABG HCO3 17 L 19 L (21-25) mmol/L ABG Total CO2 (19-24) mmol/L ABG O2 Saturation 88.5 L 91.3 L (94-97) % Carbon Dioxide (22-30) mmol/L BUN (9-20) mg/dL Creatinine (0.66-1.25) mg/dL Glucose (74-99) mg/dL POC Glucose (mg/dL) 178 H (70-110) mg/dL Plasma Lactic Acid George (0.7-2.0) mmol/L Calcium (8.4-10.2) mg/dL Iron (65-175) UG/DL TIBC (228-460) UG/DL % Saturation (15.00-50.00) Transferrin (204.0-354.0) mg/dL Ferritin (22.0-322.0) ng/mL Total Bilirubin (0.2-1.3) mg/dL AST (17-59) U/L ALT (4-49) U/L Lactate Dehydrogenase (120-246) U/L Total Protein (6.3-8.2) g/dL Albumin (3.5-5.0) g/dL Crossmatch 04/04/23 04/04/23 Range/Units 05:33 06:39 WBC (3.8-10.6) k/uL RBC (4.30-5.90) m/uL Hgb (13.0-17.5) gm/dL Hct (39.0-53.0) % Plt Count (150-450) k/uL Neutrophils # (1.3-7.7) k/uL Retic Count (0.5-2.0) % Haptoglobin (31.2-198.0) mg/dL Fibrinogen (200-500) mg/dL D-Dimer (<0.60) mg/L FEU ABG pH 7.29 L 7.31 L (7.35-7.45) ABG pCO2 (35-45) mmHg ABG pO2 73 L 74 L (83-108) mmHg ABG HCO3 20 L (21-25) mmol/L ABG Total CO2 (19-24) mmol/L ABG O2 Saturation 93.2 L (94-97) % Carbon Dioxide (22-30) mmol/L BUN (9-20) mg/dL Creatinine (0.66-1.25) mg/dL Glucose (74-99) mg/dL POC Glucose (mg/dL) (70-110) mg/dL Plasma Lactic Acid George (0.7-2.0) mmol/L Calcium (8.4-10.2) mg/dL Iron (65-175) UG/DL TIBC (228-460) UG/DL % Saturation (15.00-50.00) Transferrin (204.0-354.0) mg/dL Ferritin (22.0-322.0) ng/mL Total Bilirubin (0.2-1.3) mg/dL AST (17-59) U/L ALT (4-49) U/L Lactate Dehydrogenase (120-246) U/L Total Protein (6.3-8.2) g/dL Albumin (3.5-5.0) g/dL Crossmatch - Imaging and Cardiology Chest x-ray: report reviewed, image reviewed Assessment and Plan Assessment: Severe symptomatic mitral regurgitation with torn chordae to P2 of the posterior leaflet, status post complex mitral valve repair Paroxysmal atrial fibrillation, status post complete left-sided maze as well as ligation of the left atrial appendage PFO No Von Willebrand, ruled out by hematology Obstructive sleep apnea with home CPAP use Remote history of pneumonia Premature coronary artery disease in both sets of grandparents Acute blood loss anemia and thrombocytopenia, expected Hypotension and nausea, expected Acute hypoxic respiratory failure requiring reintubation secondary to acute pulmonary edema, unexpected Witnessed PEA cardiac arrest with ACLS protocol followed and ROSC after 14 min Lactic acidosis Acute kidney injury, likely from hypoperfusion, anuric despite lasix Transaminitis, likely from hypoperfusion Essential tremors noticed after intubation, possible anoxic encephalopathy Plan: Continue to maximize medical therapy with low-dose aspirin, statin, Plavix. Hold beta akanksha due to hypotension Wean levo as tolerated Continue epicardial pacer with rate 84 BPM Mechanical ventilator management per pulmonology Will monitor daily labs and x-rays, bicarb gtt decreased per pulmonology. Will continue to monitor frequent labs, ABGs, lactic acid GI/DVT prophylaxis Insulin management per internal medicine. Placed back on insulin gtt due to reintubation Continue mediastinal chest tube for another 24 hours, monitor output Continue Pino catheter, continue to record strict accurate intake and output Neurology consulted, EEG ordered Nephrology consulted, patient will likely need dialysis for fluid removal Continue to update family More recommendations to follow
[2023-04-04 08:47] LABS: MCV 88.7 fL (80.0-100.0)
[2023-04-04 08:48] LABS: ALT 1063 U/L (4-49)
[2023-04-04 08:49] LABS: AST 1542 U/L (17-59)
[2023-04-04] MEDS: LACTATED RINGERS 1,000 ML IV SCH (08:52)
[2023-04-04] MEDS: PANTOPRAZOLE 40 MG/10 ML VIAL IVP SCH ×2 (09:00→20:46)
[2023-04-04] MEDS: ASPIRIN 81 MG PO SCH (09:01)
[2023-04-04] MEDS: levETIRAcetam IV 500 MG/5 ML VIAL IVP SCH ×2 (09:01→20:47)
[2023-04-04] MEDS: CLOPIDOGREL 75 MG TAB PO SCH (09:01)
[2023-04-04] MEDS: FONDAPARINUX 2.5 MG/0.5 ML SYRINGE SQ SCH (09:01)
[2023-04-04 09:22] LABS: Glucose,Whole Blood 230 mg/dL (70-110)
--- NOTE | 2023-04-04 10:01 | P.PN ---
Subjective Progress Note Date: 04/04/23 The patient is a 58-year-old male who follows in the office with Dr. Shepard. He was referred to cardiothoracic surgery for severe mitral regurgitation and torn chordae tendonae. He underwent complex mitral valve repair with Dr. Salmeron on 04/01/23. He was extubated and weaned off of vasopressors. Overnight the patient developed respiratory distress, followed by PEA arrest with [place] after 14 minutes of CPR, epinephrine and bicarbonate administration. Chest x-ray revealed pulmonary edema prior to his intubation. Echocardiogram was performed at bedside revealing systolic function of 40-45%, mild to moderate mitral and tricuspid regurgitation, increased gradients and LVOT with no obvious obstruct ion and no significant pericardial effusion. The patient currently remains on full ventilator support and vasopressors. GENERAL: Currently sedated on ventilator NECK: Supple without JVD or thyromegaly. LUNGS: Breath sounds diminished to auscultation bilaterally. Respiration equal and unlabored. No wheezes, rales or rhonchi. HEART: Regular rate and rhythm. Soft systolic murmur. No rubs or gallops. S1 and S2 heard. EXTREMITIES: Normal range of motion, no edema. No clubbing or cyanosis. Perip heral pulses intact and strong. TELEMETRY: DDD pacing LABS: WBC 11.5, hemoglobin 8.1, hematocrit 23.6, platelet 100, sodium 136, potassium 4.2, BUN 64, creatinine 3.11, AST 1542, ALT 1063, lactic 14.5, amylase 62, lipase 154, d-dimer 1.08 him a fibrinogen 543 IMPRESSION: Severe mitral regurgitation with torn chordae to P2 of posterior leaflet Status post complex mitral valve repair with left atrial appendage clipping left-sided maze procedure Acute hypoxic respiratory failure requiring reintubation, secondary to acute pulmonary edema PEA arrest, down time 14 minutes Lactic acidosis Acute kidney injury Transaminitis PLAN: Continue supportive treatment Further recommendations based on clinical course I am dictating on behalf of Dr Jose Shepard's history/physical and assessment/plan. Objective - Vital Signs Vital signs: Vital Signs Temp 98.5 F 04/04/23 08:00 Pulse 84 04/04/23 09:15 Resp 26 H 04/04/23 09:15 BP 97/61 04/04/23 09:00 Pulse Ox 94 L 04/04/23 09:15 FiO2 100 04/04/23 08:00 Intake & Output 04/03/23 04/04/23 04/04/23 18:59 06:59 18:59 Intake Total 958.430 0346.395 264.113 Output Total 654 370 130 Balance 59.233 1566.395 134.113 Intake: IV 451 1218 118 0.9ns for CO/CI 40 0.9ns for pressure bag 81 72 18 Dextrose 5% in Water 1, 80 000 ml @ 100 mls/hr IV . [id number] [facility] with Sodium Bicarb (1 Meq/ml) 150 ml Rx#:[id number] Lactated Ringers 1,000 ml 330 146 @ 20 mls/hr IV .Q24H [facility] Rx#:[id number] Sodium Chloride 0.9% 1, 1000 20 000 ml @ 999 mls/hr IV . Q1H1M ONE Rx#:[id number] Intake, IV Titration 62.233 98.395 146.113 Amount Insulin Regular 100 unit 62.233 26.512 7.356 In Sodium Chloride 0.9% 100 ml @ Per Protocol IV .Q0M [facility] Rx#:[id number] Norepinephrine 4 mg In 56.910 70.619 Sodium Chloride 0.9% 250 ml @ 0.03 MCG/KG/MIN 12. 402 mls/hr IV .[id number] [facility] Rx#:[id number] propofoL 1,000 mg In 14.973 68.138 Empty Bag 1 bag @ 15 MCG/ KG/MIN 9.765 mls/hr IV . [id number] [facility] Rx#:[id number] Oral 200 Blood Product 620 As-1 Unit 310 [id number] As-1 Unit 310 [id number] Output: Chest Tube Drainage 330 320 60 Chest Tube Mediastinal 310 320 60 Pleural Catheter Right 20 Urine 324 50 70 Other: Voiding Method Indwelling Catheter Indwelling Catheter ABP, PAP, CO, CI - Last Documented Arterial Blood Pressure 90/52 Pulmonary Artery Pressure 38/21 Cardiac Output 5.4 Cardiac Index 2.3 - Labs CBC & Chem 7: 04/04/23 07:20 04/04/23 07:20 Labs: Abnormal Lab Results - Last 24 Hours (Table) 04/03/23 04/03/23 04/03/23 Range/Units 10:27 11:30 13:30 WBC (3.8-10.6) k/uL RBC (4.30-5.90) m/uL Hgb (13.0-17.5) gm/dL Hct (39.0-53.0) % Plt Count (150-450) k/uL Neutrophils # (1.3-7.7) k/uL Lymphocytes # (1.0-4.8) k/uL Retic Count (0.5-2.0) % Haptoglobin (31.2-198.0) mg/dL Fibrinogen 543 H (200-500) mg/dL D-Dimer 1.08 H (<0.60) mg/L FEU ABG pH (7.35-7.45) ABG pCO2 (35-45) mmHg ABG pO2 (83-108) mmHg ABG HCO3 (21-25) mmol/L ABG Total CO2 (19-24) mmol/L ABG O2 Saturation (94-97) % ABG Lactic Acid (0.5-1.6) mmol/L Sodium (137-145) mmol/L Carbon Dioxide (22-30) mmol/L BUN (9-20) mg/dL Creatinine (0.66-1.25) mg/dL Glucose (74-99) mg/dL POC Glucose (mg/dL) 155 H 146 H (70-110) mg/dL Plasma Lactic Acid George (0.7-2.0) mmol/L Calcium (8.4-10.2) mg/dL Magnesium (1.6-2.3) mg/dL Iron (65-175) UG/DL TIBC (228-460) UG/DL % Saturation (15.00-50.00) Transferrin (204.0-354.0) mg/dL Ferritin (22.0-322.0) ng/mL Total Bilirubin (0.2-1.3) mg/dL AST (17-59) U/L ALT (4-49) U/L Lactate Dehydrogenase (120-246) U/L Total Protein (6.3-8.2) g/dL Albumin (3.5-5.0) g/dL Crossmatch 04/03/23 04/03/23 04/03/23 Range/Units 13:30 13:30 13:30 WBC (3.8-10.6) k/uL RBC (4.30-5.90) m/uL Hgb (13.0-17.5) gm/dL Hct (39.0-53.0) % Plt Count (150-450) k/uL Neutrophils # (1.3-7.7) k/uL Lymphocytes # (1.0-4.8) k/uL Retic Count 3.7 H (0.5-2.0) % Haptoglobin <10.0 L (31.2-198.0) mg/dL Fibrinogen (200-500) mg/dL D-Dimer (<0.60) mg/L FEU ABG pH (7.35-7.45) ABG pCO2 (35-45) mmHg ABG pO2 (83-108) mmHg ABG HCO3 (21-25) mmol/L ABG Total CO2 (19-24) mmol/L ABG O2 Saturation (94-97) % ABG Lactic Acid (0.5-1.6) mmol/L Sodium (137-145) mmol/L Carbon Dioxide (22-30) mmol/L BUN (9-20) mg/dL Creatinine (0.66-1.25) mg/dL Glucose (74-99) mg/dL POC Glucose (mg/dL) (70-110) mg/dL Plasma Lactic Acid George (0.7-2.0) mmol/L Calcium (8.4-10.2) mg/dL Magnesium (1.6-2.3) mg/dL Iron 19 L (65-175) UG/DL TIBC 197 L (228-460) UG/DL % Saturation 9.64 L (15.00-50.00) Transferrin 141.0 L 143.0 L (204.0-354.0) mg/dL Ferritin 560.0 H (22.0-322.0) ng/mL Total Bilirubin (0.2-1.3) mg/dL AST (17-59) U/L ALT (4-49) U/L Lactate Dehydrogenase 552 H (120-246) U/L Total Protein (6.3-8.2) g/dL Albumin (3.5-5.0) g/dL Crossmatch 04/03/23 04/03/23 04/03/23 Range/Units 13:49 15:52 18:59 WBC (3.8-10.6) k/uL RBC (4.30-5.90) m/uL Hgb (13.0-17.5) gm/dL Hct (39.0-53.0) % Plt Count (150-450) k/uL Neutrophils # (1.3-7.7) k/uL Lymphocytes # (1.0-4.8) k/uL Retic Count (0.5-2.0) % Haptoglobin (31.2-198.0) mg/dL Fibrinogen (200-500) mg/dL D-Dimer (<0.60) mg/L FEU ABG pH (7.35-7.45) ABG pCO2 (35-45) mmHg ABG pO2 (83-108) mmHg ABG HCO3 (21-25) mmol/L ABG Total CO2 (19-24) mmol/L ABG O2 Saturation (94-97) % ABG Lactic Acid (0.5-1.6) mmol/L Sodium (137-145) mmol/L Carbon Dioxide (22-30) mmol/L BUN (9-20) mg/dL Creatinine (0.66-1.25) mg/dL Glucose (74-99) mg/dL POC Glucose (mg/dL) 150 H 180 H 137 H (70-110) mg/dL Plasma Lactic Acid George (0.7-2.0) mmol/L Calcium (8.4-10.2) mg/dL Magnesium (1.6-2.3) mg/dL Iron (65-175) UG/DL TIBC (228-460) UG/DL % Saturation (15.00-50.00) Transferrin (204.0-354.0) mg/dL Ferritin (22.0-322.0) ng/mL Total Bilirubin (0.2-1.3) mg/dL AST (17-59) U/L ALT (4-49) U/L Lactate Dehydrogenase (120-246) U/L Total Protein (6.3-8.2) g/dL Albumin (3.5-5.0) g/dL Crossmatch 04/03/23 04/03/23 04/04/23 Range/Units 20:18 23:05 00:26 WBC 16.4 H (3.8-10.6) k/uL RBC 2.33 L (4.30-5.90) m/uL Hgb 7.3 L (13.0-17.5) gm/dL Hct 22.1 L (39.0-53.0) % Plt Count 110 L (150-450) k/uL Neutrophils # 14.3 H (1.3-7.7) k/uL Lymphocytes # (1.0-4.8) k/uL Retic Count (0.5-2.0) % Haptoglobin (31.2-198.0) mg/dL Fibrinogen (200-500) mg/dL D-Dimer (<0.60) mg/L FEU ABG pH (7.35-7.45) ABG pCO2 (35-45) mmHg ABG pO2 (83-108) mmHg ABG HCO3 (21-25) mmol/L ABG Total CO2 (19-24) mmol/L ABG O2 Saturation (94-97) % ABG Lactic Acid (0.5-1.6) mmol/L Sodium (137-145) mmol/L Carbon Dioxide (22-30) mmol/L BUN (9-20) mg/dL Creatinine (0.66-1.25) mg/dL Glucose (74-99) mg/dL POC Glucose (mg/dL) 127 H 157 H (70-110) mg/dL Plasma Lactic Acid George (0.7-2.0) mmol/L Calcium (8.4-10.2) mg/dL Magnesium (1.6-2.3) mg/dL Iron (65-175) UG/DL TIBC (228-460) UG/DL % Saturation (15.00-50.00) Transferrin (204.0-354.0) mg/dL Ferritin (22.0-322.0) ng/mL Total Bilirubin (0.2-1.3) mg/dL AST (17-59) U/L ALT (4-49) U/L Lactate Dehydrogenase (120-246) U/L Total Protein (6.3-8.2) g/dL Albumin (3.5-5.0) g/dL Crossmatch 04/04/23 04/04/23 04/04/23 Range/Units 00:26 00:26 00:26 WBC (3.8-10.6) k/uL RBC (4.30-5.90) m/uL Hgb (13.0-17.5) gm/dL Hct (39.0-53.0) % Plt Count (150-450) k/uL Neutrophils # (1.3-7.7) k/uL Lymphocytes # (1.0-4.8) k/uL Retic Count (0.5-2.0) % Haptoglobin (31.2-198.0) mg/dL Fibrinogen (200-500) mg/dL D-Dimer (<0.60) mg/L FEU ABG pH (7.35-7.45) ABG pCO2 (35-45) mmHg ABG pO2 (83-108) mmHg ABG HCO3 (21-25) mmol/L ABG Total CO2 (19-24) mmol/L ABG O2 Saturation (94-97) % ABG Lactic Acid (0.5-1.6) mmol/L Sodium (137-145) mmol/L Carbon Dioxide 12 L (22-30) mmol/L BUN 51 H (9-20) mg/dL Creatinine 2.68 H (0.66-1.25) mg/dL Glucose 117 H (74-99) mg/dL POC Glucose (mg/dL) (70-110) mg/dL Plasma Lactic Acid George 14.5 H* (0.7-2.0) mmol/L Calcium 7.5 L (8.4-10.2) mg/dL Magnesium (1.6-2.3) mg/dL Iron (65-175) UG/DL TIBC (228-460) UG/DL % Saturation (15.00-50.00) Transferrin (204.0-354.0) mg/dL Ferritin (22.0-322.0) ng/mL Total Bilirubin 3.6 H (0.2-1.3) mg/dL AST 411 H (17-59) U/L ALT 247 H (4-49) U/L Lactate Dehydrogenase (120-246) U/L Total Protein 4.8 L (6.3-8.2) g/dL Albumin 3.0 L (3.5-5.0) g/dL Crossmatch See Detail 04/04/23 04/04/23 04/04/23 Range/Units 00:27 01:03 01:33 WBC (3.8-10.6) k/uL RBC (4.30-5.90) m/uL Hgb (13.0-17.5) gm/dL Hct (39.0-53.0) % Plt Count (150-450) k/uL Neutrophils # (1.3-7.7) k/uL Lymphocytes # (1.0-4.8) k/uL Retic Count (0.5-2.0) % Haptoglobin (31.2-198.0) mg/dL Fibrinogen (200-500) mg/dL D-Dimer (<0.60) mg/L FEU ABG pH 6.98 L* 7.16 L* 7.21 L (7.35-7.45) ABG pCO2 55 H (35-45) mmHg ABG pO2 80 L 75 L (83-108) mmHg ABG HCO3 13 L 15 L 15 L (21-25) mmol/L ABG Total CO2 15 L 16 L 16 L (19-24) mmol/L ABG O2 Saturation 86.6 L 91.8 L (94-97) % ABG Lactic Acid (0.5-1.6) mmol/L Sodium (137-145) mmol/L Carbon Dioxide (22-30) mmol/L BUN (9-20) mg/dL Creatinine (0.66-1.25) mg/dL Glucose (74-99) mg/dL POC Glucose (mg/dL) (70-110) mg/dL Plasma Lactic Acid George (0.7-2.0) mmol/L Calcium (8.4-10.2) mg/dL Magnesium (1.6-2.3) mg/dL Iron (65-175) UG/DL TIBC (228-460) UG/DL % Saturation (15.00-50.00) Transferrin (204.0-354.0) mg/dL Ferritin (22.0-322.0) ng/mL Total Bilirubin (0.2-1.3) mg/dL AST (17-59) U/L ALT (4-49) U/L Lactate Dehydrogenase (120-246) U/L Total Protein (6.3-8.2) g/dL Albumin (3.5-5.0) g/dL Crossmatch 04/04/23 04/04/23 04/04/23 Range/Units 02:04 02:35 03:07 WBC (3.8-10.6) k/uL RBC (4.30-5.90) m/uL Hgb (13.0-17.5) gm/dL Hct (39.0-53.0) % Plt Count (150-450) k/uL Neutrophils # (1.3-7.7) k/uL Lymphocytes # (1.0-4.8) k/uL Retic Count (0.5-2.0) % Haptoglobin (31.2-198.0) mg/dL Fibrinogen (200-500) mg/dL D-Dimer (<0.60) mg/L FEU ABG pH 7.20 L 7.17 L* 7.18 L* (7.35-7.45) ABG pCO2 (35-45) mmHg ABG pO2 64 L 60 L 67 L (83-108) mmHg ABG HCO3 16 L 16 L 17 L (21-25) mmol/L ABG Total CO2 17 L 18 L 18 L (19-24) mmol/L ABG O2 Saturation 85.8 L 82.8 L 88.5 L (94-97) % ABG Lactic Acid (0.5-1.6) mmol/L Sodium (137-145) mmol/L Carbon Dioxide (22-30) mmol/L BUN (9-20) mg/dL Creatinine (0.66-1.25) mg/dL Glucose (74-99) mg/dL POC Glucose (mg/dL) (70-110) mg/dL Plasma Lactic Acid George (0.7-2.0) mmol/L Calcium (8.4-10.2) mg/dL Magnesium (1.6-2.3) mg/dL Iron (65-175) UG/DL TIBC (228-460) UG/DL % Saturation (15.00-50.00) Transferrin (204.0-354.0) mg/dL Ferritin (22.0-322.0) ng/mL Total Bilirubin (0.2-1.3) mg/dL AST (17-59) U/L ALT (4-49) U/L Lactate Dehydrogenase (120-246) U/L Total Protein (6.3-8.2) g/dL Albumin (3.5-5.0) g/dL Crossmatch 04/04/23 04/04/23 04/04/23 Range/Units 03:09 03:40 04:40 WBC (3.8-10.6) k/uL RBC (4.30-5.90) m/uL Hgb (13.0-17.5) gm/dL Hct (39.0-53.0) % Plt Count (150-450) k/uL Neutrophils # (1.3-7.7) k/uL Lymphocytes # (1.0-4.8) k/uL Retic Count (0.5-2.0) % Haptoglobin (31.2-198.0) mg/dL Fibrinogen (200-500) mg/dL D-Dimer (<0.60) mg/L FEU ABG pH 7.21 L 7.26 L (7.35-7.45) ABG pCO2 (35-45) mmHg ABG pO2 66 L 69 L (83-108) mmHg ABG HCO3 17 L 19 L (21-25) mmol/L ABG Total CO2 (19-24) mmol/L ABG O2 Saturation 88.5 L 91.3 L (94-97) % ABG Lactic Acid (0.5-1.6) mmol/L Sodium (137-145) mmol/L Carbon Dioxide (22-30) mmol/L BUN (9-20) mg/dL Creatinine (0.66-1.25) mg/dL Glucose (74-99) mg/dL POC Glucose (mg/dL) 178 H (70-110) mg/dL Plasma Lactic Acid George (0.7-2.0) mmol/L Calcium (8.4-10.2) mg/dL Magnesium (1.6-2.3) mg/dL Iron (65-175) UG/DL TIBC (228-460) UG/DL % Saturation (15.00-50.00) Transferrin (204.0-354.0) mg/dL Ferritin (22.0-322.0) ng/mL Total Bilirubin (0.2-1.3) mg/dL AST (17-59) U/L ALT (4-49) U/L Lactate Dehydrogenase (120-246) U/L Total Protein (6.3-8.2) g/dL Albumin (3.5-5.0) g/dL Crossmatch 04/04/23 04/04/23 04/04/23 Range/Units 05:33 06:39 07:20 WBC 11.5 H (3.8-10.6) k/uL RBC 2.66 L (4.30-5.90) m/uL Hgb 8.1 L (13.0-17.5) gm/dL Hct 23.6 L (39.0-53.0) % Plt Count 100 L (150-450) k/uL Neutrophils # 10.3 H (1.3-7.7) k/uL Lymphocytes # 0.7 L (1.0-4.8) k/uL Retic Count (0.5-2.0) % Haptoglobin (31.2-198.0) mg/dL Fibrinogen (200-500) mg/dL D-Dimer (<0.60) mg/L FEU ABG pH 7.29 L 7.31 L (7.35-7.45) ABG pCO2 (35-45) mmHg ABG pO2 73 L 74 L (83-108) mmHg ABG HCO3 20 L (21-25) mmol/L ABG Total CO2 (19-24) mmol/L ABG O2 Saturation 93.2 L (94-97) % ABG Lactic Acid (0.5-1.6) mmol/L Sodium (137-145) mmol/L Carbon Dioxide (22-30) mmol/L BUN (9-20) mg/dL Creatinine (0.66-1.25) mg/dL Glucose (74-99) mg/dL POC Glucose (mg/dL) (70-110) mg/dL Plasma Lactic Acid George (0.7-2.0) mmol/L Calcium (8.4-10.2) mg/dL Magnesium (1.6-2.3) mg/dL Iron (65-175) UG/DL TIBC (228-460) UG/DL % Saturation (15.00-50.00) Transferrin (204.0-354.0) mg/dL Ferritin (22.0-322.0) ng/mL Total Bilirubin (0.2-1.3) mg/dL AST (17-59) U/L ALT (4-49) U/L Lactate Dehydrogenase (120-246) U/L Total Protein (6.3-8.2) g/dL Albumin (3.5-5.0) g/dL Crossmatch 04/04/23 04/04/23 04/04/23 Range/Units 07:20 07:20 08:00 WBC (3.8-10.6) k/uL RBC (4.30-5.90) m/uL Hgb (13.0-17.5) gm/dL Hct (39.0-53.0) % Plt Count (150-450) k/uL Neutrophils # (1.3-7.7) k/uL Lymphocytes # (1.0-4.8) k/uL Retic Count (0.5-2.0) % Haptoglobin (31.2-198.0) mg/dL Fibrinogen (200-500) mg/dL D-Dimer (<0.60) mg/L FEU ABG pH 7.31 L (7.35-7.45) ABG pCO2 48 H (35-45) mmHg ABG pO2 (83-108) mmHg ABG HCO3 (21-25) mmol/L ABG Total CO2 25 H (19-24) mmol/L ABG O2 Saturation (94-97) % ABG Lactic Acid 5.1 H* (0.5-1.6) mmol/L Sodium 136 L (137-145) mmol/L Carbon Dioxide (22-30) mmol/L BUN 64 H (9-20) mg/dL Creatinine 3.11 H (0.66-1.25) mg/dL Glucose 198 H (74-99) mg/dL POC Glucose (mg/dL) (70-110) mg/dL Plasma Lactic Acid George (0.7-2.0) mmol/L Calcium 7.4 L (8.4-10.2) mg/dL Magnesium 2.5 H (1.6-2.3) mg/dL Iron (65-175) UG/DL TIBC (228-460) UG/DL % Saturation (15.00-50.00) Transferrin (204.0-354.0) mg/dL Ferritin (22.0-322.0) ng/mL Total Bilirubin 4.2 H (0.2-1.3) mg/dL AST 1542 H (17-59) U/L ALT 1063 H (4-49) U/L Lactate Dehydrogenase (120-246) U/L Total Protein 4.7 L (6.3-8.2) g/dL Albumin 3.0 L (3.5-5.0) g/dL Crossmatch 04/04/23 04/04/23 Range/Units 08:20 09:20 WBC (3.8-10.6) k/uL RBC (4.30-5.90) m/uL Hgb (13.0-17.5) gm/dL Hct (39.0-53.0) % Plt Count (150-450) k/uL Neutrophils # (1.3-7.7) k/uL Lymphocytes # (1.0-4.8) k/uL Retic Count (0.5-2.0) % Haptoglobin (31.2-198.0) mg/dL Fibrinogen (200-500) mg/dL D-Dimer (<0.60) mg/L FEU ABG pH (7.35-7.45) ABG pCO2 (35-45) mmHg ABG pO2 (83-108) mmHg ABG HCO3 (21-25) mmol/L ABG Total CO2 (19-24) mmol/L ABG O2 Saturation (94-97) % ABG Lactic Acid (0.5-1.6) mmol/L Sodium (137-145) mmol/L Carbon Dioxide (22-30) mmol/L BUN (9-20) mg/dL Creatinine (0.66-1.25) mg/dL Glucose (74-99) mg/dL POC Glucose (mg/dL) 228 H 230 H (70-110) mg/dL Plasma Lactic Acid George (0.7-2.0) mmol/L Calcium (8.4-10.2) mg/dL Magnesium (1.6-2.3) mg/dL Iron (65-175) UG/DL TIBC (228-460) UG/DL % Saturation (15.00-50.00) Transferrin (204.0-354.0) mg/dL Ferritin (22.0-322.0) ng/mL Total Bilirubin (0.2-1.3) mg/dL AST (17-59) U/L ALT (4-49) U/L Lactate Dehydrogenase (120-246) U/L Total Protein (6.3-8.2) g/dL Albumin (3.5-5.0) g/dL Crossmatch
[2023-04-04 10:03] LABS: Glucose,Whole Blood 204 mg/dL (70-110)
--- NOTE | 2023-04-04 11:08 | P.NPCON ---
History of Present Illness - Reason for Consult acute renal failure - History of Present Illness Reason for consultation: Acute kidney injury History of present illness: Patient is a 58-year-old male seen in renal consultation for acute kidney injury. Patient came to the hospital on 04/01/2023 and underwent mitral valve repair by cardiac thoracic surgery. Patient had history of severe mitral regurgitation as well as atrial fibrillation. Last night patient had a PEA arrest with down time of about 40 minutes. Patient's currently intubated. He is on Levophed. Patient received total of 100 mg of IV Lasix overnight with no significant urine output. Patient's basic creatinine is near 1 and up to 2.68 today. Ejection fraction is noted to be 40-45%. Mild to moderate mitral regurgitation and moderate respiratory regurgitation was noted. Currently hemodynamically stable. No history of diabetes. Pleural effusions noted on chest x-ray. Daughter present at bedside. Vital signs are stable. On Levophed. General: Resting in bed. HEENT: Intubated. LUNGS: Scattered rhonchi. HEART: Rate and Rhythm are regular. ABDOMEN: No distention. EXTREMITITES: No edema. 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 for new onset a-fib, SOB w/exertion, found to have mitral valve problem History of Any Multi-Drug Resistant Organisms: None Reported Past Surgical History: Orthopedic Surgery, Tonsillectomy Additional Past Surgical History / Comment(s): NASAL SURGERY , RIGHT KNEE ACL ARTHROSCOPIC, shoulder surgery Past Anesthesia/Blood Transfusion Reactions: Previous Problems w/ Anesthesia, Motion Sickness Additional Past Anesthesia/Blood Transfusion Reaction / Comment(s): VON WILLEBRAND DISEASE- INCREASED BLEEDING WITH PREVIOUS SURGERIES Past Alcohol Use History: None Reported - Past Family History Daughter(s) Family Medical History: Deep Vein Thrombosis (DVT) Additional Family Medical History / Comment(s): Effort 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-tx @ [employer] Son(s) Additional Family Medical History / Comment(s): hemangioma side of neck Mother Family Medical History: Cancer Medications and Allergies Home Medications Medication Instructions Recorded Confirmed Type Aspirin 81 mg PO DAILY 30 Days #30 tab 02/02/23 04/01/23 Rx Atorvastatin [Lipitor] 20 mg PO DAILY 30 Days #30 tablet 02/02/23 03/28/23 Rx Metoprolol Tartrate [Lopressor] 25 mg PO BID 30 Days #60 tab 02/02/23 03/28/23 Rx Allergies Allergy/AdvReac Type Severity Reaction Status Date / Time No Known Allergies Allergy Verified 03/28/23 11:00 Physical Exam Vitals: Vital Signs Temp Pulse Resp BP Pulse Ox FiO2 04/04/23 10:54 100 04/04/23 10:00 84 26 H 94/61 95 04/04/23 09:45 84 26 H 94 L 04/04/23 09:30 84 26 H 108/64 04/04/23 09:15 84 26 H 94 L 04/04/23 09:00 84 26 H 97/61 04/04/23 08:45 84 26 H 94 L 04/04/23 08:30 84 26 H 96/67 04/04/23 08:16 84 04/04/23 08:15 84 26 H 92 L 04/04/23 08:05 84 04/04/23 08:00 98.5 F 84 26 H 99/62 93 L 100 04/04/23 07:45 84 23 93 L 04/04/23 07:33 100 04/04/23 07:30 84 26 H 91 L 04/04/23 07:15 84 26 H 92/62 92 L 04/04/23 07:00 84 26 H 92/59 92 L 04/04/23 06:45 84 26 H 92/59 92 L 04/04/23 06:30 98.5 F 84 26 H 98/63 93 L 04/04/23 06:15 84 26 H 96/60 92 L 04/04/23 06:00 84 26 H 94/58 94 L 04/04/23 05:45 84 26 H 85/62 95 04/04/23 05:30 84 26 H 91/58 96 04/04/23 05:15 84 26 H 91/62 94 L 04/04/23 05:00 84 26 H 89/61 94 L 04/04/23 04:45 97.8 F 84 26 H 85/61 94 L 04/04/23 04:30 84 26 H 89/58 90 L 04/04/23 04:25 97.6 F 84 26 H 83/50 91 L 04/04/23 04:16 98.0 F 84 26 H 83/51 91 L 04/04/23 04:15 84 26 H 84/59 90 L 04/04/23 04:11 98.0 F 84 26 H 84/51 90 L 04/04/23 04:00 84 26 H 88/58 91 L 100 04/04/23 03:48 96.8 F L 84 26 H 79/51 90 L 04/04/23 03:45 84 26 H 88/62 89 L 04/04/23 03:30 84 26 H 90/58 89 L 04/04/23 03:15 84 26 H 92/59 86 L 04/04/23 03:14 100 04/04/23 03:00 84 26 H 97/60 86 L 04/04/23 02:45 84 27 H 103/52 84 L 04/04/23 02:44 100 04/04/23 02:34 100 04/04/23 02:31 100 04/04/23 02:30 84 28 H 93/63 88 L 04/04/23 02:22 97.2 F L 86 26 H 80/52 88 L 04/04/23 02:19 84 28 H 90/56 88 L 04/04/23 02:02 97.5 F L 84 28 H 82/49 83 L 04/04/23 02:00 84 26 H 95/59 85 L 100 04/04/23 01:55 97.5 F L 84 27 H 84/47 86 L 04/04/23 01:52 84 27 H 100/56 87 L 04/04/23 01:43 100 04/04/23 01:30 84 27 H 104/54 90 L 04/04/23 01:15 84 24 115/67 90 L 04/04/23 01:00 84 21 130/73 95 04/04/23 00:45 84 26 H 143/91 97 04/04/23 00:33 100 04/04/23 00:30 113 H 26 H 108/63 82 L 100 04/04/23 00:26 100 04/04/23 00:20 100 04/04/23 00:15 149 H 20 76/58 80 L 04/04/23 00:03 100 04/04/23 00:00 1.0 04/03/23 23:45 52 L 04/03/23 23:31 69 22 94 L 04/03/23 23:30 67 24 95/71 92 L 04/03/23 23:00 72 28 H 111/66 90 L 04/03/23 22:57 96 04/03/23 22:30 73 33 H 104/62 85 L 04/03/23 22:08 73 04/03/23 22:00 66 34 H 94/57 96 04/03/23 21:51 66 04/03/23 21:30 67 33 H 94/64 04/03/23 21:00 97.7 F 71 31 H 114/64 04/03/23 20:30 82 30 H 115/69 04/03/23 20:00 85 22 118/64 04/03/23 19:50 79 04/03/23 19:40 75 04/03/23 19:30 83 25 H 104/78 04/03/23 19:00 77 27 H 116/58 92 L 04/03/23 18:00 78 29 H 115/59 91 L 04/03/23 17:30 82 38 H 123/59 88 L 04/03/23 17:00 75 25 H 140/61 95 04/03/23 16:30 74 28 H 127/35 04/03/23 16:00 97.5 F L 84 22 124/64 91 L 04/03/23 15:30 82 24 115/61 04/03/23 15:00 73 20 123/52 91 L 04/03/23 14:53 73 04/03/23 14:43 73 04/03/23 14:30 76 22 122/45 04/03/23 14:00 77 24 110/57 88 L 04/03/23 13:30 75 27 H 97/48 04/03/23 13:00 67 26 H 103/59 87 L 04/03/23 12:30 73 25 H 107/65 04/03/23 12:00 97.7 F 73 26 H 113/58 94 L 04/03/23 11:45 70 93 L 04/03/23 11:30 75 99/63 91 L 04/03/23 11:15 73 28 H 91 L 04/03/23 11:00 70 28 H 105/58 98 Intake and Output 04/03/23 04/04/23 04/04/23 22:59 06:59 14:59 Intake Total 825.799 6291.883 327.335 Output Total 381 268 125 Balance -749.378 8341.883 202.335 Intake: IV 208 1114 174 0.9ns for pressure bag 48 48 24 Dextrose 5% in Water 1, 120 000 ml @ 40 mls/hr IV . Q24H [facility] with Sodium Bicarb (1 Meq/ml) 150 ml Rx#:[id number] Lactated Ringers 1,000 ml 160 66 @ 20 mls/hr IV .Q24H [facility] Rx#:[id number] Sodium Chloride 0.9% 1, 1000 30 000 ml @ 999 mls/hr IV . Q1H1M ONE Rx#:[id number] Intake, IV Titration 40.400 71.883 153.335 Amount Insulin Regular 100 unit 40.400 14.578 In Sodium Chloride 0.9% 100 ml @ Per Protocol IV .[facility]0M [facility] Rx#:[id number] Norepinephrine 4 mg In 56.910 70.619 Sodium Chloride 0.9% 250 ml @ 0.03 MCG/KG/MIN 12. 402 mls/hr IV .[id number] [facility] Rx#:[id number] propofoL 1,000 mg In 14.973 68.138 Empty Bag 1 bag @ 15 MCG/ KG/MIN 9.765 mls/hr IV . [id number] [facility] Rx#:[id number] Blood Product 620 As-1 Unit 310 [id number] As-1 Unit 310 [id number] Output: Chest Tube Drainage 210 260 60 Chest Tube Mediastinal 210 260 60 Urine 171 8 65 Other: Voiding Method Indwelling Catheter Indwelling Catheter Indwelling Catheter ABP, PAP, CO, CI - Last 8 Hours Arterial Blood Pressure 98/52 Arterial Blood Pressure 96/52 Arterial Blood Pressure 98/52 Arterial Blood Pressure 90/52 Arterial Blood Pressure 98/55 Arterial Blood Pressure 92/53 Arterial Blood Pressure 85/52 Arterial Blood Pressure 91/55 Arterial Blood Pressure 89/52 Arterial Blood Pressure 94/54 Arterial Blood Pressure 84/49 Arterial Blood Pressure 93/53 Arterial Blood Pressure 95/54 Arterial Blood Pressure 91/52 Arterial Blood Pressure 92/52 Arterial Blood Pressure 94/61 Arterial Blood Pressure 92/55 Arterial Blood Pressure 86/50 Arterial Blood Pressure 82/48 Arterial Blood Pressure 87/52 Arterial Blood Pressure 83/50 Arterial Blood Pressure 81/49 Arterial Blood Pressure 81/49 Arterial Blood Pressure 80/49 Arterial Blood Pressure 82/48 Arterial Blood Pressure 84/49 Arterial Blood Pressure 80/48 Arterial Blood Pressure 77/45 Arterial Blood Pressure 75/45 Cardiac Output 5.4 Cardiac Output 5.4 Cardiac Output 5.4 Cardiac Output 5.4 Cardiac Output 5.4 Cardiac Output 5.4 Cardiac Output 5.4 Cardiac Output 5.4 Cardiac Index 2.3 Cardiac Index 2.3 Cardiac Index 2.3 Cardiac Index 2.3 Cardiac Index 2.3 Cardiac Index 2.3 Cardiac Index 2.3 Cardiac Index 2.3 Results - Lab Results Most recent lab results ABG pH 7.31 (7.35-7.45) L 04/04/23 08:00 ABG pCO2 48 mmHg (35-45) H 04/04/23 08:00 ABG pO2 85 mmHg (83-108) 04/04/23 08:00 ABG HCO3 24 mmol/L (21-25) 04/04/23 08:00 ABG O2 Saturation 96.2 % (94-97) 04/04/23 08:00 Calcium 7.4 mg/dL (8.4-10.2) L 04/04/23 07:20 Magnesium 2.5 mg/dL (1.6-2.3) H 04/04/23 07:20 04/04/23 07:20 04/04/23 07:20 Assessment and Plan Plan: Assessment: 1. Acute kidney injury secondary to ATN secondary to cardiac arrest. Baseline creatinine near 1 and up to 2.68 today. Oliguric. Diuretic unresponsive. 2. Volume overload. 3. PEA arrest 04/03/2023. 4. Status post mitral valve repair 04/01/2023. 5. Cardiomyopathy with ejection fraction of 40-45%. 6. Metabolic acidosis secondary to acute kidney injury and lactic acidosis. Improved. Plan: No response to 100 mg of IV Lasix given last night. Due to volume overload and oliguria, initiated renal placement therapy. Plan for first treatment of hemodialysis today and second treatment tomorrow. Vascular surgery consulted. Check renal ultrasound. Case discussed with engine repairer production and cardiothoracic surgery team. Thank you for the consultation. I will continue to follow the patient with you during his hospital stay.
[2023-04-04 11:10] LABS: Glucose,Whole Blood 181 mg/dL (70-110)
--- NOTE | 2023-04-04 11:18 | P.PN ---
Subjective Progress Note Date: 04/04/23 Subjective: Pt was intubated last night after charlie maynard was called and he had a 14 min of ACLS. Echo was ordered stat and showed 40-45 EF, mild MR, no tamponade - cardiology consulted and agreed with management. Pt started on zosyn overnight for possibility of PNA causing septic shock. Alternative diagnoses include: ALI from blood transfusion, seizures/aspiration (started on Keppra by pulm and neuro consulted), acidosis from JIHAN causing PEA arrest. Pt is stable now on 0.05 of levophed, bicarb gtt, paced, and on propofol. General: intubated, sedated HEENT: normocephalic, atraumatic, no tracheal deviation Respiratory: symmetric chest rise, no cyanosis, ventilator dependent CVS: perfusing all extremities, no distal gangrene, no pitting edema GI: soft, ND : no SPT, no CVAT, maya is present Neuro: sedated Assessment and Plan: PEA arrest Mixed distributive and cardiogenic shock: Aspiration pneumonia with sepsis versus acute lung injury with systemic inflammatory response syndrome secondary to blood transfusion Shock liver Acute kidney injury Anion gap metabolic acidosis -Continue bicarb drip 100 cc/hr -Continue levophed 0.06, propofol 25 -Appreciate pulmonology input: note reviewed 04/04 - place temp dialysis catheter for dialysis today, neurology consult -Appreciate nephrology input: note reviewed 04/04 - initiate DUST MIXER today with second treatment tomorrow, check renal US -Appreciate cardiology input: note reviewed 04/04 - repeat echo in 1-2 days to eval for LVOT obstruction -Echo reviewed on 04/04, findings include 40-45% EF, mild MR, no tamponade -Chest x-ray personally interpreted on 04/04 shows diffuse pulmonary edema with areas concerning for infiltrate -Agree with Zosyn, started 04/04 Severe symptomatic mitral regurgitation status post repair Paroxysmal atrial fibrillation status post maze and ligation of left atrial appendage -Cardiothoracic surgery is managing -Continue aspirin 81, Plavix 75 -Patient is on fondaparinux 2.5 mg daily in lieu of heparin -Patient is being paced with transvenous pacer GINA on CPAP Von Willebrand's disease Hyperglycemia, A1c 5.7 - continue insulin gtt - continue ventilator support Acute blood loss anemia, anticipated outcome of surgery, slightly worse today Thrombocytopenia -Patient has received a total of 2 units of pack red blood cells, 2 units of fresh frozen plasma, 2 units of platelets, 1 unit of cryoprecipitate -continue to monitor -MALAIKA panel sent 04/04, pending Thank you for allowing us to participate in the care of this pleasant patient. Do not hesitate to contact us with questions. Someone can be reached from the [facility] hospitalist group all hours of the day at [phone] or via perfect serve. Objective - Vital Signs Vital signs: Vital Signs Temp 98.5 F 04/04/23 08:00 Pulse 84 04/04/23 10:00 Resp 26 H 04/04/23 10:00 BP 94/61 04/04/23 10:00 Pulse Ox 95 04/04/23 10:00 FiO2 100 04/04/23 10:54 Intake & Output 04/03/23 04/04/23 04/04/23 18:59 06:59 18:59 Intake Total 437.038 1515.395 327.335 Output Total 654 370 125 Balance 59.233 1566.395 202.335 Intake: IV 451 1218 174 0.9ns for CO/CI 40 0.9ns for pressure bag 81 72 24 Dextrose 5% in Water 1, 120 000 ml @ 40 mls/hr IV . Q24H SAHARA with Sodium Bicarb (1 Meq/ml) 150 ml Rx#:[id number] Lactated Ringers 1,000 ml 330 146 @ 20 mls/hr IV .Q24H SAHARA Rx#:[id number] Sodium Chloride 0.9% 1, 1000 30 000 ml @ 999 mls/hr IV . Q1H1M ONE Rx#:[id number] Intake, IV Titration 62.233 98.395 153.335 Amount Insulin Regular 100 unit 62.233 26.512 14.578 In Sodium Chloride 0.9% 100 ml @ Per Protocol IV .Q0M SAHARA Rx#:[id number] Norepinephrine 4 mg In 56.910 70.619 Sodium Chloride 0.9% 250 ml @ 0.03 MCG/KG/MIN 12. 402 mls/hr IV .[id number] SAHARA Rx#:[id number] propofoL 1,000 mg In 14.973 68.138 Empty Bag 1 bag @ 15 MCG/ KG/MIN 9.765 mls/hr IV . [id number] SAHARA Rx#:[id number] Oral 200 Blood Product 620 Rc As-1 Unit 310 [id number] Rc As-1 Unit 310 [id number] Output: Chest Tube Drainage 330 320 60 Chest Tube Mediastinal 310 320 60 Pleural Catheter Right 20 Urine 324 50 65 Other: Voiding Method Indwelling Catheter Indwelling Catheter Indwelling Catheter ABP, PAP, CO, CI - Last Documented Arterial Blood Pressure 98/52 Pulmonary Artery Pressure 38/21 Cardiac Output 5.4 Cardiac Index 2.3 - Labs CBC & Chem 7: 04/04/23 07:20 04/04/23 07:20 Labs: Abnormal Lab Results - Last 24 Hours (Table) 04/03/23 04/03/23 04/03/23 Range/Units 11:30 13:30 13:30 WBC (3.8-10.6) k/uL RBC (4.30-5.90) m/uL Hgb (13.0-17.5) gm/dL Hct (39.0-53.0) % Plt Count (150-450) k/uL Neutrophils # (1.3-7.7) k/uL Lymphocytes # (1.0-4.8) k/uL Retic Count (0.5-2.0) % Haptoglobin (31.2-198.0) mg/dL Fibrinogen 543 H (200-500) mg/dL D-Dimer 1.08 H (<0.60) mg/L FEU ABG pH (7.35-7.45) ABG pCO2 (35-45) mmHg ABG pO2 (83-108) mmHg ABG HCO3 (21-25) mmol/L ABG Total CO2 (19-24) mmol/L ABG O2 Saturation (94-97) % ABG Lactic Acid (0.5-1.6) mmol/L Sodium (137-145) mmol/L Carbon Dioxide (22-30) mmol/L BUN (9-20) mg/dL Creatinine (0.66-1.25) mg/dL Glucose (74-99) mg/dL POC Glucose (mg/dL) 146 H (70-110) mg/dL Plasma Lactic Acid George (0.7-2.0) mmol/L Calcium (8.4-10.2) mg/dL Magnesium (1.6-2.3) mg/dL Iron 19 L (65-175) UG/DL TIBC 197 L (228-460) UG/DL % Saturation 9.64 L (15.00-50.00) Transferrin 141.0 L (204.0-354.0) mg/dL Ferritin 560.0 H (22.0-322.0) ng/mL Total Bilirubin (0.2-1.3) mg/dL AST (17-59) U/L ALT (4-49) U/L Lactate Dehydrogenase 552 H (120-246) U/L Total Protein (6.3-8.2) g/dL Albumin (3.5-5.0) g/dL Crossmatch 04/03/23 04/03/23 04/03/23 Range/Units 13:30 13:30 13:49 WBC (3.8-10.6) k/uL RBC (4.30-5.90) m/uL Hgb (13.0-17.5) gm/dL Hct (39.0-53.0) % Plt Count (150-450) k/uL Neutrophils # (1.3-7.7) k/uL Lymphocytes # (1.0-4.8) k/uL Retic Count 3.7 H (0.5-2.0) % Haptoglobin <10.0 L (31.2-198.0) mg/dL Fibrinogen (200-500) mg/dL D-Dimer (<0.60) mg/L FEU ABG pH (7.35-7.45) ABG pCO2 (35-45) mmHg ABG pO2 (83-108) mmHg ABG HCO3 (21-25) mmol/L ABG Total CO2 (19-24) mmol/L ABG O2 Saturation (94-97) % ABG Lactic Acid (0.5-1.6) mmol/L Sodium (137-145) mmol/L Carbon Dioxide (22-30) mmol/L BUN (9-20) mg/dL Creatinine (0.66-1.25) mg/dL Glucose (74-99) mg/dL POC Glucose (mg/dL) 150 H (70-110) mg/dL Plasma Lactic Acid George (0.7-2.0) mmol/L Calcium (8.4-10.2) mg/dL Magnesium (1.6-2.3) mg/dL Iron (65-175) UG/DL TIBC (228-460) UG/DL % Saturation (15.00-50.00) Transferrin 143.0 L (204.0-354.0) mg/dL Ferritin (22.0-322.0) ng/mL Total Bilirubin (0.2-1.3) mg/dL AST (17-59) U/L ALT (4-49) U/L Lactate Dehydrogenase (120-246) U/L Total Protein (6.3-8.2) g/dL Albumin (3.5-5.0) g/dL Crossmatch 04/03/23 04/03/23 04/03/23 Range/Units 15:52 18:59 20:18 WBC (3.8-10.6) k/uL RBC (4.30-5.90) m/uL Hgb (13.0-17.5) gm/dL Hct (39.0-53.0) % Plt Count (150-450) k/uL Neutrophils # (1.3-7.7) k/uL Lymphocytes # (1.0-4.8) k/uL Retic Count (0.5-2.0) % Haptoglobin (31.2-198.0) mg/dL Fibrinogen (200-500) mg/dL D-Dimer (<0.60) mg/L FEU ABG pH (7.35-7.45) ABG pCO2 (35-45) mmHg ABG pO2 (83-108) mmHg ABG HCO3 (21-25) mmol/L ABG Total CO2 (19-24) mmol/L ABG O2 Saturation (94-97) % ABG Lactic Acid (0.5-1.6) mmol/L Sodium (137-145) mmol/L Carbon Dioxide (22-30) mmol/L BUN (9-20) mg/dL Creatinine (0.66-1.25) mg/dL Glucose (74-99) mg/dL POC Glucose (mg/dL) 180 H 137 H 127 H (70-110) mg/dL Plasma Lactic Acid George (0.7-2.0) mmol/L Calcium (8.4-10.2) mg/dL Magnesium (1.6-2.3) mg/dL Iron (65-175) UG/DL TIBC (228-460) UG/DL % Saturation (15.00-50.00) Transferrin (204.0-354.0) mg/dL Ferritin (22.0-322.0) ng/mL Total Bilirubin (0.2-1.3) mg/dL AST (17-59) U/L ALT (4-49) U/L Lactate Dehydrogenase (120-246) U/L Total Protein (6.3-8.2) g/dL Albumin (3.5-5.0) g/dL Crossmatch 04/03/23 04/04/23 04/04/23 Range/Units 23:05 00:26 00:26 WBC 16.4 H (3.8-10.6) k/uL RBC 2.33 L (4.30-5.90) m/uL Hgb 7.3 L (13.0-17.5) gm/dL Hct 22.1 L (39.0-53.0) % Plt Count 110 L (150-450) k/uL Neutrophils # 14.3 H (1.3-7.7) k/uL Lymphocytes # (1.0-4.8) k/uL Retic Count (0.5-2.0) % Haptoglobin (31.2-198.0) mg/dL Fibrinogen (200-500) mg/dL D-Dimer (<0.60) mg/L FEU ABG pH (7.35-7.45) ABG pCO2 (35-45) mmHg ABG pO2 (83-108) mmHg ABG HCO3 (21-25) mmol/L ABG Total CO2 (19-24) mmol/L ABG O2 Saturation (94-97) % ABG Lactic Acid (0.5-1.6) mmol/L Sodium (137-145) mmol/L Carbon Dioxide 12 L (22-30) mmol/L BUN 51 H (9-20) mg/dL Creatinine 2.68 H (0.66-1.25) mg/dL Glucose 117 H (74-99) mg/dL POC Glucose (mg/dL) 157 H (70-110) mg/dL Plasma Lactic Acid George (0.7-2.0) mmol/L Calcium 7.5 L (8.4-10.2) mg/dL Magnesium (1.6-2.3) mg/dL Iron (65-175) UG/DL TIBC (228-460) UG/DL % Saturation (15.00-50.00) Transferrin (204.0-354.0) mg/dL Ferritin (22.0-322.0) ng/mL Total Bilirubin 3.6 H (0.2-1.3) mg/dL AST 411 H (17-59) U/L ALT 247 H (4-49) U/L Lactate Dehydrogenase (120-246) U/L Total Protein 4.8 L (6.3-8.2) g/dL Albumin 3.0 L (3.5-5.0) g/dL Crossmatch 04/04/23 04/04/23 04/04/23 Range/Units 00:26 00:26 00:27 WBC (3.8-10.6) k/uL RBC (4.30-5.90) m/uL Hgb (13.0-17.5) gm/dL Hct (39.0-53.0) % Plt Count (150-450) k/uL Neutrophils # (1.3-7.7) k/uL Lymphocytes # (1.0-4.8) k/uL Retic Count (0.5-2.0) % Haptoglobin (31.2-198.0) mg/dL Fibrinogen (200-500) mg/dL D-Dimer (<0.60) mg/L FEU ABG pH 6.98 L* (7.35-7.45) ABG pCO2 55 H (35-45) mmHg ABG pO2 80 L (83-108) mmHg ABG HCO3 13 L (21-25) mmol/L ABG Total CO2 15 L (19-24) mmol/L ABG O2 Saturation 86.6 L (94-97) % ABG Lactic Acid (0.5-1.6) mmol/L Sodium (137-145) mmol/L Carbon Dioxide (22-30) mmol/L BUN (9-20) mg/dL Creatinine (0.66-1.25) mg/dL Glucose (74-99) mg/dL POC Glucose (mg/dL) (70-110) mg/dL Plasma Lactic Acid George 14.5 H* (0.7-2.0) mmol/L Calcium (8.4-10.2) mg/dL Magnesium (1.6-2.3) mg/dL Iron (65-175) UG/DL TIBC (228-460) UG/DL % Saturation (15.00-50.00) Transferrin (204.0-354.0) mg/dL Ferritin (22.0-322.0) ng/mL Total Bilirubin (0.2-1.3) mg/dL AST (17-59) U/L ALT (4-49) U/L Lactate Dehydrogenase (120-246) U/L Total Protein (6.3-8.2) g/dL Albumin (3.5-5.0) g/dL Crossmatch See Detail 04/04/23 04/04/23 04/04/23 Range/Units 01:03 01:33 02:04 WBC (3.8-10.6) k/uL RBC (4.30-5.90) m/uL Hgb (13.0-17.5) gm/dL Hct (39.0-53.0) % Plt Count (150-450) k/uL Neutrophils # (1.3-7.7) k/uL Lymphocytes # (1.0-4.8) k/uL Retic Count (0.5-2.0) % Haptoglobin (31.2-198.0) mg/dL Fibrinogen (200-500) mg/dL D-Dimer (<0.60) mg/L FEU ABG pH 7.16 L* 7.21 L 7.20 L (7.35-7.45) ABG pCO2 (35-45) mmHg ABG pO2 75 L 64 L (83-108) mmHg ABG HCO3 15 L 15 L 16 L (21-25) mmol/L ABG Total CO2 16 L 16 L 17 L (19-24) mmol/L ABG O2 Saturation 91.8 L 85.8 L (94-97) % ABG Lactic Acid (0.5-1.6) mmol/L Sodium (137-145) mmol/L Carbon Dioxide (22-30) mmol/L BUN (9-20) mg/dL Creatinine (0.66-1.25) mg/dL Glucose (74-99) mg/dL POC Glucose (mg/dL) (70-110) mg/dL Plasma Lactic Acid George (0.7-2.0) mmol/L Calcium (8.4-10.2) mg/dL Magnesium (1.6-2.3) mg/dL Iron (65-175) UG/DL TIBC (228-460) UG/DL % Saturation (15.00-50.00) Transferrin (204.0-354.0) mg/dL Ferritin (22.0-322.0) ng/mL Total Bilirubin (0.2-1.3) mg/dL AST (17-59) U/L ALT (4-49) U/L Lactate Dehydrogenase (120-246) U/L Total Protein (6.3-8.2) g/dL Albumin (3.5-5.0) g/dL Crossmatch 04/04/23 04/04/23 04/04/23 Range/Units 02:35 03:07 03:09 WBC (3.8-10.6) k/uL RBC (4.30-5.90) m/uL Hgb (13.0-17.5) gm/dL Hct (39.0-53.0) % Plt Count (150-450) k/uL Neutrophils # (1.3-7.7) k/uL Lymphocytes # (1.0-4.8) k/uL Retic Count (0.5-2.0) % Haptoglobin (31.2-198.0) mg/dL Fibrinogen (200-500) mg/dL D-Dimer (<0.60) mg/L FEU ABG pH 7.17 L* 7.18 L* (7.35-7.45) ABG pCO2 (35-45) mmHg ABG pO2 60 L 67 L (83-108) mmHg ABG HCO3 16 L 17 L (21-25) mmol/L ABG Total CO2 18 L 18 L (19-24) mmol/L ABG O2 Saturation 82.8 L 88.5 L (94-97) % ABG Lactic Acid (0.5-1.6) mmol/L Sodium (137-145) mmol/L Carbon Dioxide (22-30) mmol/L BUN (9-20) mg/dL Creatinine (0.66-1.25) mg/dL Glucose (74-99) mg/dL POC Glucose (mg/dL) 178 H (70-110) mg/dL Plasma Lactic Acid George (0.7-2.0) mmol/L Calcium (8.4-10.2) mg/dL Magnesium (1.6-2.3) mg/dL Iron (65-175) UG/DL TIBC (228-460) UG/DL % Saturation (15.00-50.00) Transferrin (204.0-354.0) mg/dL Ferritin (22.0-322.0) ng/mL Total Bilirubin (0.2-1.3) mg/dL AST (17-59) U/L ALT (4-49) U/L Lactate Dehydrogenase (120-246) U/L Total Protein (6.3-8.2) g/dL Albumin (3.5-5.0) g/dL Crossmatch 04/04/23 04/04/23 04/04/23 Range/Units 03:40 04:40 05:33 WBC (3.8-10.6) k/uL RBC (4.30-5.90) m/uL Hgb (13.0-17.5) gm/dL Hct (39.0-53.0) % Plt Count (150-450) k/uL Neutrophils # (1.3-7.7) k/uL Lymphocytes # (1.0-4.8) k/uL Retic Count (0.5-2.0) % Haptoglobin (31.2-198.0) mg/dL Fibrinogen (200-500) mg/dL D-Dimer (<0.60) mg/L FEU ABG pH 7.21 L 7.26 L 7.29 L (7.35-7.45) ABG pCO2 (35-45) mmHg ABG pO2 66 L 69 L 73 L (83-108) mmHg ABG HCO3 17 L 19 L 20 L (21-25) mmol/L ABG Total CO2 (19-24) mmol/L ABG O2 Saturation 88.5 L 91.3 L 93.2 L (94-97) % ABG Lactic Acid (0.5-1.6) mmol/L Sodium (137-145) mmol/L Carbon Dioxide (22-30) mmol/L BUN (9-20) mg/dL Creatinine (0.66-1.25) mg/dL Glucose (74-99) mg/dL POC Glucose (mg/dL) (70-110) mg/dL Plasma Lactic Acid George (0.7-2.0) mmol/L Calcium (8.4-10.2) mg/dL Magnesium (1.6-2.3) mg/dL Iron (65-175) UG/DL TIBC (228-460) UG/DL % Saturation (15.00-50.00) Transferrin (204.0-354.0) mg/dL Ferritin (22.0-322.0) ng/mL Total Bilirubin (0.2-1.3) mg/dL AST (17-59) U/L ALT (4-49) U/L Lactate Dehydrogenase (120-246) U/L Total Protein (6.3-8.2) g/dL Albumin (3.5-5.0) g/dL Crossmatch 04/04/23 04/04/23 04/04/23 Range/Units 06:39 07:20 07:20 WBC 11.5 H (3.8-10.6) k/uL RBC 2.66 L (4.30-5.90) m/uL Hgb 8.1 L (13.0-17.5) gm/dL Hct 23.6 L (39.0-53.0) % Plt Count 100 L (150-450) k/uL Neutrophils # 10.3 H (1.3-7.7) k/uL Lymphocytes # 0.7 L (1.0-4.8) k/uL Retic Count (0.5-2.0) % Haptoglobin (31.2-198.0) mg/dL Fibrinogen (200-500) mg/dL D-Dimer (<0.60) mg/L FEU ABG pH 7.31 L (7.35-7.45) ABG pCO2 (35-45) mmHg ABG pO2 74 L (83-108) mmHg ABG HCO3 (21-25) mmol/L ABG Total CO2 (19-24) mmol/L ABG O2 Saturation (94-97) % ABG Lactic Acid (0.5-1.6) mmol/L Sodium 136 L (137-145) mmol/L Carbon Dioxide (22-30) mmol/L BUN 64 H (9-20) mg/dL Creatinine 3.11 H (0.66-1.25) mg/dL Glucose 198 H (74-99) mg/dL POC Glucose (mg/dL) (70-110) mg/dL Plasma Lactic Acid George (0.7-2.0) mmol/L Calcium 7.4 L (8.4-10.2) mg/dL Magnesium 2.5 H (1.6-2.3) mg/dL Iron (65-175) UG/DL TIBC (228-460) UG/DL % Saturation (15.00-50.00) Transferrin (204.0-354.0) mg/dL Ferritin (22.0-322.0) ng/mL Total Bilirubin 4.2 H (0.2-1.3) mg/dL AST 1542 H (17-59) U/L ALT 1063 H (4-49) U/L Lactate Dehydrogenase (120-246) U/L Total Protein 4.7 L (6.3-8.2) g/dL Albumin 3.0 L (3.5-5.0) g/dL Crossmatch 04/04/23 04/04/23 04/04/23 Range/Units 07:20 08:00 08:20 WBC (3.8-10.6) k/uL RBC (4.30-5.90) m/uL Hgb (13.0-17.5) gm/dL Hct (39.0-53.0) % Plt Count (150-450) k/uL Neutrophils # (1.3-7.7) k/uL Lymphocytes # (1.0-4.8) k/uL Retic Count (0.5-2.0) % Haptoglobin (31.2-198.0) mg/dL Fibrinogen (200-500) mg/dL D-Dimer (<0.60) mg/L FEU ABG pH 7.31 L (7.35-7.45) ABG pCO2 48 H (35-45) mmHg ABG pO2 (83-108) mmHg ABG HCO3 (21-25) mmol/L ABG Total CO2 25 H (19-24) mmol/L ABG O2 Saturation (94-97) % ABG Lactic Acid 5.1 H* (0.5-1.6) mmol/L Sodium (137-145) mmol/L Carbon Dioxide (22-30) mmol/L BUN (9-20) mg/dL Creatinine (0.66-1.25) mg/dL Glucose (74-99) mg/dL POC Glucose (mg/dL) 228 H (70-110) mg/dL Plasma Lactic Acid George (0.7-2.0) mmol/L Calcium (8.4-10.2) mg/dL Magnesium (1.6-2.3) mg/dL Iron (65-175) UG/DL TIBC (228-460) UG/DL % Saturation (15.00-50.00) Transferrin (204.0-354.0) mg/dL Ferritin (22.0-322.0) ng/mL Total Bilirubin (0.2-1.3) mg/dL AST (17-59) U/L ALT (4-49) U/L Lactate Dehydrogenase (120-246) U/L Total Protein (6.3-8.2) g/dL Albumin (3.5-5.0) g/dL Crossmatch 04/04/23 04/04/23 Range/Units 09:20 10:02 WBC (3.8-10.6) k/uL RBC (4.30-5.90) m/uL Hgb (13.0-17.5) gm/dL Hct (39.0-53.0) % Plt Count (150-450) k/uL Neutrophils # (1.3-7.7) k/uL Lymphocytes # (1.0-4.8) k/uL Retic Count (0.5-2.0) % Haptoglobin (31.2-198.0) mg/dL Fibrinogen (200-500) mg/dL D-Dimer (<0.60) mg/L FEU ABG pH (7.35-7.45) ABG pCO2 (35-45) mmHg ABG pO2 (83-108) mmHg ABG HCO3 (21-25) mmol/L ABG Total CO2 (19-24) mmol/L ABG O2 Saturation (94-97) % ABG Lactic Acid (0.5-1.6) mmol/L Sodium (137-145) mmol/L Carbon Dioxide (22-30) mmol/L BUN (9-20) mg/dL Creatinine (0.66-1.25) mg/dL Glucose (74-99) mg/dL POC Glucose (mg/dL) 230 H 204 H (70-110) mg/dL Plasma Lactic Acid George (0.7-2.0) mmol/L Calcium (8.4-10.2) mg/dL Magnesium (1.6-2.3) mg/dL Iron (65-175) UG/DL TIBC (228-460) UG/DL % Saturation (15.00-50.00) Transferrin (204.0-354.0) mg/dL Ferritin (22.0-322.0) ng/mL Total Bilirubin (0.2-1.3) mg/dL AST (17-59) U/L ALT (4-49) U/L Lactate Dehydrogenase (120-246) U/L Total Protein (6.3-8.2) g/dL Albumin (3.5-5.0) g/dL Crossmatch
--- NOTE | 2023-04-04 11:25 | P.GSCN ---
History of Present Illness Consult date: 04/04/23 Reason for Consult: Acute renal failure requiring hemodialysis Requesting physician: Sukumar Forrest History of present illness: This is a 58-year-old male who came in for a scheduled mitral valve repair on 04/01/2023 for severe mitral regurgitation and addition to new onset atrial fibrillation. Also has a past medical history including sleep apnea with use of CPAP and possible bleeding disorder. He is postop day #3 for complex mitral valve repair. The patient was admitted to the ICU following mitral valve repa ir. Chest tube present. Apparently yesterday evening the patient was hypoxic and then went into cardiac arrest underwent CPR receiving ACLS with a reported estimated downtime of approximately 14 minutes. He was intubated. Patient remains sedated and intubated. Family is present in the room. Following cardiac arrest patient went into acute kidney injury and nephrology was consulted. They are requesting temporary hemodialysis catheter to be placed. Review of Systems ROS unobtainable: due to endotracheal tube Past Medical History Past Medical History: Blood Disorder, Osteoarthritis (OA), Sleep Apnea/CPAP/BIPA P Additional Past Medical History / Comment(s): uses C-PAP, probable VON [place] DISEASE-never tested but does bleed more than normal when having surgery w/incision, recent adm. for new onset a-fib, SOB w/exertion, found to have mitral valve problem History of Any Multi-Drug Resistant Organisms: None Reported Past Surgical History: Orthopedic Surgery, Tonsillectomy Additional Past Surgical History / Comment(s): NASAL SURGERY , RIGHT KNEE ACL ARTHROSCOPIC, shoulder surgery Past Anesthesia/Blood Transfusion Reactions: Previous Problems w/ Anesthesia, Motion Sickness Additional Past Anesthesia/Blood Transfusion Reaction / Comm: VON [place]BRAND DISEASE- INCREASED BLEEDING WITH PREVIOUS SURGERIES Past Alcohol Use History: None Reported - Past Family History Daughter(s) Family Medical History: Deep Vein Thrombosis (DVT) Additional Family Medical History / Comment(s): Effort Induced 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 @ [employer] Son(s) Additional Family Medical History / Comment(s): hemangioma side of neck Mother Family Medical History: Cancer Medications and Allergies Home Medications Medication Instructions Recorded Confirmed Type Aspirin 81 mg PO DAILY 30 Days #30 tab 02/02/23 04/01/23 Rx Atorvastatin [Lipitor] 20 mg PO DAILY 30 Days #30 tablet 02/02/23 03/28/23 Rx Metoprolol Tartrate [Lopressor] 25 mg PO BID 30 Days #60 tab 02/02/23 03/28/23 Rx Allergies Allergy/AdvReac Type Severity Reaction Status Date / Time No Known Allergies Allergy Verified 03/28/23 11:00 Surgical - Exam Vital Signs Temp Pulse Resp BP Pulse Ox 97.5 F L 68 16 122/74 99 04/01/23 06:03 04/01/23 06:03 04/01/23 06:03 04/01/23 06:03 04/01/23 06:03 General appearance: The patient is on mechanical ventilation. HET: Head is normocephalic and atraumatic. Pupils are equal and reactive. Neck: Supple. Heart: Regular. Lungs: On mechanical ventilation. Chest tube present. Abdomen: Soft, nontender, nondistended. Extremities: Normal skin color and turgor. Neurological: On mechanical ventilation. Results - Labs 04/04/23 07:20 04/04/23 07:20 Abnormal Lab Results - Last 24 Hours (Table) 04/03/23 04/03/23 04/03/23 Range/Units 11:30 13:30 13:30 WBC (3.8-10.6) k/uL RBC (4.30-5.90) m/uL Hgb (13.0-17.5) gm/dL Hct (39.0-53.0) % Plt Count (150-450) k/uL Neutrophils # (1.3-7.7) k/uL Lymphocytes # (1.0-4.8) k/uL Retic Count (0.5-2.0) % Haptoglobin (31.2-198.0) mg/dL Fibrinogen 543 H (200-500) mg/dL D-Dimer 1.08 H (<0.60) mg/L FEU ABG pH (7.35-7.45) ABG pCO2 (35-45) mmHg ABG pO2 (83-108) mmHg ABG HCO3 (21-25) mmol/L ABG Total CO2 (19-24) mmol/L ABG O2 Saturation (94-97) % ABG Lactic Acid (0.5-1.6) mmol/L Sodium (137-145) mmol/L Carbon Dioxide (22-30) mmol/L BUN (9-20) mg/dL Creatinine (0.66-1.25) mg/dL Glucose (74-99) mg/dL POC Glucose (mg/dL) 146 H (70-110) mg/dL Plasma Lactic Acid George (0.7-2.0) mmol/L Calcium (8.4-10.2) mg/dL Magnesium (1.6-2.3) mg/dL Iron 19 L (65-175) UG/DL TIBC 197 L (228-460) UG/DL % Saturation 9.64 L (15.00-50.00) Transferrin 141.0 L (204.0-354.0) mg/dL Ferritin 560.0 H (22.0-322.0) ng/mL Total Bilirubin (0.2-1.3) mg/dL AST (17-59) U/L ALT (4-49) U/L Lactate Dehydrogenase 552 H (120-246) U/L Total Protein (6.3-8.2) g/dL Albumin (3.5-5.0) g/dL Crossmatch 04/03/23 04/03/23 04/03/23 Range/Units 13:30 13:30 13:49 WBC (3.8-10.6) k/uL RBC (4.30-5.90) m/uL Hgb (13.0-17.5) gm/dL Hct (39.0-53.0) % Plt Count (150-450) k/uL Neutrophils # (1.3-7.7) k/uL Lymphocytes # (1.0-4.8) k/uL Retic Count 3.7 H (0.5-2.0) % Haptoglobin <10.0 L (31.2-198.0) mg/dL Fibrinogen (200-500) mg/dL D-Dimer (<0.60) mg/L FEU ABG pH (7.35-7.45) ABG pCO2 (35-45) mmHg ABG pO2 (83-108) mmHg ABG HCO3 (21-25) mmol/L ABG Total CO2 (19-24) mmol/L ABG O2 Saturation (94-97) % ABG Lactic Acid (0.5-1.6) mmol/L Sodium (137-145) mmol/L Carbon Dioxide (22-30) mmol/L BUN (9-20) mg/dL Creatinine (0.66-1.25) mg/dL Glucose (74-99) mg/dL POC Glucose (mg/dL) 150 H (70-110) mg/dL Plasma Lactic Acid George (0.7-2.0) mmol/L Calcium (8.4-10.2) mg/dL Magnesium (1.6-2.3) mg/dL Iron (65-175) UG/DL TIBC (228-460) UG/DL % Saturation (15.00-50.00) Transferrin 143.0 L (204.0-354.0) mg/dL Ferritin (22.0-322.0) ng/mL Total Bilirubin (0.2-1.3) mg/dL AST (17-59) U/L ALT (4-49) U/L Lactate Dehydrogenase (120-246) U/L Total Protein (6.3-8.2) g/dL Albumin (3.5-5.0) g/dL Crossmatch 04/03/23 04/03/23 04/03/23 Range/Units 15:52 18:59 20:18 WBC (3.8-10.6) k/uL RBC (4.30-5.90) m/uL Hgb (13.0-17.5) gm/dL Hct (39.0-53.0) % Plt Count (150-450) k/uL Neutrophils # (1.3-7.7) k/uL Lymphocytes # (1.0-4.8) k/uL Retic Count (0.5-2.0) % Haptoglobin (31.2-198.0) mg/dL Fibrinogen (200-500) mg/dL D-Dimer (<0.60) mg/L FEU ABG pH (7.35-7.45) ABG pCO2 (35-45) mmHg ABG pO2 (83-108) mmHg ABG HCO3 (21-25) mmol/L ABG Total CO2 (19-24) mmol/L ABG O2 Saturation (94-97) % ABG Lactic Acid (0.5-1.6) mmol/L Sodium (137-145) mmol/L Carbon Dioxide (22-30) mmol/L BUN (9-20) mg/dL Creatinine (0.66-1.25) mg/dL Glucose (74-99) mg/dL POC Glucose (mg/dL) 180 H 137 H 127 H (70-110) mg/dL Plasma Lactic Acid George (0.7-2.0) mmol/L Calcium (8.4-10.2) mg/dL Magnesium (1.6-2.3) mg/dL Iron (65-175) UG/DL TIBC (228-460) UG/DL % Saturation (15.00-50.00) Transferrin (204.0-354.0) mg/dL Ferritin (22.0-322.0) ng/mL Total Bilirubin (0.2-1.3) mg/dL AST (17-59) U/L ALT (4-49) U/L Lactate Dehydrogenase (120-246) U/L Total Protein (6.3-8.2) g/dL Albumin (3.5-5.0) g/dL Crossmatch 04/03/23 04/04/23 04/04/23 Range/Units 23:05 00:26 00:26 WBC 16.4 H (3.8-10.6) k/uL RBC 2.33 L (4.30-5.90) m/uL Hgb 7.3 L (13.0-17.5) gm/dL Hct 22.1 L (39.0-53.0) % Plt Count 110 L (150-450) k/uL Neutrophils # 14.3 H (1.3-7.7) k/uL Lymphocytes # (1.0-4.8) k/uL Retic Count (0.5-2.0) % Haptoglobin (31.2-198.0) mg/dL Fibrinogen (200-500) mg/dL D-Dimer (<0.60) mg/L FEU ABG pH (7.35-7.45) ABG pCO2 (35-45) mmHg ABG pO2 (83-108) mmHg ABG HCO3 (21-25) mmol/L ABG Total CO2 (19-24) mmol/L ABG O2 Saturation (94-97) % ABG Lactic Acid (0.5-1.6) mmol/L Sodium (137-145) mmol/L Carbon Dioxide 12 L (22-30) mmol/L BUN 51 H (9-20) mg/dL Creatinine 2.68 H (0.66-1.25) mg/dL Glucose 117 H (74-99) mg/dL POC Glucose (mg/dL) 157 H (70-110) mg/dL Plasma Lactic Acid George (0.7-2.0) mmol/L Calcium 7.5 L (8.4-10.2) mg/dL Magnesium (1.6-2.3) mg/dL Iron (65-175) UG/DL TIBC (228-460) UG/DL % Saturation (15.00-50.00) Transferrin (204.0-354.0) mg/dL Ferritin (22.0-322.0) ng/mL Total Bilirubin 3.6 H (0.2-1.3) mg/dL AST 411 H (17-59) U/L ALT 247 H (4-49) U/L Lactate Dehydrogenase (120-246) U/L Total Protein 4.8 L (6.3-8.2) g/dL Albumin 3.0 L (3.5-5.0) g/dL Crossmatch 04/04/23 04/04/23 04/04/23 Range/Units 00:26 00:26 00:27 WBC (3.8-10.6) k/uL RBC (4.30-5.90) m/uL Hgb (13.0-17.5) gm/dL Hct (39.0-53.0) % Plt Count (150-450) k/uL Neutrophils # (1.3-7.7) k/uL Lymphocytes # (1.0-4.8) k/uL Retic Count (0.5-2.0) % Haptoglobin (31.2-198.0) mg/dL Fibrinogen (200-500) mg/dL D-Dimer (<0.60) mg/L FEU ABG pH 6.98 L* (7.35-7.45) ABG pCO2 55 H (35-45) mmHg ABG pO2 80 L (83-108) mmHg ABG HCO3 13 L (21-25) mmol/L ABG Total CO2 15 L (19-24) mmol/L ABG O2 Saturation 86.6 L (94-97) % ABG Lactic Acid (0.5-1.6) mmol/L Sodium (137-145) mmol/L Carbon Dioxide (22-30) mmol/L BUN (9-20) mg/dL Creatinine (0.66-1.25) mg/dL Glucose (74-99) mg/dL POC Glucose (mg/dL) (70-110) mg/dL Plasma Lactic Acid George 14.5 H* (0.7-2.0) mmol/L Calcium (8.4-10.2) mg/dL Magnesium (1.6-2.3) mg/dL Iron (65-175) UG/DL TIBC (228-460) UG/DL % Saturation (15.00-50.00) Transferrin (204.0-354.0) mg/dL Ferritin (22.0-322.0) ng/mL Total Bilirubin (0.2-1.3) mg/dL AST (17-59) U/L ALT (4-49) U/L Lactate Dehydrogenase (120-246) U/L Total Protein (6.3-8.2) g/dL Albumin (3.5-5.0) g/dL Crossmatch See Detail 04/04/23 04/04/23 04/04/23 Range/Units 01:03 01:33 02:04 WBC (3.8-10.6) k/uL RBC (4.30-5.90) m/uL Hgb (13.0-17.5) gm/dL Hct (39.0-53.0) % Plt Count (150-450) k/uL Neutrophils # (1.3-7.7) k/uL Lymphocytes # (1.0-4.8) k/uL Retic Count (0.5-2.0) % Haptoglobin (31.2-198.0) mg/dL Fibrinogen (200-500) mg/dL D-Dimer (<0.60) mg/L FEU ABG pH 7.16 L* 7.21 L 7.20 L (7.35-7.45) ABG pCO2 (35-45) mmHg ABG pO2 75 L 64 L (83-108) mmHg ABG HCO3 15 L 15 L 16 L (21-25) mmol/L ABG Total CO2 16 L 16 L 17 L (19-24) mmol/L ABG O2 Saturation 91.8 L 85.8 L (94-97) % ABG Lactic Acid (0.5-1.6) mmol/L Sodium (137-145) mmol/L Carbon Dioxide (22-30) mmol/L BUN (9-20) mg/dL Creatinine (0.66-1.25) mg/dL Glucose (74-99) mg/dL POC Glucose (mg/dL) (70-110) mg/dL Plasma Lactic Acid George (0.7-2.0) mmol/L Calcium (8.4-10.2) mg/dL Magnesium (1.6-2.3) mg/dL Iron (65-175) UG/DL TIBC (228-460) UG/DL % Saturation (15.00-50.00) Transferrin (204.0-354.0) mg/dL Ferritin (22.0-322.0) ng/mL Total Bilirubin (0.2-1.3) mg/dL AST (17-59) U/L ALT (4-49) U/L Lactate Dehydrogenase (120-246) U/L Total Protein (6.3-8.2) g/dL Albumin (3.5-5.0) g/dL Crossmatch 04/04/23 04/04/23 04/04/23 Range/Units 02:35 03:07 03:09 WBC (3.8-10.6) k/uL RBC (4.30-5.90) m/uL Hgb (13.0-17.5) gm/dL Hct (39.0-53.0) % Plt Count (150-450) k/uL Neutrophils # (1.3-7.7) k/uL Lymphocytes # (1.0-4.8) k/uL Retic Count (0.5-2.0) % Haptoglobin (31.2-198.0) mg/dL Fibrinogen (200-500) mg/dL D-Dimer (<0.60) mg/L FEU ABG pH 7.17 L* 7.18 L* (7.35-7.45) ABG pCO2 (35-45) mmHg ABG pO2 60 L 67 L (83-108) mmHg ABG HCO3 16 L 17 L (21-25) mmol/L ABG Total CO2 18 L 18 L (19-24) mmol/L ABG O2 Saturation 82.8 L 88.5 L (94-97) % ABG Lactic Acid (0.5-1.6) mmol/L Sodium (137-145) mmol/L Carbon Dioxide (22-30) mmol/L BUN (9-20) mg/dL Creatinine (0.66-1.25) mg/dL Glucose (74-99) mg/dL POC Glucose (mg/dL) 178 H (70-110) mg/dL Plasma Lactic Acid George (0.7-2.0) mmol/L Calcium (8.4-10.2) mg/dL Magnesium (1.6-2.3) mg/dL Iron (65-175) UG/DL TIBC (228-460) UG/DL % Saturation (15.00-50.00) Transferrin (204.0-354.0) mg/dL Ferritin (22.0-322.0) ng/mL Total Bilirubin (0.2-1.3) mg/dL AST (17-59) U/L ALT (4-49) U/L Lactate Dehydrogenase (120-246) U/L Total Protein (6.3-8.2) g/dL Albumin (3.5-5.0) g/dL Crossmatch 04/04/23 04/04/23 04/04/23 Range/Units 03:40 04:40 05:33 WBC (3.8-10.6) k/uL RBC (4.30-5.90) m/uL Hgb (13.0-17.5) gm/dL Hct (39.0-53.0) % Plt Count (150-450) k/uL Neutrophils # (1.3-7.7) k/uL Lymphocytes # (1.0-4.8) k/uL Retic Count (0.5-2.0) % Haptoglobin (31.2-198.0) mg/dL Fibrinogen (200-500) mg/dL D-Dimer (<0.60) mg/L FEU ABG pH 7.21 L 7.26 L 7.29 L (7.35-7.45) ABG pCO2 (35-45) mmHg ABG pO2 66 L 69 L 73 L (83-108) mmHg ABG HCO3 17 L 19 L 20 L (21-25) mmol/L ABG Total CO2 (19-24) mmol/L ABG O2 Saturation 88.5 L 91.3 L 93.2 L (94-97) % ABG Lactic Acid (0.5-1.6) mmol/L Sodium (137-145) mmol/L Carbon Dioxide (22-30) mmol/L BUN (9-20) mg/dL Creatinine (0.66-1.25) mg/dL Glucose (74-99) mg/dL POC Glucose (mg/dL) (70-110) mg/dL Plasma Lactic Acid George (0.7-2.0) mmol/L Calcium (8.4-10.2) mg/dL Magnesium (1.6-2.3) mg/dL Iron (65-175) UG/DL TIBC (228-460) UG/DL % Saturation (15.00-50.00) Transferrin (204.0-354.0) mg/dL Ferritin (22.0-322.0) ng/mL Total Bilirubin (0.2-1.3) mg/dL AST (17-59) U/L ALT (4-49) U/L Lactate Dehydrogenase (120-246) U/L Total Protein (6.3-8.2) g/dL Albumin (3.5-5.0) g/dL Crossmatch 04/04/23 04/04/23 04/04/23 Range/Units 06:39 07:20 07:20 WBC 11.5 H (3.8-10.6) k/uL RBC 2.66 L (4.30-5.90) m/uL Hgb 8.1 L (13.0-17.5) gm/dL Hct 23.6 L (39.0-53.0) % Plt Count 100 L (150-450) k/uL Neutrophils # 10.3 H (1.3-7.7) k/uL Lymphocytes # 0.7 L (1.0-4.8) k/uL Retic Count (0.5-2.0) % Haptoglobin (31.2-198.0) mg/dL Fibrinogen (200-500) mg/dL D-Dimer (<0.60) mg/L FEU ABG pH 7.31 L (7.35-7.45) ABG pCO2 (35-45) mmHg ABG pO2 74 L (83-108) mmHg ABG HCO3 (21-25) mmol/L ABG Total CO2 (19-24) mmol/L ABG O2 Saturation (94-97) % ABG Lactic Acid (0.5-1.6) mmol/L Sodium 136 L (137-145) mmol/L Carbon Dioxide (22-30) mmol/L BUN 64 H (9-20) mg/dL Creatinine 3.11 H (0.66-1.25) mg/dL Glucose 198 H (74-99) mg/dL POC Glucose (mg/dL) (70-110) mg/dL Plasma Lactic Acid George (0.7-2.0) mmol/L Calcium 7.4 L (8.4-10.2) mg/dL Magnesium 2.5 H (1.6-2.3) mg/dL Iron (65-175) UG/DL TIBC (228-460) UG/DL % Saturation (15.00-50.00) Transferrin (204.0-354.0) mg/dL Ferritin (22.0-322.0) ng/mL Total Bilirubin 4.2 H (0.2-1.3) mg/dL AST 1542 H (17-59) U/L ALT 1063 H (4-49) U/L Lactate Dehydrogenase (120-246) U/L Total Protein 4.7 L (6.3-8.2) g/dL Albumin 3.0 L (3.5-5.0) g/dL Crossmatch 04/04/23 04/04/23 04/04/23 Range/Units 07:20 08:00 08:20 WBC (3.8-10.6) k/uL RBC (4.30-5.90) m/uL Hgb (13.0-17.5) gm/dL Hct (39.0-53.0) % Plt Count (150-450) k/uL Neutrophils # (1.3-7.7) k/uL Lymphocytes # (1.0-4.8) k/uL Retic Count (0.5-2.0) % Haptoglobin (31.2-198.0) mg/dL Fibrinogen (200-500) mg/dL D-Dimer (<0.60) mg/L FEU ABG pH 7.31 L (7.35-7.45) ABG pCO2 48 H (35-45) mmHg ABG pO2 (83-108) mmHg ABG HCO3 (21-25) mmol/L ABG Total CO2 25 H (19-24) mmol/L ABG O2 Saturation (94-97) % ABG Lactic Acid 5.1 H* (0.5-1.6) mmol/L Sodium (137-145) mmol/L Carbon Dioxide (22-30) mmol/L BUN (9-20) mg/dL Creatinine (0.66-1.25) mg/dL Glucose (74-99) mg/dL POC Glucose (mg/dL) 228 H (70-110) mg/dL Plasma Lactic Acid George (0.7-2.0) mmol/L Calcium (8.4-10.2) mg/dL Magnesium (1.6-2.3) mg/dL Iron (65-175) UG/DL TIBC (228-460) UG/DL % Saturation (15.00-50.00) Transferrin (204.0-354.0) mg/dL Ferritin (22.0-322.0) ng/mL Total Bilirubin (0.2-1.3) mg/dL AST (17-59) U/L ALT (4-49) U/L Lactate Dehydrogenase (120-246) U/L Total Protein (6.3-8.2) g/dL Albumin (3.5-5.0) g/dL Crossmatch 04/04/23 04/04/23 Range/Units 09:20 10:02 WBC (3.8-10.6) k/uL RBC (4.30-5.90) m/uL Hgb (13.0-17.5) gm/dL Hct (39.0-53.0) % Plt Count (150-450) k/uL Neutrophils # (1.3-7.7) k/uL Lymphocytes # (1.0-4.8) k/uL Retic Count (0.5-2.0) % Haptoglobin (31.2-198.0) mg/dL Fibrinogen (200-500) mg/dL D-Dimer (<0.60) mg/L FEU ABG pH (7.35-7.45) ABG pCO2 (35-45) mmHg ABG pO2 (83-108) mmHg ABG HCO3 (21-25) mmol/L ABG Total CO2 (19-24) mmol/L ABG O2 Saturation (94-97) % ABG Lactic Acid (0.5-1.6) mmol/L Sodium (137-145) mmol/L Carbon Dioxide (22-30) mmol/L BUN (9-20) mg/dL Creatinine (0.66-1.25) mg/dL Glucose (74-99) mg/dL POC Glucose (mg/dL) 230 H 204 H (70-110) mg/dL Plasma Lactic Acid George (0.7-2.0) mmol/L Calcium (8.4-10.2) mg/dL Magnesium (1.6-2.3) mg/dL Iron (65-175) UG/DL TIBC (228-460) UG/DL % Saturation (15.00-50.00) Transferrin (204.0-354.0) mg/dL Ferritin (22.0-322.0) ng/mL Total Bilirubin (0.2-1.3) mg/dL AST (17-59) U/L ALT (4-49) U/L Lactate Dehydrogenase (120-246) U/L Total Protein (6.3-8.2) g/dL Albumin (3.5-5.0) g/dL Crossmatch Diabetes panel 04/04/23 04/04/23 Range/Units 00:26 07:20 Sodium 140 136 L (137-145) mmol/L Potassium 4.3 4.2 (3.5-5.1) mmol/L Chloride 104 100 (98-107) mmol/L Carbon Dioxide 12 L 23 (22-30) mmol/L BUN 51 H 64 H (9-20) mg/dL Creatinine 2.68 H 3.11 H (0.66-1.25) mg/dL Glucose 117 H 198 H (74-99) mg/dL Calcium 7.5 L 7.4 L (8.4-10.2) mg/dL AST 411 H 1542 H (17-59) U/L ALT 247 H 1063 H (4-49) U/L Alkaline Phosphatase 38 50 (38-126) U/L Total Protein 4.8 L 4.7 L (6.3-8.2) g/dL Albumin 3.0 L 3.0 L (3.5-5.0) g/dL Calcium panel 04/04/23 04/04/23 Range/Units 00:26 07:20 Calcium 7.5 L 7.4 L (8.4-10.2) mg/dL Albumin 3.0 L 3.0 L (3.5-5.0) g/dL Pituitary panel 04/04/23 04/04/23 Range/Units 00:26 07:20 Sodium 140 136 L (137-145) mmol/L Potassium 4.3 4.2 (3.5-5.1) mmol/L Chloride 104 100 (98-107) mmol/L Carbon Dioxide 12 L 23 (22-30) mmol/L BUN 51 H 64 H (9-20) mg/dL Creatinine 2.68 H 3.11 H (0.66-1.25) mg/dL Glucose 117 H 198 H (74-99) mg/dL Calcium 7.5 L 7.4 L (8.4-10.2) mg/dL Adrenal panel 04/04/23 04/04/23 Range/Units 00:26 07:20 Sodium 140 136 L (137-145) mmol/L Potassium 4.3 4.2 (3.5-5.1) mmol/L Chloride 104 100 (98-107) mmol/L Carbon Dioxide 12 L 23 (22-30) mmol/L BUN 51 H 64 H (9-20) mg/dL Creatinine 2.68 H 3.11 H (0.66-1.25) mg/dL Glucose 117 H 198 H (74-99) mg/dL Calcium 7.5 L 7.4 L (8.4-10.2) mg/dL Total Bilirubin 3.6 H 4.2 H (0.2-1.3) mg/dL AST 411 H 1542 H (17-59) U/L ALT 247 H 1063 H (4-49) U/L Alkaline Phosphatase 38 50 (38-126) U/L Total Protein 4.8 L 4.7 L (6.3-8.2) g/dL Albumin 3.0 L 3.0 L (3.5-5.0) g/dL Assessment and Plan Assessment: 1. Acute kidney injury requiring hemodialysis 2. Acute hypoxic respiratory failure requiring intubation 3. PEA cardiac arrest status post ACLS protocol 4. Postop day #3 of mitral valve repair for severe symptomatic mitral regurg itation and new onset atrial fibrillation 5. Obstructive sleep apnea with home CPAP use 6. Lactic acidosis 7. Acute hepatitis secondary from hypoperfusion Plan: We'll plan for temporary dialysis catheter placement today. Continue with hemodialysis per recommendations from nephrology. Thank you for this consultation, we will continue to follow. The impression and plan of care has been dictated as directed. I performed a history and examination of this patient, discussed the same with the dictator. I agree with the dictator's note ,documented as a scribe. Any additional findings or plans will be noted.
[2023-04-04 12:02] LABS: Glucose,Whole Blood 161 mg/dL (70-110)
--- NOTE | 2023-04-04 13:00 | EEG ---
DATE OF SERVICE: 04/04/2023 ELECTROENCEPHALOGRAM REPORT PREAMBLE: This is a 58-year-old male with possible seizure. Patient is comatose. EEG FINDINGS: This is a 21-channel digital EEG recorded with video component, utilizing 10/20 international system with referential and bipolar montages. Background consists of mainly isoelectric pattern, with sporadic bursts of high amplitude spike or poly spikes and slow wave was seen for about 1 to 2 seconds. During these bursts of epileptiform activity, no motor activity was noted clinically on the video section. Photic stimulation was not performed. Different stages of sleep were not seen. IMPRESSION: This is a severely abnormal EEG due to mainly predominant isoelectric pattern, with sporadic bursts of high-amplitude generalized spike or polyspike and slow wave, lasting for about 1 to 2 seconds. During these bursts, no motor activity was seen. This pattern of EEG can be seen mainly with anoxic encephalopathy and usually pertains poor prognosis. The presence of high amplitude bursts of generalized sharp waves suggest underlying cortical irritability and tendency for seizures. Followup EEG recommended or preferable a prolonged/continuous EEG monitoring recommended. MMQI / HERNÁNN: [id number] / BRIAN
[2023-04-04 13:05] LABS: Glucose,Whole Blood 151 mg/dL (70-110)
--- NOTE | 2023-04-04 13:20 | US ---
EXAMINATION TYPE: US kidneys/renal and bladder DATE OF EXAM: 04/04/2023 COMPARISON: NONE CLINICAL INDICATION: Male, 58 years old with history of jihan; JIHAN EXAM MEASUREMENTS: Right Kidney: 10.9x5.7x5.9 cm Left Kidney: 13.9x6.6x5.6 cm Right Kidney: 2.0x1.8x2.0cm . This may be a medullary cyst within the mid to inferior pole right ki dney. Left Kidney: anechoic area noted: 3.1x2.3x2.9cm. This may be a lateral mid left renal cyst. Bladder: patient on catheter, difficult to visualize Bilateral Jets seen: No There is no evidence for hydronephrosis at this point in time. No nephrolithiasis is seen. exam limited by bowel, body habitus, edema. Patient is intubated IMPRESSION: 1. Bilateral renal cysts discussed above.
[2023-04-04 14:02] VITALS: PULSE 84
--- NOTE | 2023-04-04 14:08 | P.CNNES ---
History of Present Illness Consult date: 04/04/23 Requesting physician: Leo Abrams Reason for Consult: ?Anoxic injury History of Present Illness: Patient is a 58-year-old male came to the hospital for mitral valve repair surgery that was done on 04/01/2023. Patient had severe mitral regurgitation, symptomatic and paroxysmal atrial fibrillation. His GRGE confirmed severe MR with a PFO and left atrial appendage was free of any clot in the left and ejection fraction was 60%. Patient was recovering well from the surgery. Yesterday patient was reported as awake and alert and sitting up on the chair. He has mediastinal chest tubes. Patient has AVN epicardial pacemaker wires. It was reported the patient was awake and communicating with the nursing staff and he was not having any significant issues. At around 11 PM his urine output tapered further. Subsequently he became acutely hypoxic, initially placed on 5 L oxygen by nasal cannula and later on 15 later and subsequently he was placed on a nonrebreather and within a very short. Time he became profoundly hypoxic and he went into A. fib PEA rhythm at around 11 PM last night. The downtime was approximately 15 minutes. Patient was intubated and placed on a mechanical ventilator. Chest x-ray showed acute pulmonary edema, acute kidney injury and blood gases showed severe acidosis with pH of 6.98 and pCO2 of 55 and pO2 of 80. Overnight he was having some myoclonic jerks. The nursing staff contacted me. He was given a full loading dose of Keppra 1500 mg IV PB. Patient was started on propofol and Ativan 1 mg when necessary seizure-like activity was recommended. Stat EEG was recommended. Patient's blood test shows WBC 11.5-2 been 8.1, platelets 100. INR is 1.2 on 04/01/2023. D-dimer 1.08. ABG with pH 7.31, pCO2 48, pO2 85 and saturation 96%. Lactate 5.1. Sodium 136 potassium 4.2, BUN 64, creatinine 3.11. This is acute renal failure. Hemoglobin A1c 5.7, liver enzymes are highly elevated. Troponin is negative on 02/01/2023. Cholesterol 153, LDL 60, HDL 45 and triglycerides 234. TSH is normal, UA negative, urine drug screen negative, hepatitis panel negative. 2-D echo revealed mildly reduced global left ventricle systolic function with LV EF 40-45%. Paradoxical septal motion consistent with post surgical state. Status post mitral valve repair with no stenosis. Mild to moderate regurgitation. Increased turbulence in LVOT with no obvious obstruction. Very small pericardial effusion. Moderate TR. Chest x-ray shows persistent bilateral pulmonary infiltrates. Bilateral pleural effusion. Larger on the right. No pneumothorax. Per family report, patient has never smoked, does not drink alcohol. He is otherwise healthy. Patient's multiple family members were present today including his , and both parents. Review of Systems As per report from patient's regarding his symptoms prior to cardiac arrest. Constitutional: Denies chills, Denies fever Eyes: denies blurred vision, denies diplopia, denies pain Ears: deny: decreased hearing, ear discharge Ears, nose, mouth and throat: Denies headache, Denies sore throat Cardiovascular: Reports chest pain, Reports shortness of breath Respiratory: Denies cough, Denies excessive sputum Gastrointestinal: Denies abdominal pain, Denies diarrhea, Denies nausea, Denies vomiting Genitourinary: Denies incontinence, Denies nocturia Musculoskeletal: Reports low back pain, Denies neck pain Integumentary: Denies pruritus, Denies rash Neurological: Reports as per HPI Psychiatric: Denies anxiety, Denies depression Endocrine: Reports fatigue, Denies weight change Hematologic/Lymphatic: Reports easy bleeding, Denies easy bruising Past Medical History Past Medical History: Blood Disorder, Osteoarthritis (OA), Sleep Apnea/CPAP/BIPAP Additional Past Medical History / Comment(s): uses C-PAP, 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 for new onset a-fib, SOB w/exertion, found to [place]son ve mitral valve problem History of Any Multi-Drug Resistant Organisms: None Reported Past Surgical History: Orthopedic Surgery, Tonsillectomy Additional Past Surgical History / Comment(s): NASAL SURGERY , RIGHT KNEE ACL ARTHROSCOPIC, shoulder surgery Past Anesthesia/Blood Transfusion Reactions: Previous Problems w/ Anesthesia, Motion Sickness Additional Past Anesthesia/Blood Transfusion Reaction / Comment(s): VON WILLEBRAND DISEASE- INCREASED BLEEDING WITH PREVIOUS SURGERIES Past Alcohol Use History: None Reported - Past Family History Daughter(s) Family Medical History: Deep Vein Thrombosis (DVT) Additional Family Medical History / Comment(s): Effort Induced 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-tx @ [employer] Son(s) Additional Family Medical History / Comment(s): hemangioma side of neck Mother Family Medical History: Cancer Medications and Allergies Home Medications Medication Instructions Recorded Confirmed Type Aspirin 81 mg PO DAILY 30 Days #30 tab 02/02/23 04/01/23 Rx Atorvastatin [Lipitor] 20 mg PO DAILY 30 Days #30 tablet 02/02/23 03/28/23 Rx Metoprolol Tartrate [Lopressor] 25 mg PO BID 30 Days #60 tab 02/02/23 03/28/23 Rx Allergies Allergy/AdvReac Type Severity Reaction Status Date / Time No Known Allergies Allergy Verified 03/28/23 11:00 Physical Examination - Vital Signs Vital Signs: Vital Signs Temp Pulse Resp BP Pulse Ox FiO2 04/04/23 12:00 98.2 F 78 27 H 105/63 93 L 100 04/04/23 11:45 84 26 H 93 L 04/04/23 11:30 84 26 H 118/72 93 L 04/04/23 11:15 84 26 H 93 L 04/04/23 11:00 84 29 H 90/70 93 L 04/04/23 10:54 100 04/04/23 10:45 84 26 H 95 04/04/23 10:30 84 26 H 105/64 95 04/04/23 10:15 84 28 H 94 L 04/04/23 10:00 84 26 H 94/61 95 04/04/23 09:45 84 26 H 94 L 04/04/23 09:30 84 26 H 108/64 04/04/23 09:15 84 26 H 94 L 04/04/23 09:00 84 26 H 97/61 04/04/23 08:45 84 26 H 94 L 04/04/23 08:30 84 26 H 96/67 04/04/23 08:16 84 04/04/23 08:15 84 26 H 92 L 04/04/23 08:05 84 04/04/23 08:00 98.5 F 84 26 H 99/62 93 L 100 04/04/23 07:45 84 23 93 L 04/04/23 07:33 100 04/04/23 07:30 84 26 H 91 L 04/04/23 07:15 84 26 H 92/62 92 L 04/04/23 07:00 84 26 H 92/59 92 L 04/04/23 06:45 84 26 H 92/59 92 L 04/04/23 06:30 98.5 F 84 26 H 98/63 93 L 04/04/23 06:15 84 26 H 96/60 92 L 04/04/23 06:00 84 26 H 94/58 94 L 04/04/23 05:45 84 26 H 85/62 95 04/04/23 05:30 84 26 H 91/58 96 04/04/23 05:15 84 26 H 91/62 94 L 04/04/23 05:00 84 26 H 89/61 94 L 04/04/23 04:45 97.8 F 84 26 H 85/61 94 L 04/04/23 04:30 84 26 H 89/58 90 L 04/04/23 04:25 97.6 F 84 26 H 83/50 91 L 04/04/23 04:16 98.0 F 84 26 H 83/51 91 L 04/04/23 04:15 84 26 H 84/59 90 L 04/04/23 04:11 98.0 F 84 26 H 84/51 90 L 04/04/23 04:00 84 26 H 88/58 91 L 100 04/04/23 03:48 96.8 F L 84 26 H 79/51 90 L 04/04/23 03:45 84 26 H 88/62 89 L 04/04/23 03:30 84 26 H 90/58 89 L 04/04/23 03:15 84 26 H 92/59 86 L 04/04/23 03:14 100 04/04/23 03:00 84 26 H 97/60 86 L 04/04/23 02:45 84 27 H 103/52 84 L 04/04/23 02:44 100 04/04/23 02:34 100 04/04/23 02:31 100 04/04/23 02:30 84 28 H 93/63 88 L 04/04/23 02:22 97.2 F L 86 26 H 80/52 88 L 04/04/23 02:19 84 28 H 90/56 88 L 04/04/23 02:02 97.5 F L 84 28 H 82/49 83 L 04/04/23 02:00 84 26 H 95/59 85 L 100 04/04/23 01:55 97.5 F L 84 27 H 84/47 86 L 04/04/23 01:52 84 27 H 100/56 87 L 04/04/23 01:43 100 04/04/23 01:30 84 27 H 104/54 90 L 04/04/23 01:15 84 24 115/67 90 L 04/04/23 01:00 84 21 130/73 95 04/04/23 00:45 84 26 H 143/91 97 04/04/23 00:33 100 04/04/23 00:30 113 H 26 H 108/63 82 L 100 04/04/23 00:26 100 04/04/23 00:20 100 04/04/23 00:15 149 H 20 76/58 80 L 04/04/23 00:03 100 04/04/23 00:00 1.0 04/03/23 23:45 52 L 04/03/23 23:31 69 22 94 L 04/03/23 23:30 67 24 95/71 92 L 04/03/23 23:00 72 28 H 111/66 90 L 04/03/23 22:57 96 04/03/23 22:30 73 33 H 104/62 85 L 04/03/23 22:08 73 04/03/23 22:00 66 34 H 94/57 96 04/03/23 21:51 66 04/03/23 21:30 67 33 H 94/64 04/03/23 21:00 97.7 F 71 31 H 114/64 04/03/23 20:30 82 30 H 115/69 04/03/23 20:00 85 22 118/64 04/03/23 19:50 79 04/03/23 19:40 75 04/03/23 19:30 83 25 H 104/78 04/03/23 19:00 77 27 H 116/58 92 L 04/03/23 18:00 78 29 H 115/59 91 L 04/03/23 17:30 82 38 H 123/59 88 L 04/03/23 17:00 75 25 H 140/61 95 04/03/23 16:30 74 28 H 127/35 04/03/23 16:00 97.5 F L 84 22 124/64 91 L 04/03/23 15:30 82 24 115/61 04/03/23 15:00 73 20 123/52 91 L 04/03/23 14:53 73 04/03/23 14:43 73 04/03/23 14:30 76 22 122/45 04/03/23 14:00 77 24 110/57 88 L 04/03/23 13:30 75 27 H 97/48 04/03/23 13:00 67 26 H 103/59 87 L 04/03/23 12:30 73 25 H 107/65 Intake and Output 04/03/23 04/04/23 04/04/23 22:59 06:59 14:59 Intake Total 420.736 5550.883 450.851 Output Total 381 268 145 Balance -303.395 5376.883 305.851 Intake: IV 208 1114 230 0.9ns for pressure bag 48 48 30 Dextrose 5% in Water 1, 160 000 ml @ 40 mls/hr IV . Q24H SAHARA with Sodium Bicarb (1 Meq/ml) 150 ml Rx#:[id number] Lactated Ringers 1,000 ml 160 66 @ 20 mls/hr IV .Q24H SAHARA Rx#:[id number] Sodium Chloride 0.9% 1, 1000 40 000 ml @ 999 mls/hr IV . Q1H1M ONE Rx#:[id number] Intake, IV Titration 40.400 71.883 220.851 Amount Insulin Regular 100 unit 40.400 34.626 In Sodium Chloride 0.9% 100 ml @ Per Protocol IV .Q0M SAHARA Rx#:[id number] Norepinephrine 4 mg In 56.910 70.619 Sodium Chloride 0.9% 250 ml @ 0.03 MCG/KG/MIN 12. 402 mls/hr IV .[id number] SAHARA Rx#:[id number] propofoL 1,000 mg In 14.973 115.606 Empty Bag 1 bag @ 15 MCG/ KG/MIN 9.765 mls/hr IV . [id number] SAHARA Rx#:[id number] Blood Product 620 Rc As-1 Unit 310 [id number] Rc As-1 Unit 310 [id number] Output: Chest Tube Drainage 210 260 60 Chest Tube Mediastinal 210 260 60 Urine 171 8 85 Other: Voiding Method Indwelling Catheter Indwelling Catheter Indwelling Catheter Weight 110.6 kg ABP, PAP, CO, CI - Last 8 Hours Arterial Blood Pressure 117/61 Arterial Blood Pressure 119/64 Arterial Blood Pressure 105/58 Arterial Blood Pressure 119/67 Arterial Blood Pressure 107/58 Arterial Blood Pressure 102/54 Arterial Blood Pressure 104/57 Arterial Blood Pressure 105/54 Arterial Blood Pressure 98/52 Arterial Blood Pressure 96/52 Arterial Blood Pressure 98/52 Arterial Blood Pressure 90/52 Arterial Blood Pressure 98/55 Arterial Blood Pressure 92/53 Arterial Blood Pressure 85/52 Arterial Blood Pressure 91/55 Arterial Blood Pressure 89/52 Arterial Blood Pressure 94/54 Arterial Blood Pressure 84/49 Arterial Blood Pressure 93/53 Arterial Blood Pressure 95/54 Arterial Blood Pressure 91/52 Arterial Blood Pressure 92/52 Arterial Blood Pressure 94/61 Arterial Blood Pressure 92/55 Arterial Blood Pressure 86/50 Arterial Blood Pressure 82/48 Arterial Blood Pressure 87/52 Arterial Blood Pressure 83/50 Arterial Blood Pressure 81/49 Arterial Blood Pressure 81/49 Cardiac Output 5.4 Cardiac Output 5.4 Cardiac Output 5.4 Cardiac Output 5.4 Cardiac Output 5.4 Cardiac Output 5.4 Cardiac Output 5.4 Cardiac Output 5.4 Cardiac Index 2.3 Cardiac Index 2.3 Cardiac Index 2.3 Cardiac Index 2.3 Cardiac Index 2.3 Cardiac Index 2.3 Cardiac Index 2.3 Cardiac Index 2.3 Patient is a middle aged male, who is intubated, sedated on propofol 10 mcg/kg per minute. Patient is comatose, with GCS of 3. Attention, concentration is absent and fund of knowledge cannot be assessed. No obvious seizure type activity noticed at baseline. On cranial nerve examination, pupils are about 5-6 mm, equal, nonreactive to light. Oculocephalics may be minimally present. Corneals are present. Patient does have a gag and cough reflexes as per nurse. Patient is breathing over the ventilator. On activating/alerting patient, there was some myoclonic twitching of the eyelids noticed. On muscle strength testing, patient is comatose therefore not able to be assessed. No response to painful stimuli. Deep tendon reflexes are symmetric and trace at the biceps, trace at the brachioradialis and the knees and plantars are flat bilaterally. Sensory to touch or nail bed pressure produced no response. Cerebellar function and gait cannot be assessed. On general examination, there is no carotid bruit or murmur, S1-S2 audible. Chest is clear on consultation. Abdomen is soft nontender. No organomegaly, bowel sounds present. Peripheral pulses are present. No peripheral edema. Results - Laboratory Findings CBC and BMP: 04/04/23 07:20 04/04/23 07:20 Abnormal Lab Findings: Abnormal Labs 03/28/23 04/01/23 04/01/23 09:00 11:00 11:31 WBC RBC Hgb Hct Plt Count Neutrophils # Lymphocytes # Monocytes # Retic Count Haptoglobin INR Fibrinogen D-Dimer ABG pH 7.28 L 7.33 L ABG pCO2 52 H 48 H ABG pO2 376 H 357 H ABG HCO3 ABG Total CO2 26 H 27 H ABG O2 Saturation 100.0 H 100.0 H ABG Hematocrit 31 L 30 L ABG Potassium 5.1 H 4.8 H ABG Ionized Calcium 4.3 L 4.1 L ABG Glucose 176 H 187 H ABG Lactic Acid Hemoglobin 10.1 L 9.7 L Sodium Chloride Carbon Dioxide BUN Creatinine Glucose POC Glucose (mg/dL) Plasma Lactic Acid George Calcium Magnesium Iron TIBC % Saturation Transferrin Ferritin Total Bilirubin AST ALT Lactate Dehydrogenase Total Protein Albumin Arterial Blood Potassium 5.1 H 4.8 H Arterial Blood Glucose 176 H 187 H Crossmatch See Detail 04/01/23 04/01/23 04/01/23 12:04 12:24 13:28 WBC RBC Hgb Hct Plt Count Neutrophils # Lymphocytes # Monocytes # Retic Count Haptoglobin INR Fibrinogen D-Dimer ABG pH 7.30 L ABG pCO2 49 H ABG pO2 289 H 365 H 223 H ABG HCO3 26 H ABG Total CO2 26 H 26 H 27 H ABG O2 Saturation 99.9 H 100.0 H 100.0 H ABG Hematocrit 29 L 29 L 30 L ABG Potassium 4.7 H 4.6 H ABG Ionized Calcium 4.2 L 4.1 L ABG Glucose 155 H 135 H 110 H ABG Lactic Acid 2.1 H 2.4 H* 1.9 H Hemoglobin 9.4 L 9.5 L 9.9 L Sodium Chloride Carbon Dioxide BUN Creatinine Glucose POC Glucose (mg/dL) Plasma Lactic Acid George Calcium Magnesium Iron TIBC % Saturation Transferrin Ferritin Total Bilirubin AST ALT Lactate Dehydrogenase Total Protein Albumin Arterial Blood Potassium 4.7 H 4.6 H Arterial Blood Glucose 155 H 135 H 110 H Crossmatch 04/01/23 04/01/23 04/01/23 14:23 14:23 14:23 WBC RBC 3.38 L Hgb 10.5 L D Hct 28.6 L Plt Count 93 L D Neutrophils # 8.5 H Lymphocytes # 0.7 L Monocytes # Retic Count Haptoglobin INR 1.2 H Fibrinogen 197 L D-Dimer ABG pH ABG pCO2 ABG pO2 ABG HCO3 ABG Total CO2 ABG O2 Saturation ABG Hematocrit ABG Potassium ABG Ionized Calcium ABG Glucose ABG Lactic Acid Hemoglobin Sodium Chloride 109 H Carbon Dioxide BUN 24 H Creatinine Glucose POC Glucose (mg/dL) Plasma Lactic Acid George Calcium Magnesium 2.7 H Iron TIBC % Saturation Transferrin Ferritin Total Bilirubin 1.6 H AST 74 H ALT Lactate Dehydrogenase Total Protein 5.0 L Albumin 3.1 L Arterial Blood Potassium Arterial Blood Glucose Crossmatch 04/01/23 04/01/23 04/01/23 14:33 14:59 15:09 WBC RBC Hgb Hct Plt Count Neutrophils # Lymphocytes # Monocytes # Retic Count Haptoglobin INR Fibrinogen D-Dimer ABG pH ABG pCO2 ABG pO2 >400 H ABG HCO3 26 H ABG Total CO2 27 H ABG O2 Saturation 100.0 H ABG Hematocrit ABG Potassium ABG Ionized Calcium ABG Glucose ABG Lactic Acid Hemoglobin Sodium Chloride Carbon Dioxide BUN Creatinine Glucose POC Glucose (mg/dL) 120 H 122 H Plasma Lactic Acid George Calcium Magnesium Iron TIBC % Saturation Transferrin Ferritin Total Bilirubin AST ALT Lactate Dehydrogenase Total Protein Albumin Arterial Blood Potassium Arterial Blood Glucose Crossmatch 04/01/23 04/01/23 04/01/23 16:34 17:05 17:20 WBC 13.8 H RBC 3.23 L Hgb 9.8 L Hct 28.0 L Plt Count Neutrophils # 12.1 H Lymphocytes # 0.8 L Monocytes # Retic Count Haptoglobin INR Fibrinogen D-Dimer ABG pH ABG pCO2 ABG pO2 ABG HCO3 ABG Total CO2 ABG O2 Saturation ABG Hematocrit ABG Potassium ABG Ionized Calcium ABG Glucose ABG Lactic Acid Hemoglobin Sodium Chloride Carbon Dioxide BUN Creatinine Glucose POC Glucose (mg/dL) 182 H 179 H Plasma Lactic Acid George Calcium Magnesium Iron TIBC % Saturation Transferrin Ferritin Total Bilirubin AST ALT Lactate Dehydrogenase Total Protein Albumin Arterial Blood Potassium Arterial Blood Glucose Crossmatch 04/01/23 04/01/23 04/01/23 17:50 18:22 19:08 WBC RBC Hgb Hct Plt Count Neutrophils # Lymphocytes # Monocytes # Retic Count Haptoglobin INR Fibrinogen D-Dimer ABG pH ABG pCO2 ABG pO2 123 H ABG HCO3 ABG Total CO2 25 H ABG O2 Saturation 98.8 H ABG Hematocrit ABG Potassium ABG Ionized Calcium ABG Glucose ABG Lactic Acid Hemoglobin Sodium Chloride Carbon Dioxide BUN Creatinine Glucose POC Glucose (mg/dL) 141 H 157 H Plasma Lactic Acid George Calcium Magnesium Iron TIBC % Saturation Transferrin Ferritin Total Bilirubin AST ALT Lactate Dehydrogenase Total Protein Albumin Arterial Blood Potassium Arterial Blood Glucose Crossmatch 04/01/23 04/01/23 04/01/23 20:06 20:08 20:51 WBC 12.0 H RBC 3.15 L Hgb 9.8 L Hct 27.3 L Plt Count Neutrophils # 10.6 H Lymphocytes # 0.5 L Monocytes # Retic Count Haptoglobin INR Fibrinogen D-Dimer ABG pH ABG pCO2 ABG pO2 ABG HCO3 ABG Total CO2 ABG O2 Saturation ABG Hematocrit ABG Potassium ABG Ionized Calcium ABG Glucose ABG Lactic Acid Hemoglobin Sodium Chloride Carbon Dioxide BUN Creatinine Glucose POC Glucose (mg/dL) 153 H 161 H Plasma Lactic Acid George Calcium Magnesium Iron TIBC % Saturation Transferrin Ferritin Total Bilirubin AST ALT Lactate Dehydrogenase Total Protein Albumin Arterial Blood Potassium Arterial Blood Glucose Crossmatch 04/01/23 04/01/23 04/02/23 22:02 22:57 00:00 WBC RBC Hgb Hct Plt Count Neutrophils # Lymphocytes # Monocytes # Retic Count Haptoglobin INR Fibrinogen D-Dimer ABG pH ABG pCO2 ABG pO2 ABG HCO3 ABG Total CO2 ABG O2 Saturation ABG Hematocrit ABG Potassium ABG Ionized Calcium ABG Glucose ABG Lactic Acid Hemoglobin Sodium Chloride Carbon Dioxide BUN Creatinine Glucose POC Glucose (mg/dL) 150 H 132 H 135 H Plasma Lactic Acid George Calcium Magnesium Iron TIBC % Saturation Transferrin Ferritin Total Bilirubin AST ALT Lactate Dehydrogenase Total Protein Albumin Arterial Blood Potassium Arterial Blood Glucose Crossmatch 04/02/23 04/02/23 04/02/23 00:01 01:05 02:05 WBC RBC Hgb Hct Plt Count Neutrophils # Lymphocytes # Monocytes # Retic Count Haptoglobin INR Fibrinogen D-Dimer ABG pH ABG pCO2 ABG pO2 ABG HCO3 ABG Total CO2 ABG O2 Saturation ABG Hematocrit ABG Potassium ABG Ionized Calcium ABG Glucose ABG Lactic Acid Hemoglobin Sodium Chloride 108 H Carbon Dioxide BUN 26 H Creatinine Glucose 120 H POC Glucose (mg/dL) 133 H 117 H Plasma Lactic Acid George Calcium 8.2 L Magnesium Iron TIBC % Saturation Transferrin Ferritin Total Bilirubin AST ALT Lactate Dehydrogenase Total Protein Albumin Arterial Blood Potassium Arterial Blood Glucose Crossmatch 04/02/23 04/02/23 04/02/23 03:17 04:03 04:16 WBC 12.5 H RBC 2.86 L Hgb 9.0 L Hct 25.0 L Plt Count 144 L Neutrophils # 10.4 H Lymphocytes # 0.7 L Monocytes # 1.2 H Retic Count Haptoglobin INR Fibrinogen D-Dimer ABG pH ABG pCO2 ABG pO2 ABG HCO3 ABG Total CO2 ABG O2 Saturation ABG Hematocrit ABG Potassium ABG Ionized Calcium ABG Glucose ABG Lactic Acid Hemoglobin Sodium Chloride Carbon Dioxide BUN Creatinine Glucose POC Glucose (mg/dL) 114 H 148 H Plasma Lactic Acid George Calcium Magnesium Iron TIBC % Saturation Transferrin Ferritin Total Bilirubin AST ALT Lactate Dehydrogenase Total Protein Albumin Arterial Blood Potassium Arterial Blood Glucose Crossmatch 04/02/23 04/02/23 04/02/23 04:16 05:18 06:56 WBC RBC Hgb Hct Plt Count Neutrophils # Lymphocytes # Monocytes # Retic Count Haptoglobin INR Fibrinogen D-Dimer ABG pH ABG pCO2 ABG pO2 ABG HCO3 ABG Total CO2 ABG O2 Saturation ABG Hematocrit ABG Potassium ABG Ionized Calcium ABG Glucose ABG Lactic Acid Hemoglobin Sodium Chloride 109 H Carbon Dioxide BUN 30 H Creatinine Glucose 141 H POC Glucose (mg/dL) 147 H 121 H Plasma Lactic Acid George Calcium 8.2 L Magnesium Iron TIBC % Saturation Transferrin Ferritin Total Bilirubin 1.6 H AST 89 H ALT Lactate Dehydrogenase Total Protein 5.2 L Albumin 3.4 L Arterial Blood Potassium Arterial Blood Glucose Crossmatch 04/02/23 04/02/23 04/02/23 08:36 10:30 12:23 WBC RBC Hgb Hct Plt Count Neutrophils # Lymphocytes # Monocytes # Retic Count Haptoglobin INR Fibrinogen D-Dimer ABG pH ABG pCO2 ABG pO2 ABG HCO3 ABG Total CO2 ABG O2 Saturation ABG Hematocrit ABG Potassium ABG Ionized Calcium ABG Glucose ABG Lactic Acid Hemoglobin Sodium Chloride Carbon Dioxide BUN Creatinine Glucose POC Glucose (mg/dL) 123 H 135 H 134 H Plasma Lactic Acid George Calcium Magnesium Iron TIBC % Saturation Transferrin Ferritin Total Bilirubin AST ALT Lactate Dehydrogenase Total Protein Albumin Arterial Blood Potassium Arterial Blood Glucose Crossmatch 04/02/23 04/02/23 04/02/23 14:10 16:08 18:06 WBC RBC Hgb Hct Plt Count Neutrophils # Lymphocytes # Monocytes # Retic Count Haptoglobin INR Fibrinogen D-Dimer ABG pH ABG pCO2 ABG pO2 ABG HCO3 ABG Total CO2 ABG O2 Saturation ABG Hematocrit ABG Potassium ABG Ionized Calcium ABG Glucose ABG Lactic Acid Hemoglobin Sodium Chloride Carbon Dioxide BUN Creatinine Glucose POC Glucose (mg/dL) 143 H 135 H 132 H Plasma Lactic Acid George Calcium Magnesium Iron TIBC % Saturation Transferrin Ferritin Total Bilirubin AST ALT Lactate Dehydrogenase Total Protein Albumin Arterial Blood Potassium Arterial Blood Glucose Crossmatch 04/02/23 04/02/23 04/03/23 20:02 21:46 00:04 WBC RBC Hgb Hct Plt Count Neutrophils # Lymphocytes # Monocytes # Retic Count Haptoglobin INR Fibrinogen D-Dimer ABG pH ABG pCO2 ABG pO2 ABG HCO3 ABG Total CO2 ABG O2 Saturation ABG Hematocrit ABG Potassium ABG Ionized Calcium ABG Glucose ABG Lactic Acid Hemoglobin Sodium Chloride Carbon Dioxide BUN Creatinine Glucose POC Glucose (mg/dL) 121 H 144 H 146 H Plasma Lactic Acid George Calcium Magnesium Iron TIBC % Saturation Transferrin Ferritin Total Bilirubin AST ALT Lactate Dehydrogenase Total Protein Albumin Arterial Blood Potassium Arterial Blood Glucose Crossmatch 04/03/23 04/03/23 04/03/23 01:41 04:05 04:05 WBC 11.6 H RBC 2.48 L Hgb 7.5 L D Hct 21.7 L Plt Count 93 L Neutrophils # 10.2 H Lymphocytes # 0.8 L Monocytes # Retic Count Haptoglobin INR Fibrinogen D-Dimer ABG pH ABG pCO2 ABG pO2 ABG HCO3 ABG Total CO2 ABG O2 Saturation ABG Hematocrit ABG Potassium ABG Ionized Calcium ABG Glucose ABG Lactic Acid Hemoglobin Sodium 136 L Chloride Carbon Dioxide BUN 35 H Creatinine Glucose 112 H POC Glucose (mg/dL) 147 H Plasma Lactic Acid George Calcium Magnesium Iron TIBC % Saturation Transferrin Ferritin Total Bilirubin 2.1 H AST 85 H ALT Lactate Dehydrogenase Total Protein 5.6 L Albumin Arterial Blood Potassium Arterial Blood Glucose Crossmatch 04/03/23 04/03/23 04/03/23 04:07 06:01 06:50 WBC 11.8 H RBC 2.42 L Hgb 7.5 L Hct 21.2 L Plt Count 89 L Neutrophils # Lymphocytes # Monocytes # Retic Count Haptoglobin INR Fibrinogen D-Dimer ABG pH ABG pCO2 ABG pO2 ABG HCO3 ABG Total CO2 ABG O2 Saturation ABG Hematocrit ABG Potassium ABG Ionized Calcium ABG Glucose ABG Lactic Acid Hemoglobin Sodium Chloride Carbon Dioxide BUN Creatinine Glucose POC Glucose (mg/dL) 127 H 128 H Plasma Lactic Acid Georeg Calcium Magnesium Iron TIBC % Saturation Transferrin Ferritin Total Bilirubin AST ALT Lactate Dehydrogenase Total Protein Albumin Arterial Blood Potassium Arterial Blood Glucose Crossmatch 04/03/23 04/03/23 04/03/23 08:10 09:12 10:27 WBC RBC Hgb Hct Plt Count Neutrophils # Lymphocytes # Monocytes # Retic Count Haptoglobin INR Fibrinogen D-Dimer ABG pH ABG pCO2 ABG pO2 ABG HCO3 ABG Total CO2 ABG O2 Saturation ABG Hematocrit ABG Potassium ABG Ionized Calcium ABG Glucose ABG Lactic Acid Hemoglobin Sodium Chloride Carbon Dioxide BUN Creatinine Glucose POC Glucose (mg/dL) 207 H 175 H 155 H Plasma Lactic Acid George Calcium Magnesium Iron TIBC % Saturation Transferrin Ferritin Total Bilirubin AST ALT Lactate Dehydrogenase Total Protein Albumin Arterial Blood Potassium Arterial Blood Glucose Crossmatch 04/03/23 04/03/23 04/03/23 11:30 13:30 13:30 WBC RBC Hgb Hct Plt Count Neutrophils # Lymphocytes # Monocytes # Retic Count Haptoglobin INR Fibrinogen 543 H D-Dimer 1.08 H ABG pH ABG pCO2 ABG pO2 ABG HCO3 ABG Total CO2 ABG O2 Saturation ABG Hematocrit ABG Potassium ABG Ionized Calcium ABG Glucose ABG Lactic Acid Hemoglobin Sodium Chloride Carbon Dioxide BUN Creatinine Glucose POC Glucose (mg/dL) 146 H Plasma Lactic Acid George Calcium Magnesium Iron 19 L TIBC 197 L % Saturation 9.64 L Transferrin 141.0 L Ferritin 560.0 H Total Bilirubin AST ALT Lactate Dehydrogenase 552 H Total Protein Albumin Arterial Blood Potassium Arterial Blood Glucose Crossmatch 04/03/23 04/03/23 04/03/23 13:30 13:30 13:49 WBC RBC Hgb Hct Plt Count Neutrophils # Lymphocytes # Monocytes # Retic Count 3.7 H Haptoglobin <10.0 L INR Fibrinogen D-Dimer ABG pH ABG pCO2 ABG pO2 ABG HCO3 ABG Total CO2 ABG O2 Saturation ABG Hematocrit ABG Potassium ABG Ionized Calcium ABG Glucose ABG Lactic Acid Hemoglobin Sodium Chloride Carbon Dioxide BUN Creatinine Glucose POC Glucose (mg/dL) 150 H Plasma Lactic Acid George Calcium Magnesium Iron TIBC % Saturation Transferrin 143.0 L Ferritin Total Bilirubin AST ALT Lactate Dehydrogenase Total Protein Albumin Arterial Blood Potassium Arterial Blood Glucose Crossmatch 04/03/23 04/03/23 04/03/23 15:52 18:59 20:18 WBC RBC Hgb Hct Plt Count Neutrophils # Lymphocytes # Monocytes # Retic Count Haptoglobin INR Fibrinogen D-Dimer ABG pH ABG pCO2 ABG pO2 ABG HCO3 ABG Total CO2 ABG O2 Saturation ABG Hematocrit ABG Potassium ABG Ionized Calcium ABG Glucose ABG Lactic Acid Hemoglobin Sodium Chloride Carbon Dioxide BUN Creatinine Glucose POC Glucose (mg/dL) 180 H 137 H 127 H Plasma Lactic Acid George Calcium Magnesium Iron TIBC % Saturation Transferrin Ferritin Total Bilirubin AST ALT Lactate Dehydrogenase Total Protein Albumin Arterial Blood Potassium Arterial Blood Glucose Crossmatch 04/03/23 04/04/23 04/04/23 23:05 00:26 00:26 WBC 16.4 H RBC 2.33 L Hgb 7.3 L Hct 22.1 L Plt Count 110 L Neutrophils # 14.3 H Lymphocytes # Monocytes # Retic Count Haptoglobin INR Fibrinogen D-Dimer ABG pH ABG pCO2 ABG pO2 ABG HCO3 ABG Total CO2 ABG O2 Saturation ABG Hematocrit ABG Potassium ABG Ionized Calcium ABG Glucose ABG Lactic Acid Hemoglobin Sodium Chloride Carbon Dioxide 12 L BUN 51 H Creatinine 2.68 H Glucose 117 H POC Glucose (mg/dL) 157 H Plasma Lactic Acid George Calcium 7.5 L Magnesium Iron TIBC % Saturation Transferrin Ferritin Total Bilirubin 3.6 H AST 411 H ALT 247 H Lactate Dehydrogenase Total Protein 4.8 L Albumin 3.0 L Arterial Blood Potassium Arterial Blood Glucose Crossmatch 04/04/23 04/04/23 04/04/23 00:26 00:26 00:27 WBC RBC Hgb Hct Plt Count Neutrophils # Lymphocytes # Monocytes # Retic Count Haptoglobin INR Fibrinogen D-Dimer ABG pH 6.98 L* ABG pCO2 55 H ABG pO2 80 L ABG HCO3 13 L ABG Total CO2 15 L ABG O2 Saturation 86.6 L ABG Hematocrit ABG Potassium ABG Ionized Calcium ABG Glucose ABG Lactic Acid Hemoglobin Sodium Chloride Carbon Dioxide BUN Creatinine Glucose POC Glucose (mg/dL) Plasma Lactic Acid George 14.5 H* Calcium Magnesium Iron TIBC % Saturation Transferrin Ferritin Total Bilirubin AST ALT Lactate Dehydrogenase Total Protein Albumin Arterial Blood Potassium Arterial Blood Glucose Crossmatch See Detail 04/04/23 04/04/23 04/04/23 01:03 01:33 02:04 WBC RBC Hgb Hct Plt Count Neutrophils # Lymphocytes # Monocytes # Retic Count Haptoglobin INR Fibrinogen D-Dimer ABG pH 7.16 L* 7.21 L 7.20 L ABG pCO2 ABG pO2 75 L 64 L ABG HCO3 15 L 15 L 16 L ABG Total CO2 16 L 16 L 17 L ABG O2 Saturation 91.8 L 85.8 L ABG Hematocrit ABG Potassium ABG Ionized Calcium ABG Glucose ABG Lactic Acid Hemoglobin Sodium Chloride Carbon Dioxide BUN Creatinine Glucose POC Glucose (mg/dL) Plasma Lactic Acid George Calcium Magnesium Iron TIBC % Saturation Transferrin Ferritin Total Bilirubin AST ALT Lactate Dehydrogenase Total Protein Albumin Arterial Blood Potassium Arterial Blood Glucose Crossmatch 04/04/23 04/04/23 04/04/23 02:35 03:07 03:09 WBC RBC Hgb Hct Plt Count Neutrophils # Lymphocytes # Monocytes # Retic Count Haptoglobin INR Fibrinogen D-Dimer ABG pH 7.17 L* 7.18 L* ABG pCO2 ABG pO2 60 L 67 L ABG HCO3 16 L 17 L ABG Total CO2 18 L 18 L ABG O2 Saturation 82.8 L 88.5 L ABG Hematocrit ABG Potassium ABG Ionized Calcium ABG Glucose ABG Lactic Acid Hemoglobin Sodium Chloride Carbon Dioxide BUN Creatinine Glucose POC Glucose (mg/dL) 178 H Plasma Lactic Acid George Calcium Magnesium Iron TIBC % Saturation Transferrin Ferritin Total Bilirubin AST ALT Lactate Dehydrogenase Total Protein Albumin Arterial Blood Potassium Arterial Blood Glucose Crossmatch 04/04/23 04/04/23 04/04/23 03:40 04:40 05:33 WBC RBC Hgb Hct Plt Count Neutrophils # Lymphocytes # Monocytes # Retic Count Haptoglobin INR Fibrinogen D-Dimer ABG pH 7.21 L 7.26 L 7.29 L ABG pCO2 ABG pO2 66 L 69 L 73 L ABG HCO3 17 L 19 L 20 L ABG Total CO2 ABG O2 Saturation 88.5 L 91.3 L 93.2 L ABG Hematocrit ABG Potassium ABG Ionized Calcium ABG Glucose ABG Lactic Acid Hemoglobin Sodium Chloride Carbon Dioxide BUN Creatinine Glucose POC Glucose (mg/dL) Plasma Lactic Acid George Calcium Magnesium Iron TIBC % Saturation Transferrin Ferritin Total Bilirubin AST ALT Lactate Dehydrogenase Total Protein Albumin Arterial Blood Potassium Arterial Blood Glucose Crossmatch 11/16/23 11/16/23 11/16/23 06:39 07:20 07:20 WBC 11.5 H RBC 2.66 L Hgb 8.1 L Hct 23.6 L Plt Count 100 L Neutrophils # 10.3 H Lymphocytes # 0.7 L Monocytes # Retic Count Haptoglobin INR Fibrinogen D-Dimer ABG pH 7.31 L ABG pCO2 ABG pO2 74 L ABG HCO3 ABG Total CO2 ABG O2 Saturation ABG Hematocrit ABG Potassium ABG Ionized Calcium ABG Glucose ABG Lactic Acid Hemoglobin Sodium 136 L Chloride Carbon Dioxide BUN 64 H Creatinine 3.11 H Glucose 198 H POC Glucose (mg/dL) Plasma Lactic Acid George Calcium 7.4 L Magnesium 2.5 H Iron TIBC % Saturation Transferrin Ferritin Total Bilirubin 4.2 H AST 1542 H ALT 1063 H Lactate Dehydrogenase Total Protein 4.7 L Albumin 3.0 L Arterial Blood Potassium Arterial Blood Glucose Crossmatch 04/04/23 04/04/23 04/04/23 07:20 08:00 08:20 WBC RBC Hgb Hct Plt Count Neutrophils # Lymphocytes # Monocytes # Retic Count Haptoglobin INR Fibrinogen D-Dimer ABG pH 7.31 L ABG pCO2 48 H ABG pO2 ABG HCO3 ABG Total CO2 25 H ABG O2 Saturation ABG Hematocrit ABG Potassium ABG Ionized Calcium ABG Glucose ABG Lactic Acid 5.1 H* Hemoglobin Sodium Chloride Carbon Dioxide BUN Creatinine Glucose POC Glucose (mg/dL) 228 H Plasma Lactic Acid George Calcium Magnesium Iron TIBC % Saturation Transferrin Ferritin Total Bilirubin AST ALT Lactate Dehydrogenase Total Protein Albumin Arterial Blood Potassium Arterial Blood Glucose Crossmatch 04/04/23 04/04/23 04/04/23 09:20 10:02 11:08 WBC RBC Hgb Hct Plt Count Neutrophils # Lymphocytes # Monocytes # Retic Count Haptoglobin INR Fibrinogen D-Dimer ABG pH ABG pCO2 ABG pO2 ABG HCO3 ABG Total CO2 ABG O2 Saturation ABG Hematocrit ABG Potassium ABG Ionized Calcium ABG Glucose ABG Lactic Acid Hemoglobin Sodium Chloride Carbon Dioxide BUN Creatinine Glucose POC Glucose (mg/dL) 230 H 204 H 181 H Plasma Lactic Acid George Calcium Magnesium Iron TIBC % Saturation Transferrin Ferritin Total Bilirubin AST ALT Lactate Dehydrogenase Total Protein Albumin Arterial Blood Potassium Arterial Blood Glucose Crossmatch 04/04/23 12:01 WBC RBC Hgb Hct Plt Count Neutrophils # Lymphocytes # Monocytes # Retic Count Haptoglobin INR Fibrinogen D-Dimer ABG pH ABG pCO2 ABG pO2 ABG HCO3 ABG Total CO2 ABG O2 Saturation ABG Hematocrit ABG Potassium ABG Ionized Calcium ABG Glucose ABG Lactic Acid Hemoglobin Sodium Chloride Carbon Dioxide BUN Creatinine Glucose POC Glucose (mg/dL) 161 H Plasma Lactic Acid George Calcium Magnesium Iron TIBC % Saturation Transferrin Ferritin Total Bilirubin AST ALT Lactate Dehydrogenase Total Protein Albumin Arterial Blood Potassium Arterial Blood Glucose Crossmatch Assessment and Plan Assessment: * Status post in house, witnessed cardiac arrest due to PEA, with downtime of 15 minutes. Patient at present, is comatose with nonreactive pupils and GCS of 3. He does have some brainstem reflexes still present. Patient currently on low-dose sedation with propofol 10 mcg/kg per minute. * New onset intermittent myoclonic jerks, likely due to severe anoxic encephalopathy. Probable myoclonic seizures. * Status post mitral valve repair for severe mitral regurgitation * Acute pulmonary edema * New onset atrial fibrillation * Acute renal failure * Acutely elevated liver enzymes, likely due to cardiac arrest Plan: * Stat EEG was performed, which revealed predominantly severely suppressed EEG, isoelectric pattern, with sporadic, intermittent burst of high amplitude generalized spike or polyspike and wave lasting for about 1-2 seconds. This activity became slightly more frequent when the propofol was discontinued. Clinically, no obvious myoclonic jerks was noted with the burst. Overall this pattern is consistent with severe anoxic encephalopathy, and pertains poor prognosis. Follow-up EEG recommended. * Continue Keppra 500 mg twice a day. * Continue propofol to control seizure like activity. If needed, may start Versed. * Check computed tomography scan of the head evaluate for cerebral edema, rule out other intracranial process. * Today is day #1 of cardiac arrest. We will perform serial neurological examination. * Repeat EEG in the morning. * Patient undergoing hemodialysis catheter placement for possible hemodialysis. * Other medical/surgical management as per IM/ICU/cardiology team. * Discussed with patient's family in detail. Thank you for the consult. Time with Patient: Greater than 30
[2023-04-04 14:20] LABS: Glucose,Whole Blood 140 mg/dL (70-110)
--- NOTE | 2023-04-04 14:31 | P.OP ---
Date of Procedure: 04/04/23 Preoperative Diagnosis: acute renal failure with need for hemodialysis. Postoperative Diagnosis: Same. Procedure(s) Performed: insertional non-tunneled hemodialysis catheter via the right femoral vein approach. Anesthesia: none Surgeon: Km Xiong Estimated Blood Loss (ml): 10 Pathology: none sent Condition: stable Disposition: no change Description of Procedure: patient was evaluated in the intensive care unit. He is ventilated and sedated. He is in need of acute hemodialysis. The procedure, risk and benefits were discussed with patient's spouse and surrounding family members. Consent form was signed. Description of procedure and findings: Patient is placed supine in the bed. The right femoral area was sterilely prepped and draped in usual manner. 18-gauge needle was utilized to cannulate the femoral vein. Once cannulated Softip guidewire is advanced into the vein. The needle was withdrawn and the tract dilated with vessel dilators. Eventually a 20 cm dual-lumen non-total urinalysis catheter was selected and advanced over the guidewire. Guidewire was withdrawn. Blood was easily aspirated through both ports. Both ports were then flushed with heparinized saline solution and the catheter secured to skin with nylon suture. appropriate dressings were applied. Patient tolerated procedure well.
[2023-04-04 15:06] LABS: Glucose,Whole Blood 125 mg/dL (70-110)
[2023-04-04 16:08] LABS: Glucose,Whole Blood 115 mg/dL (70-110)
[2023-04-04] MEDS: INSULIN REGULAR 100 UNIT in SODIUM CHLORIDE 0.9% 100 ML IV SCH (16:21)
[2023-04-04 17:03] LABS: Glucose,Whole Blood 130 mg/dL (70-110)
[2023-04-04 17:16] LABS: ABG HCO3 27 mmol/L (21-25); ABG Oxygen Saturation 98.8 % (94-97); ABG PCO2 52 mmHg (35-45); ABG PH 7.32 (7.35-7.45); ABG PO2 147 mmHg (83-108); ABG TCO2 29 mmol/L (19-24)
[2023-04-04 17:17] LABS: Allen Test Performed? no
[2023-04-04 18:08] LABS: Glucose,Whole Blood 136 mg/dL (70-110)
[2023-04-04 18:26] VITALS: RESP 26
[2023-04-04] MEDS ORDERED: methylPREDNISolone SOD SUCCIN 1,000 MG in SODIUM CHLORIDE 0.9% 250 ML IVPB STA (18:29)
[2023-04-04 18:57] LABS: Glucose,Whole Blood 137 mg/dL (70-110)
[2023-04-04 19:13] LABS: Reticulocyte % 3.6 % (0.5-2.0)
[2023-04-04 20:20] LABS: Glucose,Whole Blood 154 mg/dL (70-110)
[2023-04-04 20:34] LABS: INR 1.3 (<1.2); Partial Thromboplastin Time 26.1 sec (22.0-30.0); Prothrombin Time 13.7 sec (10.0-12.5)
[2023-04-04] MEDS: SENNOSIDES-DOCUSATE SODIUM 1 EACH TAB PO SCH (20:47)
[2023-04-04 20:57] LABS: ABG Base Excess 2.7 mmol/L; ABG HCO3 28 mmol/L (21-25); ABG Oxygen Saturation 98.7 % (94-97); ABG PCO2 50 mmHg (35-45); ABG PH 7.36 (7.35-7.45); ABG PO2 140 mmHg (83-108); ABG TCO2 30 mmol/L (19-24); Allen Test Performed? Yes
[2023-04-04] MEDS ORDERED: CHLORHEXIDINE GLUCONATE 15 ML CUP MUCOUS MEM SCH (21:00)
[2023-04-04 21:22] LABS: Glucose,Whole Blood 148 mg/dL (70-110)
[2023-04-04 22:20] LABS: Glucose,Whole Blood 149 mg/dL (70-110)
[2023-04-04 23:04] LABS: Glucose,Whole Blood 156 mg/dL (70-110)
[2023-04-04 23:57] LABS: Glucose,Whole Blood 144 mg/dL (70-110)
[2023-04-05 00:16] VITALS: TEMP 98.9
[2023-04-05 01:17] VITALS: BP 101/65
[2023-04-05 02:41] LABS: Complement C3 69.5 mg/dL (80.0-207.0)
[2023-04-05 04:40] LABS: Hepatitis B Surface AB- Quant 3.5 mIU/mL
== END 2023-04-05 02:00 | disposition short-term general hospital (02) | DRG 219 ==
LOC: 2ORMAIN 05:33 → 2SICU 12:24
PROVIDERS: ADMIT Thoracic Surgery (Cardiothoracic Vascular Surgery); ATTEND Thoracic Surgery (Cardiothoracic Vascular Surgery)
PROC: 02L70CK Occlusion of Left Atrial Appendage with Extraluminal Device, Open Approach (ICD-10-PCS; 2023-04-01)
PROC: B24BZZ4 Ultrasonography of Heart with Aorta, Transesophageal (ICD-10-PCS; 2023-04-01)
PROC: 3E080GC Introduction of Other Therapeutic Substance into Heart, Open Approach (ICD-10-PCS; 2023-04-01)
PROC: 5A1221Z Performance of Cardiac Output, Continuous (ICD-10-PCS; 2023-04-01)
PROC: 30233K1 Transfusion of Nonautologous Frozen Plasma into Peripheral Vein, Percutaneous Approach (ICD-10-PCS; 2023-04-01)
PROC: 30233R1 Transfusion of Nonautologous Platelets into Peripheral Vein, Percutaneous Approach (ICD-10-PCS; 2023-04-01)
PROC: 30233M1 Transfusion of Nonautologous Plasma Cryoprecipitate into Peripheral Vein, Percutaneous Approach (ICD-10-PCS; 2023-04-01)
PROC: 02UG0JZ Supplement Mitral Valve with Synthetic Substitute, Open Approach (ICD-10-PCS; principal; 2023-04-01 08:00)
PROC: 02BG0ZZ Excision of Mitral Valve, Open Approach (ICD-10-PCS; 2023-04-01 08:00)
PROC: 02580ZZ Destruction of Conduction Mechanism, Open Approach (ICD-10-PCS; 2023-04-01 08:00)
PROC: 02HV33Z Insertion of Infusion Device into Superior Vena Cava, Percutaneous Approach (ICD-10-PCS; 2023-04-04)
PROC: 5A1D70Z Performance of Urinary Filtration, Intermittent, Less than 6 Hours Per Day (ICD-10-PCS; 2023-04-04)
PROC: 5A12012 Performance of Cardiac Output, Single, Manual (ICD-10-PCS; 2023-04-04)
PROC: 3E043XZ Introduction of Vasopressor into Central Vein, Percutaneous Approach (ICD-10-PCS; 2023-04-04)
PROC: 5A09357 Assistance with Respiratory Ventilation, Less than 24 Consecutive Hours, Continuous Positive Airway Pressure (ICD-10-PCS; 2023-04-04)
PROC: 5A1945Z Respiratory Ventilation, 24-96 Consecutive Hours (ICD-10-PCS; 2023-04-04)
PROC: 0BH17EZ Insertion of Endotracheal Airway into Trachea, Via Natural or Artificial Opening (ICD-10-PCS; 2023-04-04)
PROC: 03HY32Z Insertion of Monitoring Device into Upper Artery, Percutaneous Approach (ICD-10-PCS; 2023-04-04)
PROC: 4A133B1 Monitoring of Arterial Pressure, Peripheral, Percutaneous Approach (ICD-10-PCS; 2023-04-04)
PROC: 4A133J1 Monitoring of Arterial Pulse, Peripheral, Percutaneous Approach (ICD-10-PCS; 2023-04-04)
PROC: 30233N1 Transfusion of Nonautologous Red Blood Cells into Peripheral Vein, Percutaneous Approach (ICD-10-PCS; 2023-04-04)
DX: I34.0 Nonrheumatic mitral (valve) insufficiency (principal); I46.9 Cardiac arrest, cause unspecified; I51.1 Rupture of chordae tendineae, not elsewhere classified; J81.0 Acute pulmonary edema; J96.01 Acute respiratory failure with hypoxia; J96.02 Acute respiratory failure with hypercapnia; N17.0 Acute kidney failure with tubular necrosis; R40.20 Unspecified coma; R57.0 Cardiogenic shock; B17.9 Acute viral hepatitis, unspecified; Q21.12 Patent foramen ovale; D59.4 Other nonautoimmune hemolytic anemias; D62 Acute posthemorrhagic anemia; D68.00 Von Willebrand disease, unspecified; E87.20 Acidosis, unspecified; G93.1 Anoxic brain damage, not elsewhere classified; I31.39 Other pericardial effusion (noninflammatory); I42.9 Cardiomyopathy, unspecified; I48.0 Paroxysmal atrial fibrillation; D69.6 Thrombocytopenia, unspecified; G25.0 Essential tremor; G25.3 Myoclonus; H57.04 Mydriasis; G47.33 Obstructive sleep apnea (adult) (pediatric); R56.9 Unspecified convulsions; Z20.822 Contact with and (suspected) exposure to COVID-19; Z79.82 Long term (current) use of aspirin; Z79.899 Other long term (current) drug therapy; Z87.01 Personal history of pneumonia (recurrent); Z95.2 Presence of prosthetic heart valve
CPT/HCPCS: 36600; 71045; 76604; 76770; 80048; 80053; 82150; 82330; 82728; 82805; 83010; 83540; 83550; 83605; 83615; 83690; 83735; 84466; 85025; 85027; 85045; 85379; 85384; 85610; 85730; 86022; 86160; 86162; 86706; 86850; 86891; 86900; 86901; 86920; 87070; 87205; 88305; 90935; 92950; 93306; 94002; 94003; 94640; 95822